=== PATIENT | female | born 1940 | race Caucasian/White ===

== ENCOUNTER 2020-04-14 02:48 | Outpatient (CLI) | payer MEDICARE, SELFPAY ==
[2020-04-14 18:40] LABS: SARS-CoV-2 RNA PCR Negative
== END 2020-04-14 02:49 | disposition home or self-care (01) ==
LOC: ANHCOVIDDT 02:48
PROVIDERS: PCP Internal Medicine; Visit Provider Internal Medicine Gastroenterology
DX: Z01.812 Encounter for preprocedural laboratory examination (principal); Z20.828 Contact with and (suspected) exposure to other viral communicable diseases
CPT/HCPCS: 87635; C9803; U0003

== ENCOUNTER 2020-04-16 00:59 | Day surgery (SDC) | payer MEDICARE, SELFPAY ==
[2020-04-12 08:40] VITALS: BMI 31.0
[2020-04-16 09:05] VITALS: BP 150/71; PULSE 70; RESP 20; TEMP 36.2; O2SAT 98
[2020-04-16] MEDS: LACTATED RINGERS 1,000 ML 150 ML IV CONT (09:21)
[2020-04-16] MEDS: GENTAMICIN 80MG/SOD CHL 50 ML 80 MG/50 ML BAG 100 MG IVPB (09:22)
--- NOTE | 2020-04-16 09:27 | WPDANESEPPF ---
Anes - Initial Pre Proc Eval Procedure: Operation Date: 04/16/20 10:00 Proposed Procedures p Esophagogastroduodenoscopy & Colonoscopy - Erasmo Owens MD Date/Time: 04/16/20 09:27 Surgeon: Erasmo Owens MD Pre Op Diagnosis: Reflux, Change In Bowel Habits Patient Data Age: 79 Gender: F Height: 5 ft 4 in Weight: 82.6 kg Last Vital Signs Temp 97.2 F L 04/16/20 09:05 Pulse 70 04/16/20 09:05 Resp 20 04/16/20 09:05 BP 150/71 H 04/16/20 09:05 Pulse Ox 98 04/16/20 09:05 Allergies Allergy/AdvReac Type Severity Reaction Status Date / Time No Known Allergies Allergy Unverified 04/12/20 08:31 Home Medications Medication Instructions Recorded Confirmed Type albuterol sulfate [ProAir 1 inh INHALATION Q4H PRN 04/12/20 04/12/20 History RespiClick] apixaban [Eliquis] 5 mg PO DAILY 04/12/20 04/12/20 History aspirin [Adult Low Dose Aspirin] 81 mg PO DAILY 04/12/20 04/12/20 History atorvastatin 10 mg PO DAILY 04/12/20 04/12/20 History denosumab [Prolia] 60 mg SUBCUT [id number] 04/12/20 04/12/20 History esomeprazole magnesium 20 mg PO DAILY 04/12/20 04/12/20 History ezetimibe 10 mg PO DAILY 04/12/20 04/12/20 History furosemide 20 mg PO DAILY PRN 04/12/20 04/12/20 History methimazole 5 mg PO EVERY OTHER DAY 04/12/20 04/12/20 History metoprolol tartrate 12.5 mg PO BID 04/12/20 04/12/20 History Patient hx anesthesia problems: none Family hx anesthesia problems: none PMFSH Past Medical History Medical History (Updated 04/16/20 @ 09:27 by Shaan Lu MD) Atrial fibrillation Congestive heart failure (CHF) no echo for review Hyperlipidemia Hypertension BANDAR (obstructive sleep apnea) Pacemaker Family History Family History (Updated 04/08/15 @ 08:34 by DOCTOR UNKNOWN) Other Diabetes mellitus Family history of cardiovascular disease Family history of malignant neoplasm Social History Social History Smoking status: Never smoker Alcohol intake: current Alcohol use details: WINE Substance use: never Substance use type: does not use Living arrangements: alone Spiritual care concerns: No Anes - Eval Final PreProcedure Day of Procedure 04/16/20 09:27 Patient weight: normal Heart: regular rate and rhythm Lungs: clear to auscultation Airway: Mallampati scale class II Neurological: alert and oriented Last oral intake: >/= 8 hours ASA classification: IV Emergent: no Anesthetic plan: proceed Anesthesia type and monitoring: general GIVS and standard monitoring Informed Consent: The patient's anesthetic plan and its attendant risks and benefits were discussed with the patient/family/POA. Questions were solicited and answers provided to the satisfaction of the patient/family/POA.
--- NOTE | 2020-04-16 09:29 | P.HP_ITS ---
History of Present Illness History of Present Illness Consent: Risks, benefits, and alternatives have been discussed and questions answered. Patient agrees to proceed with procedure. Chief complaint: Reflux, Change In Bowel Habits Narrative: Liliya Salinas is a 79 year old female who has had a significant change in bowel habits. She has been very constipated for the past year, this beginning after a couple of rounds of antibiotics. She also has had excessive belching. She has been treated for acid reflux but the belching is new [facility] Past Medical History Medical History (Updated 04/16/20 @ 09:30 by Erasmo Owens MD) Atrial fibrillation Congestive heart failure (CHF) no echo for review Hyperlipidemia Hypertension BANDAR (obstructive sleep apnea) Pacemaker Family History Family History Other Diabetes mellitus Family history of cardiovascular disease Family history of malignant neoplasm Social History Social History Smoking status: Never smoker Alcohol intake: current Alcohol use details: WINE Substance use: never Substance use type: does not use Living arrangements: alone Spiritual care concerns: No Meds Home Medications and Allergies Home Medications Medication Instructions Recorded Confirmed Type albuterol sulfate [ProAir 1 inh INHALATION Q4H PRN 04/12/20 04/12/20 History RespiClick] apixaban [Eliquis] 5 mg PO DAILY 04/12/20 04/12/20 History aspirin [Adult Low Dose Aspirin] 81 mg PO DAILY 04/12/20 04/12/20 History atorvastatin 10 mg PO DAILY 04/12/20 04/12/20 History denosumab [Prolia] 60 mg SUBCUT [id number] 04/12/20 04/12/20 History esomeprazole magnesium 20 mg PO DAILY 04/12/20 04/12/20 History ezetimibe 10 mg PO DAILY 04/12/20 04/12/20 History furosemide 20 mg PO DAILY PRN 04/12/20 04/12/20 History methimazole 5 mg PO EVERY OTHER DAY 04/12/20 04/12/20 History metoprolol tartrate 12.5 mg PO BID 04/12/20 04/12/20 History Allergies Allergy/AdvReac Type Severity Reaction Status Date / Time No Known Allergies Allergy Unverified 04/12/20 08:31 Vital Signs Vital Signs - 24 hr 04/16/20 09:05 Temperature 36.2 C L Pulse Rate 70 Respiratory Rate 20 Blood Pressure 150/71 H Pulse Oximetry 98 Exam Const: General: alert Orientation/consciousness: patient oriented x3 Resp: Auscultation: clear to auscultation bilaterally Cardio: Rhythm: regular rhythm GI: GI Palp: Yes Soft to palpation and No Tenderness to palpation present (GI) Neuro: General: patient oriented x3 Assessment and Plan Assessment and plan (1) GERD (gastroesophageal reflux disease): Code(s): K21.9 - Gastro-esophageal reflux disease without esophagitis Status: Acute Assessment and Plan: EGD with possible biopsy or dilatation or cautery. (2) Change in bowel habits: Code(s): R19.4 - Change in bowel habit Status: Acute Assessment and Plan: Colonoscopy with possible biopsy or polypectomy or cautery or injection of substances.
[2020-04-16] MEDS: BENZOCAINE (*SP) 60 ML SPRAY CAN (HURRICAINE) 1 SPRAY MUCOUS MEM (09:33)
[2020-04-16 10:04] VITALS: BP 89/45; PULSE 69; RESP 18; O2SAT 97
[2020-04-16 10:14] VITALS: BP 90/55; PULSE 69; RESP 15; O2SAT 98
[2020-04-16] MEDS: AMPICILLIN 2 GM/NS 100 ML 2 GM/100 ML BAG IVPB (10:23)
[2020-04-16 10:24] VITALS: BP 108/60; PULSE 69; RESP 17; O2SAT 99
[2020-04-16 10:34] VITALS: BP 111/60; PULSE 70; RESP 15; O2SAT 99
--- NOTE | 2020-04-16 10:39 | SUR.PHASEII ---
patient in Phase II for prolonged time due to antibiotic infusion.
[2020-04-16 10:44] VITALS: BP 129/65; PULSE 70; RESP 12; O2SAT 99
== END 2020-04-16 11:20 | disposition home or self-care (01) ==
PROVIDERS: PCP Internal Medicine; Visit Provider Internal Medicine Gastroenterology
PROC: 0DJ08ZZ Inspection of Upper Intestinal Tract, Via Natural or Artificial Opening Endoscopic (ICD-10-PCS; CPT 43235; principal; 2020-04-16 10:00)
DX: R19.4 Change in bowel habit (principal); D12.4 Benign neoplasm of descending colon; K63.5 Polyp of colon; K57.30 Diverticulosis of large intestine without perforation or abscess without bleeding; K21.9 Gastro-esophageal reflux disease without esophagitis; K44.9 Diaphragmatic hernia without obstruction or gangrene; I48.91 Unspecified atrial fibrillation; E78.5 Hyperlipidemia, unspecified; G47.33 Obstructive sleep apnea (adult) (pediatric); I11.0 Hypertensive heart disease with heart failure; I50.9 Heart failure, unspecified; Z95.0 Presence of cardiac pacemaker; Z79.82 Long term (current) use of aspirin; Z79.01 Long term (current) use of anticoagulants
CPT/HCPCS: 45385; 43235; 88305; J0290; J1580; J2704; J7120

== ENCOUNTER 2021-02-16 01:09 | Day surgery (SDC) | payer MEDICARE, SELFPAY ==
[2021-02-14 14:43] VITALS: BMI 31.0
--- NOTE | 2021-02-16 07:15 | WPDHPUPDATE1 ---
History and Physical Update Update Date/Time: 02/16/21 07:15 History and Physical has been reviewed, including an updated exam of the patient. There are NO changes in the patient's condition. Risks, benefits, and alternatives have been discussed and questions answered. Patient agrees to proceed with procedure.
[2021-02-16 08:19] VITALS: BP 142/48; PULSE 69; RESP 16; TEMP 36.3; O2SAT 98
--- NOTE | 2021-02-16 08:36 | SUR.PREOP ---
pt informed delay in procedure.
[2021-02-16] MEDS: LIDO 1%/EPINEPHRINE 1:100,000 20 ML VIAL 6 ML INFILTRATE (09:56)
[2021-02-16 10:00] VITALS: BP 148/68; PULSE 68; RESP 20; O2SAT 97
[2021-02-16 10:10] VITALS: BP 140/65; PULSE 68; RESP 20; O2SAT 95
[2021-02-16 10:20] VITALS: BP 137/64; PULSE 68; RESP 18; O2SAT 98
[2021-02-16] MEDS: BACITRACIN OINTMENT 15 GM TUBE 1 APPLIC TOPICAL (10:24)
[2021-02-16 10:30] VITALS: BP 154/72; PULSE 68; RESP 18; O2SAT 96
--- NOTE | 2021-02-16 10:46 | PM.OP ---
Procedure Note - Brief Procedure Note - Brief Date of procedure: 02/16/21 Pre-op diagnosis: Rt carpal tunnel syndrome,rt middle trigger finger Post-op diagnosis: same Procedure performed: R OCTR, release R middle trigger finger. Anesthesia: local Surgeon: Reza Alvarez MD Estimated blood loss (mL): 0 Drains: No Packing: No Pathology: none sent Complications: No immediate complications Condition: stable Disposition: same day
[2021-02-16 10:49] VITALS: BP 133/52; PULSE 72; RESP 16; O2SAT 98
--- NOTE | 2021-02-16 11:49 | W.PM.PROC2 ---
Procedure Note - Detailed Date of Procedure 02/16/21 Pre-op Diagnosis Rt carpal tunnel syndrome,rt middle trigger finger Post-op Diagnosis same Procedure Performed right open carpal tunnel release and right middle finger trigger release Surgeon Reza Alvarez MD Anesthesia local Description of Procedure the 2 sites on the patient's right hand were marked and she was taken to the operating room and placed supine on the operating table. Time-out was held and confirmed. The site was marked for the releases. Each site was infiltrated with 1% lidocaine with epinephrine. This extremity had been prepped and draped in usual fashion. The tourniquet was inflated 250 mmHg. The incision was made 1st in the palm. Blunt dissection revealed palmar aponeurosis. This and the transverse carpal ligament were incised with a 15. Blade. Under 3 point retraction the ligament was divided distally and proximally to completely release it. Upon entering that area and large neurovascular bundle was identified lying external to the ligament consistent with a median artery. This was retracted out of the way and preserved. The wound was closed with interrupted 5 0 nylon suture in a small bandage was applied. The tourniquet was released. The patient is discharged from the operating room in stable condition she is discharged home with a prescription for hydrocodone number 8 Estimated Blood Loss 0 Drains No Packing No Pathology none sent Complications No immediate complications Condition stable Disposition same day
== END 2021-02-16 11:08 | disposition home or self-care (01) ==
PROVIDERS: PCP Internal Medicine; Visit Provider Plastic Surgery
PROC: (CPT 64721; principal; 2021-02-16 09:00)
PROC: (CPT 26055; 2021-02-16 09:00)
DX: G56.01 Carpal tunnel syndrome, right upper limb (principal); M65.331 Trigger finger, right middle finger
CPT/HCPCS: 64721; 26055; A9270

== ENCOUNTER 2021-07-06 11:00 | Outpatient (CLI) | payer MEDICARE, SELFPAY | END 2021-07-06 11:01 | disposition home or self-care (01) | LOC: ANHAUDIO 11:02 | PROVIDERS: PCP Internal Medicine; Visit Provider Nurse Practitioner Family | DX: H90.3 Sensorineural hearing loss, bilateral (principal) | CPT/HCPCS: 92557; 92567 ==

== ENCOUNTER 2023-07-04 09:58 | Outpatient (CLI) | payer MEDICARE, SELFPAY ==
--- NOTE | 2023-07-04 11:30 | NEURO_ITS ---
Impression: # Complains of numbness of hands. # Bilateral Carpal Tunnel Syndrome. # Left ulnar neuropathy across the elbow. # Needle/EMG exam not ordered. Nerve Conduction Studies Anti Sensory Summary Table Stim Site NR Peak (ms) P-T Amp (?V) Site1 Site2 Delta-P (ms) Dist (cm) Avinash (m/s) Left Median Anti Sensory (2-3nd Digit) Wrist 4.6 18.9 Wrist 2-3nd Digit 4.6 14.0 30 Wrist 4.3 16.4 Wrist 2-3nd Digit 4.6 14.0 30 Right Median Anti Sensory (2-3nd Digit) Wrist 3.6 22.2 Wrist 2-3nd Digit 3.6 14.0 39 Wrist 3.9 26.9 Wrist 2-3nd Digit 3.6 14.0 39 Left Radial Anti Sensory (Base 1st Digit) Wrist 2.1 20.2 Wrist Base 1st Digit 2.1 0.0 Right Radial Anti Sensory (Base 1st Digit) Wrist 2.5 16.8 Wrist Base 1st Digit 2.5 0.0 Left Ulnar Anti Sensory (5th Digit) Wrist 2.4 18.4 Wrist 5th Digit 2.4 14.0 58 Right Ulnar Anti Sensory (5th Digit) Wrist 2.6 20.9 Wrist 5th Digit 2.6 14.0 54 Motor Summary Table Stim Site NR Onset (ms) O-P Amp (mV) Site1 Site2 Delta-0 (ms) Dist (cm) Avinash (m/s) Left Median Motor (Abd Poll Brev) Wrist 4.0 4.5 Elbow Wrist 5.1 30.0 59 Elbow 9.1 1.5 Right Median Motor (Abd Poll Brev) Wrist 4.5 2.1 Elbow Wrist 4.8 28.0 58 Elbow 9.3 3.7 Left Ulnar Motor (Abd Dig Minimi) Wrist 2.4 5.5 A Elbow Wrist 1.3 0.0 A Elbow 3.7 6.2 Left Ulnar Motor Run #2 (Abd Dig Minimi) Wrist 2.5 6.5 A Elbow Wrist 5.8 29.0 50 A Elbow 8.3 4.4 B Elbow Wrist 3.7 22.0 59 B Elbow 6.2 4.9 Right Ulnar Motor (Abd Dig Minimi) Wrist 2.7 6.2 A Elbow Wrist 4.9 29.0 59 A Elbow 7.6 4.1 F Wave Studies NR F-Lat (ms) L-R F-Lat (ms) Left Median (Mrkrs) (Abd Poll Brev) 29.47 0.06 Right Median (Mrkrs) (Abd Poll Brev) 29.53 0.06 Left Ulnar (Mrkrs) (Abd Dig Min) 29.06 0.00 Right Ulnar (Mrkrs) (Abd Dig Min) 29.06 0.00 MTDD
== END 2023-07-04 09:59 | disposition home or self-care (01) ==
LOC: ANHNEURO 09:59
PROVIDERS: PCP Internal Medicine; Visit Provider Plastic Surgery
DX: G56.03 Carpal tunnel syndrome, bilateral upper limbs (principal); G56.22 Lesion of ulnar nerve, left upper limb; R20.1 Hypoesthesia of skin
CPT/HCPCS: 95911

== ENCOUNTER 2023-08-30 15:07 | Outpatient (CLI) | payer MEDICARE, SELFPAY ==
[2023-08-30 15:28] LABS: Basophils Percent Auto 0.5 % (0.2-1.2); Eosinophils Absolute Auto 0.1 K/mm3 (0-0.3); Eosinophils Percent Auto 1.1 % (0-4.4); Hematocrit 36.9 % (37.0-47.0); Hemoglobin 11.4 g/dL (12.0-15.0); Immature Granulocyte Absolute 0.02 K/mm3 (0.00-0.031); Immature Granulocyte Percent A 0.3 % (0-0.5); Lymphocytes Absolute Auto 1.96 K/mm3 (0.9-3.2); Lymphocytes Percent Auto 29.8 % (18.3-44.2); Mean Corpuscular HGB Conc 30.9 g/dl (32-36); Mean Corpuscular Hemoglobin 28.4 pg (26-34); Mean Corpuscular Volume 91.8 fl (80-100); Mean Platelet Volume 9.1 fl (7.4-10.4); Monocytes Absolute Auto 0.4 K/mm3 (0.1-0.6); Monocytes Percent Auto 6.5 % (2.6-8.5); Neutrophils Absolute Auto 4.1 K/mm3 (1.3-6.7); Neutrophils Percent Auto 61.8 % (45.5-73.1); Platelet Count Result 143 k/mm3 (150-375); Red Blood Count 4.02 M/mm3 (4.2-5.4); Red Cell Distribution Width 14.6 % (11.5-14.5); White Blood Count 6.6 K/mm3 (4.5-10.0)
[2023-08-30 17:24] LABS: Iron 67 ug/dL (37-170)
[2023-08-30 17:31] LABS: Alanine Aminotransferase 11 U/L (6-35); Albumin Level 3.6 g/dL (3.5-5.1); Alkaline Phosphatase 82 U/L (38-126); Anion Gap 4 mmol/L (8-16); Aspartate Amino Transferase 23 U/L (14-36); Bilirubin,Total 0.7 mg/dL (0.2-1.3); Blood Urea Nitrogen 19 mg/dL (7-17); Calcium 9.3 mg/dL (8.4-10.2); Carbon Dioxide 29 mmol/L (22-30); Chloride 105 mmol/L (98-107); Estimated Glomerular Filt Rate > 60; Glucose 96 mg/dL (65-110); Potassium 4.2 mmol/L (3.4-5.0); Sodium 138 mmol/L (137-145)
[2023-08-30 17:40] LABS: Percent Iron Saturation 22 % (20-50)
[2023-08-30 18:32] LABS: Folic Acid 6.1 ng/mL (2.76->20)
[2023-09-03 03:12] LABS: Methylmalonic Acid 339 nmol/L (87-318)
[2023-09-05 15:37] LABS: Soluble Transferrin Receptor 1.54 mg/L (0.76-1.76)
[2023-09-05 19:33] LABS: Platelet Antibody, Direct NEGATIVE (NEGATIVE)
== END 2023-08-30 15:08 | disposition home or self-care (01) ==
LOC: ANHLAB 15:10
PROVIDERS: Nurse Practitioner Family; PCP Internal Medicine; Visit Provider Internal Medicine Hematology & Oncology
DX: D64.9 Anemia, unspecified (principal); D69.6 Thrombocytopenia, unspecified
CPT/HCPCS: 36415; 80053; 82607; 82728; 82746; 83540; 83550; 83921; 84238; 85025; 86023

== ENCOUNTER 2023-09-13 08:34 | Outpatient (CLI) | payer MEDICARE, SELFPAY ==
--- NOTE | ~2023-09-13 | US_ITS ---
Abdominal Sonogram: Real-time sonographic imaging of the abdomen was performed. Clinical History: Chronic anemia Findings: The liver appears normal with no evidence of mass lesion or bile duct dilatation. Main por isrrael vein demonstrates normal direction of flow. The spleen is normal in size without evidence of foca l lesion. The gallbladder is absent, compatible prior cholecystic and. The common bile duct measures 6 mm. The visualized pancreas, aorta, and IVC are unremarkable. The right kidney measures 9.5 cm i n length and the left kidney measures 10.1 cm. There is no hydronephrosis or renal calculus. Impression: Status post cholecystectomy, otherwise unremarkable exam. Reviewed, dictated and finalized at location . [employer] IN[employer] Impression: Status post cholecystectomy, otherwise unremarkable exam.
== END 2023-09-13 08:35 | disposition home or self-care (01) ==
LOC: ANHIMG 08:36
PROVIDERS: PCP Internal Medicine; Visit Provider Internal Medicine Hematology & Oncology
DX: D64.9 Anemia, unspecified (principal); Z90.49 Acquired absence of other specified parts of digestive tract
CPT/HCPCS: 76700

== ENCOUNTER 2023-12-11 08:14 | Outpatient (CLI) | payer MEDICARE, SELFPAY ==
[2023-12-11 08:33] LABS: Basophils Percent Auto 0.6 % (0.2-1.2); Eosinophils Absolute Auto 0.1 K/mm3 (0-0.3); Eosinophils Percent Auto 2.2 % (0-4.4); Hematocrit 36.4 % (37.0-47.0); Hemoglobin 11.5 g/dL (12.0-15.0); Immature Granulocyte Absolute 0.02 K/mm3 (0.00-0.031); Immature Granulocyte Percent A 0.3 % (0-0.5); Lymphocytes Absolute Auto 1.42 K/mm3 (0.9-3.2); Lymphocytes Percent Auto 22.1 % (18.3-44.2); Mean Corpuscular HGB Conc 31.6 g/dl (32-36); Mean Corpuscular Hemoglobin 29.4 pg (26-34); Mean Corpuscular Volume 93.1 fl (80-100); Monocytes Absolute Auto 0.6 K/mm3 (0.1-0.6); Monocytes Percent Auto 8.6 % (2.6-8.5); Neutrophils Absolute Auto 4.3 K/mm3 (1.3-6.7); Neutrophils Percent Auto 66.2 % (45.5-73.1); Platelet Count Result 130 k/mm3 (150-375); Red Blood Count 3.91 M/mm3 (4.2-5.4); Red Cell Distribution Width 13.2 % (11.5-14.5); White Blood Count 6.4 K/mm3 (4.5-10.0)
[2023-12-11 09:51] LABS: Anion Gap 5 mmol/L (4-12); Blood Urea Nitrogen 25 mg/dL (7-17); Calcium 9.3 mg/dL (8.4-10.2); Carbon Dioxide 28 mmol/L (22-30); Chloride 108 mmol/L (98-107); Estimated Glomerular Filt Rate > 60; Glucose 94 mg/dL (65-110); Sodium 141 mmol/L (137-145)
[2023-12-11 10:56] LABS: Folic Acid 6.3 ng/mL (2.76->20)
== END 2023-12-11 08:15 | disposition home or self-care (01) ==
LOC: ANHLAB 08:17
PROVIDERS: Nurse Practitioner Family; PCP Internal Medicine; Visit Provider Internal Medicine Hematology & Oncology
DX: D64.9 Anemia, unspecified (principal)
CPT/HCPCS: 36415; 80048; 82607; 82746; 85025

== ENCOUNTER 2024-04-14 11:32 | Outpatient (CLI) | payer MEDICARE, SELFPAY ==
[2024-04-14 11:50] LABS: Basophils Percent Auto 0.5 % (0.2-1.2); Eosinophils Absolute Auto 0.1 K/mm3 (0-0.3); Eosinophils Percent Auto 0.6 % (0-4.4); Hematocrit 34.4 % (37.0-47.0); Hemoglobin 10.6 g/dL (12.0-15.0); Immature Granulocyte Absolute 0.03 K/mm3 (0.00-0.031); Immature Granulocyte Percent A 0.3 % (0-0.5); Lymphocytes Absolute Auto 1.45 K/mm3 (0.9-3.2); Lymphocytes Percent Auto 16.3 % (18.3-44.2); Mean Corpuscular HGB Conc 30.8 g/dl (32-36); Mean Corpuscular Hemoglobin 29.9 pg (26-34); Mean Corpuscular Volume 96.9 fl (80-100); Mean Platelet Volume 9.2 fl (7.4-10.4); Monocytes Absolute Auto 0.9 K/mm3 (0.1-0.6); Monocytes Percent Auto 9.6 % (2.6-8.5); Neutrophils Absolute Auto 6.5 K/mm3 (1.3-6.7); Neutrophils Percent Auto 72.7 % (45.5-73.1); Platelet Count Result 118 k/mm3 (150-375); Red Blood Count 3.55 M/mm3 (4.2-5.4); Red Cell Distribution Width 12.8 % (11.5-14.5); White Blood Count 8.9 K/mm3 (4.5-10.0)
[2024-04-14 13:35] LABS: Iron 26 ug/dL (37-170)
[2024-04-14 13:40] LABS: Anion Gap 4 mmol/L (4-12); Blood Urea Nitrogen 20 mg/dL (7-17); Calcium 8.7 mg/dL (8.4-10.2); Carbon Dioxide 30 mmol/L (22-30); Chloride 99 mmol/L (98-107); Estimated Glomerular Filt Rate > 60; Glucose 109 mg/dL (65-110); Potassium 3.9 mmol/L (3.4-5.0); Sodium 133 mmol/L (137-145)
[2024-04-14 13:47] LABS: Percent Iron Saturation 9 % (20-50)
[2024-04-14 14:44] LABS: Folic Acid 11.6 ng/mL (2.76->20)
== END 2024-04-14 11:33 | disposition home or self-care (01) ==
LOC: ANHLAB 11:34
PROVIDERS: Nurse Practitioner Family; PCP Internal Medicine; Visit Provider Internal Medicine Hematology & Oncology
DX: D64.9 Anemia, unspecified (principal)
CPT/HCPCS: 36415; 80048; 82607; 82728; 82746; 83540; 83550; 85025

== ENCOUNTER 2024-09-19 19:25 | Inpatient (IN) | payer MEDICARE, SELFPAY ==
--- NOTE | ~2024-09-19 | XR_ITS ---
XR chest 1V Ordering provider: Willard lEena History: 84 years Female with . SOB, cough . Comparison: None. FINDINGS: MEDIASTINUM: The cardiac silhouette is slightly enlarged. Left bipolar pacemaker. Postoperative kilpatrick es seen in the mediastinum. Prominent alfredo. LUNGS: No effusions or pneumothorax. Bilateral interstitial thickening is seen more prominent in the right lower lobe which may indicate pneumonitis. Clinical correlation and follow-up advised. Mild emphysematous and fibrotic changes. OTHER: No free air under the diaphragm. IMPRESSION: Highly suggestive of pneumonitis more prominent in the right lower lobe. Reviewed, dictated and finalized at location A. L OPPORTUNITY COUNSELOR
--- NOTE | ~2024-09-19 | CT_ITS ---
EXAMINATION: CTA chest PE protocol DATE: 09/20/2024 01:21 INDICATION: Shortness of breath. Elevated d-dimer. TECHNIQUE: Computed tomography (CT) pulmonary angiogram of the chest was performed with 100 mL Omnipa que-350 intravenous contrast. Additional 3D reconstructions utilizing coronal maximum intensity proje ction (MIP) were performed. Automated exposure control and iterative reconstruction technique were em ployed. The dose-length product was 346.36 mGy-cm. COMPARISON: None FINDINGS: No pulmonary embolism. Sensitivity decreased in some of the smaller subsegmental pulmonary arteries p rimarily at the upper lung zones due to combination of good but suboptimal contrast opacification, mi ld to moderate respiratory motion artifact and streak artifact. Consolidation in the bilateral lower lobes with smaller patchy regions of consolidation in the right upper lobe and lingula. Extensive jared e-in-bud opacities more diffusely lobes of both lungs consistent with endobronchial spread of disease and pneumonia. Tiny bilateral pleural effusions. Mild cardiomegaly. Atherosclerotic coronary artery calcification. Median sternotomy wires changes of prior coronary artery bypass grafting and aortic, m itral and tricuspid valve repairs. Dual lead pacemaker seen with lead tips at the right atrium and ri ght apex of the ventricle. No pericardial effusion. Thoracic aorta is normal in caliber with no disse ction. There is enlargement of the central pulmonary arteries consistent with pulmonary arterial hype rtension. Multinodular goiter. There is thoracic lymphadenopathy which likely reactive. 3.6 cm macros copic fat containing right adrenal mass consistent with a myelolipoma. Moderate thoracic spondylosis with bridging osteophytes at multiple levels consistent with diffuse idiopathic skeletal hyperostosis (DISH). IMPRESSION: 1. No pulmonary embolism. Sensitivity decreased in the smaller subsegmental pulmonary arteries due to primarily to respiratory motion and streak artifact. 2. Multifocal pneumonia throughout both lungs 3. Cardiomegaly with left atrial enlargement and change of prior coronary artery bypass grafting and aortic, mitral and tricuspid valve repairs. 4. Enlargement of the central pulmonary arteries consistent with pulmonary arterial hypertension. 5. Multinodular goiter. 6. 3.6 cm right adrenal myelolipoma. Reviewed, dictated and finalized at location A. RNET [employer]ER[employer] SPECIALIST IMPRESSION: 1. No pulmonary embolism. Sensitivity decreased in the smaller subsegmental pul monary arteries due to primarily to respiratory motion and streak artifact. 2. Multifocal pneumonia throughout both lungs 3. Cardiomegaly with left atrial enlargement and change of prior coronary arter y bypass grafting and aortic, mitral and tricuspid valve repairs. 4. Enlargement of the central pulmonary arteries consistent with pulmonary travis rial hypertension. 5. Multinodular goiter. 6. 3.6 cm right adrenal myelolipoma.
--- OUTSIDE RECORDS SUMMARY | 2024-09-19 19:28 | XMS_ITS | Continuity of Care Document ---
Author Organization [facility] Address [address] [place] [address] [place] [address] Phone Care Team Providers Care Nutrition Helper Name Role Phone Davis OD, Myke Unavailable Unavailable Procedures Procedure Date Office/outpatient Visit, Est Office/outpatient Visit, Est Office/outpatient Visit, New Advance Directives Directive Yes / No Effective Date File Name No Information Encounters Encounter Description Practice Location Reason(s) For Visit Diagnoses Date Provider Providers Copied on Encounter Office/[place]pat [place], [facility] [address] [place] [address] [address], [place], [place], [id number], tel:[phone] [facility] No Information Feb-1 0-200 7 Davis OD Myke. [address] , [address], [place], [place], [facility], [place]. tel:[phone] Office/outpat [place], [facility] [address] [place] [address] [address], [place], [place], [id number], [place] tel:[phone] [facility] No Information Aug-0 4-200 7 Davis OD Myke. [address] , [address], [place], [place], [facility], [place]. tel:[phone] Referring Provider: Myke Titus, [facility], [place], [place], [facility]. tel:[phone] Office/outpat ient Visit, [facility], [address] [place] [address] [address], [place], [place], [id number], [place] tel:[phone] [facility] No Information 200 7 Lana Pedraza. [address] , [address], [place], [address], [place]. tel:[phone] Family History Family Member Type Diagnosis Age At Onset No Information Payers Payer name Insurance type Covered alliance party ID Authoriza tion(s) Medicare PR CI [id number] BCBS PR Commercial CI [id number] Social History Type Description Quantity Date Captured Comments Sex Female Smoking Status No Information Chief Complaint And Reason For Visit No Information Reason For Referral Reason For Referral No Information History Of Present Illness Encounter Date Complaint History Of Prese nt Illness No Information Functional Status Date Functional Assessmen t No Information Instructions Date Instruction Additional Infor mation No Information Assessments Type Assessment Date No Information Patient Care Teams Name Effective Dates (start - stop) Status Members No Information
--- OUTSIDE RECORDS SUMMARY | 2024-09-19 19:28 | XMS_ITS | Continuity of Care Document ---
Author Organization [facility] Address [address] [place] [address] Phone Care Team Providers Care Production Tech Name Role Phone Robert Rene Unavailable Unavailable Procedures Procedure Date Progress Note Therapeutic Activities Neuromuscular Re-Ed Therapeutic Activities Neuromuscular Re-Ed Therapeutic Activities Neuromuscular Re-Ed Therapeutic Activities Neuromuscular Re-Ed Therapeutic Activities Neuromuscular Re-Ed Therapeutic Activities Neuromuscular Re-Ed Therapeutic Activities Neuromuscular Re-Ed Doc neg elder mal no plan PRES/ABSN URINE INCON ASSESS Identified as not an unhealthy alcohol u ser Not identified as unhealthy alcohol via screening OT Evaluation Low Complexity Therapeutic Activities Neuromuscular Re-Ed Advance Directives Directive Yes / No Effective Date File Name No Information Encounters Encounter Description Practice Location Reason(s) For Visit Diagnoses Date Provider Providers Copied on Encounter [facility], [place], [place], [id number], tel:[phone] [place] No Information Mina Jones. . [facility], [place], [place], [id number], tel:[phone] [place] No Information Scott-1 2-202 4 Enriquez Robert. . Referring Provider: iKrstie Fish, [address] [place] [address] [address], [place], [address]. tel:[phone] [place], [place] [address], [place], [place], [id number], tel:[phone] [place] No Information Scott-1 0-202 4 Enriquez Robert. . Referring Provider: Kirstie Fish, [address] [place] [address] [address], [place], [address]. tel:[phone] [place] [address] [address], [place], [place], [id number], [place] tel:[phone] [place] No Information Scott-0 5-202 4 Enriquez Robert. . Referring Provider: Kirstie Fish, [address] [place] [address] [address], [place], [address]. tel:[phone] [place] [address] [place], [place] [address], [place], [place], [id number], [place] tel:[phone] [place] [address] No Information Scott-0 3-202 4 Enriquez Robert. . Referring Provider: Kirstie Fish, [address] [place] [address] [address], [place], [address]. tel:[phone] [place], [place] [address], [place], [place], [address], [place] tel:[phone] [place] No Information May-3 1-202 4 Enriquez Robert. . Referring Provider: Kirstie Fish, [address] [place] [address] [address], [place], [address]. tel:[phone] [address], [place], [place], [id number], [place] tel:[phone] [place] No Information May-2 9-202 4 Enriquez Robert. . Referring Provider: Kirstie Fish, [address] [place] [address] [address], [place], [address]. tel:[phone] [place] [address] [address], [place], [place], [address], tel:[phone] [place] No Information 4 Mina Jones. . Referring Provider: Kirstie Fish, [address], [place], [address]. tel:[phone] [facility] [address], [place], [place], [address], tel:[phone] [place] No Information 4 Mina Jones. . Referring Provider: Kirstie Fish, [address], [place], [address]. tel:[phone] Family History Family Member Type Diagnosis Age At Onset No Information Payers Payer name Insurance type Covered green party ID Authoriza tion(s) Medicare [place] MB [id number] [facility] [id number] Social History Type Description Quantity Date Captured [...]
--- OUTSIDE RECORDS SUMMARY | 2024-09-19 19:28 | XMS_ITS | Referral Summary ---
Author Organization [facility] Address [address] [place] [address] Care Team Providers Care Marketing Program Coordinator Name Role Phone Lawrence Thomas MD Unavailable [phone] Michael Abrams MD Primary Care Provider [phone] Source Comments [facility],non-owned Affiliates and Associated Physician Practices is amultiple site organization consisting of ambulatory clinics and hospital sitesin [place], [place], [place] and [place]. This disclosure is being madepursuant to the Care Everywhere program and may not contain all information available regarding this patient. Last updated 18.[facility] Allergies No known active allergies Medications * Be aware that medications may not be up to date on this document. Alwaysverify current medications with the patient. Medication Sig Dispensed Refills Start Date End Date Status fluticasone-vilanter ol (Breo Ellipta) 100-25 MCG/ACT inhaler Inhale 1 puff every day by inhalation route for 90 days. Active vitamin D3 (Cholecalciferol) 25 MCG (1000 UNITS) tablet TAKE 1 CAPSULE DAILY IN THE MORNING Active gabapentin (Neurontin) 600 MG tablet Take 1 tablet 3 times a day by oral route for 90 days. Active Ergocalciferol (Vitamin D2) 10 MCG (400 UNIT) Take 1 capsule every week by oral route for 90 days. Active Eliquis 5 MG tablet Take 1 tablet every day by oral route for 90 days. 12/18/2023 Active aspirin EC (Ecotrin) 81 MG tablet Take 1 (one) tablet by mouth once daily Active atorvastatin (Lipitor) 10 MG tablet Take 1 (one) tablet by mouth once daily Active furosemide (Lasix) 20 MG tablet Take 1 (one) tablet by mouth once daily Active lisinopril (Prinivil; Zestril) 10 MG tablet 10/31/2022 Active metoprolol tartrate IR (Lopressor) 25 MG tablet Take 1 tablet twice a day by oral route. Active Active Problems Problem Noted Date Diagnosed Date Abdominal gas pain 04/02/2024 Amnesia 04/02/2024 Hip pain 04/02/2024 Atrial fibrillation 04/02/2024 Blood in urine 04/02/2024 Congestive heart failure 04/02/2024 Biliary dyskinesia 04/02/2024 Gastroesophageal reflux disease 04/02/2024 Hyperlipidemia 04/02/2024 Goiter 04/02/2024 Low back pain 04/02/2024 Neuropathy 04/02/2024 Osteoporosis 04/02/2024 Benign essential hypertension 04/02/2024 Shoulder pain 04/02/2024 Vitamin D deficiency 04/02/2024 Anemia 01/29/2024 Skin lesion 01/29/2024 Polyneuropathy 10/04/2023 Thrombocytopenic disorder 08/22/2023 Pain in joint of left shoulder 03/15/2023 Pain in joint of right shoulder 02/15/2023 Symptoms involving urinary system 09/04/2022 Otalgia of right ear 07/26/2022 Ingrowing toenail 05/30/2022 Contact with and (suspected) exposure to other viral communicable diseases 04/28/2022 Skin eruption 04/11/2022 Dystrophia unguium 02/23/2022 Pain in toe 02/23/2022 COVID-19 01/20/2022 Prediabetes 09/07/2021 Hx of tricuspid valve repair 05/02/2021 Other specified postprocedural states 05/02/2021 Encounter for preprocedural cardiovascular exami nation 11/26/2020 Osteopenia 10/11/2020 Overactive bladder 10/11/2020 Chronic diastolic (congestive) heart failure Chronic obstructive pulmonary disease 03/05/2020 Chronic obstructive pulmonary disease 02/06/2020 Leg numbness 05/05/2019 Peroneal tendinitis 12/17/2018 Ankle pain 12/10/2018 Heart disease 12/10/2018 Heartburn 12/10/2018 Iron deficiency anemia 11/19/2018 Shortness of breath 05/07/2018 Epistaxis 05/03/2018 Hyperglycemia 03/05/2018 Arteriosclerosis of coronary artery 10/17/2017 Overview (04/02/2024): mild caroti plaquer Restrictive lung disease 10/17/2017 Aortic stenosis 06/21/2016 Sleep apnea 11/19/2015 Hyperthyroidism 03/24/2015 Dizziness 01/15/2015 Primary hypertension 01/15/2015 Mitral regurgitation 12/25/2014 Edema 08/18/2013 longterm (current) use of anticoagulants 2013 Dyslipidemia 07/23/1959 Resolved Problems Problem Noted Date Diagnosed Date Resolved Date Pneumonia 04/02/2024 04/30/2024 Acute upper respiratory infection 07/23/2023 04/16/2024 Constipation 09/04/2022 04/30/2024 Acute urinary tract infection 08/01/2022 04/16/2024 Cough 01/19/2022 04/30/2024 Social History Tobacco Use Types Packs/Day Years Used Date Smoking Tobacco: Never Assessed Sex and Gender Information Value Date Recorded Sex Assigned at Not on file Gender Identity Not on file Sexual Orientation Not on file Plan of Treatment Not on file Care Teams Marketing Program Coordinator Relationship Specialty Start Date End Date Michael Abrams MD [address] [facility] [address] [place] [address] PCP - General Internal Medicine 04/02/24 Lawrence Thomas MD [address] [place] [id number] Dermatology 03/10/24
--- OUTSIDE RECORDS SUMMARY | 2024-09-19 19:28 | XMS_ITS | Patient Health Summary ---
Author Organization [facility] Address [address] [place] [address] Care Team Providers Care Electric Spot Welder Name Role Phone Lawrence Thomas MD Unavailable [phone] Michael Abrams MD Primary Care Provider Note from Formerly named [facility],non-owned Affiliates and Associated Physician Practices is amultiple site organization consisting of ambulatory clinics and hospital sitesin [place], [place], [place] and [place]. This disclosure is being madepursuant to the Care Everywhere program and may not contain all information available regarding this patient. Last updated 18.[facility] Allergies No known active allergies Medications * Be aware that medications may not be up to date on this document. Alwaysverify current medications with the patient. * fluticasone-vilanterol (Breo Ellipta) 100-25 MCG/ACT inhaler Inhale 1 puff every day by inhalation route for 90 days. * vitamin D3 (Cholecalciferol) 25 MCG (1000 UNITS) tablet TAKE 1 CAPSULE DAILY IN THE MORNING * gabapentin (Neurontin) 600 MG tablet Take 1 tablet 3 times a day by oral route for 90 days. * Ergocalciferol (Vitamin D2) 10 MCG (400 UNIT) Take 1 capsule every week by oral route for 90 days. * Eliquis 5 MG tablet(Started 12/18/2023) Take 1 tablet every day by oral route for 90 days. * aspirin EC (Ecotrin) 81 MG tablet Take 1 (one) tablet by mouth once daily * atorvastatin (Lipitor) 10 MG tablet Take 1 (one) tablet by mouth once daily * furosemide (Lasix) 20 MG tablet Take 1 (one) tablet by mouth once daily * lisinopril (Prinivil; Zestril) 10 MG tablet(Started 10/31/2022) * metoprolol tartrate IR (Lopressor) 25 MG tablet Take 1 tablet twice a day by oral route. 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 * [facility] CHMSRG MOHS MG TQ H/N/H/F/G 1ST STAG 5 BLOC(Performed 04/02/2024) 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 * NH INTMD WND REPAIR FACE,FACIAL 2.5-5(Performed 04/02/2024) Performed for Squamous cell carcinoma of forehead * NH CHMSRG MOHS MG TQ H/N/H/F/G 1ST STAG 5 BLOC(Performed 04/02/2024) Performed for Squamous cell carcinoma of forehead * DERMATOPATHOLOGY(Performed 03/04/2024) * DERMATOPATHOLOGY(Performed 09/25/2017) Results * NH CHMSRG MOHS MG TQ H/N/H/F/G 1ST STAG 5 BLOC, NH INTMD WND REPAIR FACE,FACIAL 2.5-5 (04/02/2024 1:56 PM CDT) Narrative Josie Mcgregor MD - 04/02/2024 1:56 PM CDT Josie Mcgregor MD 04/02/2024 5:49 PM Mohs Micrographic Surgery Operative Note Procedure: Mohs micrographic surgery Date of service: 04/02/2024 Location: L lateral forehead 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 No other physician was involved in the cancer removal or pathology interpretation. Assistants: Resident Physician Dandre Flores MD Indications for Mohs Surgery Removal of the patient's tumor is complicated by the following clinical features: Clinical area critical for tissue conservation (Area M: cheeks, forehead, scalp, neck, jawline, pretibial surface). Based on my medical judgement, Mohs surgery is the most appropriate treatment for this cancer compared to other treatments. I discussed alternative treatments to Mohs surgery and specifically discussed the risks and benefits of curettage, excision with permanent sections, and foregoing treatment. The rationale for Mohs was explained to the patient and consent was obtained. The risks, benefits and alternatives to therapy were discussed in detail. Specifically, the risks of infection, scarring, bleeding, prolonged wound healing, incomplete removal, allergy to anesthesia, nerve injury and recurrence were addressed. Prior to the procedure, the treatment site was clearly identified and confirmed by the patient. All components of [place] Protocol/PAUSE Rule completed. STAGE I: The patient was placed on the operating table. The cancer was identified and outlined. The entire surgical field was prepped with hibiclens. The surgical site was anesthetized using Lidocaine 1% with epinephrine 1:100,000 buffered with sodium bicarbonate 8.4% in a 1:10 ratio.The area of clinically apparent tumor was debulked with a 4 mm curette. The layer of tissue was then surgically excised using a #15 blade and was then transferred onto a specimen sheet maintaining the orientation of the specimen. Hemostasis was obtained using monopolar electrodesiccation. The wound site was then covered with a dressing while the tissue samples were processed for examination. The specimen was oriented, mapped and divided. Each section was then inked and processed in the Mohs lab using the Mohs protocol and submitted for frozen section. The histopathologic sections were reviewed by the surgeon in conjunction with the reference map. Total blocks: 1 Total slides: 3 Frozen sections were examined by the surgeon. No additional tumor was identified. No additional histologic findings appreciated. Cell morphology: N/A. No tumor seen at the margin. Pathological pattern: N/A. No tumor seen. Depth of invasion: N/A. No tumor seen. Scar tissue: Present Perineural invasion: Present Inflammation obscuring possible tumor presence: Not Present [place] [facility] CLIA # [id number] Mohs confectionery laboratory manager: Josie Mcgregor MD REPAIR: Intermediate Primary Surgeon: Josie Mcgregor MD Transitional Kindergarten Teacher: Resident Physician Dandre Flores MD Repair Size: 4 cm Sutures: 4-0 monocryl, 5-0 fast absorbing gut The defect was identified and a marking pen was used to plan the repair. The area was infiltrated with Lidocaine 1% with epinephrine 1:100,000 buffered with sodium bicarbonate 8.4% in a 1:10 ratio, prepped with hibiclens and draped with sterile towels. The wound was debeveled and undermined widely. Cones were excised within relaxed skin tension lines on both sides of the defect. Hemostasis was obtained using monopolar electrodesiccation. The dermis and subcutaneous tissue were then approximated using buried vertical mattress sutures. Percutaneous simple running sutures were carefully placed for maximum eversion and meticulous wound edge approximation. Careful attention was paid to avoid distorting any nearby free margins. The wound was cleansed with saline and ointment was applied along the wound surface. A sterile pressure dressing was applied. Wound care instructions were given verbally and in writing. The patient left the operating suite in stable condition. Patient was informed that additional refinement of the resulting surgical scar may be used as a second stage of this reconstruction. No postoperative medications were prescribed. The patient will follow up with their primary commissioner of conciliation. Dandre Flores MD Dermatology Resident PGY-3 A procedure was performed. I present for the pritchard portion of the procedure and was always immediately available. Date of Service : 04/02/2024 Josie Mcgregor MD Josie Mcgregor MD PROCEDURE/MINOR SURG ICAL ORDERABLES * [facility] CHMSRG MOHS MG TQ H/N/H/F/G 1ST STAG 5 BLOC, NH INTMD WND REPAIR FACE,FACIAL 2.5-5 (04/02/2024 1:55 PM CDT) Narrative Josie Mcgregor MD - 04/02/2024 1:55 PM CDT Josie Mcgregor MD 04/02/2024 5:50 PM Mohs Micrographic Surgery Operative Note Procedure: Mohs micrographic surgery Date of service: 04/02/2024 Location: R forehead Preop diagnosis: Squamous cell carcinoma Postop diagnosis: Squamous cell carcinoma Mohs AUC score: 8 Number of stages: 2 Preop size: 1.0x1.0 cm Postop size: 1.8x1.8 cm Depth of final defect: adipose Previous dermpath accession #: [id number] Repair type: intermediate Mohs accession #: [id number] Surgeon and Pathologist: Josie Mcgregor MD served as both surgeon and pathologist. No other physician was involved in the cancer removal or pathology interpretation. Assistants: Resident Physician Dandre Flores MD Indications for Mohs Surgery Removal of the patient's tumor is complicated by the following clinical features: Clinical area critical for tissue conservation (Area M: cheeks, forehead, scalp, neck, jawline, pretibial surface). Based on my medical judgement, Mohs surgery is the most appropriate treatment for this cancer compared to other treatments. I discussed alternative treatments to Mohs surgery and specifically discussed the risks and benefits of curettage, excision with permanent sections, and foregoing treatment. The rationale for Mohs was explained to the patient and consent was obtained. The risks, benefits and alternatives to therapy were discussed in detail. Specifically, the risks of infection, scarring, bleeding, prolonged wound healing, incomplete removal, allergy to anesthesia, nerve injury and recurrence were addressed. Prior to the procedure, the treatment site was clearly identified and confirmed by the patient. All components of [place] Protocol/PAUSE Rule completed. STAGE I: The patient was placed on the operating table. The cancer was identified and outlined. The entire surgical field was prepped with hibiclens. The surgical site was anesthetized using Lidocaine 1% with epinephrine 1:100,000 buffered with sodium bicarbonate 8.4% in a 1:10 ratio.The area of clinically apparent tumor was debulked with a 4 mm curette. The layer of tissue was then surgically excised using a #15 blade and was then transferred onto a specimen sheet maintaining the orientation of the specimen. Hemostasis was obtained using monopolar electrodesiccation. The wound site was then covered with a dressing while the tissue samples were processed for examination. The specimen was oriented, mapped and divided. Each section was then inked and processed in the Mohs lab using the Mohs protocol and submitted for frozen section. The histopathologic sections were reviewed by the surgeon in conjunction with the reference map. Total blocks: 1 Total slides: 3 Frozen sections were examined by the surgeon and revealed residual tumor. Tumor was indicated in red on the reference map. Cell morphology: tumor nodules of atypical squamous cells in the epidermis and dermis with abundant keratinization (well differentiated SCC) Pathological pattern: Squamous cell carcinoma, well differentiated Depth of invasion: Dermis Scar tissue: Not Present Perineural invasion: Not Present Inflammation obscuring possible tumor presence: Not Present STAGE II: The patient was prepped in the same fashion as the first stage. Using a similar technique to that described above, a thin layer of tissue was removed from all areas where tumor was visible on the previous stage. The tissue was again oriented, mapped, dyed, and processed as above. Histopathologic sections were reviewed in conjunction with the reference map. Total blocks: 1 Total slides: 2 Frozen sections were examined by the surgeon and revealed: No additional tumor. Histology: No malignant cells seen in the sections examined. No additional histologic findings appreciated. [facility] CLIA # [id number] Mohs Stave Grader: Josie Mcgregor MD REPAIR: Intermediate Primary Surgeon: Josie Mcgregor MD Transitional Kindergarten Teacher: Resident Physician Dandre Flores MD Repair Size: 5 cm Sutures: 4-0 monocryl, 5-0 fast absorbing gut The defect was identified and a marking pen was used to plan the repair. The area was infiltrated with Lidocaine 1% with epinephrine 1:100,000 buffered with sodium bicarbonate 8.4% in a 1:10 ratio, prepped with hibiclens and draped with sterile towels. The wound was debeveled and undermined widely. Cones were excised within relaxed skin tension lines on both sides of the defect. Hemostasis was obtained using monopolar electrodesiccation. The dermis and subcutaneous tissue were then approximated using buried vertical mattress sutures. Percutaneous simple running sutures were carefully placed for maximum eversion and meticulous wound edge approximation. Careful attention was paid to avoid distorting any nearby free margins. The wound was cleansed with saline and ointment was applied along the wound surface. A sterile pressure dressing was applied. Wound care instructions were given verbally and in writing. The patient left the operating suite in stable condition. Patient was informed that additional refinement of the resulting surgical scar may be used as a second stage of this reconstruction. No postoperative medications were prescribed. The patient will follow up with their primary commissioner of conciliation. Dandre Flores MD Dermatology Resident PGY-3 A procedure was performed. I present for the entire portion of the procedure and was always immediately available. Date of Service : 04/02/2024 Josie Mcgregor MD Josie Mcgregor MD PROCEDURE/MINOR SURG ICAL ORDERABLES * DERMATOPATHOLOGY (03/04/2024 12:00 AM CDT) Only the most recent of2 resultswithin the time period is included. Case Report Dermatopathology Report Case: [id number] Authorizing Provider: Lawrence Thomas MD Collected: 03/04/2024 12:00 AM Ordering Location: [facility] - Received: 03/06/2024 09:53 AM DermPath Lab Pathologist: Kamaljit Garber MD Specimens: A) - Skin, right forehead B) - Skin, left lateral forehead 1:26 PM CDT DERMATOPATHOLOGY LABORATORY Final Diagnosis Specimen A. 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 The specimen consists of a shave biopsy measuring 7x7x1 mm. Jar 0. Specimen B: Received is one formalin filled container labeled with the patient's name and designated left lateral forehead. The specimen consists of a shave biopsy measuring 10x7x1 mm. Jar 0. 1:26 PM CDT DERMATOPATHOLOGY LABORATORY Microscopic Description Specimen A. SKIN, right forehead: Sections reveal parakeratosis, acanthosis and keratinocyte dysmaturation which is most prominent in the lower epidermis. Focal nests are present in the dermis. Specimen B. SKIN, left lateral forehead: The epidermis shows parakeratosis, full thickness disorderly maturation of keratinocytes, mitoses at different levels, and dyskeratotic cells. 1:26 PM CDT DERMATOPATHOLOGY LABORATORY Disclaimer An external and internal positive and negative controls are appropriate for the histochemical, immunohistochemical and immunofluorescence stain(s) in this case (if any), except where stated explicitly. The performance characteristics of the stain(s) cited in this report were developed and its performance characteristic determined by the Dermatopathology Laboratory at [facility], directed by Dr. Mayo Garber. These tests need not be, and therefore are not, approved by the [place] Food and Drug Administration. The tests are used for clinical purposes. Billing Codes Specimen Charges Stain Charges 92914 [id number] 1 1 4 1:26 PM CDT DERMATOPATHOLOGY LABORATORY Embedded Images 1:26 PM CDT DERMATOPATHOLOGY LABORATORY Pathology/Cytology TISSUE SPECIMEN FROM SKIN / Unknown 03/04/2024 03/06/2024 9:53 AM CDT Miscellaneous samples (specimen) TISSUE SPECIMEN FROM SKIN / Unknown 03/04/2024 03/06/2024 9:53 AM CDT Lawrence Thomas MD LAB - PATHOLOGY/CYTO LOGY ORDERABLES Performing Organization Address City/State/[facility] Co de Phone Number DERMATOPATHOLOGY LABORATORY [facility] - Department of Dermatology [facility] [address] [place] [address], [address] [phone] Care Teams Electric Spot Welder Relationship Specialty Start Date End Date Michael Abrams MD [address] [facility] [address] [place] [address] PCP - General Internal Medicine 04/02/24 Lawrence Thomas MD [address] [facility] [place] [address] Dermatology 03/10/24
--- OUTSIDE RECORDS SUMMARY | 2024-09-19 19:28 | XMS_ITS | Data Portability ---
Author Organization [place] [facility] [place] [employer], Main Office Address [address] [place] [address] Care Team Providers Care Roller Inspector And Mender Name Role Phone LANA ABRAMS Primary Care Provider [phone] LANA ABRAMS Referring Provider Assessment Encounter Date Assessment Date Assessment LastModified by Organization Details LastModified Time 03/15/2023 03/15/2023 HPI: 82-year-old female who came in today for evaluation of her right shoulder pain. This pain started about a month ago. She was pulling on her washer at home. She was trying to move it because it had gotten off balance. The next day she started noticing quite a bit of soreness in the shoulder and grabs at her deltoid where she feels the pain was. She has not had any prior problems with this shoulder in the past. Patient did have x-rays done from her primary care doctor on 02/15. I did review these. It showed no glenohumeral joint osteoarthritis. No superior migration. There is a large inferior osteophyte off the acromion. Moderate hypertrophic changes of the AC joint. Over the course last month patient states the pain has gotten a lot better and now she only has little bit of soreness if she is reaching high overhead or trying to hold something farther away from the body. This pain is very mild. She will take occasional Tylenol for this. She is on Eliquis chronically and therefore not able take anti-inflammatorie s. Patient was about to cancel this appointment because her shoulder was doing much better however she started having numbness in the 1st 2nd and 3rd finger of the left hand. She was not sure if this was coming from her left shoulder. She does have a history of carpal tunnel release by Dr. Alvarez in the past. This was over 7 or 8 years ago. She states that she had complete resolution of her symptoms following surgery but now they have recurred. She called his office and she was told that this may be coming from her neck rather than recurrence of the carpal tunnel. Physical exam: 82-year-old female very alert pleasant. She has active elevation right shoulder to 145 external rotation 80 internal rotation is to T12 all without discomfort. Her subscap lift-off is intact. Negative abdominal compression test she has good strength with external rotation as well as abduction. There is no pain with strength testing. There is no tenderness about shoulder. Her neck has slightly decreased range of motion but no pain with range of motion. Negative Spurling's maneuver. 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 She complains of numbness to the 1st 2nd and 3rd finger. Tinel's over the carpal tunnel does cause some soreness in this area but no tingling or shock type sensations running into the hand or fingers. There is no numbness or tingling in the 4th and 5th fingers. 2+ radial pulse. Incision over the carpal tunnel is noted and well healed. Impression: 82-year-old female who had most likely a strain of the right rotator cuff tendon 1 month ago. This has resolved very quickly at this point she has minimal to no symptoms. She has good strength and excellent range of motion of the shoulder so that I think that her rotator cuff is relatively healthy and intact. Either shoulder has any arthritic changes noted on the x-rays. I do not think any other treatment options need to be discussed with that and she is comfortable at this point with the right shoulder. Regard to her left hand it is hard to know exactly what is causing the numbness. There is always the possibility of this coming from cervical spine. There is also the possibility of recurrence of her carpal tunnel which is a little less likely but always possible. She does see Dr. Duncan the chiropractor on a regular basis and I recommended that she see him and try some treatments on her neck to see if her some improvement of her symptoms. If she does not feel improvement of her symptoms then I have recommended she does see Dr. Alvarez again for re-evaluation. Given her thenar atrophy it is unclear whether not this was present when he did her surgery or not. He will have the notes and physical exam findings to correlate her symptoms now to where she was perioperatively before the carpal tunnel and after the carpal tunnel and have the best idea of whether not this is recurrence of the carpal tunnel and may need revision or not. She is going to proceed with these measures. We will see her back as needed. 30 minutes was spent in treatment patient more than half of this in eyii-te-dzph conversation carl Not available 03/15/2023 12:03:40 Plan of Treatment Reminders Order Date Submit Date Provider Last Modified By Organization Details Last Modified Time Details Appointments Establish ed Patient 15 2024 01:00P Kamaljit Abrams MD Not available Not available Not available Medicare Wellness 15 2024 09:45A Kamaljit Abrams MD Not available Not available Not available Lab urinalysi s, dipstick 20[address] [facility] [address], [facility] [place], [address], 05/27/2024 15:13:03 T3, free, serum or plasma 2023 [facility] (Lab), [address] [place], [address], 05/28/2024 21:35:10 T4, free, serum 2023 [facility] (Lab), [address] [place], [address], 05/28/2024 21:35:13 TSH, serum or plasma 2023 [facility] (Lab), [address] [place], [address], 05/28/2024 21:48:20 CBC w/ auto diff 2023 [facility] (Lab), [address] [place], [address], 05/28/2024 20:15:41 lipid panel, serum 2023 024 [facility] (Lab), [address] [place], [address], 05/28/2024 21:14:05 glycohemo globin, total, blood 2023 024 [facility] (Lab), [address] [place], [address], 05/28/2024 21:25:13 vitamin D, 25-hydrox y, total, serum 2023 024 [facility] (Lab), [address] [place], [address], 05/29/2024 01:53:54 CMP, serum or plasma 2023 024 [facility] (Lab), [address] [place], [address], 05/28/2024 21:14:00 glycohemo globin, total, blood 2023 024 [facility] (Lab), [address] [place], [address], 08/21/2023 22:07:33 CMP, serum or plasma 2023 024 [facility] (Lab), [address] [place], [address], 08/21/2023 22:04:24 TSH, serum or plasma 2023 024 [facility] (Lab), [address] [place], [address], 08/21/2023 21:53:23 T3, free, serum or plasma 2023 024 [facility] (Lab), [address] [place], [address], 08/21/2023 21:59:59 T4, free, serum 2023 024 [facility] (Lab), [address] [place], [address], 08/21/2023 22:00:04 CBC w/ auto diff 2023 024 [facility] (Lab), [address] [place], [address], 08/21/2023 21:00:19 Referral None recorded. Procedures None recorded. Surgeries None recorded. Imaging XR, shoulder 20[email or web address] [facility], [facility] [place], [address], 03/15/2023 15:40:55 XR, shoulder 2022 023 [facility] ([facility]), [address] [place], [address], 02/15/2023 13:55:35 Medication Orders Macrobid 100 mg capsule 2023 024 [facility] [id number] In [facility], [address] [place] [address], [address], 05/27/2024 12:33:59 clotrimaz ole-betam ethasone 1 %-0.05 % topical cream 2023 024 [facility] [id number] In [facility], [address] [place], [address], 05/27/2024 12:34:39 Patient TargetsNo targets recorded. Patient Instructions Encounter Date Encounter Id Patient Instructions Last Modified By Organization Details Last Modified Time 01/29/2024 [id number] dementia rating scale-2* Not available 01/29/2024 17:30:03 alcohol misuse* Not available 01/29/2024 17:30:04 depression screening* Not available 01/29/2024 17:30:04 Timed Up and Go test (TUG)* Not available 01/29/2024 17:30:03 multi-dimensiona l health assessment questionnaire* [email or web address] Not available 01/30/2024 09:21:09 Personalized Hea lt Plan and Screening Recommendations Advance Directives - Do you have one? Yes You have indicated that you are capable of preparing your advance care directive Advance Directives - Do we have your advance directive on file in your health record? No, please bring in a copy at your earliest convenience Primary Prevention/Interven tion (prevents or decreases the chance of common diseases from occurring) Smoking Risk: Non Smoker Alcohol Misuse Screening: Negative Weight: Appropriate Overwei ght continue your current weight loss efforts try to lose 5% of your body weight try to lose 10% of your body weight Physical activity: Need more exercise/physical activity minimum of 10-20 minutes of activity that causes mild breathlessness/day Nutrition: Good Average Refer to attached handout Heart-Healthy Diet: After Your Visit Refer to attached handout DASH Diet: After Your Visit Fall Risk (screened today): Low Refer to attached handout Preventing Falls: After your Visit Vaccines Pneumococcal: Ordered Recommended today Influenza: Your next one in the fall of this year Chronic Disease Risks Stroke: Low Risk Intermediate Risk I have no recommendations Act judi diagnosis, Continue current treatment plan Heart Attack: Low risk Intermediate Risk I have no recommendations Act judi diagnosis, Continue current treatment plan Clogging of the Arteries: Low risk Intermediate Risk I have no recommendations Act judi diagnosis, Continue current treatment plan Diabetes: Low Risk I have no recommendations Secondary Prevention/Interven tion (detects treatable diseases before they may cause symptoms, disability, or ) Breast Cancer Screening with mammogram: No screening necessary Cervical/Uterine/Ov karissa Cancer Screening: No screening necessary Osteoporosis Screening: No screening necessary Date Screening Last Performed: Colon Cancer Screening: No screening necessary Date Screening Last Performed: Eye Disease Screening: Ordered Recommended today Dementia Risk: Low I have no recommendations Depression Screening: Negative [email or web address] Not available 01/29/2024 15:33:13 Reason for Referral None Reported. Results Created Date Observation Date Name Description Value Unit Range Abnormal Flag Note LastModifiedBy Organization Detail LastModifiedTime 01/31/20 23 01/30/2023 CBC/C OMPLE TE BLD COUNT W/DIF F white blood cells 7.7 x10'3 /uL 4.2-10 .8 Not Available [facility] (Lab) [address] [place], [address], 01/30/2023 20:36:42 01/31/20 23 01/30/2023 CBC/C OMPLE TE BLD COUNT W/DIF F red blood cells 3.89 x10'6 /uL 3.80-5 .20 Not Available [facility] (Lab) [address] [facility] [place], [address], 01/30/2023 20:36:42 01/31/20 23 01/30/2023 CBC/C OMPLE TE BLD COUNT W/DIF F hemoglobin 11.3 g/dL 12.0-1 5.6 low Not Available [facility] (Lab) [address] [place], [address], 01/30/2023 20:36:42 01/31/20 23 01/30/2023 CBC/C OMPLE TE BLD COUNT W/DIF F hematocrit 37.1 % 35.7-4 5.7 Not Available [facility] (Lab) [address] [place], [address], 01/30/2023 20:36:42 01/31/20 23 01/30/2023 CBC/C OMPLE TE BLD COUNT W/DIF F mean red cell volume 95.4 fL 82.0-9 9.0 Not Available [facility] (Lab) [address] [place], [address], 01/30/2023 20:36:42 01/31/20 23 01/30/2023 CBC/C OMPLE TE BLD COUNT W/DIF F mean red cell hemoglobin 29.0 pg 27.0-3 3.0 Not Available [facility] (Lab) [address] [place], [address], 01/30/2023 20:36:42 01/31/20 23 01/30/2023 CBC/C OMPLE TE BLD COUNT W/DIF F mean RBC HGB concentratio n 30.5 g/dL 31.0-3 6.0 low Not Available [facility] (Lab) [address] [place], [address], 01/30/2023 20:36:42 01/31/20 23 01/30/2023 CBC/C OMPLE TE BLD COUNT W/DIF F red cell distribution width 14.2 % 11.8-1 5.5 Not Available [facility] (Lab) [address] [place], [address], 01/30/2023 20:36:42 01/31/20 23 01/30/2023 CBC/C OMPLE TE BLD COUNT W/DIF F platelets 127 x10'3 /uL 150-40 0 low Not Available [facility] (Lab) [address] [place], [address], 01/30/2023 20:36:42 01/31/20 23 01/30/2023 CBC/C OMPLE TE BLD COUNT W/DIF F mean platelet volume 10.4 fL 9.0-12 .4 Not Available [facility] (Lab) [address] [place], [address], 01/30/2023 20:36:42 01/31/20 23 01/30/2023 CBC/C OMPLE TE BLD COUNT W/DIF F neutrophils 67.4 % 39.0-7 2.0 Not Available [facility] (Lab) [address] [place], [address], 01/30/2023 20:36:42 01/31/20 23 01/30/2023 CBC/C OMPLE TE BLD COUNT W/DIF F lymphocytes 22.6 % 16.0-4 7.0 Not Available [facility] (Lab) [address] [place], [address], 01/30/2023 20:36:42 01/31/20 23 01/30/2023 CBC/C OMPLE TE BLD COUNT W/DIF F monocytes 9.0 % 5.0-12 .0 Not Available [facility] (Lab) [address] [place], [address], 01/30/2023 20:36:42 01/31/20 23 01/30/2023 CBC/C OMPLE TE BLD COUNT W/DIF F eosinophils 0.3 % 1.0-7. 0 low Not Available [facility] (Lab) [address] [place], [address], 01/30/2023 20:36:42 01/31/20 23 01/30/2023 CBC/C OMPLE TE BLD COUNT W/DIF F basophils 0.3 % 0.0-2. 0 Not Available [facility] (Lab) [address] [place], [address], 01/30/2023 20:36:42 01/31/20 23 01/30/2023 CBC/C OMPLE TE BLD COUNT W/DIF F immature granulocytes 0.4 % 0.00-0 .50 Not Available [facility] (Lab) [address] [place], [address], 01/30/2023 20:36:42 01/31/20 23 01/30/2023 CBC/C OMPLE TE BLD COUNT W/DIF F neutrophils, absolute count 5.17 x10'3 /uL 1.5-8. 0 Not Available [facility] (Lab) [address] [place], [address], 01/30/2023 20:36:42 01/31/20 23 01/30/2023 CBC/C OMPLE TE BLD COUNT W/DIF F lymphocytes, absolute count 1.73 x10'3 /uL 1.07-3 .43 Not Available [facility] (Lab) [address] [place], [address], 01/30/2023 20:36:42 01/31/20 23 01/30/2023 CBC/C OMPLE TE BLD COUNT W/DIF F monocytes, absolute count 0.69 x10'3 /uL 0.29-0 .99 Not Available [facility] (Lab) [address] [place], [address], 01/30/2023 20:36:42 01/31/20 23 01/30/2023 CBC/C OMPLE TE BLD COUNT W/DIF F eosinophils, absolute count 0.02 x10'3 /uL 0.02-0 .53 Not Available [facility] (Lab) [address] [place], [address], 01/30/2023 20:36:42 01/31/20 23 01/30/2023 CBC/C OMPLE TE BLD COUNT W/DIF F basophils, absolute count 0.02 x10'3 /uL 0.01-0 .08 Not Available [facility] (Lab) [address] [place], [address], 01/30/2023 20:36:42 01/31/20 23 01/30/2023 CBC/C OMPLE TE BLD COUNT W/DIF F immature granulocytes ,absolute 0.03 x10'3 /uL 0.00-0 .05 Not Available [facility] (Lab) [address] [place], [address], 01/30/2023 20:36:42 01/31/20 23 01/30/2023 CBC/C OMPLE TE BLD COUNT W/DIF F nucleated red blood cells 0.0 % -0 Not Available [facility] (Lab) [address] [place], [address], 01/30/2023 20:36:42 01/31/20 23 01/30/2023 CBC/C OMPLE TE BLD COUNT W/DIF F NRBC# 0.00 x10'3 /uL Not Available [facility] (Lab) [address] [place], [address], 01/30/2023 20:36:42 01/31/20 23 01/30/2023 LIPID PANEL cholesterol 142 mg/dL 140-19 9 NIH ALYSA NSUS RECOM MENDA TION FOR TIERA STERO L: ADULT CHILD LOW RISK: <200 <170 BORDE RLINE : <200- 239 ----- HIGH RISK: >240 >200 Not Available [facility] (Lab) [address] [place], [address], 01/30/2023 20:49:11 01/31/20 23 01/30/2023 LIPID PANEL triglyceride s 51 mg/dL 0-150 NIH ALYSA NSUS REPOR T RECOM MENDA TION FOR TRIGL YCERI BRIAN: ADULT CHILD LOW RISK: <150 ----- BODER LINE: 150-1 99 ----- HIGH RISK: >200 ----- Not Available [facility] (Lab) [address] [place], [address], 01/30/2023 20:49:11 01/31/20 23 01/30/2023 LIPID PANEL HDL cholesterol 67 mg/dL 40- Not Available [facility] (Lab) [address] [place], [address], 01/30/2023 20:49:11 01/31/20 23 01/30/2023 LIPID PANEL LDL cholesterol, calculated 65 mg/dL 0-130 NIH ALYSA NSUS REPOR T RECOM MENDA TIONS FOR LDL: ADULT CHILD LOW RISK <130 <110 (OPTI MAL LDL) <100 ----- BORDE RLINE : 130-1 59 ----- HIGH RISK: >160 >130 A TRIGL YCERI DE RESUL T >400 INVAL IDATE S THE CALCU LATIO N FOR LDL FRACT IONAT ION - THE LDL RESUL T WILL NOT BE REPOR HERIBERTO. Not Available [facility] (Lab) [address] [place], [address], 01/30/2023 20:49:11 01/31/20 23 01/30/2023 COMPR EHENS JUDI METAB OLIC PANEL sodium 138 mmol/ L 137-14 5 Not Available [facility] (Lab) [address] [place], [address], 01/30/2023 20:49:18 01/31/20 23 01/30/2023 COMPR EHENS JUDI METAB OLIC PANEL potassium 4.3 mmol/ L 3.5-5. 1 Not Available [facility] (Lab) [address] [place], [address], 01/30/2023 20:49:18 01/31/20 23 01/30/2023 COMPR EHENS JUDI METAB OLIC PANEL chloride 106 mmol/ L 98-107 Not Available [facility] (Lab) [address] [place], [address], 01/30/2023 20:49:18 01/31/20 23 01/30/2023 COMPR EHENS JUDI METAB OLIC PANEL carbon dioxide 25 mmol/ L 22-30 Not Available [facility] (Lab) [address] [place], [address], 01/30/2023 20:49:18 01/31/20 23 01/30/2023 COMPR EHENS JUDI METAB OLIC PANEL anion gap 11.3 mmol/ L 14-22 low Not Available [facility] (Lab) [address] [facility] [place], [address], 01/30/2023 20:49:18 01/31/20 23 01/30/2023 COMPR EHENS JUDI METAB OLIC PANEL glucose 92 mg/dL 70-99 Not Available [facility] (Lab) [address] [facility] [place], [address], 01/30/2023 20:49:18 01/31/20 23 01/30/2023 COMPR EHENS JUDI METAB OLIC PANEL BUN 22 mg/dL 8-19 high Not Available [facility] (Lab) [address] [place], [address], 01/30/2023 20:49:18 01/31/20 23 01/30/2023 COMPR EHENS JUDI METAB OLIC PANEL creatinine 0.71 mg/dL 0.66-1 .25 Not Available [facility] (Lab) [address] [place], [address], 01/30/2023 20:49:18 01/31/20 23 01/30/2023 COMPR EHENS JUDI METAB OLIC PANEL GFR >60 Refer ence Range : Spencer ge GFR Healt hy Adult : >60 mL/mi n/1.7 3 m2 Chron ic Kidne y Disea se: 15-60 mL/mi n/1.7 3 m2 Kidne y Failu re: <15/m L/min /1.73 m2 www.n iddk. nih.g ov The MDRD study equat ion has not been valid ated in child vanna <18 years of age; pregn ant women ; the elder ly >85 years of age; or in some racia l or ethni c subgr oups, such as Melissa nics. Outsi de the valid ated vinnie eters , estim ated GFR is less accur ate, requi ring clini suzanna judgm ent on a case- by-ca se basis . Clini suzanna inter preta tion for other races and ages must be made by the clini cole. The MDRD study equat ion has not been valid ated for the evalu ation of serum creat inine relat ed to nutri monica l statu s or medic ation usage . For perso ns <18 years of age, a pedia tric GFR calcu lator is avail able on the F websi te: https ://rene meneses.o rg/pr ofess ional s/kdo qi/gf r_cal culat or Not Available [facility] (Lab) [address] [place], [address], 01/30/2023 20:49:18 01/31/20 23 01/30/2023 COMPR EHENS JUDI METAB OLIC PANEL alkaline phosphatase 65 U/L 38-126 Not Available [facility] (Lab) [address] [place], [address], 01/30/2023 20:49:18 01/31/20 23 01/30/2023 COMPR EHENS JUDI METAB OLIC PANEL alanine aminotransfe rase 14 U/L 0-35 Not Available [facility] (Lab) [address] [place], [address], 01/30/2023 20:49:18 01/31/20 23 01/30/2023 COMPR EHENS JUDI METAB OLIC PANEL aspartate aminotransfe rase 23 U/L 15-37 Not Available [facility] (Lab) [address] [place], [address], 01/30/2023 20:49:18 01/31/20 23 01/30/2023 COMPR EHENS JUDI METAB OLIC PANEL bilirubin, total 0.60 mg/dL 0.20-1 .30 Not Available [facility] (Lab) [address] [place], [address], 01/30/2023 20:49:18 01/31/20 23 01/30/2023 COMPR EHENS JUDI METAB OLIC PANEL calcium 8.8 mg/dL 8.4-10 .2 Not Available [facility] (Lab) [address] [place], [address], 01/30/2023 20:49:18 01/31/20 23 01/30/2023 COMPR EHENS JUDI METAB OLIC PANEL total protein 6.1 g/dL 6.3-8. 2 low Not Available [facility] (Lab) [address] [place], [address], 01/30/2023 20:49:18 01/31/20 23 01/30/2023 COMPR EHENS JUDI METAB OLIC PANEL albumin 3.5 g/dL 3.0-4. 4 Not Available [facility] (Lab) [address] [place], [address], 01/30/2023 20:49:18 01/31/20 23 01/30/2023 COMPR EHENS JUDI METAB OLIC PANEL globulin 2.6 g/dL 2.6-4. 2 Not Available [facility] (Lab) [address] [place], [address], 01/30/2023 20:49:18 01/31/20 23 01/30/2023 COMPR EHENS JUDI METAB OLIC PANEL A/G ratio 1.3 ratio 1.0-2. 0 Not Available [facility] (Lab) [address] [place], [address], 01/30/2023 20:49:18 01/31/20 23 01/30/2023 T3 FREE free T3 3.7 pg/mL 2.77-5 .27 Not Available [facility] (Lab) [address] [place], [address], 01/30/2023 20:59:10 01/31/20 23 01/30/2023 T4 FREE free T4 1.38 NG/dL 0.78-2 .19 Not Available [facility] (Lab) [address] [place], [address], 01/30/2023 20:59:21 01/31/20 23 01/30/2023 VITAM IN D 25-HY DROXY vd25oh 42.2 NG/mL 30-100 Vitam in D Statu s: Defic ient: <20 ng/mL Insuf ficie nt: 20-29 ng/mL Suffi cient : 30-10 0 ng/mL Not Available [facility] (Lab) [address] [place], [address], 01/30/2023 21:04:36 01/31/20 23 01/30/2023 TSH thyroid-stim ulating hormone 0.193 uIU/m L 0.465- 4.680 low Not Available [facility] (Lab) [address] [place], [address], 01/30/2023 21:16:13 01/31/20 23 01/31/2023 HEMOG LOBIN A1C HA1C 5.9 % 4.0-6. 0 Diabe filemon Scree jayashree Crite phillip: <5.7% Consi stent with absen ce of diabe filemon 5.7-6 .4% Consi stent with incre ased risk for diabe filemon (pred iabet es) >OR=6 .5% Consi stent with diabe filemon REFER ENCE: Diabe filemon Care 2016, 39(Caceres ppl.1 ):s13 -s22 Not Available [facility] (Lab) [address] [place], [address], 01/31/2023 12:50:10 07/20/20 23 07/20/2023 SARS- COV-2 (COVI D-19) ANTIG EN sars-cov-2 (covid-19) antigen NON-RE ACTIVE non-re active This test has been autho rized by the FDA under an Emerg ency Use Autho rizat ion (EUA) for use by autho rized labor atori es. This test is only for the detec tion of SARS- CoV-2 antig en, not for any other virus es or patho gens. Negat judi resul ts from patie nts with sympt om onset outsi de of one to six days shoul d be treat ed as presu mptiv e. Negat judi resul ts do not rule out SARS- CoV-2 infec tion and shoul d not be used as the sole basis of treat ment or patie nt manag ement decis ions, inclu ding infec tion contr ol decis ions. Negat judi resul ts shoul d be consi dered in the layla xt of a patie nt's recen t expos ures, histo ry and the prese nce of clini suzanna signs and sympt oms consi stent with COVID -19. The VITRO S Immun odiag nosti cs Produ cts SARS- CoV-2 Antig en Lette r of Autho rizat ion, along with the autho rized Fact Sheet for Healt hcare Provi ders, the autho rized Fact Sheet for Recip ients , and autho rized label ing are avail able on the FDA Websi te: https ://ww w.fda .gov/ medic al-de vices /braydon navir us-di sease -2019 -covi d-19- emerg ency- use-a uthor izati ons-m edica l-dev ices/ vitro -diag nosti cs-eu as# indiv idual -sero logic al Not Available [facility] (Lab) [address] [place], [address], 07/20/2023 13:50:14 07/20/20 23 07/20/2023 SARS- COV-2 (COVI D-19) ANTIG EN signal to cutoff ratio 0.21 0.00-0 .99 Not Available [facility] (Lab) [address] [place], [address], 07/20/2023 13:50:14 08/21/19 24 08/21/2023 URINA LYSIS COMPL ETE, IRIS color LIGHT- YELLOW Not Available [facility] (Lab) [address] [place], [address], 08/21/2023 20:54:25 08/21/19 24 08/21/2023 URINA LYSIS COMPL ETE, IRIS appear TURBID abnormal Not Available [facility] (Lab) [address] [place], [address], 08/21/2023 20:54:25 08/21/19 24 08/21/2023 URINA LYSIS COMPL ETE, IRIS specific gravity 1.012 1.001- 1.030 Not Available [facility] (Lab) [address] [place], [address], 08/21/2023 20:54:25 08/21/19 24 08/21/2023 URINA LYSIS COMPL ETE, IRIS pH 5.5 pH_un its 5.0-9. 0 Not Available [facility] (Lab) [address] [place], [address], 08/21/2023 20:54:25 08/21/19 24 08/21/2023 URINA LYSIS COMPL ETE, IRIS leukocytes NEGATI VE mei/u L negati ve- Not Available [facility] (Lab) [address] [place], [address], 08/21/2023 20:54:25 08/21/19 24 08/21/2023 URINA LYSIS COMPL ETE, IRIS nitrite NEGATI VE negati ve- Not Available [facility] (Lab) [address] [place], [address], 08/21/2023 20:54:25 08/21/19 24 08/21/2023 URINA LYSIS COMPL ETE, IRIS protein NEGATI VE mg/dL negati ve- Not Available [facility] (Lab) [address] [place], [address], 08/21/2023 20:54:25 08/21/19 24 08/21/2023 URINA LYSIS COMPL ETE, IRIS glucose NORMAL mg/dL normal - Not Available [facility] (Lab) [address] [place], [address], 08/21/2023 20:54:25 08/21/19 24 08/21/2023 URINA LYSIS COMPL ETE, IRIS ketones NEGATI VE mg/dL negati ve- Not Available [facility] (Lab) [address] [place], [address], 08/21/2023 20:54:25 08/21/19 24 08/21/2023 URINA LYSIS COMPL ETE, IRIS urobilinogen NORMAL mg/dL normal - Not Available [facility] (Lab) [address] [place], [address], 08/21/2023 20:54:25 08/21/19 24 08/21/2023 URINA LYSIS COMPL ETE, IRIS bilirubin NEGATI VE mg/dL negati ve- Not Available [facility] (Lab) [address] [place], [address], 08/21/2023 20:54:25 08/21/19 24 08/21/2023 URINA LYSIS COMPL ETE, IRIS blood NEGATI VE mg/dL negati ve- Not Available [facility] (Lab) [address] [place], [address], 08/21/2023 20:54:25 08/21/19 24 08/21/2023 URINA LYSIS COMPL ETE, IRIS white blood cells 0-8 /i??h pfi?? 0-8 Not Available [facility] (Lab) [address] [place], [address], 08/21/2023 20:54:25 08/21/19 24 08/21/2023 URINA LYSIS COMPL ETE, IRIS red blood cells 0-4 /i??h pfi?? 0-4 Not Available [facility] (Lab) [address] [place], [address], 08/21/2023 20:54:25 08/21/19 24 08/21/2023 URINA LYSIS COMPL ETE, IRIS bacteria NONE Not Available [facility] (Lab) [address] [facility] [place], [address], 08/21/2023 20:54:25 08/21/19 24 08/21/2023 URINA LYSIS COMPL ETE, IRIS mucous OCCASI ONAL /i??l pfi?? abnormal Not Available [facility] (Lab) [address] [place], [address], 08/21/2023 20:54:25 08/21/19 24 08/21/2023 URINA LYSIS COMPL ETE, IRIS squamous epithelial FEW /i??l pfi?? abnormal Not Available [facility] (Lab) [address] [place], [address], 08/21/2023 20:54:25 08/21/19 24 08/21/2023 CBC/C OMPLE TE BLD COUNT W/DIF F white blood cells 5.7 x10'3 /uL 4.2-10 .8 Not Available [facility] (Lab) [address] [place], [address], 08/21/2023 21:00:19 08/21/19 24 08/21/2023 CBC/C OMPLE TE BLD COUNT W/DIF F red blood cells 3.95 x10'6 /uL 3.80-5 .20 Not Available [facility] (Lab) [address] [place], [address], 08/21/2023 21:00:19 08/21/19 24 08/21/2023 CBC/C OMPLE TE BLD COUNT W/DIF F hemoglobin 11.4 g/dL 12.0-1 5.6 low Not Available [facility] (Lab) [address] [place], [address], 08/21/2023 21:00:19 08/21/19 24 08/21/2023 CBC/C OMPLE TE BLD COUNT W/DIF F hematocrit 37.3 % 35.7-4 5.7 Not Available [facility] (Lab) [address] [place], [address], 08/21/2023 21:00:19 08/21/19 24 08/21/2023 CBC/C OMPLE TE BLD COUNT W/DIF F mean red cell volume 94.4 fL 82.0-9 9.0 Not Available [facility] (Lab) [address] [place], [address], 08/21/2023 21:00:19 08/21/19 24 08/21/2023 CBC/C OMPLE TE BLD COUNT W/DIF F mean red cell hemoglobin 28.9 pg 27.0-3 3.0 Not Available [facility] (Lab) [address] [place], [address], 08/21/2023 21:00:19 08/21/19 24 08/21/2023 CBC/C OMPLE TE BLD COUNT W/DIF F mean RBC HGB concentratio n 30.6 g/dL 31.0-3 6.0 low Not Available [facility] (Lab) [address] [place], [address], 08/21/2023 21:00:19 08/21/19 24 08/21/2023 CBC/C OMPLE TE BLD COUNT W/DIF F red cell distribution width 14.4 % 11.8-1 5.5 Not Available [facility] (Lab) [address] [place], [address], 08/21/2023 21:00:19 08/21/19 24 08/21/2023 CBC/C OMPLE TE BLD COUNT W/DIF F platelets 126 x10'3 /uL 150-40 0 low Not Available [facility] (Lab) [address] [place], [address], 08/21/2023 21:00:19 08/21/19 24 08/21/2023 CBC/C OMPLE TE BLD COUNT W/DIF F mean platelet volume 11.8 fL 9.0-12 .4 Not Available [facility] (Lab) [address] [place], [address], 08/21/2023 21:00:19 08/21/19 24 08/21/2023 CBC/C OMPLE TE BLD COUNT W/DIF F neutrophils 53.7 % 39.0-7 2.0 Not Available [facility] (Lab) [address] [place], [address], 08/21/2023 21:00:19 08/21/19 24 08/21/2023 CBC/C OMPLE TE BLD COUNT W/DIF F lymphocytes 36.3 % 16.0-4 7.0 Not Available [facility] (Lab) [address] [place], [address], 08/21/2023 21:00:19 08/21/19 24 08/21/2023 CBC/C OMPLE TE BLD COUNT W/DIF F monocytes 7.6 % 5.0-12 .0 Not Available [facility] (Lab) [address] [place], [address], 08/21/2023 21:00:19 08/21/19 24 08/21/2023 CBC/C OMPLE TE BLD COUNT W/DIF F eosinophils 1.6 % 1.0-7. 0 Not Available [facility] (Lab) [address] [place], [address], 08/21/2023 21:00:19 08/21/19 24 08/21/2023 CBC/C OMPLE TE BLD COUNT W/DIF F basophils 0.4 % 0.0-2. 0 Not Available [facility] (Lab) [address] [place], [address], 08/21/2023 21:00:19 08/21/19 24 08/21/2023 CBC/C OMPLE TE BLD COUNT W/DIF F immature granulocytes 0.4 % 0.00-0 .50 Not Available [facility] (Lab) [address] [place], [address], 08/21/2023 21:00:19 08/21/19 24 08/21/2023 CBC/C OMPLE TE BLD COUNT W/DIF F neutrophils, absolute count 3.06 x10'3 /uL 1.5-8. 0 Not Available [facility] (Lab) [address] [place], [address], 08/21/2023 21:00:19 08/21/19 24 08/21/2023 CBC/C OMPLE TE BLD COUNT W/DIF F lymphocytes, absolute count 2.06 x10'3 /uL 1.07-3 .43 Not Available [facility] (Lab) [address] [place], [address], 08/21/2023 21:00:19 08/21/1908/21/2023 CBC/C OMPLE TE BLD COUNT W/DIF F monocytes, absolute count 0.43 x10'3 /uL 0.29-0 .99 Not Available [facility] (Lab) [address] [place], [address], 08/21/2023 21:00:19 08/21/19 24 08/21/2023 CBC/C OMPLE TE BLD COUNT W/DIF F eosinophils, absolute count 0.09 x10'3 /uL 0.02-0 .53 Not Available [facility] (Lab) [address] [place], [address], 08/21/2023 21:00:19 08/21/19 24 08/21/2023 CBC/C OMPLE TE BLD COUNT W/DIF F basophils, absolute count 0.02 x10'3 /uL 0.01-0 .08 Not Available [facility] (Lab) [address] [place], [address], 08/21/2023 21:00:19 08/21/1908/21/2023 CBC/C OMPLE TE BLD COUNT W/DIF F immature granulocytes ,absolute 0.02 x10'3 /uL 0.00-0 .05 Not Available [facility] (Lab) [address] [place], [address], 08/21/2023 21:00:19 08/21/19 24 08/21/2023 CBC/C OMPLE TE BLD COUNT W/DIF F nucleated red blood cells 0.0 % -0 Not Available [facility] (Lab) [address] [place], [address], 08/21/2023 21:00:19 08/21/19 24 08/21/2023 CBC/C OMPLE TE BLD COUNT W/DIF F NRBC# 0.00 x10'3 /uL Not Available [facility] (Lab) [address] [place], [address], 08/21/2023 21:00:19 08/21/19 24 08/21/2023 TSH thyroid-stim ulating hormone 1.030 uIU/m L 0.465- 4.680 Not Available [facility] (Lab) [address] [place], [address], 08/21/2023 21:53:23 08/21/19 24 08/21/2023 T3 FREE free T3 3.7 pg/mL 2.77-5 .27 Not Available [facility] (Lab) [address] [place], [address], 08/21/2023 21:59:59 08/21/19 24 08/21/2023 T4 FREE free T4 1.45 NG/dL 0.78-2 .19 Not Available [facility] (Lab) [address] [place], [address], 08/21/2023 22:00:04 08/21/19 24 08/21/2023 COMPR EHENS JUDI METAB OLIC PANEL sodium 140 mmol/ L 137-14 5 Not Available [facility] (Lab) [address] [place], [address], 08/21/2023 22:04:24 08/21/19 24 08/21/2023 COMPR EHENS JUDI METAB OLIC PANEL potassium 3.9 mmol/ L 3.5-5. 1 Not Available [facility] (Lab) [address] [place], [address], 08/21/2023 22:04:24 08/21/19 24 08/21/2023 COMPR EHENS JUDI METAB OLIC PANEL chloride 105 mmol/ L 98-107 Not Available [facility] (Lab) [address] [place], [address], 08/21/2023 22:04:24 08/21/19 24 08/21/2023 COMPR EHENS JUDI METAB OLIC PANEL carbon dioxide 30 mmol/ L 22-30 Not Available [facility] (Lab) [address] [facility] [place], [address], 08/21/2023 22:04:24 08/21/19 24 08/21/2023 COMPR EHENS JUDI METAB OLIC PANEL anion gap 8.9 mmol/ L 14-22 low Not Available [facility] (Lab) [address] [place], [address], 08/21/2023 22:04:24 08/21/19 24 08/21/2023 COMPR EHENS JUDI METAB OLIC PANEL glucose 84 mg/dL 70-99 Not Available [facility] (Lab) [address] [place], [address], 08/21/2023 22:04:24 08/21/19 24 08/21/2023 COMPR EHENS JUDI METAB OLIC PANEL BUN 14 mg/dL 8-19 Not Available [facility] (Lab) [address] [place], [address], 08/21/2023 22:04:24 08/21/19 24 08/21/2023 COMPR EHENS JUDI METAB OLIC PANEL creatinine 0.69 mg/dL 0.66-1 .25 Not Available [facility] (Lab) [address] [place], [address], 08/21/2023 22:04:24 08/21/19 24 08/21/2023 COMPR EHENS JUDI METAB OLIC PANEL GFR >60 Refer ence Range : Spencer ge GFR Healt hy Adult : >60 mL/mi n/1.7 3 m2 Chron ic Kidne y Disea se: 15-60 mL/mi n/1.7 3 m2 Kidne y Failu re: <15/m L/min /1.73 m2 www.n iddk. [facility].g ov The MDRD study equat ion has not been valid ated in child vanna <18 years of age; pregn ant women ; the elder ly >85 years of age; or in some racia l or ethni c subgr oups, such as Hispa nics. Outsi de the valid ated vinnie eters , estim ated GFR is less accur ate, requi ring clini suzanna judgm ent on a case- by-ca se basis . Clini suzanna inter preta tion for other races and ages must be made by the clini cole. The MDRD study equat ion has not been valid ated for the evalu ation of serum creat inine relat ed to nutri monica l statu s or medic ation usage . For perso ns <18 years of age, a pedia tric GFR calcu lator is avail able on the [facility] websi te: https ://rene mcdaniel.david meneses.o ira/pr ofess ional s/kdo qi/gf r_cal culat or Not Available [facility] (Lab) [address] [place], [address], 08/21/2023 22:04:24 08/21/19 24 08/21/2023 COMPR EHENS JUDI METAB OLIC PANEL alkaline phosphatase 85 U/L 38-126 Not Available [facility] (Lab) [address] [place], [address], 08/21/2023 22:04:24 08/21/19 24 08/21/2023 COMPR EHENS JUDI METAB OLIC PANEL alanine aminotransfe rase 10 U/L 0-35 Not Available [facility] (Lab) [address] [place], [address], 08/21/2023 22:04:24 08/21/19 24 08/21/2023 COMPR EHENS JUDI METAB OLIC PANEL aspartate aminotransfe rase 23 U/L 15-37 Not Available [facility] (Lab) [address] [place], [address], 08/21/2023 22:04:24 08/21/19 24 08/21/2023 COMPR EHENS JUDI METAB OLIC PANEL bilirubin, total 0.50 mg/dL 0.20-1 .30 Not Available [facility] (Lab) [address] [place], [address], 08/21/2023 22:04:24 08/21/19 24 08/21/2023 COMPR EHENS JUDI METAB OLIC PANEL calcium 9.0 mg/dL 8.4-10 .2 Not Available [facility] (Lab) [address] [place], [address], 08/21/2023 22:04:24 08/21/19 24 08/21/2023 COMPR EHENS JUDI METAB OLIC PANEL total protein 6.3 g/dL 6.3-8. 2 Not Available [facility] (Lab) [address] [place], [address], 08/21/2023 22:04:24 08/21/19 24 08/21/2023 COMPR EHENS JUDI METAB OLIC PANEL albumin 3.5 g/dL 3.0-4. 4 Not Available [facility] (Lab) [address] [place], [address], 08/21/2023 22:04:24 08/21/19 24 08/21/2023 COMPR EHENS JUDI METAB OLIC PANEL globulin 2.8 g/dL 2.6-4. 2 Not Available [facility] (Lab) [address] [place], [address], 08/21/2023 22:04:24 08/21/19 24 08/21/2023 COMPR EHENS JUDI METAB OLIC PANEL A/G ratio 1.3 ratio 1.0-2. 0 Not Available [facility] (Lab) [address] [place], [address], 08/21/2023 22:04:24 08/21/19 24 08/21/2023 HEMOG LOBIN A1C HA1C 6.0 % 4.0-6. 0 Diabe filemon Scree jayashree Crite phillip: <5.7% Consi stent with absen ce of diabe filemon 5.7-6 .4% Consi stent with incre ased risk for diabe filemon (pred iabet es) >OR=6 .5% Consi stent with diabe filemon REFER ENCE: Diabe filemon Care 2016, 39(Caceres ppl.1 ):s13 -s22 Not Available [facility] (Lab) [address] [place], [address], 08/21/2023 22:07:33 05/27/20 24 05/27/2024 urina lysis , dipst ick Leukocytes (reference range: negative mei/ l) Large Not Available [facility] [address] [facility] [place], [address], 05/27/2024 12:19:00 05/27/20 24 05/27/2024 urina lysis , dipst ick Nitrite (reference rage: negative mg/dl) positi ve Not Available [facility] [address] [place], [address], 05/27/2024 12:19:00 05/27/20 24 05/27/2024 urina lysis , dipst ick Urobilinogen (reference range: 0.2-1 mg/dl) 2 Not Available [facility] [address] [facility] [place], [address], 05/27/2024 12:19:00 05/27/20 24 05/27/2024 urina lysis , dipst ick Protein (reference range: negative mg/dl) Large Not Available [facility] [address] [place], [address], 05/27/2024 12:19:00 05/27/2005/27/2024 urina lysis , dipst ick pH (reference range: 5-7) 5.0 Not Available [facility] [address] [place], [address], 05/27/2024 12:19:00 05/27/2005/27/2024 urina lysis , dipst ick Blood (reference range: negative [place]/ l) Large Not Available [facility] [address] [place], [address], 05/27/2024 12:19:00 05/27/2005/27/2024 urina lysis , dipst ick Specific [place] (reference range: 1.005-1.030) 1.025 Not Available [place] [address] [place], [address], 05/27/2024 12:19:00 05/27/2005/27/2024 urina lysis , dipst ick Ketone (reference range: negative mg/dl) Modera te Not Available [place] [address] [place], [address], 05/27/2024 12:19:00 05/27/2005/27/2024 urina lysis , dipst ick Bilirubin (reference range: negative mg/dl) Modera te Not Available [place] [address] [place], [address], 05/27/2024 12:19:00 05/27/20 24 05/27/2024 urina lysis , dipst ick Glucose (reference range: negative mg/dl) Negati ve Not Available [facility] Internal [facility] [address] [place], [address], 05/27/2024 12:19:00 05/27/20 24 05/27/2024 urina lysis , dipst ick Appearance Turbid Not Available [facility] Internal [facility] [address] [place], [address], 05/27/2024 12:19:00 05/27/2005/27/2024 urina lysis , dipst ick Color Red Not Available [facility] Internal [facility] [address] [place], [address], 05/27/2024 12:19:00 05/28/20 24 05/28/2024 CBC/C OMPLE TE BLD COUNT W/DIF F white blood cells 7.3 x10'3 /uL 4.2-10 .8 Not Available [facility] (Lab) [address] [place], [address], 05/28/2024 20:56:38 05/28/20 24 05/28/2024 CBC/C OMPLE TE BLD COUNT W/DIF F red blood cells 3.80 x10'6 /uL 3.80-5 .20 Not Available [facility] (Lab) [address] [place], [address], 05/28/2024 20:56:38 05/28/20 24 05/28/2024 CBC/C OMPLE TE BLD COUNT W/DIF F hemoglobin 11.2 g/dL 12.0-1 5.6 low Not Available [facility] (Lab) [address] [place], [address], 05/28/2024 20:56:38 05/28/20 24 05/28/2024 CBC/C OMPLE TE BLD COUNT W/DIF F hematocrit 37.9 % 35.7-4 5.7 Not Available [facility] (Lab) [address] [facility] [place], [address], 05/28/2024 20:56:38 05/28/20 24 05/28/2024 CBC/C OMPLE TE BLD COUNT W/DIF F mean red cell volume 99.7 fL 82.0-9 9.0 high Not Available [facility] (Lab) [address] [place], [address], 05/28/2024 20:56:38 05/28/20 24 05/28/2024 CBC/C OMPLE TE BLD COUNT W/DIF F mean red cell hemoglobin 29.5 pg 27.0-3 3.0 Not Available [facility] (Lab) [address] [place], [address], 05/28/2024 20:56:38 05/28/20 24 05/28/2024 CBC/C OMPLE TE BLD COUNT W/DIF F mean RBC HGB concentratio n 29.6 g/dL 31.0-3 6.0 low Not Available [facility] (Lab) [address] [place], [address], 05/28/2024 20:56:38 05/28/20 24 05/28/2024 CBC/C OMPLE TE BLD COUNT W/DIF F red cell distribution width 13.5 % 11.8-1 5.5 Not Available [facility] (Lab) [address] [place], [address], 05/28/2024 20:56:38 05/28/20 24 05/28/2024 CBC/C OMPLE TE BLD COUNT W/DIF F platelets 153 x10'3 /uL 150-40 0 Not Available [facility] (Lab) [address] [place], [address], 05/28/2024 20:56:38 05/28/20 24 05/28/2024 CBC/C OMPLE TE BLD COUNT W/DIF F mean platelet volume 10.7 fL 9.0-12 .4 Not Available [facility] (Lab) [address] [place], [address], 05/28/2024 20:56:38 05/28/20 24 05/28/2024 CBC/C OMPLE TE BLD COUNT W/DIF F neutrophils 60.9 % 39.0-7 2.0 Not Available [facility] (Lab) [address] [place], [address], 05/28/2024 20:56:38 05/28/20 24 05/28/2024 CBC/C OMPLE TE BLD COUNT W/DIF F lymphocytes 28.9 % 16.0-4 7.0 Not Available [facility] (Lab) [address] [place], [address], 05/28/2024 20:56:38 05/28/20 24 05/28/2024 CBC/C OMPLE TE BLD COUNT W/DIF F monocytes 7.6 % 5.0-12 .0 Not Available [facility] (Lab) [address] [place], [address], 05/28/2024 20:56:38 05/28/20 24 05/28/2024 CBC/C OMPLE TE BLD COUNT W/DIF F eosinophils 1.9 % 1.0-7. 0 Not Available [facility] (Lab) [address] [place], [address], 05/28/2024 20:56:38 05/28/20 24 05/28/2024 CBC/C OMPLE TE BLD COUNT W/DIF F basophils 0.3 % 0.0-2. 0 Not Available [facility] (Lab) [address] [place], [address], 05/28/2024 20:56:38 05/28/20 24 05/28/2024 CBC/C OMPLE TE BLD COUNT W/DIF F immature granulocytes 0.4 % 0.00-0 .50 Not Available [facility] (Lab) [address] [place], [address], 05/28/2024 20:56:38 05/28/20 24 05/28/2024 CBC/C OMPLE TE BLD COUNT W/DIF F neutrophils, absolute count 4.42 x10'3 /uL 1.5-8. 0 Not Available [facility] (Lab) [address] [place], [address], 05/28/2024 20:56:38 05/28/20 24 05/28/2024 CBC/C OMPLE TE BLD COUNT W/DIF F lymphocytes, absolute count 2.10 x10'3 /uL 1.07-3 .43 Not Available [facility] (Lab) [address] [place], [address], 05/28/2024 20:56:38 05/28/20 24 05/28/2024 CBC/C OMPLE TE BLD COUNT W/DIF F monocytes, absolute count 0.55 x10'3 /uL 0.29-0 .99 Not Available [facility] (Lab) [address] [place], [address], 05/28/2024 20:56:38 05/28/20 24 05/28/2024 CBC/C OMPLE TE BLD COUNT W/DIF F eosinophils, absolute count 0.14 x10'3 /uL 0.02-0 .53 Not Available [facility] (Lab) [address] [place], [address], 05/28/2024 20:56:38 05/28/20 24 05/28/2024 CBC/C OMPLE TE BLD COUNT W/DIF F basophils, absolute count 0.02 x10'3 /uL 0.01-0 .08 Not Available [facility] (Lab) [address] [place], [address], 05/28/2024 20:56:38 05/28/20 24 05/28/2024 CBC/C OMPLE TE BLD COUNT W/DIF F immature granulocytes ,absolute 0.03 x10'3 /uL 0.00-0 .05 Not Available [facility] (Lab) [address] [place], [address], 05/28/2024 20:56:38 05/28/20 24 05/28/2024 CBC/C OMPLE TE BLD COUNT W/DIF F nucleated red blood cells 0.0 % -0 Not Available [facility] (Lab) [address] [place], [address], 05/28/2024 20:56:38 05/28/20 24 05/28/2024 CBC/C OMPLE TE BLD COUNT W/DIF F NRBC# 0.00 x10'3 /uL Not Available [facility] (Lab) [address] [place], [address], 05/28/2024 20:56:38 05/28/20 24 05/28/2024 CBC/C OMPLE TE BLD COUNT W/DIF F hypochromia OCCASI ONAL Not Available [facility] (Lab) [address] [place], [address], 05/28/2024 20:56:38 05/28/20 24 05/28/2024 CBC/C OMPLE TE BLD COUNT W/DIF F ovalocytes OCCASI ONAL Not Available [facility] (Lab) [address] [place], [address], 05/28/2024 20:56:38 05/28/20 24 05/28/2024 COMPR EHENS JUDI METAB OLIC PANEL sodium 140 mmol/ L 137-14 5 Not Available [facility] (Lab) [address] [place], [address], 05/28/2024 21:14:00 05/28/20 24 05/28/2024 COMPR EHENS JUDI METAB OLIC PANEL potassium 4.5 mmol/ L 3.5-5. 1 Not Available [facility] (Lab) [address] [place], [address], 05/28/2024 21:14:00 05/28/20 24 05/28/2024 COMPR EHENS JUDI METAB OLIC PANEL chloride 105 mmol/ L 98-107 Not Available [facility] (Lab) [address] [place], [address], 05/28/2024 21:14:00 05/28/20 24 05/28/2024 COMPR EHENS JUDI METAB OLIC PANEL carbon dioxide 29 mmol/ L 22-30 Not Available [facility] (Lab) [address] [place], [address], 05/28/2024 21:14:00 05/28/20 24 05/28/2024 COMPR EHENS JUDI METAB OLIC PANEL anion gap 10.5 mmol/ L 14-22 low Not Available [facility] (Lab) [address] [place], [address], 05/28/2024 21:14:00 05/28/20 24 05/28/2024 COMPR EHENS JUDI METAB OLIC PANEL glucose 76 mg/dL 70-99 Not Available [facility] (Lab) [address] [place], [address], 05/28/2024 21:14:00 05/28/20 24 05/28/2024 COMPR EHENS JUDI METAB OLIC PANEL BUN 19 mg/dL 8-19 Not Available [facility] (Lab) [address] [place], [address], 05/28/2024 21:14:00 05/28/20 24 05/28/2024 COMPR EHENS JUDI METAB OLIC PANEL creatinine 0.89 mg/dL 0.66-1 .25 Not Available [facility] (Lab) [address] [place], [address], 05/28/2024 21:14:00 05/28/20 24 05/28/2024 COMPR EHENS JUDI METAB OLIC PANEL GFR 60 Refer ence Range : Spencer ge GFR Healt hy Adult : >60 mL/mi n/1.7 3 m2 Chron ic Kidne y Disea se: 15-60 mL/mi n/1.7 3 m2 Kidne y Failu re: <15/m L/min /1.73 m2 www.n iddk. nih.g ov The MDRD study equat ion has not been valid ated in child vanna <18 years of age; pregn ant women ; the elder ly >85 years of age; or in some racia l or ethni c subgr oups, such as Hispa nics. Outsi de the valid ated vinnie eters , estim ated GFR is less accur ate, requi ring clini suzanna judgm ent on a case- by-ca se basis . Clini suzanna inter preta tion for other races and ages must be made by the clini cole. The MDRD study equat ion has not been valid ated for the evalu ation of serum creat inine relat ed to nutri [place] l statu s or medic ation usage . For perso ns <18 years of age, a pedia tric GFR calcu lator is avail able on the [facility] websi te: https ://rene w.kid zaira.o rg/pr ofess ional s/kdo qi/gf r_cal culat or Not Available [facility] (Lab) [address] [place], [address], 05/28/2024 21:14:00 05/28/20 24 05/28/2024 COMPR EHENS JUDI METAB OLIC PANEL alkaline phosphatase 80 U/L 38-126 Not Available [facility] (Lab) [address] [facility] [place] [place], [address], 05/28/2024 21:14:00 05/28/20 24 05/28/2024 COMPR EHENS JUDI METAB OLIC PANEL alanine aminotransfe rase 15 U/L 0-35 Not Available [facility] (Lab) [address] [place], [address], 05/28/2024 21:14:00 05/28/20 24 05/28/2024 COMPR EHENS JUDI METAB OLIC PANEL aspartate aminotransfe rase 25 U/L 15-37 Not Available [facility] (Lab) [address] [facility] [place], [address], 05/28/2024 21:14:00 05/28/20 24 05/28/2024 COMPR EHENS JUDI METAB OLIC PANEL bilirubin, total 0.60 mg/dL 0.20-1 .30 Not Available [facility] (Lab) [address] [place], [address], 05/28/2024 21:14:00 05/28/20 24 05/28/2024 COMPR EHENS JUDI METAB OLIC PANEL calcium 9.1 mg/dL 8.4-10 .2 Not Available [facility] (Lab) [address] [place], [address], 05/28/2024 21:14:00 05/28/20 24 05/28/2024 COMPR EHENS JUDI METAB OLIC PANEL total protein 6.0 g/dL 6.3-8. 2 low Not Available [facility] (Lab) [address] [place], [address], 05/28/2024 21:14:00 05/28/20 24 05/28/2024 COMPR EHENS JUDI METAB OLIC PANEL albumin 3.8 g/dL 3.0-4. 4 Not Available [facility] (Lab) [address] [place], [address], 05/28/2024 21:14:00 05/28/20 24 05/28/2024 COMPR EHENS JUDI METAB OLIC PANEL globulin 2.2 g/dL 2.6-4. 2 low Not Available [facility] (Lab) [address] [place], [address], 05/28/2024 21:14:00 05/28/20 24 05/28/2024 COMPR EHENS JUDI METAB OLIC PANEL A/G ratio 1.7 ratio 1.0-2. 0 Not Available [facility] (Lab) [address] [place], [address], 05/28/2024 21:14:00 05/28/2005/28/2024 LIPID PANEL cholesterol 151 mg/dL 140-19 9 NIH ALYSA NSUS RECOM MENDA TION FOR TIERA STERO L: ADULT CHILD LOW RISK: <200 <170 BORDE RLINE : <200- 239 ----- HIGH RISK: >240 >200 Not Available [facility] (Lab) [address] [place], [address], 05/28/2024 21:14:05 05/28/20 24 05/28/2024 LIPID PANEL triglyceride s 60 mg/dL 0-150 NIH ALYSA NSUS REPOR T RECOM MENDA TION FOR TRIGL YCERI BRIAN: ADULT CHILD LOW RISK: <150 ----- BODER LINE: 150-1 99 ----- HIGH RISK: >200 ----- Not Available [facility] (Lab) [address] [place], [address], 05/28/2024 21:14:05 05/28/2005/28/2024 LIPID PANEL HDL cholesterol 67 mg/dL 40- Not Available [facility] (Lab) [address] [place], [address], 05/28/2024 21:14:05 05/28/20 24 05/28/2024 LIPID PANEL LDL cholesterol, calculated 72 mg/dL 0-130 NIH ALYSA NSUS REPOR T RECOM MENDA TIONS FOR LDL: ADULT CHILD LOW RISK <130 <110 (OPTI MAL LDL) <100 ----- BORDE RLINE : 130-1 59 ----- HIGH RISK: >160 >130 A TRIGL YCERI DE RESUL T >400 INVAL IDATE S THE CALCU LATIO N FOR LDL FRACT IONAT ION - THE LDL RESUL T WILL NOT BE REPOR HERIBERTO. Not Available [facility] (Lab) [address] [place], [address], 05/28/2024 21:14:05 05/28/20 24 05/28/2024 HEMOG LOBIN A1C HA1C 5.9 % 4.0-6. 0 Diabe filemon Scree jayashree Crite phillip: <5.7% Consi stent with absen ce of diabe filemon 5.7-6 .4% Consi stent with incre ased risk for diabe filemon (pred iabet es) >OR=6 .5% Consi stent with diabe filemon REFER ENCE: Diabe filemon Care 2016, 39(Caceres ppl.1 ):s13 -s22 Not Available [facility] (Lab) [address] [place], [address], 05/28/2024 21:25:13 05/28/20 24 05/28/2024 VITAM IN D 25-HY DROXY vd25oh 42.7 NG/mL 30-100 Vitam in D Statu s: Defic ient: <20 ng/mL Insuf ficie nt: 20-29 ng/mL Suffi cient : 30-10 0 ng/mL Not Available [facility] (Lab) [address] [place], [address], 05/28/2024 21:34:45 05/28/20 24 05/28/2024 T3 FREE free T3 3.5 pg/mL 2.77-5 .27 Not Available [facility] (Lab) [address] [place], [address], 05/28/2024 21:35:10 05/28/20 24 05/28/2024 T4 FREE free T4 1.44 NG/dL 0.78-2 .19 Not Available [facility] (Lab) [address] [place], [address], 05/28/2024 21:35:13 05/28/20 24 05/28/2024 TSH thyroid-stim ulating hormone 0.839 uIU/m L 0.465- 4.680 Not Available [facility] (Lab) [address] [place], [address], 05/28/2024 21:48:20 02/16/20 23 02/15/2023 XR, shoul jess [facility] [address] [place] [address] Patien t Name: LILIYA MCKAY ion #: [id number] Sex: F : 1940 1 Dictat ed By: Prasanth Butt Attend ing Physic josue: WEI ABRAMS ER Orderi ng Physic josue: WEI ABRAMS ER Exam Date: 2022 10:37 AM Exam Name: XR SHOULD ER RT Admitt ing Diagno sis(es ): Exam: XR SHOULD ER RT Clinic al Indica tion: PAIN RT SHOULD ER. Compar mark: None. FINDIN GS: The 3 views of the should er show normal alignm ent at the glenoh umeral joint. There are no fractu res or disloc ations . The acromi oclavi cular joint and coraco clavic ular spaces are narrow ed with osteop hyte format ion the acromi on and coraco id proces ses appear unrema rkable The visual ized scapul a and clavic le are unrema rkable . There are no radiop aque foreig n bodies or soft tissue swelli ng. If there is furthe r concer n, follow up radiog raphs or MRI of the should er may be perfor med for comple te assess ment. IMPRES CASE: 1. No fractu res or disloc ations of the right should er. Modera te arthri tic change s are noted. Electr onical ly Signed by: Prasanth Butt at 2022 12:53: 20 PM Page 1 [email or web address] [facility] ([facility]) [address], [place], [address], 02/16/2023 16:10:19 03/15/20 23 XR, shoul jess No observ ation record ed. [email or web address] [facility] [address] [facility], [place], [address], 03/15/2023 11:56:28 Result Notes None recorded. Problems Name Problem SNOMED Code Status Onset Date Resolution Date Notes Provider Name and Address Organization Details Recorded Time Pain of right shoulder joint 69316275173 556232 Active 2022 Lana Abrams MD [address] [facility], [facility] [address], [place], [address] , [facility] 3 10:36:36 Pain of left shoulder joint 62698803424 910754 Active 2022 COLLEEN Roy null, [place] - [facility] 3 11:02:27 Cough 11583138 Active 2022 Phuong Calvo LPN null, [place] [facility] 3 11:16:17 Acute upper respirato ry infection 92194093 Active 2023 Phuong Calvo LPN null, [place] [facility] 4 11:18:52 Thrombocy topenic disorder 485579501 Active 2023 Lana Abrams MD [address] [facility], [facility] [address], [place], [address] , [facility] 4 07:02:14 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 Tiff Garcia MA null, [place] [facility] 4 12:57:09 Anemia 913783164 Active 2023 Lana Abrams MD [address] [facility] [address], [place], [address] , [place] [facility] 4 12:24:40 Skin lesion 49724629 Active 2023 Lnaa Abrams MD [address], [address], [place], [address] , [place] - [place] [facility] 4 12:25:27 Sinusitis 78806392 Active 2023 AVERY Pink, [place] [employer] [facility] 4 11:22:27 Otalgia of right ear 8269335592 Completed 202207/27/2022 Not Available [facility] 3 03:25:41 Benign essential hypertens ion 1316277 Active Not Available [facility] 3 03:25:41 Chronic obstructi ve pulmonary disease 07006999 Active 2019 Not Available [facility] 3 03:25:41 Constipat ion 71401565 Active 2022 Not Available [facility] 3 03:25:41 Heartburn 49981756 Completed 201803/22/2022 Not Available [facility] 3 03:25:41 Biliary dyskinesi a 771134986 Active Not Available [facility] 3 03:25:41 Abdominal pain 95981097 Completed Not Available [facility] 3 03:25:41 Pneumonia 034169289 Completed Not Available [facility] 3 03:25:41 Gastroeso phageal reflux disease 225694520 Active Not Available [facility] 3 03:25:41 Ankle pain 084693753 Completed 201803/22/2022 Not Available [facility] 3 03:25:41 Urinary symptoms 837008603 Completed 202201/29/2023 COLLEEN Eduardo, [facility] 4 12:18:53 Edema 450146628 Active 2020 Not Available [facility] 3 03:25:41 Eruption 795546048 Completed 202107/27/2022 Not Available [facility] 3 03:25:42 Low back pain 539455077 Completed Not Available [facility] 3 03:25:42 Pain in toe 063349395 Completed 202103/22/2022 Not Available [facility] 3 03:25:42 Osteopeni a 269975436 Active 2020 Not Available [facility] 3 03:25:42 Blood in urine 57009607 Completed Not Available [facility] 3 03:25:42 Hyperthyr oidism 30191953 Active Not Available [facility] 3 03:25:42 Vitamin D deficienc y 86283266 Active Not Available [facility] 3 03:25:42 Dyslipide raheem 901016839 Active 2021 Not Available [facility] 3 03:25:42 Goiter 8562837 Active Not Available [facility] 3 03:25:42 Neuropath y 266434061 Active Not Available [facility] 3 03:25:43 Disorder of gallbladd er 98164023 Active Not Available [facility] 3 03:25:43 Ingrowing toenail 856871936 Completed 202107/27/2022 Not Available [facility] 3 03:25:43 Dizziness 673381283 Active 2018 Not Available [facility] 3 03:25:43 Hypothyro idism 27877498 Completed Not Available [facility] 3 03:25:43 Congestiv e heart failure 03673731 Active Not Available [facility] 3 03:25:43 Acute urinary tract infection 639822034 Completed 202201/29/2023 COLLEEN Eduardo, [place] [facility] 3 14:32:57 Numbness 85415799 Completed Not Available [facility] 3 03:25:43 Shoulder pain 81163736 Completed Not Available [facility] 3 03:25:43 Abdominal wind pain 52319054 Completed Not Available [facility] 3 03:25:44 Amnesia 76950739 Completed Not Available [facility] 3 03:25:44 Hip pain 36769268 Completed Not Available [facility] 3 03:25:44 Atrial fibrillat ion 71101491 Active Not Available [facility] 3 03:25:44 Cough 09170940 Completed 202103/22/2022 LOIS Siddiqi, [place] [facility] 3 11:16:17 Peroneal tendiniti s 50208041 Active 2018 Not Available [facility] 3 03:25:44 Hyperlipi demia 17412969 Active Not Available [facility] 3 03:25:44 Heart disease 06873435 Active 2018 Not Available [facility] 3 03:25:44 Aortic valve stenosis 79166736 Active 2016 Not Available [facility] 3 03:25:44 Osteoporo sis 48499888 Active Not Available [facility] 3 03:25:45 Prediabet es 392367628 Active 2021 Not Available [facility] 3 03:25:45 Paronychi a 67707447 Completed 202103/22/2022 Not Available [facility] 3 03:25:45 Overactiv e urinary bladder 084219499 Active 2020 Not Available [facility] 3 03:25:45 Hyperglyc emia 92877897 Active 2020 Not Available [facility] 3 03:25:45 Hyperglyc emia 93669381 Completed 201707/17/2019 Not Available [facility] 3 03:25:45 COVID-19 646361218 Completed 202103/22/2022 Not Available [facility] 3 03:25:46 Dystrophi a unguium 42069025 Completed 202107/27/2022 Not Available [facility] 3 03:25:46 Dystrophi a sanjeevuium 54437819 Completed 202103/22/2022 Not Available [facility] 3 03:25:46 Thyrotoxi cosis 14186317 Active Not Available [facility] 3 03:25:46 Urinary symptoms 047832186 Active 2023 COLLEEN Eduardo null, [employer] 4 12:18:53 Candidias is of skin 34672889 Active 2023 Lana Abrams MD [address] [place] [address], [address] , [employer] 4 12:34:06 Nausea 263329118 Active 2024 Tiff Garcia MA null, [employer] 5 15:43:09 Notes:Medical History: Memor y loss Eustachian tube dysfunction Bilateral hearing loss Toxic multinodular goiter Early REM onset Obesity with mild OSAHS, AHI = 10, 05/06/20, on CPAP Hypertension EF 55% Hyperlipidemia 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 Procedures Surgical History Date Name Laterality Status Provider Name and Address Organization Details Recorded Time 05/27/20 Medicare Wellness CPT Code, subsequent completed COLLEEN Keen [employer] 05/27/2024 12:15:53 01/29/20 Medicare Wellness CPT Code, subsequent completed Deborah Lam RN [employer] 01/29/2024 14:54:39 04/02/20 19 Most Recent Bone Density completed Not Available [facility] 09/20/2022 03:17:43 03/14/20 16 Date of Last Colonoscopy completed Not Available [facility] 09/20/2022 03:17:43 Cholecystectomy completed Not Available [facility] 09/20/2022 03:17:45 Hysterectomy completed Not Available [facility] 09/20/2022 03:17:45 Cardiovascular Surgery completed Not Available [facility] 09/20/2022 03:17:45 Imaging Results Imaging Date Name Status LastModified by Organiz ation Details LastModified Time 02/15/2023 XR, shoulder completed [email or web address] [place] [facility] (Imaging) [address] [facility], [place], [address], 02/16/2023 16:10:19 03/15/2023 XR, shoulder completed [email or web address] [facility] [place] [address] [facility], [place], [address], 03/15/2023 11:56:28 Procedure Notes None recorded. Medical Equipment None Reported. Allergies Allergen ID Allergen Name Allergen Category Reaction Reaction Severity Criticality Documentation Date Start Date Code Code System Note Provider Name and Address Organization Details Recorded Time 6398 dextromet horphan / guaifenes in medicatio n nausea Not available Not available 09/20/2022 20448 8 RxNorm Not Available [facility] 3 03:36:21 6399 ibandrona te sodium medicatio n Not available Not available Not available 09/20/2022 13731 6 RxNorm bone pain, GI Issue s Not Available [facility] 3 03:36:21 6400 alendrona te sodium medicatio n Not available Not available Not available 09/20/2022 86621 2 RxNorm bone pain, GI Issue s Not Available [facility] 3 03:36:21 Medications Name Sig Start Date Stop Date Status Note LastModified by Organization Details LastModified Time amoxicill in 500 mg capsule TAKE 1 CAPSULE BY MOUTH THREE TIMES A DAY FOR 7 DAYS 05/27 completed Not Available Not Available Not Available furosemid e 40 mg tablet active Not Available Not Available Not Available gabapenti n 600 mg tablet Take 1 tablet 3 times a day by oral route for 90 days. active Not Available Not Available No t Available doxycycli ne hyclate 100 mg capsule Take 1 capsule twice a day by oral route for 7 days. active Not Available Not Available No t Available enalapril maleate 5 mg tablet active Not Available Not Available No t Available atorvasta tin 10 mg tablet TAKE 1 TABLET DAILY active Not Available Not Available No t Available ofloxacin 0.3 % eye drops PLEASE SEE ATTACHED FOR DETAILED DIRECTIO NS 07/21 completed Not Available Not Available Not Available amiodaron e 200 mg tablet 12/03 completed Not Available Not Available Not Available benzonata te 200 mg capsule TAKE 1 CAPSULE 3 TIMES A DAY BY MOUTH NEEDED 08/20 completed Not Available Not Available Not Available cephalexi n 250 mg capsule 07/05 completed Not Available Not Available Not Available hydrocodo ne 5 mg-acetam inophen 325 mg tablet TAKE 1 TABLET BY MOUTH EVERY 6 HOURS NEEDED FOR PAIN. MAX DAILY DOSE OF 6 TABS/DAY . 07/19 completed Not Available Not Available Not Available ondansetr on HCl 4 mg tablet active Not Available Not Available No t Available Medrol (Christofer) 4 mg tablets in a dose pack Take by oral route as directed 08/03 completed Not Available Not Available Not Available alendrona te 70 mg tablet active Not Available Not Available Not Available Zithromax Z-Christofer 250 mg tablet Take 2 TABLET EVERY DAY by oral route for 1 day. Than 1 tablet for 4 days 08/03 completed Not Available Not Available Not Available Klor-Con 20 mEq oral packet 07/27 completed Not Available Not Available Not Available ciproflox acin 250 mg tablet Take 1 tablet every 12 hours by oral route for 5 days. 04/28 completed Not Available Not Available Not Available aspirin 81 mg tablet,de layed release Take 1 tablet every day by oral route. 2015 active Not Available Not Available Not Avai lable tramadol 50 mg tablet Take 1 tablet 3 times a day by oral route as needed. 02/21 completed munfukh Not Available Not Available Not Available spironola ctone 25 mg tablet 10/29 completed Not Available Not Available Not Available amoxicill in 500 mg tablet TAKE 4 TABLETS BY MOUTH (ONE DOSE) 30-60 MINS BEFORE DENTAL PROCEDUR E 07/27 completed Not Available Not Available Not Available ketorolac 0.5 % eye drops PLEASE SEE ATTACHED FOR DETAILED DIRECTIO NS 07/21 completed Not Available Not Available Not Available oxycodone -acetamin ophen 5 mg-325 mg tablet active Not Available Not Available Not Available citalopra m 20 mg tablet Take 1 tablet every day by oral route at bedtime. active has not taken it in a while Not Available Not Available Not Available prednisol one acetate 1 % eye drops,maximino pension INSTILL 1 DROP INTO AFFECTED EYE(S) 3 TIMES A DAY STARTING AFTER SURGERY, CONTINUE FOR 3 WEEKS 07/21 completed Not Available Not Available Not Available lorazepam 0.5 mg tablet Take 1 tablet twice a day by oral route as needed. active Called on refill line Not Available Not Available Not Available metoclopr amide 5 mg tablet Take 1 tablet twice a day by oral route as needed. 11/11 completed wood Not Available Not Available Not Available MoneylibTouch Ultra Test strips USE TO CHECK BLOOD SUGAR ONCE DAILY 03/15 completed Not Available Not Available Not Available meclizine 25 mg tablet active Not Available Not Available Not Available cephalexi n 500 mg capsule 01/06 completed Not Available Not Available Not Available esomepraz ole magnesium 40 mg capsule,d elayed release TAKE 1 CAPSULE DAILY 10/29 completed Not Available Not Available Not Available clotrimaz ole-betam ethasone 1 %-0.05 % topical cream APPLY TO THE AFFECTED AND SURROUND ING AREA OF SKIN TWICE DAILY IN MORNING AND EVENING FOR 2 WEEKS active Not Available Not Available No t Available lisinopri l 10 mg tablet active Not Available Not Available Not Available metoprolo l tartrate 50 mg tablet Take 1 tablet every day by oral route for 90 days. 10/29 completed Not Available Not Available Not Available methimazo le 5 mg tablet Take 1 tablet every other day by oral route in the morning for 90 days. 12/08 completed Not Available Not Available Not Available gabapenti n 300 mg capsule TAKE 1 CAPSULE BY MOUTH in am and 2 caps at nighttim e active Not Available Not Available No t Available diclofena c sodium 75 mg tablet,de layed release Take 1 tablet twice a day by oral route. active Not Available Not Available No t Available bumetanid e 1 mg tablet 10/29 completed Not Available Not Available Not Available lisinopri l 5 mg tablet active Not Available Not Available Not Available mupirocin 2 % topical ointment APPLY TWICE DAILY TO WOUNDS AFTER CLEANING AND DRYING AREA 05/27 completed Not Available Not Available Not Available furosemid e 20 mg tablet Take one tablet daily active Not Available Not Available No t Available Levaquin 500 mg tablet Take 1 tablet every 24 hours by oral route for 7 days. active Not Available Not Available No t Available levofloxa prince 750 mg tablet active Not Available Not Available No t Available methimazo le 10 mg tablet active Not Available Not Available Not Available Vitamin D2 1,250 mcg (50,000 unit) capsule Take 1 capsule every week by oral route for 90 days. active Not Available Not Available No t Available ondansetr on 4 mg disintegr ating tablet DISSOLVE 1 TABLET ON TONGUE 3 TIMES A DAY NEEDED FOR NAUSEA active Not Available Not Available No t Available cefdinir 300 mg capsule 12/02 completed Not Available Not Available Not Available diltiazem 60 mg tablet 12/03 completed Not Available Not Available Not Available metformin ER 500 mg tablet,ex tended release 24 hr Take 1 tablet every day by oral route for 90 days. 12/08 completed Not Available Not Available Not Available esomepraz ole magnesium 20 mg capsule,d elayed release Take 1 capsule every day by oral route for 90 days. 07/21 completed Not Available Not Available Not Available neomycin 3.5 mg/g-poly myxin B 10,000 unit/g-de xameth 0.1 % eye oint APPLY OINTMENT TO THE AFFECTED AREA ON BOTH EYES 2 TIMES A DAY 05/27 completed Not Available Not Available Not Available ezetimibe 10 mg tablet Take 1 tablet every day by oral route for 90 days. active Not Available Not Available No t Available Klor-Con M20 mEq tablet,ex tended release 02/21 completed Not Available Not Available Not Available Klor-Con M10 mEq tablet,ex tended release TAKE ONE TABLET BY MOUTH ONCE DAILY active does not take unless she gets muscle cramps Not Available Not Available Not Available metoprolo l tartrate 25 mg tablet Take 1 tablet twice a day by oral route. active Not Available Not Available No t Available nitrofura ntoin monohydra te/macroc rystals 100 mg capsule Take 1 capsule every 12 hours by oral route for 5 days. active Not Available Not Available No t Available ibandrona te 150 mg tablet Take 1 tablet every month by oral route. 09/18 completed Not Available Not Available Not Available Lyrica 50 mg capsule active Not Available Not Available Not Available Calcium 600 with Vitamin D3 QD 10/29 completed Not Available Not Available Not Available ProAir HFA 90 mcg/actua tion aerosol inhaler Inhale 2 puffs every 4-6 hours by inhalati on route. 10/07 completed Not Available Not Available Not Available cholecalc iferol (vitamin D3) 50 mcg (2,000 unit) capsule TAKE 1 CAPSULE DAILY IN THE MORNING active Not Available Not Available No t Available GaviLyte- G 236 gram-22.7 4 gram-6.74 gram-5.86 gram oral solution 09/05 completed Not Available Not Available Not Available Prolia 60 mg/mL subcutane ous syringe 1 ml subcutan eously once every 6 months 11/11 completed wood Not Available Not Available Not Available Suprep Bowel Prep Kit 17.5 gram-3.13 gram-1.6 gram oral solution USE DIRECTED ON PACKAGE OR PER PHYSICIA NS INSTRUCT IONS active Not Available Not Available No t Available Xarelto 20 mg tablet active Not Available Not Available Not Available Eliquis 5 mg tablet Take 1 tablet every day by oral route for 90 days. active Not Available Not Available No t Available Breo Ellipta 100 mcg-25 mcg/dose powder for inhalatio n Inhale 1 puff every day by inhalati on route for 90 days. active Not Available Not Available No t Available ProAir RespiClic k 90 mcg/actua tion breath activated INHALE 2 PUFFS INTO THE LUNGS EVERY 4 TO 6 HOURS 2024 active Not Available Not Available Not Avai lable Fluzone High-Dose (PF) 180 mcg/0.5 mL intramusc ular syringe active Not Available Not Available Not Available Yosprala 81 mg-40 mg tablet,im mediate and delay release Take 1 tablet every day by oral route. 03/06 completed Not Available Not Available Not Available OneTouch Ultra2 Meter use to check glucose once daily 03/15 completed Not Available Not Available Not Available Fluzone High-Dose (PF) 240 mcg/0.7 mL IM syringe PHARMACY ADMINIST ERED 10/11 completed Not Available Not Available Not Available Paxlovid 300 mg (150 mg x 2)-100 mg tablets in a dose pack Take 1 dose pk by oral route. active Not Available Not Available No t Available Vitals Date Recorded Body weight Body mass index (BMI) Body height Body temperature Heart rate Oxygen saturation Oxygen saturation in Arterial blood by Pulse oximetry Systolic blood pressure Diastolic blood pressure Provider Name and Address Organization Details Last Updated DateTime 3 71860.4 4 g 33.6 kg/m2 154.94 cm 97 [degF] 96 /min 97 % 97 % 136 mm[Hg] 70 mm[Hg] Isatu smith Tacho [facility] [employer] [facility] 3 10:18:17 Date Recorded Body height Body mass index (BMI) Body weight Provider Name and Address Organization Details Last Updated DateTime 03/15/2023 154.94 cm 32.1 kg/m2 95579.7 g Milagros Pichardo [facility] [employer] [facility] 03/15/2023 11:00:09 Date Recorded Body height Body mass index (BMI) Body weight Systolic blood pressure Diastolic blood pressure Provider Name and Address Organization Details Last Updated DateTime 08/20/2023 154.94 cm 33.3 kg/m2 68859.26 g 122 mm[Hg] 70 mm[Hg] Pio Cobb CMA [facility] [employer] [facility] 4 11:19:46 Date Recorded Body height Body mass index (BMI) Body weight Body temperature Heart rate Oxygen saturation Oxygen saturation in Arterial blood by Pulse oximetry Systolic blood pressure Diastolic blood pressure Provider Name and Address Organization Details Last Updated DateTime 4 154.94 cm 33.6 kg/m2 69179.4 4 g 96.9 [degF] 85 /min 94 % 94 % 128 mm[Hg] 68 mm[Hg] Isatu smith [facility] 4 11:42:48 Date Recorded Pain severity - 0-10 verbal numeric rating [Score] - Reported Provider Name and Address Organization Details Last Updated DateTime 01/29/2024 0 Deborah Lam RN [facility] 01/29/2024 14:55:02 Date Recorded Body weight Body mass index (BMI) Body height Body temperature Heart rate Oxygen saturation Oxygen saturation in Arterial blood by Pulse oximetry Systolic blood pressure Diastolic blood pressure Provider Name and Address Organization Details Last Updated DateTime 4 51510.8 5 g 33.4 kg/m2 154.94 cm 97.4 [degF] 80 /min 97 % 97 % 138 mm[Hg] 76 mm[Hg] COLLEEN Padilla [place] [facility] [place] [facility] [employer] 4 12:14:27 Social History Question Answer Notes LastModified by Organization Details LastModified Time Tobacco Smoking Status Never Smoker Not Available [employer] 09/20/2022 03:16:13 Do You Have An Advance Directive? Yes MIGRATION.267 [id number] Information not available 09/20/2022 What Is Your Level Of Alcohol Consumption? None MIGRATION.340 [id number] Information not available 09/20/2022 Are You Blind Or Do You Have Difficulty Seeing? Yes States Difficulty With Vision, States Sees Opthomologist Every 3-6 Months [email or web address] Information not available 01/29/2024 Is Blood Transfusion Acceptable In An Emergency? Yes [email or web address] Information not available 01/29/2024 What Is Your Level Of Caffeine Consumption? Moderate MIGRATION.314 1553960 Information not available 09/20/2022 In The 14 Days Before Symptom Onset, Have You Had Close Contact With A Laboratory-conf irmed COVID-19 While That Case Was Ill? No Not Applicable [email or web address] Information not available 01/29/2024 In The 14 Days Before Symptom Onset, Have You Had Close Contact With A Person Who Is Under Investigation For COVID-19 While That Person Was Ill? No Not Applicable [email or web address] Information not available 01/29/2024 Are You Currently Employed? No [email or web address] Information not available 01/29/2024 Are You Deaf Or Do You Have Serious Difficulty Hearing? No MIGRATION.333 2008952 Information not available 09/20/2022 What Type Of Diet Are You Following? REGULAR MIGRATION.141 [id number] Information not available 09/20/2022 Do You Or Have You Ever Used E-cigarettes Or Vape? Never Used Electronic Cigarettes MIGRATION.318 6858137 Information not available 09/20/2022 What Is The Highest Grade Or Level Of School You Have Completed Or The Highest Degree You Have Received? UC84525-4 MIGRATION.388 5977098 Information not available 09/20/2022 What Is Your Occupation? Retired MIGRATION.307 9758975 Information not available 09/20/2022 How Many Days Of Moderate To Strenuous Exercise, Like A Brisk Walk, Did You Do In The Last 7 Days? 0 [email or web address] Information not available 01/29/2024 Have There Been Any Changes To Your Family Or Social Situation? No MIGRATION.528 1535406 Information not available 09/20/2022 What Is The Fluoride Status Of Your Home? Fluoridated [email or web address] Information not available 01/29/2024 Are There Any Guns Present In Your Home? No MIGRATION.501 0711166 Information not available 09/20/2022 Do You Use Insect Repellent Routinely? No MIGRATION.304 4945821 Information not available 09/20/2022 Where Do You Live? [place]House MIGRATION.965 9273049 Information not available 09/20/2022 Advance Directive- Providers Has Reviewed Directive And Consents To Follow Them (insert Provider Name With Any Objectives In Notes Field) Yes MIGRATION.590 [id number] Information not available 09/20/2022 Presence Of Domestic Violence No [email or web address] Information not available 01/29/2024 Guns Present In The Home? No [email or web address] Information not available 01/29/2024 Are You Able To Care For Yourself? Yes [email or web address] Information not available 01/29/2024 Are You Blind Or Do Yo Have Difficulty Seeing? Yes [email or web address] Information not available 01/29/2024 Are You Deaf Or Do You Have Serious Difficulty Hearing? No [email or web address] Information not available 01/29/2024 General Stress Level? Low [email or web address] Information not available 01/29/2024 Live Alone Of With Others? Alone [email or web address] Information not available 01/29/2024 Do You Have A Medical Power Of Tanner Rotary Drum Continuous Process? Yes MIGRATION.645 [id number] Information not available 09/20/2022 What Was The Date Of Your Most Recent Tobacco Screening? 01/29/2024 [email or web address] Information not available 01/29/2024 How Many Children Do You Have? 4 [email or web address] Information not available 01/29/2024 Do You Have Any Pets? No MIGRATION.145 7244015 Information not available 09/20/2022 What Is Your Relationship Status? MIGRATION.363 7968667 Information not available 09/20/2022 Do You Use Your Seat Belt Or Car Seat Routinely? Yes MIGRATION.293 6088285 Information not available 09/20/2022 Are You Sexually Active? No [email or web address] Information not available 01/29/2024 Do You Have Smoke And Carbon Monoxide Detectors In Your Home? Yes MIGRATION.179 2005853 Information not available 09/20/2022 Are You Passively Exposed To Smoke? No MIGRATION.548 9528268 Information not available 09/20/2022 Are There Any Smokers In Your House? No MIGRATION.599 2734190 Information not available 09/20/2022 What Types Of Sporting Activities Do You Participate In? None [email or web address] Information not available 01/29/2024 Do You Feel Stressed (tense, Restless, Nervous, Or Anxious, Or Unable To Sleep At Night)? [id number] MIGRATION.574 7586281 Information not available 09/20/2022 Do You Use Any Illicit Or Recreational Drugs? No MIGRATION.442 2909162 Information not available 09/20/2022 Do You Use Sunscreen Routinely? No [email or web address] Information not available 01/29/2024 Has Tobacco Cessation Counseling Been Provided? No [email or web address] Information not available 01/29/2024 Have You Recently Traveled Abroad? No MIGRATION.870 0847642 Information not available 09/20/2022 Do You Have Any Dietary Restrictions? No MIGRATION.559 3233441 Information not available 09/20/2022 Do You Or Have You Ever Used Any Other Forms Of Tobacco Or Nicotine? No MIGRATION.958 6790553 Information not available 09/20/2022 Sex: Female Functional Status Question Answer Note LastModified by Organizat ion Details LastModified Time Do you have difficulty walking or climbing stairs? No MIGRATION.[id number] 026 Information not available 09/20/2022 Do you have transportation difficulties? No MIGRATION.9700079 026 Information not available 09/20/2022 Are you able to walk? YESWOREST MIGRATION.5581712 026 Information not available 09/20/2022 Do you have difficulty doing errands alone? No MIGRATION.7985577 026 Information not available 09/20/2022 Are you able to care for yourself? Yes MIGRATION.8546977 026 Information not available 09/20/2022 Do you have difficulty dressing or bathing? No MIGRATION.5020618 026 Information not available 09/20/2022 What is your exercise level? Moderate MIGRATION.4864511 026 Information not available 09/20/2022 Mental Status Question Answer Note LastModified by Organizat ion Details LastModified Time Do you have difficulty concentrating, remembering or making decisions? No MIGRATION.[id number] 6 Information not available 09/20/2022 Family History Relationship Description Onset Age of this Age Resolved Age Notes LastModified by Organization Details LastModified Time Mother Heart disease [email or web address] Not available 2022 11:01:09 Father Family history of malignant neoplasm [email or web address] Not available 2022 11:01:20 Medical History Condition Response HEART ARRHYTHMIA Y HIGH CHOLESTEROL / HYPERLIPIDEMIA Y EAR OR HEARING PROBLEMS Y GERD/NAUSEA Y OSTEOPOROSIS Y DIABETES, TYPE N BLOOD CLOTS Y HEART DISEASE/HEART PROBLEMS Y HYPERTENSION Y Gynecological History Statement/Question Response Date of Last Mammogram 04/01/2020 Date of Last Colonoscopy 03/14/2016 Most Recent Bone Density 04/02/2019 Obstetrics History GPAL:G 0 P 0 0 0 0 Immunizations Vaccine Type Date Status Note Provider Nam e and Address Organization Details Recorded Time COVID-19, mRNA, LNP-S, PF, 30 mcg/0.3 mL dose 2 completed Not Available [facility] 09/20/2022 03:36:13 COVID-19, mRNA, LNP-S, PF, 30 mcg/0.3 mL dose 1 completed Not Available [facility] 09/20/2022 03:36:13 Influenza, high-dose, quadrivalent, PF 0 completed Not Available [facility] 09/20/2022 03:36:13 Influenza, split virus, trivalent, PF 5 completed Not Available [facility] 09/20/2022 03:36:13 Influenza, high-dose, quadrivalent, PF 3 completed Not Available [facility] 09/20/2022 03:36:13 Influenza, high-dose, quadrivalent, PF 1 completed Not Available [facility] 09/20/2022 03:36:13 Influenza, high-dose, trivalent, PF 7 completed Not Available [facility] 09/20/2022 03:36:14 Pneumococcal conjugate PCV 13 6 completed Not Available [facility] 09/20/2022 03:36:14 Influenza, split virus, trivalent, PF 4 completed Not Available [facility] 09/20/2022 03:36:14 Past Encounters Encounter ID Performer Location Encounter Start Date Encounter Closed Date Diagnosis/Indication Diagnosis SNOMED-CT Code Diagnosis ICD10 Code Diagnosis Note [id number] [facility] [address] [place] [address] 10/11/2020 00:00:00 10/11/2020 17:11:56 [id number] _ATHENA_M IGRATION_ DEFAULT_1 _1 , 11/11/2020 00:00:00 11/11/2020 14:24:02 [id number] [facility] [address] [address] 02/21/2021 00:00:00 02/21/2021 10:15:38 [id number] [facility] [place] [address] [place] [address] 06/02/2021 00:00:00 06/02/2021 15:05:09 [id number] [facility] [address] [address] 06/21/2021 00:00:00 06/21/2021 15:59:05 [id number] [facility] [address] [address] 07/19/2021 00:00:00 07/19/2021 13:23:07 [id number] _ATHENA_M IGRATION_ DEFAULT_1 _1 , 07/20/2021 00:00:00 07/20/2021 11:23:59 [id number] _ATHENA_M IGRATION_ DEFAULT_1 _1 , 09/08/2021 00:00:00 09/08/2021 10:01:35 [id number] _ATHENA_M IGRATION_ DEFAULT_1 _1 , 12/08/2021 00:00:00 12/08/2021 10:26:20 [id number] [facility] [place] [address] [facility] [place] [address] 02/23/2022 00:00:00 02/23/2022 12:11:11 [id number] [facility] [address] [place] [address] 03/28/2022 00:00:00 03/28/2022 12:30:28 [id number] [facility] [place] [address] [facility] [place] [address] 05/31/2022 00:00:00 06/05/2022 13:59:51 [id number] [facility] [place] [address] [place] [address] 07/27/2022 00:00:00 07/27/2022 15:28:54 [id number] [facility] [address] [facility] [place] [place] [address] 08/01/2022 00:00:00 08/01/2022 13:30:43 [id number] [facility] [address] [facility] [place] [place] [address] 09/05/2022 00:00:00 09/05/2022 13:07:05 [id number] Lana Abrams MD [facility] [address] [facility] [place] [place] [address] 01/29/2023 14:08:14 01/29/2023 15:00:00 Benign essential hypertension 3618276 I10 under control Gastroesop hageal reflux disease 147265374 K21.9 meds help Chronic ob structive pulmonary disease 79060949 J44.[address] Congestive heart failure 61204291 I50.9 under control Heart disease 14789745 I 51.9 stable Hyperlipidemia 70111836 E78.5 stable Hyperthyroidism 67316673 E05.90 stable with meds Neuropathy 269301439 G62 .9 on gabapentin at night Vitamin D deficiency 347 04672 E55.9 OTC Overactive urinary bladder 716778124 N32.81 has tried meds Osteopenia 329394609 M85 .80 on ca/vit d Hyperglycemia 00177313 R 73.9 watching diet, discussed Adult heal th examination 457953034 Z00.00 Colonoscop y 04/16/2020M ammogram 03/2021, no more neededDexa - 04/02/2019 Prevnar- 11/04/15Pn eumovax 23-Influen za-07/2022 Covid Vacc- 09/30/20 Gurinder and Gurinder Prediabetes 334453928 R7 3.03 [id number] Lana Abrams MD [facility] [address] [facility] [place] [place] [address] 02/15/2023 10:11:17 02/15/2023 10:40:42 Pain of right shoulder joint 2160717472 4977733 M25.511 tylenol, avoid NSAIDS [id number] FLORI Jerome [facility] [address] [address] 03/15/2023 10:34:35 03/15/2023 12:44:14 Pain of left shoulder joint 2120545152 1264430 M25.307 [id number] Lana Abrams MD [facility] [address] [place] [address] 08/20/2023 11:04:40 08/20/2023 12:17:49 Benign essential hypertension 6242136 I10 under control Gastroesop hageal reflux disease 623315065 K21.9 meds help Chronic ob structive pulmonary disease 20832195 J44.[address] due to sob Congestive heart failure 44470493 I50.9 under control Heart disease 34439967 I 51.9 stable Hyperlipidemia 62608574 E78.5 stable Hyperthyroidism 67230154 E05.90 off meds Neuropathy 711202941 G62 .9 on gabapentin at night Vitamin D deficiency 347 68237 E55.9 OTC Overactive urinary bladder 196358188 N32.81 has tried meds, using pads Osteopenia 985242890 M85 .80 on ca/vit d Hyperglycemia 65067132 R 73.9 watching diet, discussed Adult heal th examination 438124917 Z00.00 Colonoscop y 04/16/2020M ammogram 03/2021, no more needed- Pt would likeDexa- 04/02/2019 Prevnar- 11/04/15Pn eumovax 23-Influen -07/2022 - Does not want today/SICK Covid Vacc- 09/30/20 Pramod [id number] Lana Abrams MD [facility] [address] [place] [address] 01/29/2024 11:03:22 01/29/2024 12:34:08 Benign essential hypertension 4149426 I10 under control Gastroesop hageal reflux disease 529864739 K21.9 meds help Chronic ob structive pulmonary disease 73770631 J44.[address] due to sob Congestive heart failure 73210845 I50.9 under control Heart disease 08486919 I 51.9 stable Hyperlipidemia 70516200 E78.5 stable Hyperthyroidism 84670005 E05.90 off meds and labs are stable Neuropathy 292724120 G62 .9 on gabapentin at night Vitamin D deficiency 347 49898 E55.9 OTC Overactive urinary bladder 746238464 N32.81 has tried meds, using pads Osteopenia 635762607 M85 .80 on ca/vit d Hyperglycemia 17837547 R 73.9 watching diet, discussed Adult heal th examination 962668300 Z00.00 Colonoscop y- 04/16/2020M ammogram- 08/15/2022 Dexa- 10/11/2022 Prevnar 1311/04/15Pn eumovax 23-Influen -07/2022 - Does not want today/SICK Covid Vacc- 09/30/20 Pramod Osteoporosis 11586852 M8 1.0 on otc Anemia 428177297 D64.9 mild Thrombocyt openic disorder 037296143 D69.6 seen hematology Skin lesion 39770928 L98 .[address] betts Screening for disorder 162025573 Z13.9 [id number] Lana Abrams MD [facility] Internal Med [address] [place] [address] 05/27/2024 11:58:22 05/27/2024 12:39:49 Benign essential hypertension 2743091 I10 under control Gastroesop hageal reflux disease 034497088 K21.9 prn mrds Chronic ob structive pulmonary disease 81763304 J44.[address] due to sob Congestive heart failure 54274735 I50.9 under control Heart disease 83048362 I 51.9 stable Hyperlipidemia 72617706 E78.5 stable Hyperthyroidism 12861467 E05.90 off meds and labs are stable Neuropathy 282943559 G62 .9 on gabapentin at night Vitamin D deficiency 347 23978 E55.9 OTC Overactive urinary bladder 617827188 N32.81 has tried meds, using pads Osteopenia 740598048 M85 .80 on ca/vit d Hyperglycemia 17496656 R 73.9 watching diet, discussed Adult heal th examination 868837487 Z00.00 Colonoscop y- 04/16/2020M ammogram- 08/15/2022 Dexa- 10/11/2022 Prevnar 13- 11/04/15Pn eumovax 23-Influen za-07/2022 - Does not want today/SICK Covid Vacc- 09/30/20 Gurinder and Gurinder Osteoporosis 73047261 M8 1.0 on otc Anemia 346030880 D64.9 mild Thrombocyt openic disorder 761793356 D69.6 seen hematology Urinary symptoms 7166959 08 R39.9 dip stick noted Candidiasis of skin 4988 3006 B37.2 Health Concerns Section Related Observation LastModified by Organization Detai ls LastModified Time None Recorded Concern Status LastModified by Organization Details LastModified Time None Recorded Advance Directives Directive Y: Payers Encounter Date Sequence Insurance Name Policy Number Policy Baldwin Covered Member ID Baldwin Member ID Guarantor Name 02/15/2023 1 [place] Liliya Devi Brad [id number] Liliya Devi Brad 02/15/2023 2 [facility] [id number] Liliya Devi Brad [id number] Liliya Devi Brad 03/15/2023 1 [place] Liliya Devi Brad [id number] 4 Liliya Devi Brad 03/15/2023 2 [place] [id number] Liliya Devi Brad [id number] Liliya Salinas 08/20/2023 1 [place] Liliya Salinas [id number] 4 Liliya Salinas 08/20/2023 2 [place] [id number] Liliya Salinas [id number] Liliya Salinas 01/29/2024 1 [place] Liliya Salinas [id number] 4 Liliya Salinas 01/29/2024 2 [place] [id number] Liliya Salinas [id number] Liliya Salinas 05/27/2024 1 [place] Liliya Salinas [id number] 4 Liliya Salinas 05/27/2024 2 [place] [id number] Liliya Salinas [id number] Liliya Salinas Notes Date Note Type Note Provider Name and Address Organization Details Recorded Time 02/15/2023 text/html She is here toda y for right shoulder pain, She had recently been hedge trimming in her yard and thinks she just over worked it but nurse wanted to make sure it was not her heart.Has been using OTC creamsshe has the pain off and on Lana Abrams MD [address] [place] [address], [place] [address], [place], [address], [facility] 02/15/2023 10:39:05 08/20/2023 text/html Here today for routine f/u, compliant to meds URI X 1 month, Has been cough up a lot of mucus, Was RX benzonatate and a Zpak but states that she did not take the Zpak because she thought it was a Steroid. (No longer has it, gave it to her son)No fever, Gets sob when she up and active*Pt is not fasting Eyes have been bothering her, has been dizzy a lot and would like some labs. Has not had any falls yet. 07/01/18- Aortic valve replacement due to worsening CHF, also had Mitral valve and Tricuspid valve repair HTN- on meds and not under control , her meds were changed by her cardiologistMeds- lisinopril 10 mg qd metoprolol tart 25 mg bid Hyperlipidemia- on meds, diet,Meds- atorvastatin 10 mg qd, ezetimibe 10 mg qd ([facility]) GERD- better with medsMeds- esomeprazole 20 mg qd Atrial fibrillation- s/p cardioversion s/p pace maker, on Eliquis , no symptomsMeds- eliquis 5 mg qd Neuropathy- mild symptoms, gabapentin helps Overactive bladder- has tried meds in the past without help Hyperthyroidism- was on meds, seen Dr. Argueta- methimazole 5 mg qd WAS STOPPED Edema- unchangedMeds - furosemide 20 mg qd Osteopenia- on ca and vit d Dr. Argueta- had prolia injection monthly but stopped due to side effects Vit d def-Meds- on meds from dr foote Prediabetes- watching diet, Thyroid nodule- s/p biopsy Lana Abrams MD [address] [facility], [place], [address], [place] [facility] [employer] 08/20/2023 12:17:22 01/29/2024 text/html Here today for routine f/u, compliant to meds Has been having hand tingling, seeing Dr in [place] and doing therapy and they told her the only options left are shots or surgery 07/01/18- Aortic valve replacement due to worsening CHF, also had Mitral valve and Tricuspid valve repair, no symptoms HTN- on meds and not under control , her meds were changed by her cardiologistMeds- Lisinopril 10 mg qd Metoprolol tart 25 mg bid Hyperlipidemia- on meds, diet,Meds- Atorvastatin 10 mg qd, Ezetimibe 10 mg qd ([facility]) GERD- better with medsMeds- Esomeprazole 20 mg qd Atrial fibrillation- s/p cardioversion s/p pace maker, on Eliquis , no symptomsMeds- Eliquis 5 mg qd Neuropathy- mild symptoms, gabapentin helpsMeds- Gabapentin 300mg 2 caps HS Overactive bladder- has tried meds in the past without help Hyperthyroidism- was on meds, seen Dr. Argueta- was on Methimazole 5 mg qd WAS STOPPED Edema- unchangedMeds - Furosemide 20 mg qd Osteopenia- on ca and vit dMeds- had Prolia injection monthly but stopped due to side effects Vit d def- Prediabetes- watching diet, A1c 6.1 Thyroid nodule- s/p biopsy skin lesions, was seeing Dr Betts, has some new lesion s on the neck, needs derm f/u, she will make appt Lana Abrams MD [address] [facility], [place], [address], [facility] [employer] 01/29/2024 17:30:09 05/27/2024 text/html Here today for routine f/u, compliant to meds C/o urinary Sx, burning, freq urination w/ pressure. Started 4 days ago. Urine is dark dark erinn. dipstick results in chart PT IS NOT FASTING ( Medicare / [employer] ) 07/01/18- Aortic valve replacement due to worsening CHF, also had Mitral valve and Tricuspid valve repair, no symptoms HTN- on meds and under control ,Meds- Lisinopril 10 mg qd Metoprolol tart 25 mg bid Hyperlipidemia- on meds, diet, labsMeds- Atorvastatin 10 mg qd, Ezetimibe 10 mg qd ([facility]) GERD- better with medsMeds- Esomeprazole 20 mg qd Atrial fibrillation- s/p cardioversion s/p pace maker, on Eliquis , no symptomsMeds- Eliquis 5 mg qd Neuropathy- mild symptoms, gabapentin helpsMeds- Gabapentin 300mg 2 caps HS Overactive bladder- has tried meds in the past without help Hyperthyroidism- was on meds, seen Dr. Alegre in the pastMeds- was on Methimazole 5 mg qd WAS STOPPED, labs good without meds Edema- unchangedMeds - Furosemide 20 mg qd Osteopenia- on ca and vit d , dexa 10/12Meds- had Prolia injection monthly but stopped due to side effects Vit d def- on otc Prediabetes- watching diet, A1c 6.0 ( 08/21/2023) Thyroid nodule- s/p biopsy skin cancer-skin lesions, seen Dr Betts, Lana Abrams MD [address] [facility], [place], [address], [place] [employer] 05/27/2024 12:39:19 OBGyn Episode No OBEpisode recorded.
--- OUTSIDE RECORDS SUMMARY | 2024-09-19 19:28 | XMS_ITS | Clinical Summary ---
Author Organization [facility] Address [address] [place] [address] Care Team Providers Care Emergency Management System Director Name Role Phone Lawrence Thomas MD Unavailable [phone] Michael Abrams MD Primary Care Provider [phone] Source Comments [facility],non-owned Affiliates and Associated Physician Practices is amultiple site organization consisting of ambulatory clinics and hospital sitesin [place], [place], [place] and [place]. This disclosure is being madepursuant to the Care Everywhere program and may not contain all information available regarding this patient. Last updated 18.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 2013 Dyslipidemia 07/23/1959 [...] Orientation Not on file Plan of Treatment Health Maintenance Due Date Last Done Comments BONE DENSITY TESTING 1940 MEDICARE AWV 12 MONTHS 1940 DTAP/TDAP/TD VACCINES (1 - Tdap) 1958 PNEUMOCOCCAL VACCINE 50+ (1 of 2 - PCV) 1958 ZOSTER VACCINE (1 of 2) 1989 Respiratory Syncytial Virus (RSV) Vaccine Pt: or over 60 yrs (1 - 1-dose 75+ series) 2014 COVID-19 VACCINE (3 - 2023-2 5 season) 2024 09/02/2021, 09/30/2020 INFLUENZA VACCINE (#1) 2024 7, 06/19/2015, 05/14/2014 DEPRESSION SCREENING 07/23/2024 HEPATITIS B VACCINE Aged Out No longe r eligible based on patient's age to complete this topic HIB VACCINE Aged Out No longer eligi ble based on patient's age to complete this topic HPV VACCINE Aged Out No longer eligi ble based on patient's age to complete this topic MENINGOCOCCAL (Group B) VACCINE Aged Out No longer eligible b ased on patient's age to complete this topic MENINGOCOCCAL VACCINE Aged Out No lenin jackson eligible based on patient's age to complete this topic Care Teams Emergency Management System Director Relationship Specialty Start Date End Date Michael Abrams MD [address] [place] [address] PCP - General Internal Medicine 04/02/24 Lawrence Thomas MD [address] [place] [address] Dermatology 03/10/24
--- OUTSIDE RECORDS SUMMARY | 2024-09-19 19:28 | XMS_ITS | Clinical Summary ---
Author Organization [facility] Address [address] [place] [address] Care Team Providers Care Chemical Librarian Name Role Phone Michael Abrams MD Primary Care Provider [phone] Allergies No known active allergies Medications metoprolol tartrate (LOPRESSOR) 25 mg tablet Take 25 mg by mouth 2 times daily. Active lisinopriL (PRINIVIL) 10 mg tablet Take 10 mg by mouth daily. Active ezetimibe (ZETIA) 10 mg tablet Take 10 mg by mouth daily. Active furosemide (LASIX) 20 mg tablet Take 20 mg by mouth 2 times daily. Active apixaban (Eliquis) 5 mg tablet Take 5 mg by mouth 2 times daily. Active atorvastatin (LIPITOR) 10 mg tablet Take 10 mg by mouth daily. Active CALCIUM CARBONATE-VITAMI N D3 ORAL Take 50 mg by mouth daily. Active aspirin (ECOTRIN EC) 81 mg Tablet, Delayed Release (E.C.) Take 81 mg by mouth daily. Active gabapentin (NEURONTIN) 300 mg capsule Take 300 mg by mouth 2 times daily. 300 mg in the morning, 600 mg at night Active cyanocobalamin 1,000 mcg Tablet Take 1,000 mcg by mouth daily. Active Active Problems No known active problems Encounters Date Type Department Care Team Description 09/10/2024 External Device Data [facility] ABSTRACTION Provider, Abstract 08/20/2024 External Device Data [facility] ABSTRACTION Provider, Abstract 08/14/2024 External Device Data [facility] ABSTRACTION Provider, Abstract from Last 3 Months Family History Medical History Relation Name Comments Cancer Brother Kidney Cancer Father Prostate Cancer Father Arthritis Mother Colon Cancer Mother Diabetes Mother Heart Disease Mother Alzheimer's Disease Sister No Known Problems Son 1 No Known Problems Son 2 No Known Problems Son 3 No Known Problems Son 4 Relation Name Status Comments Brother Father Mother Sister Alive Son 1 Alive Son 2 Alive Son 3 Alive Son 4 Social History Tobacco Use Types Packs/Day Years Used Date Smoking Tobacco: Never Smokeless Tobacco: Never Tobacco Cessation:Counseling Given: Not Answered Alcohol Use Standard Drinks/Week Comments Never 0 (1 standard drink = 0.6 oz pur e alcohol) Comments Unknown Sex and Gender Information Value Date Recorded Sex Assigned at Not on file Legal Sex Female 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 Gender Identity Not on file Sexual Orientation Not on file Last Filed Vital Signs Vital Sign Reading Time Taken Comments Blood Pressure 115/64 12/20/2023 11:16 AM CDT Pulse 76 12/20/2023 11:16 AM CDT Temperature 36.7 C (98 F) 12/20/2023 11:16 AM CDT Respiratory Rate 15 12/20/2023 11:1 6 AM CDT Oxygen Saturation 95% 12/20/2023 11: 16 AM CDT Inhaled Oxygen Concentration - - Weight 76.6 kg (168 lb 12.8 oz) 024 11:16 AM CDT Height 160 cm (5' 3 ) 08/30/2023 2:11 PM VETERINARY SURGERY TECHNICIAN Body Mass Index 29.9 08/30/2023 2:11 PM VETERINARY SURGERY TECHNICIAN Plan of Treatment Health Maintenance Due Date Last Done Comments DTAP/TDAP/TD VACCINES (1 - Tdap) 1958 ZOSTER VACCINE (1 of 2) 1989 RSV VACCINE (60+ or ) (1 - 1-dose 75+ series) 2014 PNEUMOCOCCAL VACCINE 50+ YEA RS (2 of 2 - PPSV23) 12/30/2015 11/04/2015 INFLUENZA VACCINE (#1) 2024 3, 07/19/2021, 05/18/2020, Additional history exists OSTEOPOROSIS SCREENING Completed 10/11/2022, 2021 [place] [address] MEDICARE PART A AND B [facility] BLUE ACCESS/TRUE EntraTympanic PPO Care Teams Chemical Librarian Relationship Specialty Start Date End Date Michael Abrams MD [address] [place] [phone] PCP - General Internal Medicine 08/30/23
--- OUTSIDE RECORDS SUMMARY | 2024-09-19 19:28 | XMS_ITS | Encounter Summary ---
Author Organization [facility] Address [address] [place] [address] Care Team Providers Care Wood Furniture Assembler Name Role Phone Lawrence Thomas MD Unavailable Michael Abrams MD Primary Care Provider Encounter Details Date Type Department Care Team (Late st Contact Info) Description 03/06/2024 Lab Requisition [facility] - DermPath Lab [address] [place] [id number] Lawrence Thomas MD [address] [place] [address] Social History Tobacco Use Types Packs/Day Years Used Date Smoking Tobacco: Never Assessed Sex and Gender Information Value Date Recorded Sex Assigned at Not on file Gender Identity Not on file Sexual Orientation Not on file documented as of this encounter Plan of Treatment Not on file documented as of this encounter Procedures Procedure Name Priority Date/Time Associated Diagnosis Comments DERMATOPATHOLOGY Routine 03/04/2024 12:0 0 AM CDT documented in this encounter Results * DERMATOPATHOLOGY (03/04/2024 12:00 AM CDT) Case Report Dermatopathology Report Case: [id number] Authorizing Provider: Lawrence Thomas MD Collected: 03/04/2024 12:00 AM Ordering Location: [facility] Physician [facility] - Received: 03/06/2024 09:53 AM DermPath Lab Pathologist: Kamaljit Garber MD Specimens: A) - Skin, right forehead B) - Skin, left lateral forehead 1:26 PM CDT DERMATOPATHOLOGY LABORATORY Final Diagnosis Specimen A. 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 Jar 0. 1:26 PM [facility] DERMATOPATHOLOGY LABORATORY Microscopic Description Specimen A. SKIN, right forehead: Sections reveal parakeratosis, acanthosis and keratinocyte dysmaturation which is most prominent in the lower epidermis. Focal nests are present in the dermis. Specimen B. SKIN, left lateral forehead: The epidermis shows parakeratosis, full thickness disorderly maturation of keratinocytes, mitoses at different levels, and dyskeratotic cells. 1:26 PM [facility] DERMATOPATHOLOGY LABORATORY Disclaimer An external and internal positive and negative controls are appropriate for the histochemical, immunohistochemical and immunofluorescence stain(s) in this case (if any), except where stated explicitly. The performance characteristics of the stain(s) cited in this report were developed and its performance characteristic determined by the Dermatopathology Laboratory at [facility], directed by Dr. Mayo Garber. These tests need not be, and therefore are not, approved by the [place] Food and Drug Administration. The tests are used for clinical purposes. Billing Codes Specimen Charges Stain Charges 37442 14047 1 1 1:26 PM CDT DERMATOPATHOLOGY LABORATORY Embedded Images 1:26 PM T DERMATOPATHOLOGY LABORATORY Pathology/Cytology TISSUE SPECIMEN FROM SKIN / Unknown 03/04/2024 03/06/2024 9:53 AM CDT Miscellaneous samples (specimen) TISSUE SPECIMEN FROM SKIN / Unknown 03/04/2024 03/06/2024 9:53 AM CDT Lawrence Thomas MD LAB - PATHOLOGY/CYTO LOGY ORDERABLES DERMATOPATHOLOGY LABORATORY [facility] - Department of Dermatology [facility] [address] [place] [address], [address] [phone] documented in this encounter Visit Diagnoses Not on filedocumented in this encounter Care Teams Wood Furniture Assembler Relationship Specialty [place] [address] [place] [id number] PCP - General Internal Medicine 04/02/24 Lawrence Thomas MD [address] [place] [address] Dermatology 03/10/24 documented as of this encounter
--- OUTSIDE RECORDS SUMMARY | 2024-09-19 19:29 | XMS_ITS | CONTINUITY OF CARE DOCUMENT ---
Author Name arlen mckinley Address Unknown Organization [facility] Address [address] [place] [address] Phone [phone] Care Team Providers Care Siding Applicator Name Role Phone Mariam MATHEW, Naif Garnett Unavailable Michael Abrams MD Unavailable Michael Abrams MD Unavailable [phone] PROBLEMS Condition Status Date Provider Notes Hx of tricuspid valve repair active Ana Rosa Kaleb Mitral valve repair active Ana Rosa Kaleb Bioprosthetic aortic valve replacement active Ana Rosaphilip Manuel Iron deficiency anemia active Erin Wynn son Shortness of breath active Jia Mcdonald RN S/P Biotronik dc (MRI Safe) pm active Liliya Serrano DIZZINESS completed - Naif major MD CHEST PAIN-09/05 CATH MILD CAD EF 55 completed - Eduardo Barillas MD Dyslipidemia active Bartolo Hall is OBESITY active ? Yasmany Chen MD ATRIAL FIB-3/14 TELE [id number] HR 63-132 active ? Nixon Serrano RN EDEMA active Yasmany Chen MD PULMONARY EMBOLISM active ? Yasmany Chen MD Blood in stool completed - Eduardo Barillas MD Mitral regurgitation active Bartolo Hagan MD Tricuspid regurgitation completed - Eduardo Barillas MD Valvular Heart Disease completed - Marino Hagan MD Dizziness active Naif major MD HTN essential active Naif johnson MD Hyperthyroidism active Bartolo gonzales MD S/P Medtronic REVEAL/LinQ completed 04/09 - Bartolo Hagan MD REVEAL completed - Bartolo Hagan MD S/P Medtronic REVEAL/LinQ nightsweats completed - Eduardo Barillas MD Sleep apnea active Bartolo gray MD Aortic stenosis active Naif adkins MD Current long-term use of amiodarone completed - Eduardo Barillas MD Current use of anticoagulants active Bartolo Hagan MD Carotid artery stenosis - right completed - Eduardo Barillas MD CAD active Eduardo Barillas MD mild car aminah plaquer Restrictive lung disease active Eduardo johnson MD Preop cardiovasc. examination completed - Naif Becerra MD Epistaxis active Simeon Plurad Leg numbness active Karsten Alejandro MD COPD active Naif major MD Exposure to SARS-associated coronavirus completed - Naif Becerra MD CHF - diastolic active Naif adkins MD Preop cardiovasc. examination active Naif Becerra MD Exposure to COVID-19 coronavirus active Naif Becerra MD ENCOUNTERS Date Type Provider Location Encounter Diag nosis 2 - 2 In-person encounter Office Visit Naif Becerra MD [facility] 2 - 6 In-person encounter Office Visit Naif Becerra MD [facility] 4 - 8 In-person encounter Office Visit Naif Becerra MD [facility] 3 - 6 In-person encounter Office Visit Naif Becerra MD [facility] 7 - 7 In-person encounter Office Visit Naif Becerra MD [facility] Exposure to COVID-19 coronavirus 3 - 7 In-person encounter Office Visit Naif Becerra MD [facility] 1 - 5 In-person encounter Office Visit Naif Becerra MD [facility] 2 - 2 In-person encounter Office Visit Naif Becerra MD [facility] 3 - 6 In-person encounter Office Visit Naif Becerra MD [facility] 7 - 7 In-person encounter Office Visit Naif Becerra MD [facility] Preop cardiovasc. examination 7 - 1 In-person encounter Office Visit Naif Becerra MD [facility] DIZZINESSPreop cardiovasc. examinationExposure to SARS-associated coronavirusCHF - diastolic 6 - 3 In-person encounter Office Visit Naif Becerra MD [facility] 3 - 0 In-person encounter Office Visit Naif Becerra MD [facility] 7 - 1 In-person encounter Office Visit Naif Becerra MD [facility] COPD 5 - 9 In-person encounter Office Visit Naif Becerra MD [facility] 4 - 4 In-person encounter Office Visit Karsten Alejandro MD [facility] Leg numbness 3 - 2019/04/0 3 In-person encounter Office Visit Naif Becerra MD [facility] 1 - 1 In-person encounter Office Visit Naif Becerra MD [facility] 2 - 2 In-person encounter Office Visit Naif Becerra MD [facility] Epistaxis 9 - 9 In-person encounter Office Visit Naif Becerra MD [facility] 6 - 6 In-person encounter Office Visit Naif Becerra MD [facility] 0 - 4 In-person encounter Office Visit Naif Becerra MD [facility] 8 - 8 In-person encounter Office Visit Eduardo Barillas MD [facility] CHEST PAIN-09/05 CATH MILD CAD EF 55Blood in stoolTricuspid regurgitationnightsweatsCurrent long-term use of amiodaroneCarotid artery stenosis - rightCADRestrictive lung disease 2 - 2 In-person encounter Office Visit Naif Becerra MD [facility] 0 - 4 In-person encounter Office Visit Bartolo Hagan MD [facility] Current use of anticoagulants 7 - 7 In-person encounter Office Visit Bartolo Hagan MD [facility] 3 - 3 In-person encounter Office Visit Naif Becerra MD [facility] 5 - 0 In-person encounter Office Visit Naif Becerra MD [facility] 0 - 3 In-person encounter Office Visit Naif Becerra MD [facility] Aortic stenosis 8 - 1 In-person encounter Office Visit Bartolo Hagan MD [facility] DyslipidemiaMitral regurgitationValvular Heart DiseaseREVEALSleep apnea 5 - 9 In-person encounter Office Visit Naif Becerra MD [facility] 0 - 3 In-person encounter Office Visit Naif Becerra MD [facility] 9 - 1 In-person encounter Office Visit Naif Becerra MD [facility] HTN essentialSleep apnea 9 - 6 In-person encounter Office Visit Naif Becerra MD [facility] 2 - 6 In-person encounter Office Visit Naif Becerra MD [facility] Mitral regurgitationTricuspid regurgitationS/P Medtronic REVEAL/LinQ 2 - 9 In-person encounter Office Visit Batrolo Hagan MD [facility] Hyperthyroidism 4 - 4 In-person encounter Office Visit Naif Becerra MD [facility] 6 - 6 In-person encounter Office Visit Naif Becerra MD [facility] DizzinessHTN essential 5 - 5 In-person encounter Office Visit Naif Becerra MD [facility] Mitral regurgitationTricuspid regurgitation 2 - 5 In-person encounter Office Visit Naif Becerra MD [facility] 7 - 9 In-person encounter Office Visit Yasmany Chen MD [facility] 2 - 3 In-person encounter Office Visit Yasmany Chen MD [facility] PULMONARY EMBOLISM 0 - 1 In-person encounter Office Visit Yasmany Chen MD [facility] 7 - 7 In-person encounter Office Visit Bartolo Hagan MD [facility] 7 - 8 In-person encounter Office Visit Yasmany Chen MD [facility] CHEST PAIN-09/05 CATH MILD CAD EF 55DyslipidemiaOBESITYATRIAL FIB-3 TELE [id number] HR 63-132EDEMA VITAL SIGNS Date Observation Value Provider Body Mass Index (Ratio) 29.35 kg/m2 [facility] blood pressure, diastolic 66 mm[Hg] Li nkLogic blood pressure, systolic 117 mm[Hg] Winsome kLog blood pressure, diastolic 66 mm[Hg] Ja rret blood pressure, systolic 117 mm[Hg] Andre [facility] pulse rate 74 /min Marcel oxygen saturation, oximetry 95 % Marcel respiratory rate E&M 16 /min Marcel blood pressure, cuff size regular Ja et weight E&M 171 [lb_av] Marcel y height E&M 64 [in_i] [facility] Body Mass Index (Ratio) 30.72 kg/m2 Manuel Becerra MD blood pressure, cuff size regular [facility] blood pressure, diastolic 71 mm[Hg] [facility] blood pressure, systolic 139 mm[Hg] [facility] oxygen saturation, oximetry 96 % [facility] pulse rate 41 /min [facility] respiratory rate E&M 16 /min Rosa M Kamaljit [facility] weight E&M 179 [lb_av] [facility] height E&M 64 [in_i] [facility] Body Mass Index (Ratio) 30.17 kg/m2 Manuel Becerra MD blood pressure, diastolic 64 mm[Hg] Abby nkLogic blood pressure, systolic 109 mm[Hg] Winsome kLog pulse rate 83 /min Iqra Julio respiratory rate E&M 20 /min Iqra Julio weight E&M 175.8 [lb_av] Iqra Julio blood pressure, cuff size regular tania Julio blood pressure, diastolic 64 mm[Hg] Alida Julio blood pressure, systolic 109 mm[Hg] She jayson Julio oxygen saturation, oximetry 97 % Iqra Julio height E&M 64 [in_i] Iqra Julio Body Mass Index (Ratio) 30.21 kg/m2 Manuel Becerra MD blood pressure, cuff size large Ke rri Gruenenfeldhernando blood pressure, diastolic 72 mm[Hg] Ke rri Gruenenfeldhernando blood pressure, systolic 144 mm[Hg] Ker ri Simon oxygen saturation, oximetry 95 % Yolanda Simon respiratory rate E&M 16 /min Yolanda Yuli mcdermotteldhernando pulse rate 73 /min Yolanda Mike lder weight E&M 176 [lb_av] Yolanda Jakenfe lder height E&M 64 [in_i] Yolanda Jakenfe lder Body Mass Index (Ratio) 30.21 kg/m2 Manuel Becerra MD blood pressure, diastolic 67 mm[Hg] Li nkLogic blood pressure, systolic 127 mm[Hg] Winsome kLogic blood pressure, diastolic 67 mm[Hg] Ri gilma Ferguson blood pressure, systolic 127 mm[Hg] Bryan helswetha Ferguson blood pressure, cuff size regular Ri gilma Ferguson respiratory rate E&M 16 /min Jaden Ferguson oxygen saturation, oximetry 97 % Gay Ferguson pulse rate 69 /min Gay Lyles son weight E&M 176 [lb_av] Gay Lyles son height E&M 64 [in_i] Gay Lyles son Body Mass Index (Ratio) 30.21 kg/m2 Manuel Becerra MD blood pressure, diastolic 72 mm[Hg] Abby nkLognayeli blood pressure, systolic 140 mm[Hg] Winsome kLognayeli blood pressure, diastolic 72 mm[Hg] Teresa Fairchild blood pressure, systolic 140 mm[Hg] Dre Fairchild oxygen saturation, oximetry 99 % Coty Fairchild respiratory rate E&M 18 /min Marek Fairchild pulse rate 82 /min Coty ng weight E&M 176 [lb_av] Coty ng blood pressure, cuff size regular Teresa Fairchild height E&M 64 [in_i] Coty ng Body Mass Index (Ratio) 31.41 kg/m2 Manuel Becerra MD blood pressure, cuff size large Ke rri Simon blood pressure, diastolic 70 mm[Hg] Ke rri Simon blood pressure, systolic 120 mm[Hg] Bob ri Simon oxygen saturation, oximetry 98 % Yolanda Montes respiratory rate E&M 16 /min Yolanda dominique pulse rate 57 /min Yolanda Mike er weight E&M 183 [lb_av] Yolanda Mike lder height E&M 64 [in_i] Yolanda Casanegi er Body Mass Index (Ratio) 31.24 kg/m2 Manuel Becerra MD blood pressure, cuff size large Mi gilma Sears blood pressure, diastolic 90 mm[Hg] Mi gilma [place] blood pressure, systolic 150 mm[Hg] Thanh helle [place] oxygen saturation, oximetry 98 % Tori Sears respiratory rate E&M 16 /min Pinky solo Sears pulse rate 87 /min Tori Adkins rodney weight E&M 182 [lb_av] Tori Adkins rodney height E&M 64 [in_i] Tori Adkins rodney Body Mass Index (Ratio) 31.07 kg/m2 Manuel Becerra MD oxygen saturation, oximetry 97 % Chastity Edward blood pressure, diastolic 61 mm[Hg] Ch astity Edward blood pressure, systolic 134 mm[Hg] Ivania stity Edward pulse rate 76 /min Chastity Edward respiratory rate E&M 16 /min Chastit y Edward weight E&M 181 [lb_av] Chastity Edward height E&M 64 [in_i] Chastity Edward Body Mass Index (Ratio) 31.41 kg/m2 Manuel Becerra MD blood pressure, diastolic 68 mm[Hg] Fe alexys Coyne blood pressure, systolic 132 mm[Hg] Fel icia Coyne oxygen saturation, oximetry 95 % Luz Marina Coyne pulse rate 94 /min Luz Marina Coyne respiratory rate E&M 16 /min Luz Marina Coyne weight E&M 183 [lb_av] Luz Marian Coyne temperature E&M 97.5 [degF] Luz Marina Coyne height E&M 64 [in_i] Luz Marina Coyne Body Mass Index (Ratio) 31.92 kg/m2 Manuel Becerra MD blood pressure, cuff size large Ke rri Simon blood pressure, diastolic 70 mm[Hg] Ke rri Simon blood pressure, systolic 164 mm[Hg] Bob ri Casanenfelder oxygen saturation, oximetry 94 % Yolanda Grrufinanenfelder respiratory rate E&M 16 /min Yolanda mcdermottelder pulse rate 70 /min Yolanda Gruenenfe lder weight E&M 186 [lb_av] Yolanda Gruenenfe lder height E&M 64 [in_i] Yolanda Gruenenfe lder Body Mass Index (Ratio) 31.41 kg/m2 Manuel Becerra MD blood pressure, diastolic 78 mm[Hg] Cy ling Umana blood pressure, systolic 151 mm[Hg] Elvie sedraspedrito Umana blood pressure, cuff size regular Cy marlapedrito Umana pulse rate 93 /min Haydee Erickbel l respiratory rate E&M 16 /min Haydee Umana oxygen saturation, oximetry 96 % Haydee Umana weight E&M 183 [lb_av] Haydee Campbel l height E&M 64 [in_i] Haydee Campbel l pulse rate, sitting, left 71 /min Ke rri Gruenenfelder orthostatic blood pr essure, sitting, left arm, diastolic 100 Yolanda Grrufinanenfelder orthostatic blood pr essure, sitting, left arm, systolic 180 Yolanda Casanenfelder height E&M 64 [in_i] Yolanda Grrufinanenfe lder height in centimeters E&M 162.56 cm Ke rri Gruenenfelder Body Mass Index (Ratio) 31.75 kg/m2 Manuel Becerra MD blood pressure, diastolic 69 mm[Hg] Wil Hernandez blood pressure, systolic 152 mm[Hg] Madeleine Hernandez oxygen saturation, oximetry 97 % David Hernandez respiratory rate E&M 20 /min Janny Hernandez pulse rate 74 /min David tate weight E&M 185 [lb_av] David tate height E&M 64 [in_i] David tate Body Mass Index (Ratio) 31.24 kg/m2 Gunnar Monteiro blood pressure, cuff size regular Wil berrios Javon blood pressure, diastolic 70 mm[Hg] Wil berrios Javon blood pressure, systolic 138 mm[Hg] Ai woodward Javon oxygen saturation, oximetry 97 % Cristóbal Javon respiratory rate E&M 18 /min Cristóbal Javon pulse rate 70 /min Cristóbal Javon weight E&M 182 [lb_av] Cristóbal Javon height E&M 64 [in_i] Cristóbal Javon Body Mass Index (Ratio) 31.24 kg/m2 Manuel Becerra MD blood pressure, systolic 156 mm[Hg] Ton sha Mclaughlin oxygen saturation, oximetry 97 % Tonsha Mclaughlin respiratory rate E&M 16 /min Tonsha Mclaughlin pulse rate 67 /min Tonsha Mclaughlin weight E&M 182 [lb_av] Tonsha Mclaughlin height E&M 64 [in_i] Tonsha Mclaughlin temperature site temporal [employer] [place] sley temperature E&M 96.2 [degF] [employer] whit Body Mass Index (Ratio) 30.21 kg/m2 Edilia Alejandro MD blood pressure, cuff size regular Cy ling Umana blood pressure, diastolic 70 mm[Hg] Cy ling [place] blood pressure, systolic 130 mm[Hg] Elvie thia Umana pulse rate 69 /min Haydee villarreal respiratory rate E&M 16 /min Haydee Umana oxygen saturation, oximetry 95 % Haydee Umana weight E&M 176 [lb_av] Haydee villarreal height E&M 64 [in_i] Haydee villarreal blood pressure, diastolic 84 mm[Hg] Wil Hernandez blood pressure, systolic 158 mm[Hg] Madeleine Hernandez height E&M 64 [in_i] David Palm bebeto height in centimeters E&M 162.56 cm Wil Harding Hernandez Body Mass Index (Ratio) 30.14 kg/m2 Courtney Mcdonald RN blood pressure, cuff size regular Je ssica N Wang blood pressure, diastolic 60 mm[Hg] Je ssica N Wang blood pressure, systolic 120 mm[Hg] Rachel albert N Wang oxygen saturation, oximetry 95 % Erin N Wang respiratory rate E&M 18 /min Erin N Wang pulse rate 81 /min Erin N Wilso n weight E&M 175.6 [lb_av] Erin N Oneal on Body Mass Index (Ratio) 30.58 kg/m2 Leigh ica N Wang blood pressure, cuff size regular Je ssica N Wang blood pressure, diastolic 80 mm[Hg] Je ssica N Wang blood pressure, systolic 120 mm[Hg] Rachel albert N Wang oxygen saturation, oximetry 97 % Erin N Wang respiratory rate E&M 18 /min Erin N Wang pulse rate 69 /min Erin N Wilso n weight E&M 178.2 [lb_av] Erin N Wils on Body Mass Index (Ratio) 30.55 kg/m2 Manuel Becerra MD oxygen saturation, oximetry 97 % Chastity Edward blood pressure, diastolic 60 mm[Hg] Ch astity Edward blood pressure, systolic 122 mm[Hg] Ivania stity Edward pulse rate 72 /min Chastity Edward weight E&M 178 [lb_av] Chastity Edward respiratory rate E&M 16 /min Chastit y Edward height E&M 64 [in_i] Chastity Edward Body Mass Index (Ratio) 31.58 kg/m2 Manuel Becerra MD blood pressure, diastolic 80 mm[Hg] Da justina Adam blood pressure, systolic 136 mm[Hg] Dac ia Adam oxygen saturation, oximetry 93 % Magaly Adam respiratory rate E&M 16 /min Magaly V oss pulse rate 70 /min Magaly Adam weight E&M 184 [lb_av] Magaly Adam height E&M 64 [in_i] Magaly Adam Body Mass Index (Ratio) 34.84 kg/m2 Simeon Plurad blood pressure, diastolic 70 mm[Hg] Ki lleen Mann blood pressure, systolic 122 mm[Hg] Maricruz fern Mann oxygen saturation, oximetry 96 % [place] Mann respiratory rate E&M 18 /min [place] Mann pulse rate 80 /min [place] Mann weight E&M 203 [lb_av] [place] Mann height E&M 64 [in_i] Dmitry Mann Body Mass Index (Ratio) 33.78 kg/m2 Simeon Plurad blood pressure, diastolic 79 mm[Hg] Wil Hernandez blood pressure, systolic 113 mm[Hg] Madeleine Hernandez oxygen saturation, oximetry 97 % David Hernandez respiratory rate E&M 18 /min Janny Hernandez pulse rate 62 /min David tate weight E&M 196.8 [lb_av] David perez height E&M 64 [in_i] David tate Body Mass Index (Ratio) 32.99 kg/m2 Manuel Becerra MD blood pressure, diastolic 87 mm[Hg] Wil ingridLisa David blood pressure, systolic 154 mm[Hg] Madeleine Franks Hernandez oxygen saturation, oximetry 97 % David Hernandez respiratory rate E&M 18 /min aJnny Hernandez pulse rate 79 /min David tate weight E&M 192.2 [lb_av] David perez height E&M 64 [in_i] David tate Body Mass Index (Ratio) 34.67 kg/m2 Fer Ferguson blood pressure, diastolic 71 mm[Hg] Wil Meaghan Hernandez blood pressure, systolic 157 mm[Hg] Madeleine Tiny Hernandez oxygen saturation, oximetry 97 % David Hernandez respiratory rate E&M 18 /min Janny Hernandez pulse rate 82 /min David tate weight E&M 202 [lb_av] David tate height E&M 64 [in_i] David gillilandon blood pressure, diastolic 93 mm[Hg] Wil Hernandez blood pressure, systolic 158 mm[Hg] Madeleine Hernandez height E&M 64 [in_i] David tate height in centimeters E&M 162.56 cm Wil Hernandez Body Mass Index (Ratio) 25.63 kg/m2 Manav Barillas MD blood pressure, diastolic 85 mm[Hg] Wil Hernandez blood pressure, systolic 144 mm[Hg] Madeleine Hernandez oxygen saturation, oximetry 95 % David Hernandez respiratory rate E&M 18 /min Janny Hernandez pulse rate 82 /min David tate weight E&M 149.31 [lb_av] David Nieto height E&M 64 [in_i] David tate Body Mass Index (Ratio) 34.91 kg/m2 Manuel Becerra MD blood pressure, diastolic 94 mm[Hg] Wil Hernandez blood pressure, systolic 157 mm[Hg] Madeleine Hernandez oxygen saturation, oximetry 94 % David Hernandez respiratory rate E&M 18 /min Janny Hernandez pulse rate 86 /min David tate weight E&M 203.4 [lb_av] David perez height E&M 64 [in_i] David tate Body Mass Index (Ratio) 35.87 kg/m2 Simeon Moreno blood pressure, cuff size regular Ke ya Montes blood pressure, diastolic, standing 80 mm [Hg] Yolanda Montes blood pressure, systolic, standing 112 mm [Hg] Yolanda Montes oxygen saturation, oximetry 96 % Yolanda Montes respiratory rate E&M 18 /min Yolanda dominique pulse rate 81 /min Yolanda Mckeon er weight E&M 209 [lb_av] Yolanda Mckeon lder height E&M 64 [in_i] Yolanda Mckeon bettie Body Mass Index (Ratio) 34.46 kg/m2 Eric Hagan MD blood pressure, diastolic 90 mm[Hg] Wil Hernandez blood pressure, systolic 154 mm[Hg] Madeleine Hernandez oxygen saturation, oximetry 97 % David Hernandez respiratory rate E&M 18 /min Janny Hernandez pulse rate 82 /min David tate weight E&M 200.8 [lb_av] David perez height E&M 64 [in_i] David tate Body Mass Index (Ratio) 35.01 kg/m2 Manuel Becerra MD blood pressure, diastolic 85 mm[Hg] Wil Hernandez blood pressure, systolic 178 mm[Hg] Madeleine Hernandez oxygen saturation, oximetry 98 % David Hernandez respiratory rate E&M 20 /min Janny Hernandez pulse rate 62 /min David tate weight E&M 204.0 [lb_av] David perez height E&M 64 [in_i] David tate Body Mass Index (Ratio) 34.84 kg/m2 Manuel Becerra MD pulse rate 95 /min Rachel Worthington respiratory rate E&M 20 /min Rachel Worthington oxygen saturation, oximetry 97 % Rachel Worthington blood pressure, diastolic 90 mm[Hg] Shalom Worthington blood pressure, systolic 150 mm[Hg] Logan Worthington blood pressure, cuff size regular Shalom Worthington weight E&M 203 [lb_av] Rachel Worthington height E&M 64 [in_i] Rachel Worthington blood pressure, resting Yes Juliana Worthington Body Mass Index (Ratio) 32.78 kg/m2 Manuel Becerra MD blood pressure, diastolic 86 mm[Hg] Da justina Adam blood pressure, systolic 138 mm[Hg] Dac ia Adam oxygen saturation, oximetry 97 % Magaly Adam respiratory rate E&M 16 /min Magaly V oss pulse rate 72 /min Magaly Adam weight E&M 191 [lb_av] Magaly Adam blood pressure, diastolic 77 mm[Hg] Me sabrina Morris blood pressure, systolic 150 mm[Hg] Tiarra william Morris pulse rate 98 /min Barbie Morris oxygen saturation, oximetry 96 % Barbie Morris respiratory rate E&M 16 /min Barbie Morris Body Mass Index (Ratio) 33.81 kg/m2 [facility] weight E&M 197 [lb_av] Barbie Morris blood pressure, diastolic 80 mm[Hg] Wil Hernandez blood pressure, systolic 154 mm[Hg] Madeleine Hernandez pulse rate 71 /min David tate oxygen saturation, oximetry 95 % David Hernandez respiratory rate E&M 16 /min Janny Hernandez Body Mass Index (Ratio) 33.67 kg/m2 Liliya Hernandez weight E&M 196.2 [lb_av] David perez blood pressure, diastolic 80 mm[Hg] Me sabrina Morris blood pressure, systolic 140 mm[Hg] Tiarra william Morris pulse rate 76 /min Barbie Morris oxygen saturation, oximetry 97 % Barbie Morris respiratory rate E&M 15 /min Barbie Morris Body Mass Index (Ratio) 33.30 kg/m2 [facility] weight E&M 194 [lb_av] Barbie Morris blood pressure, diastolic 71 mm[Hg] Me sabrina Yemi blood pressure, systolic 155 mm[Hg] Tiarra thomas Yemi respiratory rate E&M 16 /min Barbie Yemi pulse rate 78 /min Barbie Yemi oxygen saturation, oximetry 97 % Barbie Bragg Body Mass Index (Ratio) 32.75 kg/m2 [facility] shagufta Bragg weight E&M 190.8 [lb_av] Barbie Bragg blood pressure, diastolic 76 mm[Hg] Javan pandya Simon blood pressure, systolic 144 mm[Hg] Bob ramírez Simon pulse rate 80 /min Yolanda Mike er oxygen saturation, oximetry 98 % Yolanda Simon respiratory rate E&M 16 /min Yolanda Roldan trip Body Mass Index (Ratio) 31.41 kg/m2 Christa landis Simon weight E&M 183 [lb_av] Yolanda Mike er blood pressure, diastolic 82 mm[Hg] Me sabrina Morris blood pressure, systolic 167 mm[Hg] Tiarra salazara Morris pulse rate 74 /min Barbie Morris oxygen saturation, oximetry 96 % Barbie Morris respiratory rate E&M 15 /min Barbie Morris Body Mass Index (Ratio) 30.89 kg/m2 [facility] weight E&M 180 [lb_av] Barbie Morris blood pressure, diastolic 75 mm[Hg] Wil Hernandez blood pressure, systolic 159 mm[Hg] Madeleine Hernandez Body Mass Index (Ratio) 31.65 kg/m2 Liliya Hernandez pulse rate 68 /min David tate oxygen saturation, oximetry 95 % David Hernandez respiratory rate E&M 16 /min Janny Hernandez weight E&M 184.4 [lb_av] David howellon blood pressure, diastolic 76 mm[Hg] Wil Hernandez blood pressure, systolic 152 mm[Hg] Madeleine Hernandez Body Mass Index (Ratio) 33.40 kg/m2 Liliya Hernandez pulse rate 72 /min David gillilandon oxygen saturation, oximetry 96 % David Hernandez respiratory rate E&M 16 /min Janny Hernandez weight E&M 194.6 [lb_av] David perez blood pressure, diastolic 57 mm[Hg] Wil Hernandez blood pressure, systolic 88 mm[Hg] Madeleine Hernandez Body Mass Index (Ratio) 33.78 kg/m2 Liliya Hernandez pulse rate 101 /min David tate oxygen saturation, oximetry 94 % David Hernandez respiratory rate E&M 16 /min Janny Hernandez weight E&M 196.8 [lb_av] David howellon blood pressure, diastolic 80 mm[Hg] Wil Hernandez blood pressure, systolic 145 mm[Hg] Madeleine Hernandez Body Mass Index (Ratio) 35.70 kg/m2 Liliya Hernandez pulse rate 65 /min David gillilandon oxygen saturation, oximetry 98 % David Hernandez respiratory rate E&M 18 /min Janny Hernandez weight E&M 208 [lb_av] David Palm nson blood pressure, diastolic 79 mm[Hg] Wil Hernandez blood pressure, systolic 150 mm[Hg] Madeleine Hernandez Body Mass Index (Ratio) 35.87 kg/m2 Liliya Hernandez pulse rate 93 /min David tate oxygen saturation, oximetry 98 % David Hernandez respiratory rate E&M 18 /min Janny Hernandez weight E&M 209 [lb_av] David tate Body Mass Index (Ratio) 35.87 kg/m2 Anea asad [facility] blood pressure, diastolic 89 mm[Hg] An eatris [facility] blood pressure, systolic 165 mm[Hg] Ane atris [facility] pulse rate 97 /min Aneatris [facility] oxygen saturation, oximetry 96 % Aneatris [facility] respiratory rate E&M 18 /min Aneatri s [facility] weight E&M 209 [lb_av] Shwetaatrisaac Owusu blood pressure, diastolic, left arm 91 mm [Hg] Nixon Serrano RN blood pressure, systolic, left arm 168 mm [Hg] Nixon Serrano RN blood pressure, diastolic, right arm 91 m m[Hg] Nixon Serrano RN blood pressure, systolic, right arm 173 m m[Hg] Nixon Serrano RN blood pressure, diastolic 91 mm[Hg] Giancarlo Serrano RN blood pressure, systolic 173 mm[Hg] Nixon Serrano RN pulse rate 82 /min Nixon Serrano RN oxygen saturation, oximetry 98 % Nixon Serrano RN respiratory rate E&M 16 /min Nixon cantu RN Body Mass Index (Ratio) 34.45 kg/m2 Nixon Serrano RN weight E&M 200 [lb_av] Nixon Serrano RN Body Mass Index (Ratio) 33.83 kg/m2 Ralph Ledbetter blood pressure, diastolic, left arm 82 mm [Hg] Gena Ledbetter blood pressure, systolic, left arm 160 mm [Hg] Gena Andrewsran blood pressure, diastolic, right arm 80 m m[Hg] Gena Andrewsran blood pressure, systolic, right arm 150 m m[Hg] Gena Andrewsran blood pressure, diastolic 82 mm[Hg] Muroran blood pressure, systolic 160 mm[Hg] Daniel Andrewsran pulse rate 86 /min Gnea Andrewsran oxygen saturation, oximetry 98 % Gena Andrewsran respiratory rate E&M 16 /min Gena Andrewsran weight E&M 196.38 [lb_av] Danielglenn Darrylr an blood pressure, diastolic 94 mm[Hg] Giancarlo Serrano RN blood pressure, systolic 177 mm[Hg] Nixon Serrano RN pulse rate 92 /min Nixon Serrano RN oxygen saturation, oximetry 98 % Nixon Serrano RN respiratory rate E&M 16 /min Nixon cantu RN weight E&M 205.6 [lb_av] Nixon Serrano RN blood pressure, diastolic, left arm 82 mm [Hg] Nixon Serrano RN blood pressure, systolic, left arm 172 mm [Hg] Nixon Serrano RN blood pressure, diastolic, right arm 90 m m[Hg] Nixon Serrano RN blood pressure, systolic, right arm 176 m m[Hg] Nixon Serrano RN blood pressure, diastolic 82 mm[Hg] Giancarlo Serrano RN blood pressure, systolic 172 mm[Hg] Nixon Serrano RN pulse rate 85 /min Nixon Serrano RN oxygen saturation, oximetry 98 % Nixon Serrano RN respiratory rate E&M 20 /min Nixon cantu RN weight E&M 205.6 [lb_av] Nixon Serrano RN height E&M 64 [in_i] Nixon Serrano RN ALLERGIES Allergy Name Onset Date Reaction Criticality Status XARELTO Low Criticality active RESULTS Date Observation Value Provider Reference Range Interpretation Location ferritin, serum 308 ng/mL [facility] 15-150 High iron saturation percent, serum 21 % [facility] 15-55 iron, serum 66 ug/dL [facility] 27-139 iron binding capacity, unsaturated 243 ug/dL [facility] 722-800 0695/05 /15 iron binding capacity, total 309 ug/dL [facility] 613-593 6095/05 /15 alanine aminotransferase (SGPT), serum 12 1/L [facility] 0-32 aspartate aminotransferase (SGOT), serum 17 1/L [facility] 0-40 alkaline phosphatase, serum 95 1/L [facility] 39-117 bilirubin, serum, direct 0.17 mg/dL [facility] 0.00-0.40 bilirubin, serum, total 0.6 mg/dL [facility] 0.0-1.2 albumin, serum 4.1 g/dL [facility] 3.7-4.7 protein, total, serum 6.4 g/dL [facility] 6.0-8.5 lipoprotein, beta, serum, point, quantitative, calculated 72 mg/dL [facility] 0-99 very low density lipoproteins 16 mg/dL [facility] 5-40 HDL cholesterol, serum 72 mg/dL [facility] >39 triglyceride, serum, random 81 mg/dL [facility] 0-149 cholesterol, serum 160 mg/dL [facility] [phone]/08 /31 alanine aminotransferase (SGPT), serum 12 1/L [facility] 0-32 aspartate aminotransferase (SGOT), serum 17 1/L [facility] 0-40 alkaline phosphatase, serum 124 1/L [facility] 39-117 High bilirubin, serum, total 0.6 mg/dL [facility] 0.0-1.2 albumin/globulin ratio, serum 2.0 [facility] 1.2-2.2 globulin, serum 2.2 [facility] 1.5-4.5 albumin, serum 4.3 g/dL [facility] 3.5-4.8 protein, total, serum 6.5 g/dL [facility] 6.0-8.5 calcium, serum 9.1 mg/dL [facility] 8.7-10.3 carbon dioxide, venous blood 26 mmol/L [facility] 20-29 chloride, serum 99 mmol/L [facility] 96-106 potassium, serum 4.5 mmol/L [facility] 3.5-5.2 sodium, serum 141 mmol/L [facility] 396-642 3650/08 /31 urea nitrogen/creatinine ratio, serum 22 [facility] 12-28 eGFR if 79 mL/min/{ 1.73_m2} [facility] >59 eGFR if not 68 mL/min/{ 1.73_m2} [facility] >59 creatinine, serum 0.82 mg/dL [facility] 0.57-1.00 urea nitrogen, blood 18 mg/dL [facility] 8-27 blood glucose, random 101 mg/dL [facility] 65-99 High ferritin, serum 500 ng/mL [facility] 15-150 High magnesium, serum 1.9 mg/dL [facility] 1.6-2.3 B-type natriuretic peptide 158.2 pg/mL [facility] 0.0-100.0 High iron saturation percent, serum 28 % [facility] 15-55 iron, serum 75 ug/dL [facility] 27-139 iron binding capacity, unsaturated 196 ug/dL [facility] 707-361 9256/06 /06 iron binding capacity, total 271 ug/dL [facility] 178-681 7162/06 /06 basophil count, absolute 0.0 x10E3/uL [facility] 0.0-0.2 Eosinophil Absolute Count 0.1 X10E3/UL [facility] 0.0-0.4 monocyte count, blood, automated 0.4 X10E3/UL [facility] 0.1-0.9 lymphocyte count, blood, automated 1.8 X10E3/UL [facility] 0.7-3.1 Absolute Neutrophils 4.0 X10E3/UL [facility] 1.4-7.0 basophils as percent of blood leukocytes 0 % [facility] Not Estab. eosinophils as percent of blood leukocytes 1 % [facility] Not Estab. monocytes as percent of blood leukocytes 7 % [facility] Not Estab. lymphocytes as percent of blood leukocytes 28 % [facility] Not Estab. neutrophils as percent of blood leukocytes 64 % [facility] Not Estab. platelet count 144 X10E3/UL [facility] 150-450 Low red blood cell distribution width 18.7 % [facility] 12.3-15.4 High mean corpuscular hemoglobin concentration, RBC 31.4 G/DL [facility] 31.5-35.7 Low mean corpuscular hemoglobin, RBC 27.8 pg [facility] 26.6-33.0 mean corpuscular volume, RBC 89 fL [facility] 79-97 hematocrit, blood 38.9 % [facility] 34.0-46.6 hemoglobin, blood 12.2 g/dL [facility] 11.1-15.9 erythrocyte (RBC) count 4.39 X10E6/UL [facility] 3.77-5.28 leukocyte count, blood 6.3 X10E3/UL [facility] 3.4-10.8 alanine aminotransferase (SGPT), serum 13 1/L [facility] 0-32 aspartate aminotransferase (SGOT), serum 16 1/L [facility] 0-40 alkaline phosphatase, serum 128 1/L [facility] 39-117 High bilirubin, serum, total 0.5 mg/dL [facility] 0.0-1.2 albumin/globulin ratio, serum 1.6 [facility] 1.2-2.2 globulin, serum 2.5 [facility] 1.5-4.5 albumin, serum 4.0 g/dL [facility] 3.5-4.8 protein, total, serum 6.5 g/dL [facility] 6.0-8.5 calcium, serum 9.0 mg/dL [facility] 8.7-10.3 carbon dioxide, venous blood 25 mmol/L [facility] 20-29 chloride, serum 103 mmol/L [facility] 96-106 potassium, serum 4.8 mmol/L [facility] 3.5-5.2 sodium, serum 142 mmol/L [facility] 156-531 9231/06 /06 urea nitrogen/creatinine ratio, serum 19 [facility] - eGFR if 89 mL/min/{ 1.73_m2} [facility] >59 eGFR if not 77 mL/min/{ 1.73_m2} [facility] >59 creatinine, serum 0.74 mg/dL [facility] 0.57-1.00 urea nitrogen, blood 14 mg/dL [facility] 8-27 blood glucose, random 92 mg/dL [facility] 65-99 calcium, serum 9.0 mg/dL [facility] 8.7-10.3 carbon dioxide, venous blood 28 mmol/L [facility] - chloride, serum 94 mmol/L [facility] 96-106 Low potassium, serum 3.4 mmol/L [facility] 3.5-5.2 Low sodium, serum 140 mmol/L [facility] 288-618 5873/11 /13 urea nitrogen/creatinine ratio, serum 21 [facility] - eGFR if 71 mL/min/{ 1.73_m2} [facility] >59 eGFR if not 61 mL/min/{ 1.73_m2} [facility] >59 creatinine, serum 0.90 mg/dL [facility] 0.57-1.00 urea nitrogen, blood 19 mg/dL [facility] 8-27 blood glucose, random 183 mg/dL [facility] 65-99 High pro brain natriuretic peptide 791 pg/mL [facility] 0-738 High free thyroxine index 2.2 [facility] 1.2-4.9 triiodothyronine resin uptake 29 % [facility] 24-39 thyroxine, serum, total 7.6 ug/dL [facility] 4.5-12.0 thyroid stimulating hormone, serum 1.480 u[IU]/mL [facility] 0.450-4.500 lipoprotein, beta, serum, point, quantitative, calculated 104 mg/dL [facility] 0-99 High very low density lipoproteins 16 mg/dL [facility] 5-40 HDL cholesterol, serum 68 mg/dL [facility] >39 triglyceride, serum, random 82 mg/dL [facility] 0-149 cholesterol, serum 188 mg/dL [facility] 192-663 4229/01 /30 free thyroxine index 6.3 ??g/dL [facility] 4.4 - 11.4 triiodothyronine uptake 1.1 TBI [facility] 0.8 - 1.3 thyroxine, serum, total 6.9 ??G/DL [facility] 4.5 - 11.7 thyroid stimulating hormone, serum 2.110 ?IU/M L [facility] 0.270 - 4.200 creatinine, serum 0.64 mg/dL Janie Brown potassium, serum 4.1 mmol/L Janie Brown sodium, serum 146 mmol/L Janie Brown platelet count 182 10*3/mm3 Janie Brown hematocrit, blood 40.6 % Janie Brown prothrombin time (patient) 11.0 s Yolanda Simon international normalized ratio (INR) 1.1 Yolanda Balderassurjit Normal thyroid stimulating hormone, serum 1.41 u[IU]/mL Janie Brown creatinine, serum 0.60 mg/dL Janie Brown potassium, serum 4.7 mmol/L Janie Brown sodium, serum 141 mmol/L Janie Brown HISTORY OF MEDICATION USE Medication Status Instructions Dates Provider Indications Com ments ezetimibe 10 mg tablet active TAKE 1 TABLET DAILY Yolanda Montes furosemide 20 mg tablet active Take 1 tablet by mouth twice a day Yolanda Montes Eliquis 5 mg tablet active TAKE 1 TABLET TWICE A DAY Lola Rushing furosemide 20 mg tablet completed TAKE 1 TABLET TWICE A DAY - Yolanda Montes lisinopril 10 mg tablet active TAKE 1 TABLET TWICE A DAY (DOSE INCREASE) Marcel Courtney Eliquis 5 mg tablet completed Take 1 tablet by mouth twice a day - Lola Rushing amoxicillin 500 mg tablet active 4 tablet by mouth single dose take 2 gm amoxicillin 30-60 minutes before dental procedure Naif Becerra MD atorvastatin 10 mg tablet active TAKE 1 TABLET DAILY Naif Becerra MD esomeprazole magnesium 20 mg capsule,delayed release(DR/EC) active TAKE 1 CAPSULE DAILY Zeyad Fontana-Con 20 mEq packet active 1 packet by mouth once a day Naif Becerra MD POTASSIUM CHLORIDE EDUARDO ER 20 MEQ ORAL TABLET EXTENDED RELEASE completed ONE TAB. DAILY - Naif Becerra MD lisinopril 10 mg tablet completed Take 1 tablet by mouth once a day - Naif Becerra MD CALCIUM 600 + D TABLET completed one tab daily - Yolanda Montes POTASSIUM CHLORIDE EDUARDO ER 10 MEQ ORAL TABLET EXTENDED RELEASE completed ONE TAB. DAILY - Cristóbal Alejandro furosemide 20 mg tablet completed Take 1 tablet by mouth twice a day - Naif Becerra MD AMOXICILLIN 500 MG ORAL TABLET completed 4 tabs one hour prior to any dental procedure - Haydee Umana prior to dental treatments SPIRONOLACTONE 25 MG ORAL TABLET completed ONE TAB. DAILY - Nixon Serrano RN per hosp D/C med list from 05/27 BUMETANIDE 2 MG ORAL TABLET completed one tab daily - Nixon Serrano RN per hosp D/C med list from 05/27 metoprolol tartrate 25 mg tablet active Take 1 tablet by mouth twice a day Naif Becerra MD aspirin 81 mg tablet,delayed release (/EC) active 1 tablet by mouth once a day Nixon Serrano RN KLOR-CON M10 10 MEQ ORAL TABLET EXTENDED RELEASE completed one TAB. DAILY - David Hernandez ordered by Dr. Abrams Zetia 10 mg tablet completed Take 1 tablet by mouth once a day - Yolanda Montes methimazole 5 mg tablet active tablet by mouth Eduardo Barillas MD esomeprazole magnesium 20 mg capsule,delayed release(/EC) completed Take 1 capsule by mouth once a day - Zeyad Gilmore DILTIAZEM HCL 60 MG ORAL TABLET completed one tab three times daily - Eduadro Barillas MD AMIODARONE HCL 200 MG ORAL TABLET completed Continue [id number] mg bid instead of tid if she can tolerate it. Plan to do CACHORRO/cardiovers ion next week on 07/03/17 at [facility]. - David Hernandez METOPROLOL DECREASED TO 25MG BID VITAMIN D TABLET completed take 2 pills a day - Cristóbal Javon Eliquis 5 mg tablet completed Take 1 tablet by mouth twice a day - Bria Redd RN ELIQUIS 5 MG ORAL TABLET completed one tablet twice daily - Yolanda Montes LISINOPRIL 5 MG ORAL TABLET completed ONE TAB. DAILY - David Hernandez OCEAN NASAL SPRAY 0.65 % NASAL SOLUTION completed use 1 puff each nostril qhs - Yolanda Montes YOSPRALA 81-40 MG ORAL TABLET DELAYED RELEASE completed one daily - David Hernandez replaces aspirin and nexium POTASSIUM CHLORIDE EDUARDO ER 10 MEQ ORAL TABLET EXTENDED RELEASE completed ONE TAB. every other day - David Hernandez Take w lasix/furos emide FUROSEMIDE 20 MG ORAL TABLET completed 1 tab every twice a day - Nixon Serrano RN METHIMAZOLE 5 MG ORAL TABLET completed skip on Sunday & Sunday - Yolanda Montes LISINOPRIL 5 MG ORAL TABLET completed ONE TAB. DAILY - Naif Becerra MD METOPROLOL TARTRATE 50 MG ORAL TABLET completed 1.5 tabs twice per day (75 mg twice per day) - Nixon Serrano RN TRAMADOL HCL 50 MG ORAL TABLET completed three times daily as needed - Barbie Bragg MAGNESIUM OXIDE 400 MG ORAL TABLET completed ONE TAB TWICE A DAY - Barbie Bragg LISINOPRIL 5 MG ORAL TABLET completed ONE TAB. DAILY at night - Yolanda Montes ASPIRIN 81 MG ORAL TABLET completed ONE TAB. DAILY - Yolanda Montes LYRICA 50 MG ORAL CAPSULE completed 3 times daily - David Hernandez ENALAPRIL MALEATE 5 MG ORAL TABLET completed BID - David Girardenson METOPROLOL TARTRATE 25 MG ORAL TABLET completed one tab. twice daily - David David NEXIUM 40 MG ORAL CAPSULE DELAYED RELEASE completed ONE TAB. DAILY - David Hernandez GABAPENTIN 300 MG ORAL CAPSULE completed ONE TAB. 3 times DAILY - David Girardenson TRAMADOL HCL TABLET completed 3 times daily - David David ELIQUIS 5 MG ORAL TABLET completed one tablet twice daily - David Hernandez XARELTO 20 MG ORAL TABLET completed One tab. daily with evening meal - Gena Ledbetter VITAMIN D (ERGOCALCIFEROL) 07085 UNIT ORAL CAPSULE completed once a week - David Hernandez atorvastatin 10 mg tablet completed 1 tablet by mouth once a day - Nixon Serrano RN SOCIAL HISTORY Date Observation Value Provider drug use no Rosa M Ingram alcohol use no Rosa M Ingram passive cigarette sm josué exposure no Rosa M Ingram smoking status Never smoker Rosa M Ingram social history E&M Marital Statu s: Smoking History: Chuck lawrence has never smoked. Naif Becerra MD social history revie wed E&M reviewed - no changes required Naif Becerra MD smoking status Never smoker Iqra Nori social history E&M Marital Statu s: Smoking History: Chuck lawrence has never smoked. Naif Becerra MD social history revie wed E&M reviewed - no changes required Naif Becerra MD caffeine use, averag e drinks per day 1+ Yolanda Montes passive cigarette sm josué exposure no Yolanda Montes smoking status Never smoker Yolanda brandon drug use no Dorothea Rouse smoking status Never smoker Dorothea Rouse social history E&M Marital Statu s: Smoking History: P atapple has never smoked. Naif Becerra MD social history revie wed E&M reviewed - no changes required Naif Becerra MD caffeine use, averag e drinks per day 1+ Gay Ferguson passive cigarette sm josué exposure no Gay Ferguson quit smoking, stage precontemplative Manuel Becerra MD social history E&M Marital Statu s: Smoking History: P atapple has never smoked. Naif Becerra MD social history revie wed E&M reviewed - no changes required Naif Becerra MD caffeine use, averag e drinks per day 1+ Yolanda Montes passive cigarette sm josué exposure no Yolanda Simon smoking status Never smoker Yolanda Cormieralishamariola coxer social history E&M Marital Statu s: Smoking History: P atapple has never smoked. Naif Becerra MD social history revie wed E&M reviewed - no changes required Naif Becerra MD caffeine use, averag e drinks per day 1+ Tori Sears passive cigarette sm josué exposure no Tori Sears smoking status Never smoker Tori Tello social history revie wed E&M reviewed - no changes required Naif Becerra MD social history E&M Marital Statu s: Smoking History: P atapple has never smoked. Naif Becerra MD caffeine use, averag e drinks per day 1+ Chastity Edward passive cigarette sm josué exposure no Chastity Edward smoking status Never smoker Chastity Hogu e social history E&M Marital Statu s: Smoking History: P melinda has never smoked. Naif Becerra MD social history revie wed E&M reviewed - no changes required Naif Becerra MD caffeine use, averag e drinks per day 1+ Luz Marina Coyne passive cigarette sm josué exposure no Luz Marina Cyone smoking status Never smoker Luz Marina Coyne social history E&M Marital Statu s: Smoking History: P atapple has never smoked. Naif Becerra MD social history revie wed E&M reviewed - no changes required Naif Becerra MD caffeine use, averag e drinks per day 1+ Yolanda Simon passive cigarette sm josué exposure no Yolanda Simon smoking status Never smoker Yolanda José Luis brandon social history E&M Marital Statu s: Smoking History: P atapple has never smoked. Naif Becerra MD social history revie wed E&M reviewed - no changes required Naif Becerra MD caffeine use, averag e drinks per day 1+ Haydee Umana passive cigarette sm josué exposure no Hayede Umana smoking status Never smoker Haydee berger drug use no Naif major MD alcohol use no Naif major MD social history E&M Marital Statu s: Smoking History: P melinda has never smoked. Naif Becerra MD social history revie wed E&M reviewed - no changes required Naif Becerra MD caffeine use, averag e drinks per day 1+ David Hernandez passive cigarette sm josué exposure no David Hernandez smoking status Never smoker David Nieto drug use no Naif major MD alcohol use no Naif major MD smoking status Never smoker Naif sanchez MD social history E&M Marital Statu s: Smoking History: P melinda has never smoked. Naif Becerra MD social history revie wed E&M reviewed - no changes required Naif Becerra MD caffeine use, averag e drinks per day 1+ Cristóbal Javon passive cigarette sm josué exposure no Cristóbal Javon number of grandchildren Naif Becerra MD caffeine use, averag e drinks per day 1+ Tonsha Mclaughlin passive cigarette sm josué exposure no Tonsha Mclaughlin smoking status Never smoker Tonsha Mclaughlin number of grandchildren Karsten Alejandro MD U tina Alejandro MD social history E&M Marital Statu s: Smoking History: P melinda has never smoked. Karsten Alejandro MD social history revie wed E&M reviewed - no changes required Karsten Alejandro MD caffeine use, averag e drinks per day 1+ Haydee Umana passive cigarette sm josué exposure no Haydee Umana smoking status Never smoker Haydee berger social history E&M Marital Statu s: Smoking History: Chuck lawrence has never smoked. Naif Becerra MD social history revie wed E&M reviewed - no changes required Naif Becerra MD alcohol use no Chastity Edward caffeine use, averag e drinks per day 1+ Chastity Edward drug use no Chastity Edward passive cigarette sm josué exposure no Chastity Deward smoking status Never smoker Chastity Hogu e social history revie wed E&M reviewed - no changes required Naif Becerra MD social history E&M Marital Statu s: Smoking History: P melinda has never smoked. Naif Becerra MD alcohol use no Magaly Adam caffeine use, averag e drinks per day 1+ Magaly Adam drug use no Magaly Adam passive cigarette sm josué exposure no Magaly Adam smoking status Never smoker Magaly Adam social history revie wed E&M reviewed - no changes required Simeon Plur social history E&M Marital Statu s: Smoking History: P melinda has never smoked. Simeon Plur alcohol use no [facility] use, averag e drinks per day 1+ [facility] use [facility] passive cigarette sm josué exposure no [facility] smoking status Never smoker [facility] social history revie wed E&M reviewed - no changes required Naif Becerra MD social history E&M Marital Statu s: Smoking History: Chuck lawrence has never smoked. Naif Becerra MD alcohol use no David Palm on caffeine use, averag e drinks per day 1+ DavidLisa Hernandez drug use no David Palm bebeto passive cigarette sm josué exposure no DavidLisa Hernandez smoking status Never smoker David Gallo sanket social history revie wed E&M reviewed - no changes required Naif Becerra MD social history E&M Marital Statu s: Smoking History: Chuck lawrence has never smoked. Naif Becerra MD alcohol use no David Palm nson caffeine use, averag e drinks per day 1+ DavidLisa Hernandez drug use no David Palm nson passive cigarette sm josué exposure no David Hernandez smoking status Never smoker David Nieto social history revie wed E&M reviewed - no changes required Naif Becerra MD social history E&M Marital Statu s: Smoking History: Chuck larwence has never smoked. Naif Becerra MD alcohol use no David Palm nson caffeine use, averag e drinks per day 1+ David Hernandez drug use no David Palm nson passive cigarette sm josué exposure no David Hernandez smoking status Never smoker David Nieto social history E&M Marital Statu s: Smoking History: Chuck lawrence has never smoked. Eduardo Barillas MD social history revie wed E&M reviewed - no changes required Eduardo Barillas MD alcohol use no David Palm nson caffeine use, averag e drinks per day 1+ David Hernandez drug use no David Girarde nson passive cigarette sm josué exposure no David Hernandez smoking status Never smoker David Nieto number of grandchildren Naif Becerra MD social history revie wed E&M reviewed - no changes required Naif Becerra MD social history E&M Marital Statu s: Smoking History: Chuck lawrence has never smoked. Naif Becerra MD alcohol use no David Palm nson caffeine use, averag e drinks per day 1+ David Hernandez drug use no David Girarde darshanaon passive cigarette sm josué exposure no David Hernandez smoking status Never smoker David Gallo sanket number of grandchildren Bartolo Mullinsberg social history revie wed E&M reviewed - no changes required Bartolo Hagan MD social history E&M Marital Statu s: Smoking History: Chuck lawrence has never smoked. Bartolo Hagan MD alcohol use no Yolanda Mckeon lder caffeine use, averag e drinks per day 1+ Germain Tiffanie drug use no Yolanda Mckeon lder passive cigarette sm josué exposure no Yolanda Salcedojeanettehernando smoking status Never smoker Yolanda Ordonez roma social history E&M Marital Statu s: Smoking History: Chuck lawrence has never smoked. Bartolo Hagan MD social history revie wed E&M reviewed - no changes required Bartolo Hagan MD alcohol use no David Palm nson caffeine use, averag e drinks per day yes David Hernandez drug use no David Palm nssilverio passive cigarette sm josué exposure no David Hernandez smoking status Never smoker David Nieto number of grandchildren Naif Becerra MD social history E&M Marital Statu s: Smoking History: Chuck lawrence has never smoked. Naif Becerra MD social history revie wed E&M reviewed - no changes required Naif Becerra MD alcohol use no David Palm nson caffeine use, averag e drinks per day yes David Hernandez drug use no David Girarde bebeto passive cigarette sm josué exposure no David Hernandez smoking status Never smoker David Nieto social history revie wed E&M reviewed - no changes required Naif Becerra MD social history revie wed E&M reviewed - no changes required Naif Becerra MD alcohol use no Magaly Adam caffeine use, averag e drinks per day yes Magaly Adam drug use no Magaly Adam passive cigarette sm josué exposure no Magaly Adam smoking status Never smoker Magaly Garciass social history revie wed E&M reviewed - no changes required Bartolo Hagan MD social history E&M Marital Statu s: Smoking History: P melinda has never smoked. Bartolo Hagan MD alcohol use no Barbie Uribeann caffeine use, averag e drinks per day yes Barbie Uribeann drug use no Barbie Morris passive cigarette sm josué exposure no Barbie Morris smoking status Never smoker Barbie Hameed mariola social history revie wed E&M reviewed - no changes required Naif Becerra MD alcohol use no David Palm bebeto caffeine use, averag e drinks per day yes David David drug use no David Palm bebeto passive cigarette sm josué exposure no David Hernandez smoking status Never smoker David Alvarezhernandez social history revie wed E&M reviewed - no changes required Naif Becerra MD alcohol use no Barbie Arturo caffeine use, averag e drinks per day yes Barbie Uribeann drug use no Barbie Uribeann passive cigarette sm josué exposure no Barbie Uribeann smoking status Never smoker Barbie Uribeluis garnett alcohol use no Barbie Yemi caffeine use, averag e drinks per day yes Barbie Bragg drug use no Barbie Bragg passive cigarette sm josué exposure no Barbie Bragg smoking status Never smoker Barbie Bragg social history E&M Marital Statu s: Chuck lawrence has never smoked. Smoking History: P melinda has never smoked. Naif Becerra MD social history revie wed E&M reviewed - no changes required Naif Becerra MD alcohol use no Yolanda Cormiernelsheree bettie smoking status Never smoker Naif sanchez MD social history E&M Marital Statu s: Chuck lawrence has never smoked. Bartolo Hagan MD social history revie wed E&M reviewed - no changes required Bartolo Hagan MD alcohol use no Barbie Arturo caffeine use, averag e drinks per day yes Barbie Arturo drug use no Barbie oMrris passive cigarette sm josué exposure no Barbie Morris smoking status Never smoker Barbie Uribeluis garnett social history revie wed E&M reviewed - no changes required Bartolo Hagan MD caffeine use, averag e drinks per day yes David Hernandez drug use no David tate passive cigarette sm josué exposure no David Hernandez smoking status Never smoker Davidmariola Nieto social history E&M Marital Statu s: Chuck lawrence has never smoked. Smoking History: Chuck lawrence has never smoked. Naif Becerra MD social history revie wed E&M reviewed - no changes required Naif Becerra MD caffeine use, averag e drinks per day yes Naif Becerra MD drug use no Naif major MD passive cigarette sm josué exposure no Naif Becerra MD smoking status Never smoker Naif sanchez MD social history revie wed E&M reviewed - no changes required Naif Becerra MD caffeine use, averag e drinks per day yes David Hernandez drug use no David tate passive cigarette sm josué exposure no David Hernandez smoking status Never smoker David Nieto social history revie wed E&M reviewed - no changes required Naif Becerra MD caffeine use, averag e drinks per day yes David Hernandez drug use no David Palm nson passive cigarette sm josué exposure no David Hernandez smoking status Never smoker David Nieto caffeine use, averag e drinks per day yes David Hernandez drug use no David Palm nson passive cigarette sm josué exposure no David Hernandez smoking status Never smoker David Nieto caffeine use, averag e drinks per day yes Sowmya Blunt drug use no Sowmya Blunt passive cigarette sm josué exposure no Sowmya Blunt smoking status Never smoker Sowmya Blunt social history revie wed E&M reviewed - no changes required Sowmya Blunt social history revie wed E&M reviewed Nixon Serrano RN social history revie wed E&M reviewed Yasmany Chen MD social history revie wed E&M reviewed Nixon Serrano RN drug use no Nixon Serrano RN passive cigarette sm josué exposure no Nixon Serrano RN social history E&M Marital Status: [place] d Nixon Serrano RN caffeine use, averag e drinks per day yes Nixon Serrano RN smoking status never smoker Nixon Serrano RN social history revie wed E&M reviewed Nixon Serrano RN FUNCTIONAL STATUS Date Observation Value Provider HRA, CV Assess/Plan, Angina (inactive) Management Plan continue current therapy Naif Becerra MD HRA, CV Assess/Plan, Angina (inactive) Management Plan continue current therapy Naif Becerra MD HRA, CV Assess/Plan, Angina (inactive) Management Plan continue current therapy Naif Becerra MD HRA, CV Assess/Plan, Angina (inactive) Management Plan continue current therapy Naif Becerra MD HRA, CV Assess/Plan, Angina (inactive) Management Plan continue current therapy Naif Becerra MD HRA, CV Assess/Plan, Angina (inactive) Management Plan continue current therapy, antianginal therapy Naif Becerra MD HRA, CV Assess/Plan, Angina (inactive) Management Plan continue current therapy Naif Becerra MD HRA, CV Assess/Plan, Angina (inactive) Management Plan continue current therapy Naif Becerra MD HRA, CV Assess/Plan, Angina (inactive) Management Plan continue current therapy Naif Becerra MD HRA, CV Assess/Plan, Angina (inactive) Management Plan continue current therapy Naif Becerra MD HRA, CV Assess/Plan, Angina (inactive) Management Plan continue current therapy Naif Becerra MD HRA, CV Assess/Plan, Angina (inactive) Management Plan continue current therapy Naif Becerra MD HRA, CV Assess/Plan, Angina (inactive) Management Plan continue current therapy Naif Becerra MD HRA, CV Assess/Plan, Angina (inactive) Management Plan continue current therapy Naif Becerra MD HRA, CV Assess/Plan, Angina (inactive) Management Plan continue current therapy Simeon Plurad HRA, CV Assess/Plan, Angina (inactive) Management Plan continue current therapy Naif Becerra MD HRA, CV Assess/Plan, Angina (inactive) Management Plan continue current therapy, antianginal therapy Naif Becerra MD HRA, CV Assess/Plan, Angina (inactive) Management Plan continue current therapy Naif Becerra MD HRA, CV Assess/Plan, Angina (inactive) Management Plan continue current therapy Eduardo Barillas MD MENTAL STATUS Date Observation Value Provider assessment of judgme nt and insight E&M Alert and oriented to time, place and person. Mood and affect are normal. Nixon Serrano RN assessment of judgme nt and insight E&M Alert and oriented to time, place and person. Mood and affect are normal. Yasmany Chen MD assessment of judgme nt and insight E&M Alert and oriented to time, place and person. Mood and affect are normal. Nixon Serrano RN assessment of judgme nt and insight E&M Alert and oriented to time, place and person. Mood and affect are normal. Nixon Serrano RN FAMILY HISTORY Family Member Condition Mother Family History of Co ronary Artery Disease: Mother Family History of Di abetes: INSURANCE PROVIDERS Payer name Policy type / Coverage type [place] [employer] party ID [place] [employer] Medicare [id number] [facility] [id number] ADVANCE DIRECTIVES Name Date DISCUSSED - NO DECISION MADE TREATMENT PLAN Date Name Performer [id number],C, C ONCLUSIONS: 1 . Normal left ventricular systolic function. Normal left ventricular size. Normal left ventricular wall thickness. Normal left v entricular diastolic function. Left ventricular ejection fraction is measured at 55 %. 2 . Normal right ventricular size. Normal right ventricular systolic function. Linear artifact seen in the right ventricle is s uggestive of a catheter, pacer lead, or ICD lead. 3 . There is severe enlargement of the left atrium. Left atrial volume index is 51.0. LA volume is 95 mL. 4 . Moderate mitral annular calcification. There is non-specific thickening of the mitral valve leaflets. The mitral valve is S/P R ing Repair. Mild to moderate mitral valve regurgitation. The mitral valve Mean Gradient is 6.1 mmHg. 5 . Normal appearing bioprosthetic aortic valve. There is trace physiologic aortic valve regurgitation. Peak AV velocity: 2.40 m /s. The Aortic Valve Peak Gradient is 23.09 mmHg. The Aortic Valve Mean Gradient is 14.76 mmHg. 6 . There is non-specific thickening of the tricuspid valve. There is mild tricuspid regurgitation. Right ventricular systolic p ressure is consistent with mild pulmonary hypertension. IVC is normal in size with normal respiratory response. Estimated p eak pulmonary artery systolic pressure is 39.0 mmHg. The tricuspid valve is S/P ring repair. 7 . There is moderate pulmonic regurgitation. E lectronically signed by Naif Becerra MD on 07/29/2020 at 2:14 PM Naif Becerra MD [id number],S, I mproved after valve surgery. December 02, 2021 U ses CPAP routinely and is dependent Naif Becerra MD [id number],C, W as on Eliquis. DId not have nose bleed on Eliquis until just recently. Saw Nicolasamarcos for ENT and can be seen by him. December 26, 2019 N o new nose bleeds. August 04, 2022 N o new nose bleeds February 02, 2023 s table on eliquis Naif Becerra MD [id number],C, E LIQUIS . no bleeding issues Naif Becerra MD [id number],C, C ONCLUSIONS: 1 . Mild global left ventricular systolic hypokinesis. Normal left ventricular size. Normal left ventricular wall thickness. Unable t o determine diastolic function due to cardiac arrhythmia. E/E': 23.1 Left ventricular ejection fraction is measured at 45 %. 2 . Normal right ventricular size. Normal right ventricular systolic function. Linear artifact seen in the right ventricle is s uggestive of a catheter, pacer lead, or ICD lead. 3 . The mitral valve is S/P Ring Repair. There is trace physiologic mitral valve regurgitation. The mitral valve Mean Gradient is 4 .5 mmHg. 4 . Normal appearing bioprosthetic aortic valve. No evidence of aortic insufficiency. Peak AV velocity: 2.19 m/s The Aortic V alve Peak Gradient is 19.15 mmHg The Aortic Valve Mean Gradient is 10.85 mmHg. 5 . There is trace physiologic tricuspid valve regurgitation. Right ventricular systolic pressure is consistent with mild pulmonary h ypertension. IVC is dilated with partial respiratory response, consistent with moderately elevated right atrial pressures. E stimated peak pulmonary artery systolic pressure is 46.0 mmHg The tricuspid valve is S/P ring repair. 6 . There is mild pulmonic regurgitation. 7 . There is mild to moderate enlargement of the left atrium. Left atrial volume index is 62.0 Naif Becerra MD [id number],C, C ONCLUSIONS: 1 . Mild global left ventricular systolic hypokinesis. Normal left ventricular size. Normal left ventricular wall thickness. Unable t o determine diastolic function due to cardiac arrhythmia. E/E': 23.1 Left ventricular ejection fraction is measured at 45 %. 2 . Normal right ventricular size. Normal right ventricular systolic function. Linear artifact seen in the right ventricle is s uggestive of a catheter, pacer lead, or ICD lead. 3 . The mitral valve is S/P Ring Repair. There is trace physiologic mitral valve regurgitation. The mitral valve Mean Gradient is 4 .5 mmHg. 4 . Normal appearing bioprosthetic aortic valve. No evidence of aortic insufficiency. Peak AV velocity: 2.19 m/s The Aortic V alve Peak Gradient is 19.15 mmHg The Aortic Valve Mean Gradient is 10.85 mmHg. 5 . There is trace physiologic tricuspid valve regurgitation. Right ventricular systolic pressure is consistent with mild pulmonary h ypertension. IVC is dilated with partial respiratory response, consistent with moderately elevated right atrial pressures. E stimated peak pulmonary artery systolic pressure is 46.0 mmHg The tricuspid valve is S/P ring repair. 6 . There is mild pulmonic regurgitation. 7 . There is mild to moderate enlargement of the left atrium. Left atrial volume index is 62.0 Naif Becerra MD [id number],C, N eeds to remain on Eliquis. No bleeding issues H aving intermittent palpitations. Remains stable. Naif Becerra MD [id number],C, E LIQUIS . no bleeding issues H er updated medication list for this problem includes: Aspirin 81 Mg Tabs (Aspirin) ..... One tab. daily Naif Becerra MD [id number],C, C ONCLUSIONS: 1 . Mild global left ventricular systolic hypokinesis. Normal left ventricular size. Normal left ventricular wall thickness. Unable t o determine diastolic function due to cardiac arrhythmia. E/E': 23.1 Left ventricular ejection fraction is measured at 45 %. 2 . Normal right ventricular size. Normal right ventricular systolic function. Linear artifact seen in the right ventricle is s uggestive of a catheter, pacer lead, or ICD lead. 3 . The mitral valve is S/P Ring Repair. There is trace physiologic mitral valve regurgitation. The mitral valve Mean Gradient is 4 .5 mmHg. 4 . Normal appearing bioprosthetic aortic valve. No evidence of aortic insufficiency. Peak AV velocity: 2.19 m/s The Aortic V alve Peak Gradient is 19.15 mmHg The Aortic Valve Mean Gradient is 10.85 mmHg. 5 . There is trace physiologic tricuspid valve regurgitation. Right ventricular systolic pressure is consistent with mild pulmonary h ypertension. IVC is dilated with partial respiratory response, consistent with moderately elevated right atrial pressures. E stimated peak pulmonary artery systolic pressure is 46.0 mmHg The tricuspid valve is S/P ring repair. 6 . There is mild pulmonic regurgitation. 7 . There is mild to moderate enlargement of the left atrium. Left atrial volume index is 62.0 Naif Becerra MD [id number],C, W as on Eliquis. DId not have nose bleed on Eliquis until just recently. Saw Bora for ENT and can be seen by him. December 26, 2019 N o new nose bleeds. August 04, 2022 N o new nose bleeds Naif Becerra MD [id number],S, C ONCLUSIONS: 1 . Mild global left ventricular systolic hypokinesis. Normal left ventricular size. Normal left ventricular wall thickness. Unable t o determine diastolic function due to cardiac arrhythmia. E/E': 23.1 Left ventricular ejection fraction is measured at 45 %. 2 . Normal right ventricular size. Normal right ventricular systolic function. Linear artifact seen in the right ventricle is s uggestive of a catheter, pacer lead, or ICD lead. 3 . The mitral valve is S/P Ring Repair. There is trace physiologic mitral valve regurgitation. The mitral valve Mean Gradient is 4 .5 mmHg. 4 . Normal appearing bioprosthetic aortic valve. No evidence of aortic insufficiency. Peak AV velocity: 2.19 m/s The Aortic V alve Peak Gradient is 19.15 mmHg The Aortic Valve Mean Gradient is 10.85 mmHg. 5 . There is trace physiologic tricuspid valve regurgitation. Right ventricular systolic pressure is consistent with mild pulmonary h ypertension. IVC is dilated with partial respiratory response, consistent with moderately elevated right atrial pressures. E stimated peak pulmonary artery systolic pressure is 46.0 mmHg The tricuspid valve is S/P ring repair. 6 . There is mild pulmonic regurgitation. 7 . There is mild to moderate enlargement of the left atrium. Left atrial volume index is 62.0 Naif Becerra MD [id number],S,S top RPM monitor, BP at home are more accurate than the one she has with the RPM H er updated medication list for this problem includes: Metoprolol Tartrate 25 Mg Tablet (Metoprolol tartrate) ..... Take 1 tablet by mouth twice a day Furosemide 20 Mg Tablet (Furosemide) ..... Take 1 tablet by mouth twice a day Aspirin 81 Mg Tablet,delayed Release (dr/ec) (Aspirin) ..... 1 tablet by mouth once a day BP today: 144/72 P rior BP: 127/67 (04/28/2022) Labs Reviewed: C reat: 0.82 (03/22/2019) C hol: 160 (12/05/2019) HDL: 72 (12/05/2019) Naif Becerra MD [id number],C, Moderate mitral annular calcification. The mitral valve is S/P Ring Repair. There is non-specific thickening of the mitral v alve leaflets. Mild mitral valve regurgitation. The mitral valve Mean Gradient is 5.2 mmHg. Naif Becerra MD [id number],C, E LIQUIS . no bleeding issues H er updated medication list for this problem includes: Aspirin 81 Mg Tabs (Aspirin) ..... One tab. daily Naif Becerra MD [id number],C, N eeds to remain on Eliquis. No bleeding issues H aving intermittent palpitations. Remains stable. Naif Becerra MD [id number],C, C ONCLUSIONS: 1 . Mild global left ventricular systolic hypokinesis. Normal left ventricular size. Normal left ventricular wall thickness. Unable t o determine diastolic function due to cardiac arrhythmia. E/E': 23.1 Left ventricular ejection fraction is measured at 45 %. 2 . Normal right ventricular size. Normal right ventricular systolic function. Linear artifact seen in the right ventricle is s uggestive of a catheter, pacer lead, or ICD lead. 3 . The mitral valve is S/P Ring Repair. There is trace physiologic mitral valve regurgitation. The mitral valve Mean Gradient is 4 .5 mmHg. 4 . Normal appearing bioprosthetic aortic valve. No evidence of aortic insufficiency. Peak AV velocity: 2.19 m/s The Aortic V alve Peak Gradient is 19.15 mmHg The Aortic Valve Mean Gradient is 10.85 mmHg. 5 . There is trace physiologic tricuspid valve regurgitation. Right ventricular systolic pressure is consistent with mild pulmonary h ypertension. IVC is dilated with partial respiratory response, consistent with moderately elevated right atrial pressures. E stimated peak pulmonary artery systolic pressure is 46.0 mmHg The tricuspid valve is S/P ring repair. 6 . There is mild pulmonic regurgitation. 7 . There is mild to moderate enlargement of the left atrium. Left atrial volume index is 62.0 Naif Becerra MD [id number],Chuck Vargas had covid last year, she s vaccinated pending booster. Naif Becerra MD [id number],Chuck Maurer on having Cataracts done on the . Naif Becerra MD [id number],Erasto Maurer ONCLUSIONS: 1 . Mild global left ventricular systolic hypokinesis. Normal left ventricular size. Normal left ventricular wall thickness. Unable t o determine diastolic function due to cardiac arrhythmia. E/E': 23.1 Left ventricular ejection fraction is measured at 45 %. 2 . Normal right ventricular size. Normal right ventricular systolic function. Linear artifact seen in the right ventricle is s uggestive of a catheter, pacer lead, or ICD lead. 3 . The mitral valve is S/P Ring Repair. There is trace physiologic mitral valve regurgitation. The mitral valve Mean Gradient is 4 .5 mmHg. 4 . Normal appearing bioprosthetic aortic valve. No evidence of aortic insufficiency. Peak AV velocity: 2.19 m/s The Aortic V alve Peak Gradient is 19.15 mmHg The Aortic Valve Mean Gradient is 10.85 mmHg. 5 . There is trace physiologic tricuspid valve regurgitation. Right ventricular systolic pressure is consistent with mild pulmonary h ypertension. IVC is dilated with partial respiratory response, consistent with moderately elevated right atrial pressures. E stimated peak pulmonary artery systolic pressure is 46.0 mmHg The tricuspid valve is S/P ring repair. 6 . There is mild pulmonic regurgitation. 7 . There is mild to moderate enlargement of the left atrium. Left atrial volume index is 62.0 Naif Becerra MD [id number],C, N eeds to remain on Eliquis. No bleeding issues H aving intermittent palpitations. Remains stable. Naif Becerra MD [id number],S, Lower extremity edema wants to get US done to make sure there's no clot. On eliquis. Naif Becerra MD [id number],C, E LIQUIS . no bleeding issues H er updated medication list for this problem includes: Aspirin 81 Mg Tabs (Aspirin) ..... One tab. daily Naif Becerra MD [id number],S, I mproved after valve surgery. December 02, 2021 U ses CPAP routinely and is dependent Naif Becerra MD [id number],S, Naif adkins MD [id number],C, U nable to take steroids. Has severe COPD. Her SOB may be related to COPD. Doubt that MR is an issue since her echo shows that it is mild and she has normal LV funciton Naif Becerra MD [id number],C,C ONCLUSIONS: 1 . Mild global left ventricular systolic hypokinesis. Normal left ventricular size. Normal left ventricular wall thickness. Unable t o determine diastolic function due to cardiac arrhythmia. E/E': 23.1 Left ventricular ejection fraction is measured at 45 %. 2 . Normal right ventricular size. Normal right ventricular systolic function. Linear artifact seen in the right ventricle is s uggestive of a catheter, pacer lead, or ICD lead. 3 . The mitral valve is S/P Ring Repair. There is trace physiologic mitral valve regurgitation. The mitral valve Mean Gradient is 4 .5 mmHg. 4 . Normal appearing bioprosthetic aortic valve. No evidence of aortic insufficiency. Peak AV velocity: 2.19 m/s The Aortic V alve Peak Gradient is 19.15 mmHg The Aortic Valve Mean Gradient is 10.85 mmHg. 5 . There is trace physiologic tricuspid valve regurgitation. Right ventricular systolic pressure is consistent with mild pulmonary h ypertension. IVC is dilated with partial respiratory response, consistent with moderately elevated right atrial pressures. E stimated peak pulmonary artery systolic pressure is 46.0 mmHg The tricuspid valve is S/P ring repair. 6 . There is mild pulmonic regurgitation. 7 . There is mild to moderate enlargement of the left atrium. Left atrial volume index is 62.0 Naif Becerra MD [id number],S,C ONCLUSIONS: 1 . Mild global left ventricular systolic hypokinesis. Normal left ventricular size. Normal left ventricular wall thickness. Unable t o determine diastolic function due to cardiac arrhythmia. E/E': 23.1 Left ventricular ejection fraction is measured at 45 %. 2 . Normal right ventricular size. Normal right ventricular systolic function. Linear artifact seen in the right ventricle is s uggestive of a catheter, pacer lead, or ICD lead. 3 . The mitral valve is S/P Ring Repair. There is trace physiologic mitral valve regurgitation. The mitral valve Mean Gradient is 4 .5 mmHg. 4 . Normal appearing bioprosthetic aortic valve. No evidence of aortic insufficiency. Peak AV velocity: 2.19 m/s The Aortic V alve Peak Gradient is 19.15 mmHg The Aortic Valve Mean Gradient is 10.85 mmHg. 5 . There is trace physiologic tricuspid valve regurgitation. Right ventricular systolic pressure is consistent with mild pulmonary h ypertension. IVC is dilated with partial respiratory response, consistent with moderately elevated right atrial pressures. E stimated peak pulmonary artery systolic pressure is 46.0 mmHg The tricuspid valve is S/P ring repair. 6 . There is mild pulmonic regurgitation. 7 . There is mild to moderate enlargement of the left atrium. Left atrial volume index is 62.0 Naif Becerra MD [id number],C, E LIQUIS H er updated medication list for this problem includes: Aspirin 81 Mg Tabs (Aspirin) ..... One tab. daily Naif Becerra MD [id number],C, C ONCLUSIONS: 1 . Normal left ventricular systolic function. Normal left ventricular size. Normal left ventricular wall thickness. Normal left v entricular diastolic function. Left ventricular ejection fraction is measured at 55 %. 2 . Normal right ventricular size. Normal right ventricular systolic function. Linear artifact seen in the right ventricle is s uggestive of a catheter, pacer lead, or ICD lead. 3 . There is severe enlargement of the left atrium. Left atrial volume index is 51.0. LA volume is 95 mL. 4 . Moderate mitral annular calcification. There is non-specific thickening of the mitral valve leaflets. The mitral valve is S/P R ing Repair. Mild to moderate mitral valve regurgitation. The mitral valve Mean Gradient is 6.1 mmHg. 5 . Normal appearing bioprosthetic aortic valve. There is trace physiologic aortic valve regurgitation. Peak AV velocity: 2.40 m /s. The Aortic Valve Peak Gradient is 23.09 mmHg. The Aortic Valve Mean Gradient is 14.76 mmHg. 6 . There is non-specific thickening of the tricuspid valve. There is mild tricuspid regurgitation. Right ventricular systolic p ressure is consistent with mild pulmonary hypertension. IVC is normal in size with normal respiratory response. Estimated p eak pulmonary artery systolic pressure is 39.0 mmHg. The tricuspid valve is S/P ring repair. 7 . There is moderate pulmonic regurgitation. E lectronically signed by Naif Becerra MD on 07/29/2020 at 2:14 PM Naif Becerra MD [id number],C, H ad cath done 05/24/18. Mild plaquing in RCA. LVEF 55%. A left ventriculogram was performed. Ejection fraction was estimated at 55%. There is 1+ mitral r egurgitation noted. The ventricular cycles are noted to be irregular due to atrial fibrillation. Aortic p ressure was noted to be 142/78 with a mean arterial pressure of 104. Left ventricular pressure 162/21 with an EDP of 25. 5-[place] balloon-tipped [place] catheter and a V-18 wire, I was able to advance this into the p ulmonary arterial location with only the balloon tip of the catheter and without any wire support or the w kishore within the catheter. The pressures for the right-sided heart cath demonstrated the following findings: 1 . Right atrial pressure of 18/29 with a mean of 19. 2 . RV pressure 36/8 with an EDP of 17. 3 . PA pressure 35/18 with a mean of 26. 4 . Wedge is 18/28 with a mean of 20. Prominent ventricular wave was noted for the right atrial pressure. June 03, 2021 R emains on low dose of aspirin in conjunction with eliquis. No bleeding issues. I f bleeding occurs we will stop aspirin. Naif Becerra MD [id number],C, C ONCLUSIONS: 1 . Normal left ventricular systolic function. Normal left ventricular size. Normal left ventricular wall thickness. Normal left v entricular diastolic function. Left ventricular ejection fraction is measured at 55 %. 2 . Normal right ventricular size. Normal right ventricular systolic function. Linear artifact seen in the right ventricle is s uggestive of a catheter, pacer lead, or ICD lead. 3 . There is severe enlargement of the left atrium. Left atrial volume index is 51.0. LA volume is 95 mL. 4 . Moderate mitral annular calcification. There is non-specific thickening of the mitral valve leaflets. The mitral valve is S/P R ing Repair. Mild to moderate mitral valve regurgitation. The mitral valve Mean Gradient is 6.1 mmHg. 5 . Normal appearing bioprosthetic aortic valve. There is trace physiologic aortic valve regurgitation. Peak AV velocity: 2.40 m /s. The Aortic Valve Peak Gradient is 23.09 mmHg. The Aortic Valve Mean Gradient is 14.76 mmHg. 6 . There is non-specific thickening of the tricuspid valve. There is mild tricuspid regurgitation. Right ventricular systolic p ressure is consistent with mild pulmonary hypertension. IVC is normal in size with normal respiratory response. Estimated p eak pulmonary artery systolic pressure is 39.0 mmHg. The tricuspid valve is S/P ring repair. 7 . There is moderate pulmonic regurgitation. E lectronically signed by Naif Becerra MD on 07/29/2020 at 2:14 PM Naif Becerar MD [id number],C, N eeds to remain on Eliquis. No bleeding issues Naif Becerra MD [id number],C, N ormal appearing bioprosthetic aortic valve. The pressure gradients across the aortic valve prosthesis are normal for this t ype and size of prosthesis. No evidence of aortic insufficiency. Peak AV velocity: 2.49 m/s. The Aortic Valve Peak Gradient is 2 4.77 mmHg. The Aortic Valve Mean Gradient is 15.50 mmHg. CONCLUSIONS: 1 . Normal left ventricular systolic function. Normal left ventricular size. Normal left ventricular wall thickness. Normal left v entricular diastolic function. Left ventricular ejection fraction is measured at 55 %. 2 . Normal right ventricular size. Normal right ventricular systolic function. Linear artifact seen in the right ventricle is s uggestive of a catheter, pacer lead, or ICD lead. 3 . There is severe enlargement of the left atrium. Left atrial volume index is 51.0. LA volume is 95 mL. 4 . Moderate mitral annular calcification. There is non-specific thickening of the mitral valve leaflets. The mitral valve is S/P R ing Repair. Mild to moderate mitral valve regurgitation. The mitral valve Mean Gradient is 6.1 mmHg. 5 . Normal appearing bioprosthetic aortic valve. There is trace physiologic aortic valve regurgitation. Peak AV velocity: 2.40 m /s. The Aortic Valve Peak Gradient is 23.09 mmHg. The Aortic Valve Mean Gradient is 14.76 mmHg. 6 . There is non-specific thickening of the tricuspid valve. There is mild tricuspid regurgitation. Right ventricular systolic p ressure is consistent with mild pulmonary hypertension. IVC is normal in size with normal respiratory response. Estimated p eak pulmonary artery systolic pressure is 39.0 mmHg. The tricuspid valve is S/P ring repair. 7 . There is moderate pulmonic regurgitation. E lectronically Signed By: Alfie Becerra MD, [facility] 2 021 14:07:55 THERMAL INTELLIGENCE ANALYST Naif Becerra MD [id number],C, H ad cath done 05/24/18. Mild plaquing in RCA. LVEF 55%. A left ventriculogram was performed. Ejection fraction was estimated at 55%. There is 1+ mitral r egurgitation noted. The ventricular cycles are noted to be irregular due to atrial fibrillation. Aortic p ressure was noted to be 142/78 with a mean arterial pressure of 104. Left ventricular pressure 162/21 with an EDP of 25. 5-[place] balloon-tipped [place] catheter and a V-18 wire, I was able to advance this into the p ulmonary arterial location with only the balloon tip of the catheter and without any wire support or the w kishore within the catheter. The pressures for the right-sided heart cath demonstrated the following findings: 1 . Right atrial pressure of 18/29 with a mean of 19. 2 . RV pressure 36/8 with an EDP of 17. 3 . PA pressure 35/18 with a mean of 26. 4 . Wedge is 18/28 with a mean of 20. Prominent ventricular wave was noted for the right atrial pressure. June 03, 2021 R emains on low dose of aspirin in conjunction with eliquis. No bleeding issues. I f bleeding occurs we will stop aspirin. Naif Becerra MD [id number],C, N eeds to remain on Eliquis. No bleeding issues Naif Becerra MD [id number],C, E LIQUIS H er updated medication list for this problem includes: Aspirin 81 Mg Tabs (Aspirin) ..... One tab. daily Naif Becerra MD [id number],C,C ONCLUSIONS: 1 . Normal left ventricular systolic function. Normal left ventricular size. Normal left ventricular wall thickness. Normal left v entricular diastolic function. Left ventricular ejection fraction is measured at 55 %. 2 . Normal right ventricular size. Normal right ventricular systolic function. Linear artifact seen in the right ventricle is s uggestive of a catheter, pacer lead, or ICD lead. 3 . There is severe enlargement of the left atrium. Left atrial volume index is 51.0. LA volume is 95 mL. 4 . Moderate mitral annular calcification. There is non-specific thickening of the mitral valve leaflets. The mitral valve is S/P R ing Repair. Mild to moderate mitral valve regurgitation. The mitral valve Mean Gradient is 6.1 mmHg. 5 . Normal appearing bioprosthetic aortic valve. There is trace physiologic aortic valve regurgitation. Peak AV velocity: 2.40 m /s. The Aortic Valve Peak Gradient is 23.09 mmHg. The Aortic Valve Mean Gradient is 14.76 mmHg. 6 . There is non-specific thickening of the tricuspid valve. There is mild tricuspid regurgitation. Right ventricular systolic p ressure is consistent with mild pulmonary hypertension. IVC is normal in size with normal respiratory response. Estimated p eak pulmonary artery systolic pressure is 39.0 mmHg. The tricuspid valve is S/P ring repair. 7 . There is moderate pulmonic regurgitation. E lectronically signed by Naif Becerra MD on 07/29/2020 at 2:14 PM Naif Becerra MD [id number],C,C ONCLUSIONS: 1 . Normal left ventricular systolic function. Normal left ventricular size. Normal left ventricular wall thickness. Normal left v entricular diastolic function. Left ventricular ejection fraction is measured at 55 %. 2 . Normal right ventricular size. Normal right ventricular systolic function. Linear artifact seen in the right ventricle is s uggestive of a catheter, pacer lead, or ICD lead. 3 . There is severe enlargement of the left atrium. Left atrial volume index is 51.0. LA volume is 95 mL. 4 . Moderate mitral annular calcification. There is non-specific thickening of the mitral valve leaflets. The mitral valve is S/P R ing Repair. Mild to moderate mitral valve regurgitation. The mitral valve Mean Gradient is 6.1 mmHg. 5 . Normal appearing bioprosthetic aortic valve. There is trace physiologic aortic valve regurgitation. Peak AV velocity: 2.40 m /s. The Aortic Valve Peak Gradient is 23.09 mmHg. The Aortic Valve Mean Gradient is 14.76 mmHg. 6 . There is non-specific thickening of the tricuspid valve. There is mild tricuspid regurgitation. Right ventricular systolic p ressure is consistent with mild pulmonary hypertension. IVC is normal in size with normal respiratory response. Estimated p eak pulmonary artery systolic pressure is 39.0 mmHg. The tricuspid valve is S/P ring repair. 7 . There is moderate pulmonic regurgitation. E lectronically signed by Naif Becerra MD on 07/29/2020 at 2:14 PM Naif Becerra MD [id number],C,C ONCLUSIONS: 1 . Normal left ventricular systolic function. Normal left ventricular size. Normal left ventricular wall thickness. Normal left v entricular diastolic function. Left ventricular ejection fraction is measured at 55 %. 2 . Normal right ventricular size. Normal right ventricular systolic function. Linear artifact seen in the right ventricle is s uggestive of a catheter, pacer lead, or ICD lead. 3 . There is severe enlargement of the left atrium. Left atrial volume index is 51.0. LA volume is 95 mL. 4 . Moderate mitral annular calcification. There is non-specific thickening of the mitral valve leaflets. The mitral valve is S/P R ing Repair. Mild to moderate mitral valve regurgitation. The mitral valve Mean Gradient is 6.1 mmHg. 5 . Normal appearing bioprosthetic aortic valve. There is trace physiologic aortic valve regurgitation. Peak AV velocity: 2.40 m /s. The Aortic Valve Peak Gradient is 23.09 mmHg. The Aortic Valve Mean Gradient is 14.76 mmHg. 6 . There is non-specific thickening of the tricuspid valve. There is mild tricuspid regurgitation. Right ventricular systolic p ressure is consistent with mild pulmonary hypertension. IVC is normal in size with normal respiratory response. Estimated p eak pulmonary artery systolic pressure is 39.0 mmHg. The tricuspid valve is S/P ring repair. 7 . There is moderate pulmonic regurgitation. E lectronically signed by Naif Becerra MD on 07/29/2020 at 2:14 PM Naif Becerra MD [id number],S,u H as chronic leg edema. Wears support stockings, doesn't take Lasix. Has it at home. Needs to take it every other day since she is having mild SOB. Will need to have bloodwork done since she is on potassium and starting LITTLE. Naif Becerra MD [id number],C, U nable to take steroids. Has severe COPD. Her SOB may be related to COPD. Doubt that MR is an issue since her echo shows that it is mild and she has normal LV funciton Naif Becerra MD [id number],C, E LIQUIS H er updated medication list for this problem includes: Aspirin 81 Mg Tabs (Aspirin) ..... One tab. daily Naif Becerra MD [id number],C, h as not gotten new machine yet Naif Becerra MD [id number],C, N ormal appearing bioprosthetic aortic valve. The pressure gradients across the aortic valve prosthesis are normal for this t ype and size of prosthesis. No evidence of aortic insufficiency. Peak AV velocity: 2.49 m/s. The Aortic Valve Peak Gradient is 2 4.77 mmHg. The Aortic Valve Mean Gradient is 15.50 mmHg. CONCLUSIONS: 1 . Normal left ventricular systolic function. Normal left ventricular size. Normal left ventricular wall thickness. Normal left v entricular diastolic function. Left ventricular ejection fraction is measured at 55 %. 2 . Normal right ventricular size. Normal right ventricular systolic function. Linear artifact seen in the right ventricle is s uggestive of a catheter, pacer lead, or ICD lead. 3 . There is severe enlargement of the left atrium. Left atrial volume index is 51.0. LA volume is 95 mL. 4 . Moderate mitral annular calcification. There is non-specific thickening of the mitral valve leaflets. The mitral valve is S/P R ing Repair. Mild to moderate mitral valve regurgitation. The mitral valve Mean Gradient is 6.1 mmHg. 5 . Normal appearing bioprosthetic aortic valve. There is trace physiologic aortic valve regurgitation. Peak AV velocity: 2.40 m /s. The Aortic Valve Peak Gradient is 23.09 mmHg. The Aortic Valve Mean Gradient is 14.76 mmHg. 6 . There is non-specific thickening of the tricuspid valve. There is mild tricuspid regurgitation. Right ventricular systolic p ressure is consistent with mild pulmonary hypertension. IVC is normal in size with normal respiratory response. Estimated p eak pulmonary artery systolic pressure is 39.0 mmHg. The tricuspid valve is S/P ring repair. 7 . There is moderate pulmonic regurgitation. E lectronically Signed By: Alfie Becerra MD, [facility] 2 021--06 14:07:55 THERMAL INTELLIGENCE ANALYST Naif Becerra MD Cardiology: Sheree BREWSTER . no bleeding issues Naif Becerra MD Cardiology:This visi t has been a part of the consistent, comprehensive, and ongoing management of the chronic medical condition(s) listed above for the patient. Well compensated at present H er updated medication list for this problem includes: Lisinopril 10 Mg Tablet (Lisinopril) ..... Take 1 tablet twice a day (dose increase) Metoprolol Tartrate 25 Mg Tablet (Metoprolol tartrate) ..... Take 1 tablet by mouth twice a day Furosemide 20 Mg Tablet (Furosemide) ..... Take 1 tablet twice a day Aspirin 81 Mg Tablet,delayed Release (dr/ec) (Aspirin) ..... 1 tablet by mouth once a day Naif Becerra MD Cardiology:The patie nt is using CPAP on a regular basis. The patient has been benefiting from therapy and should continue use. T his visit has been a part of the consistent, comprehensive, and ongoing management of the chronic medical condition(s) listed above for the patient. Naif Becerra MD Cardiology:This visi t has been a part of the consistent, comprehensive, and ongoing management of the chronic medical condition(s) listed above for the patient. N eeds to remain on Eliquis. No bleeding issues H aving intermittent palpitations. Remains stable. Naif Becerra MD Cardiology:Normal ap pearing bioprosthetic aortic valve. Velocities, as well as gradients across the aortic valve are normal. No e vidence of aortic insufficiency. Naif Becerra MD Cardiology: 3 . The mitral valve is S/P Ring Repair. Moderate mitral valve regurgitation. 4 . Normal appearing bioprosthetic aortic valve. Velocities, as well as gradients across the aortic valve are normal. No e vidence of aortic insufficiency. 5 . There is severe tricuspid regurgitation. Right ventricular systolic pressure is consistent with mild pulmonary hypertension. I VC is normal in size with normal respiratory response. Estimated peak pulmonary artery systolic pressure is 43.0 mmHg The t ricuspid valve is S/P ring repair. 6 . Pulmonic valve leaflets appear structurally normal. Normal pulmonic valve velocities by Doppler. There is severe pulmonic r egurgitation. Naif Becerra MD Cardiology:CONCLUSIO NS: 1 . Normal left ventricular systolic function. Normal left ventricular size. Normal left ventricular wall thickness. E to A ratio is c onsistent with restrictive physiology. E/E': 33.8 Left ventricular ejection fraction is measured at 55 %. 2 . Normal right ventricular size. Linear artifact seen in the right ventricle is suggestive of a catheter, pacer lead, or ICD lead. 3 . The mitral valve is S/P Ring Repair. Moderate mitral valve regurgitation. 4 . Normal appearing bioprosthetic aortic valve. Velocities, as well as gradients across the aortic valve are normal. No e vidence of aortic insufficiency. 5 . There is severe tricuspid regurgitation. Right ventricular systolic pressure is consistent with mild pulmonary hypertension. I VC is normal in size with normal respiratory response. Estimated peak pulmonary artery systolic pressure is 43.0 mmHg The t ricuspid valve is S/P ring repair. 6 . Pulmonic valve leaflets appear structurally normal. Normal pulmonic valve velocities by Doppler. There is severe pulmonic r egurgitation. Naif Becerra MD Cardiology: N ormal appearing bioprosthetic aortic valve. The pressure gradients across the aortic valve prosthesis are normal for this t ype and size of prosthesis. No evidence of aortic insufficiency. Peak AV velocity: 2.49 m/s. The Aortic Valve Peak Gradient is 2 4.77 mmHg. The Aortic Valve Mean Gradient is 15.50 mmHg. CONCLUSIONS: 1 . Normal left ventricular systolic function. Normal left ventricular size. Normal left ventricular wall thickness. Normal left v entricular diastolic function. Left ventricular ejection fraction is measured at 55 %. 2 . Normal right ventricular size. Normal right ventricular systolic function. Linear artifact seen in the right ventricle is s uggestive of a catheter, pacer lead, or ICD lead. 3 . There is severe enlargement of the left atrium. Left atrial volume index is 51.0. LA volume is 95 mL. 4 . Moderate mitral annular calcification. There is non-specific thickening of the mitral valve leaflets. The mitral valve is S/P R ing Repair. Mild to moderate mitral valve regurgitation. The mitral valve Mean Gradient is 6.1 mmHg. 5 . Normal appearing bioprosthetic aortic valve. There is trace physiologic aortic valve regurgitation. Peak AV velocity: 2.40 m /s. The Aortic Valve Peak Gradient is 23.09 mmHg. The Aortic Valve Mean Gradient is 14.76 mmHg. 6 . There is non-specific thickening of the tricuspid valve. There is mild tricuspid regurgitation. Right ventricular systolic p ressure is consistent with mild pulmonary hypertension. IVC is normal in size with normal respiratory response. Estimated peak pulmonary artery systolic pressure is 39.0 mmHg. The tricuspid valve is S/P ring repair. 7 . There is moderate pulmonic regurgitation. E lectronically Signed By: Alfie Becerra MD, [facility] 2 021-01-06 14:07:55 THERMAL INTELLIGENCE ANALYST Naif Becerra MD Cardiology: N eeds to remain on Eliquis. No bleeding issues H aving intermittent palpitations. Remains stable. Naif Becerra MD Cardiology: E LIQUIS . no bleeding issues Naif Becerra MD Cardiology: Normal left ventricular systolic function. Normal left ventricular size. Normal left ventricular wall thickness. Normal left v entricular diastolic function. Left ventricular ejection fraction is measured at 55 %. Naif Becerra MD Cardiology: C ONCLUSIONS: 1 . Mild global left ventricular systolic hypokinesis. Normal left ventricular size. Normal left ventricular wall thickness. Unable t o determine diastolic function due to cardiac arrhythmia. E/E': 23.1 Left ventricular ejection fraction is measured at 45 %. 2 . Normal right ventricular size. Normal right ventricular systolic function. Linear artifact seen in the right ventricle is s uggestive of a catheter, pacer lead, or ICD lead. 3 . The mitral valve is S/P Ring Repair. There is trace physiologic mitral valve regurgitation. The mitral valve Mean Gradient is 4 .5 mmHg. 4 . Normal appearing bioprosthetic aortic valve. No evidence of aortic insufficiency. Peak AV velocity: 2.19 m/s The Aortic V alve Peak Gradient is 19.15 mmHg The Aortic Valve Mean Gradient is 10.85 mmHg. 5 . There is trace physiologic tricuspid valve regurgitation. Right ventricular systolic pressure is consistent with mild pulmonary h ypertension. IVC is dilated with partial respiratory response, consistent with moderately elevated right atrial pressures. E stimated peak pulmonary artery systolic pressure is 46.0 mmHg The tricuspid valve is S/P ring repair. 6 . There is mild pulmonic regurgitation. 7 . There is mild to moderate enlargement of the left atrium. Left atrial volume index is 62.0 Naif Becerra MD Cardiology: C ONCLUSIONS: 1 . Mild global left ventricular systolic hypokinesis. Normal left ventricular size. Normal left ventricular wall thickness. Unable t o determine diastolic function due to cardiac arrhythmia. E/E': 23.1 Left ventricular ejection fraction is measured at 45 %. 2 . Normal right ventricular size. Normal right ventricular systolic function. Linear artifact seen in the right ventricle is s uggestive of a catheter, pacer lead, or ICD lead. 3 . The mitral valve is S/P Ring Repair. There is trace physiologic mitral valve regurgitation. The mitral valve Mean Gradient is 4 .5 mmHg. 4 . Normal appearing bioprosthetic aortic valve. No evidence of aortic insufficiency. Peak AV velocity: 2.19 m/s The Aortic V alve Peak Gradient is 19.15 mmHg The Aortic Valve Mean Gradient is 10.85 mmHg. 5 . There is trace physiologic tricuspid valve regurgitation. Right ventricular systolic pressure is consistent with mild pulmonary h ypertension. IVC is dilated with partial respiratory response, consistent with moderately elevated right atrial pressures. E stimated peak pulmonary artery systolic pressure is 46.0 mmHg The tricuspid valve is S/P ring repair. 6 . There is mild pulmonic regurgitation. 7 . There is mild to moderate enlargement of the left atrium. Left atrial volume index is 62.0 Naif Becerra MD Cardiology: C ONCLUSIONS: 1 . Normal left ventricular systolic function. Normal left ventricular size. Normal left ventricular wall thickness. Normal left v entricular diastolic function. Left ventricular ejection fraction is measured at 55 %. 2 . Normal right ventricular size. Normal right ventricular systolic function. Linear artifact seen in the right ventricle is s uggestive of a catheter, pacer lead, or ICD lead. 3 . There is severe enlargement of the left atrium. Left atrial volume index is 51.0. LA volume is 95 mL. 4 . Moderate mitral annular calcification. There is non-specific thickening of the mitral valve leaflets. The mitral valve is S/P R ing Repair. Mild to moderate mitral valve regurgitation. The mitral valve Mean Gradient is 6.1 mmHg. 5 . Normal appearing bioprosthetic aortic valve. There is trace physiologic aortic valve regurgitation. Peak AV velocity: 2.40 m /s. The Aortic Valve Peak Gradient is 23.09 mmHg. The Aortic Valve Mean Gradient is 14.76 mmHg. 6 . There is non-specific thickening of the tricuspid valve. There is mild tricuspid regurgitation. Right ventricular systolic p ressure is consistent with mild pulmonary hypertension. IVC is normal in size with normal respiratory response. Estimated p eak pulmonary artery systolic pressure is 39.0 mmHg. The tricuspid valve is S/P ring repair. 7 . There is moderate pulmonic regurgitation. E lectronically signed by Naif Becerra MD on 07/29/2020 at 2:14 PM Naif Becerra MD Cardiology: I mproved after valve surgery. December 02, 2021 U ses CPAP routinely and is dependent Naif Becerra MD Cardiology: W as on Eliquis. DId not have nose bleed on Eliquis until just recently. Saw Nicolasamarcos for ENT and can be seen by him. December 26, 2019 N o new nose bleeds. August 04, 2022 N o new nose bleeds February 02, 2023 s table on eliquis Naif Becerra MD Cardiology: E LIQUIS . no bleeding issues Naif Becerra MD Cardiology: C ONCLUSIONS: 1 . Mild global left ventricular systolic hypokinesis. Normal left ventricular size. Normal left ventricular wall thickness. Unable t o determine diastolic function due to cardiac arrhythmia. E/E': 23.1 Left ventricular ejection fraction is measured at 45 %. 2 . Normal right ventricular size. Normal right ventricular systolic function. Linear artifact seen in the right ventricle is s uggestive of a catheter, pacer lead, or ICD lead. 3 . The mitral valve is S/P Ring Repair. There is trace physiologic mitral valve regurgitation. The mitral valve Mean Gradient is 4 .5 mmHg. 4 . Normal appearing bioprosthetic aortic valve. No evidence of aortic insufficiency. Peak AV velocity: 2.19 m/s The Aortic V alve Peak Gradient is 19.15 mmHg The Aortic Valve Mean Gradient is 10.85 mmHg. 5 . There is trace physiologic tricuspid valve regurgitation. Right ventricular systolic pressure is consistent with mild pulmonary h ypertension. IVC is dilated with partial respiratory response, consistent with moderately elevated right atrial pressures. E stimated peak pulmonary artery systolic pressure is 46.0 mmHg The tricuspid valve is S/P ring repair. 6 . There is mild pulmonic regurgitation. 7 . There is mild to moderate enlargement of the left atrium. Left atrial volume index is 62.0 Naif Becerra MD Cardiology: C ONCLUSIONS: 1 . Mild global left ventricular systolic hypokinesis. Normal left ventricular size. Normal left ventricular wall thickness. Unable t o determine diastolic function due to cardiac arrhythmia. E/E': 23.1 Left ventricular ejection fraction is measured at 45 %. 2 . Normal right ventricular size. Normal right ventricular systolic function. Linear artifact seen in the right ventricle is s uggestive of a catheter, pacer lead, or ICD lead. 3 . The mitral valve is S/P Ring Repair. There is trace physiologic mitral valve regurgitation. The mitral valve Mean Gradient is 4 .5 mmHg. 4 . Normal appearing bioprosthetic aortic valve. No evidence of aortic insufficiency. Peak AV velocity: 2.19 m/s The Aortic V alve Peak Gradient is 19.15 mmHg The Aortic Valve Mean Gradient is 10.85 mmHg. 5 . There is trace physiologic tricuspid valve regurgitation. Right ventricular systolic pressure is consistent with mild pulmonary h ypertension. IVC is dilated with partial respiratory response, consistent with moderately elevated right atrial pressures. E stimated peak pulmonary artery systolic pressure is 46.0 mmHg The tricuspid valve is S/P ring repair. 6 . There is mild pulmonic regurgitation. 7 . There is mild to moderate enlargement of the left atrium. Left atrial volume index is 62.0 Naif Becerra MD Cardiology: N eeds to remain on Eliquis. No bleeding issues H aving intermittent palpitations. Remains stable. Naif Becerra MD Cardiology: E LIQUIS . no bleeding issues H er updated medication list for this problem includes: Aspirin 81 Mg Tabs (Aspirin) ..... One tab. daily Naif Becerra MD Cardiology: C ONCLUSIONS: 1 . Mild global left ventricular systolic hypokinesis. Normal left ventricular size. Normal left ventricular wall thickness. Unable t o determine diastolic function due to cardiac arrhythmia. E/E': 23.1 Left ventricular ejection fraction is measured at 45 %. 2 . Normal right ventricular size. Normal right ventricular systolic function. Linear artifact seen in the right ventricle is s uggestive of a catheter, pacer lead, or ICD lead. 3 . The mitral valve is S/P Ring Repair. There is trace physiologic mitral valve regurgitation. The mitral valve Mean Gradient is 4 .5 mmHg. 4 . Normal appearing bioprosthetic aortic valve. No evidence of aortic insufficiency. Peak AV velocity: 2.19 m/s The Aortic V alve Peak Gradient is 19.15 mmHg The Aortic Valve Mean Gradient is 10.85 mmHg. 5 . There is trace physiologic tricuspid valve regurgitation. Right ventricular systolic pressure is consistent with mild pulmonary h ypertension. IVC is dilated with partial respiratory response, consistent with moderately elevated right atrial pressures. E stimated peak pulmonary artery systolic pressure is 46.0 mmHg The tricuspid valve is S/P ring repair. 6 . There is mild pulmonic regurgitation. 7 . There is mild to moderate enlargement of the left atrium. Left atrial volume index is 62.0 Naif Becerra MD Cardiology: W as on Eliquis. DId not have nose bleed on Eliquis until just recently. Saw [facility] for ENT and can be seen by him. December 26, 2019 N o new nose bleeds. August 04, 2022 N o new nose bleeds Naif Becerra MD Cardiology: C ONCLUSIONS: 1 . Mild global left ventricular systolic hypokinesis. Normal left ventricular size. Normal left ventricular wall thickness. Unable t o determine diastolic function due to cardiac arrhythmia. E/E': 23.1 Left ventricular ejection fraction is measured at 45 %. 2 . Normal right ventricular size. Normal right ventricular systolic function. Linear artifact seen in the right ventricle is s uggestive of a catheter, pacer lead, or ICD lead. 3 . The mitral valve is S/P Ring Repair. There is trace physiologic mitral valve regurgitation. The mitral valve Mean Gradient is 4 .5 mmHg. 4 . Normal appearing bioprosthetic aortic valve. No evidence of aortic insufficiency. Peak AV velocity: 2.19 m/s The Aortic V alve Peak Gradient is 19.15 mmHg The Aortic Valve Mean Gradient is 10.85 mmHg. 5 . There is trace physiologic tricuspid valve regurgitation. Right ventricular systolic pressure is consistent with mild pulmonary h ypertension. IVC is dilated with partial respiratory response, consistent with moderately elevated right atrial pressures. E stimated peak pulmonary artery systolic pressure is 46.0 mmHg The tricuspid valve is S/P ring repair. 6 . There is mild pulmonic regurgitation. 7 . There is mild to moderate enlargement of the left atrium. Left atrial volume index is 62.0 Naif Becerra MD Cardiology:Stop RPM monitor, BP at home are more accurate than the one she has with the RPM H er updated medication list for this problem includes: Metoprolol Tartrate 25 Mg Tablet (Metoprolol tartrate) ..... Take 1 tablet by mouth twice a day Furosemide 20 Mg Tablet (Furosemide) ..... Take 1 tablet by mouth twice a day Aspirin 81 Mg Tablet,delayed Release (dr/ec) (Aspirin) ..... 1 tablet by mouth once a day BP today: 144/72 P rior BP: 127/67 (04/28/2022) Labs Reviewed: C reat: 0.82 (03/22/2019) C hol: 160 (12/05/2019) HDL: 72 (12/05/2019) Naif Becerra MD Cardiology: Moderate mitral annular calcification. The mitral valve is S/P Ring Repair. There is non-specific thickening of the mitral v alve leaflets. Mild mitral valve regurgitation. The mitral valve Mean Gradient is 5.2 mmHg. Naif Becerra MD Cardiology: E LIQUIS . no bleeding issues H er updated medication list for this problem includes: Aspirin 81 Mg Tabs (Aspirin) ..... One tab. daily Naif Becerra MD Cardiology: N eeds to remain on Eliquis. No bleeding issues H aving intermittent palpitations. Remains stable. Naif Becerra MD Cardiology: C ONCLUSIONS: 1 . Mild global left ventricular systolic hypokinesis. Normal left ventricular size. Normal left ventricular wall thickness. Unable t o determine diastolic function due to cardiac arrhythmia. E/E': 23.1 Left ventricular ejection fraction is measured at 45 %. 2 . Normal right ventricular size. Normal right ventricular systolic function. Linear artifact seen in the right ventricle is s uggestive of a catheter, pacer lead, or ICD lead. 3 . The mitral valve is S/P Ring Repair. There is trace physiologic mitral valve regurgitation. The mitral valve Mean Gradient is 4 .5 mmHg. 4 . Normal appearing bioprosthetic aortic valve. No evidence of aortic insufficiency. Peak AV velocity: 2.19 m/s The Aortic V alve Peak Gradient is 19.15 mmHg The Aortic Valve Mean Gradient is 10.85 mmHg. 5 . There is trace physiologic tricuspid valve regurgitation. Right ventricular systolic pressure is consistent with mild pulmonary h ypertension. IVC is dilated with partial respiratory response, consistent with moderately elevated right atrial pressures. E stimated peak pulmonary artery systolic pressure is 46.0 mmHg The tricuspid valve is S/P ring repair. 6 . There is mild pulmonic regurgitation. 7 . There is mild to moderate enlargement of the left atrium. Left atrial volume index is 62.0 Naif Becerra MD Cardiology:Probably had covid last year, she s vaccinated pending booster. Naif Becerra MD Cardiology:Planning on having Cataracts done on the . Naif Becerra MD Cardiology: C ONCLUSIONS: 1 . Mild global left ventricular systolic hypokinesis. Normal left ventricular size. Normal left ventricular wall thickness. Unable t o determine diastolic function due to cardiac arrhythmia. E/E': 23.1 Left ventricular ejection fraction is measured at 45 %. 2 . Normal right ventricular size. Normal right ventricular systolic function. Linear artifact seen in the right ventricle is s uggestive of a catheter, pacer lead, or ICD lead. 3 . The mitral valve is S/P Ring Repair. There is trace physiologic mitral valve regurgitation. The mitral valve Mean Gradient is 4 .5 mmHg. 4 . Normal appearing bioprosthetic aortic valve. No evidence of aortic insufficiency. Peak AV velocity: 2.19 m/s The Aortic V alve Peak Gradient is 19.15 mmHg The Aortic Valve Mean Gradient is 10.85 mmHg. 5 . There is trace physiologic tricuspid valve regurgitation. Right ventricular systolic pressure is consistent with mild pulmonary h ypertension. IVC is dilated with partial respiratory response, consistent with moderately elevated right atrial pressures. E stimated peak pulmonary artery systolic pressure is 46.0 mmHg The tricuspid valve is S/P ring repair. 6 . There is mild pulmonic regurgitation. 7 . There is mild to moderate enlargement of the left atrium. Left atrial volume index is 62.0 Naif Becerra MD Cardiology: N eeds to remain on Eliquis. No bleeding issues H aving intermittent palpitations. Remains stable. Naif Becerra MD Cardiology: Lower extremity edema wants to get US done to make sure there's no clot. On eliquis. Naif Becerra MD Cardiology: E LIQUIS . no bleeding issues H er updated medication list for this problem includes: Aspirin 81 Mg Tabs (Aspirin) ..... One tab. daily Naif Becerra MD Cardiology: I mproved after valve surgery. December 02, 2021 U ses CPAP routinely and is dependent Naif Becerra MD Cardiology Naif Becerra MD Cardiology: U nable to take steroids. Has severe COPD. Her SOB may be related to COPD. Doubt that MR is an issue since her echo shows that it is mild and she has normal LV funciton Naif Becerra MD Cardiology:CONCLUSIO NS: 1 . Mild global left ventricular systolic hypokinesis. Normal left ventricular size. Normal left ventricular wall thickness. Unable t o determine diastolic function due to cardiac arrhythmia. E/E': 23.1 Left ventricular ejection fraction is measured at 45 %. 2 . Normal right ventricular size. Normal right ventricular systolic function. Linear artifact seen in the right ventricle is s uggestive of a catheter, pacer lead, or ICD lead. 3 . The mitral valve is S/P Ring Repair. There is trace physiologic mitral valve regurgitation. The mitral valve Mean Gradient is 4 .5 mmHg. 4 . Normal appearing bioprosthetic aortic valve. No evidence of aortic insufficiency. Peak AV velocity: 2.19 m/s The Aortic V alve Peak Gradient is 19.15 mmHg The Aortic Valve Mean Gradient is 10.85 mmHg. 5 . There is trace physiologic tricuspid valve regurgitation. Right ventricular systolic pressure is consistent with mild pulmonary h ypertension. IVC is dilated with partial respiratory response, consistent with moderately elevated right atrial pressures. E stimated peak pulmonary artery systolic pressure is 46.0 mmHg The tricuspid valve is S/P ring repair. 6 . There is mild pulmonic regurgitation. 7 . There is mild to moderate enlargement of the left atrium. Left atrial volume index is 62.0 Naif Becerra MD Cardiology:CONCLUSIO NS: 1 . Mild global left ventricular systolic hypokinesis. Normal left ventricular size. Normal left ventricular wall thickness. Unable t o determine diastolic function due to cardiac arrhythmia. E/E': 23.1 Left ventricular ejection fraction is measured at 45 %. 2 . Normal right ventricular size. Normal right ventricular systolic function. Linear artifact seen in the right ventricle is s uggestive of a catheter, pacer lead, or ICD lead. 3 . The mitral valve is S/P Ring Repair. There is trace physiologic mitral valve regurgitation. The mitral valve Mean Gradient is 4 .5 mmHg. 4 . Normal appearing bioprosthetic aortic valve. No evidence of aortic insufficiency. Peak AV velocity: 2.19 m/s The Aortic V alve Peak Gradient is 19.15 mmHg The Aortic Valve Mean Gradient is 10.85 mmHg. 5 . There is trace physiologic tricuspid valve regurgitation. Right ventricular systolic pressure is consistent with mild pulmonary h ypertension. IVC is dilated with partial respiratory response, consistent with moderately elevated right atrial pressures. E stimated peak pulmonary artery systolic pressure is 46.0 mmHg The tricuspid valve is S/P ring repair. 6 . There is mild pulmonic regurgitation. 7 . There is mild to moderate enlargement of the left atrium. Left atrial volume index is 62.0 Naif Becerra MD Cardiology: E NARCISA Fish updated medication list for this problem includes: Aspirin 81 Mg Tabs (Aspirin) ..... One tab. daily Naif Becerra MD Cardiology: C ONCLUSIONS: 1 . Normal left ventricular systolic function. Normal left ventricular size. Normal left ventricular wall thickness. Normal left v entricular diastolic function. Left ventricular ejection fraction is measured at 55 %. 2 . Normal right ventricular size. Normal right ventricular systolic function. Linear artifact seen in the right ventricle is s uggestive of a catheter, pacer lead, or ICD lead. 3 . There is severe enlargement of the left atrium. Left atrial volume index is 51.0. LA volume is 95 mL. 4 . Moderate mitral annular calcification. There is non-specific thickening of the mitral valve leaflets. The mitral valve is S/P R ing Repair. Mild to moderate mitral valve regurgitation. The mitral valve Mean Gradient is 6.1 mmHg. 5 . Normal appearing bioprosthetic aortic valve. There is trace physiologic aortic valve regurgitation. Peak AV velocity: 2.40 m /s. The Aortic Valve Peak Gradient is 23.09 mmHg. The Aortic Valve Mean Gradient is 14.76 mmHg. 6 . There is non-specific thickening of the tricuspid valve. There is mild tricuspid regurgitation. Right ventricular systolic p ressure is consistent with mild pulmonary hypertension. IVC is normal in size with normal respiratory response. Estimated p eak pulmonary artery systolic pressure is 39.0 mmHg. The tricuspid valve is S/P ring repair. 7 . There is moderate pulmonic regurgitation. E lectronically signed by Naif Becerra MD on 07/29/2020 at 2:14 PM Naif Becerra MD Cardiology: H ad cath done 05/24/18. Mild plaquing in RCA. LVEF 55%. A left ventriculogram was performed. Ejection fraction was estimated at 55%. There is 1+ mitral r egurgitation noted. The ventricular cycles are noted to be irregular due to atrial fibrillation. Aortic p ressure was noted to be 142/78 with a mean arterial pressure of 104. Left ventricular pressure 162/21 w ith an EDP of 25. 5-[place] balloon-tipped [place] catheter and a V-18 wire, I was able to advance this into the p ulmonary arterial location with only the balloon tip of the catheter and without any wire support or the w kishore within the catheter. The pressures for the right-sided heart cath demonstrated the following findings: 1 . Right atrial pressure of 18/29 with a mean of 19. 2. RV pressure 36/8 with an EDP of 17. 3 . PA pressure 35/18 with a mean of 26. 4 . Wedge is 18/28 with a mean of 20. Prominent ventricular wave was noted for the right atrial pressure. & #13;June 03, 2021 R emains on low dose of aspirin in conjunction with eliquis. No bleeding issues. I f bleeding occurs we will stop aspirin. Naif Becerra MD Cardiology: C ONCLUSIONS: 1 . Normal left ventricular systolic function. Normal left ventricular size. Normal left ventricular wall thickness. Normal left v entricular diastolic function. Left ventricular ejection fraction is measured at 55 %. 2 . Normal right ventricular size. Normal right ventricular systolic function. Linear artifact seen in the right ventricle is s uggestive of a catheter, pacer lead, or ICD lead. 3 . There is severe enlargement of the left atrium. Left atrial volume index is 51.0. LA volume is 95 mL. 4 . Moderate mitral annular calcification. There is non-specific thickening of the mitral valve leaflets. The mitral valve is S/P R ing Repair. Mild to moderate mitral valve regurgitation. The mitral valve Mean Gradient is 6.1 mmHg. 5 . Normal appearing bioprosthetic aortic valve. There is trace physiologic aortic valve regurgitation. Peak AV velocity: 2.40 m /s. The Aortic Valve Peak Gradient is 23.09 mmHg. The Aortic Valve Mean Gradient is 14.76 mmHg. 6 . There is non-specific thickening of the tricuspid valve. There is mild tricuspid regurgitation. Right ventricular systolic p ressure is consistent with mild pulmonary hypertension. IVC is normal in size with normal respiratory response. Estimated p eak pulmonary artery systolic pressure is 39.0 mmHg. The tricuspid valve is S/P ring repair. 7 . There is moderate pulmonic regurgitation. E lectronically signed by Naif Becerra MD on 07/29/2020 at 2:14 PM Naif Becerra MD Cardiology: N eeds to remain on Eliquis. No bleeding issues Naif Becerra MD Cardiology: N ormal appearing bioprosthetic aortic valve. The pressure gradients across the aortic valve prosthesis are normal for this t ype and size of prosthesis. No evidence of aortic insufficiency. Peak AV velocity: 2.49 m/s. The Aortic Valve Peak Gradient is 2 4.77 mmHg. The Aortic Valve Mean Gradient is 15.50 mmHg. CONCLUSIONS: 1 . Normal left ventricular systolic function. Normal left ventricular size. Normal left ventricular wall thickness. Normal left v entricular diastolic function. Left ventricular ejection fraction is measured at 55 %. 2 . Normal right ventricular size. Normal right ventricular systolic function. Linear artifact seen in the right ventricle is s uggestive of a catheter, pacer lead, or ICD lead. 3 . There is severe enlargement of the left atrium. Left atrial volume index is 51.0. LA volume is 95 mL. 4 . Moderate mitral annular calcification. There is non-specific thickening of the mitral valve leaflets. The mitral valve is S/P R ing Repair. Mild to moderate mitral valve regurgitation. The mitral valve Mean Gradient is 6.1 mmHg. 5 . Normal appearing bioprosthetic aortic valve. There is trace physiologic aortic valve regurgitation. Peak AV velocity: 2.40 m /s. The Aortic Valve Peak Gradient is 23.09 mmHg. The Aortic Valve Mean Gradient is 14.76 mmHg. 6 . There is non-specific thickening of the tricuspid valve. There is mild tricuspid regurgitation. Right ventricular systolic p ressure is consistent with mild pulmonary hypertension. IVC is normal in size with normal respiratory response. Estimated peak pulmonary artery systolic pressure is 39.0 mmHg. The tricuspid valve is S/P ring repair. 7 . There is moderate pulmonic regurgitation. E lectronically Signed By: Alfie Becerra MD, [facility] 2 021-01-06 14:07:55 [employer]ERM[employer]TELLIGENCE ANALYST Naif Becerra MD Cardiology: H ad cath done 05/24/18. Mild plaquing in RCA. LVEF 55%. A left ventriculogram was performed. Ejection fraction was estimated at 55%. There is 1+ mitral r egurgitation noted. The ventricular cycles are noted to be irregular due to atrial fibrillation. Aortic p ressure was noted to be 142/78 with a mean arterial pressure of 104. Left ventricular pressure 162/21 w ith an EDP of 25. 5-[place] balloon-tipped [place] catheter and a V-18 wire, I was able to advance this into the p ulmonary arterial location with only the balloon tip of the catheter and without any wire support or the w kishore within the catheter. The pressures for the right-sided heart cath demonstrated the following findings: 1 . Right atrial pressure of 18/29 with a mean of 19. 2. RV pressure 36/8 with an EDP of 17. 3 . PA pressure 35/18 with a mean of 26. 4 . Wedge is 18/28 with a mean of 20. Prominent ventricular wave was noted for the right atrial pressure. & #13;June 03, 2021 R emains on low dose of aspirin in conjunction with eliquis. No bleeding issues. I f bleeding occurs we will stop aspirin. Naif Becerra MD Cardiology: N eeds to remain on Eliquis. No bleeding issues Naif Becerra MD Cardiology: E LIQUIS H er updated medication list for this problem includes: Aspirin 81 Mg Tabs (Aspirin) ..... One tab. daily Naif Becerra MD Cardiology:CONCLUSIO NS: 1 . Normal left ventricular systolic function. Normal left ventricular size. Normal left ventricular wall thickness. Normal left v entricular diastolic function. Left ventricular ejection fraction is measured at 55 %. 2 . Normal right ventricular size. Normal right ventricular systolic function. Linear artifact seen in the right ventricle is s uggestive of a catheter, pacer lead, or ICD lead. 3 . There is severe enlargement of the left atrium. Left atrial volume index is 51.0. LA volume is 95 mL. 4 . Moderate mitral annular calcification. There is non-specific thickening of the mitral valve leaflets. The mitral valve is S/P R ing Repair. Mild to moderate mitral valve regurgitation. The mitral valve Mean Gradient is 6.1 mmHg. 5 . Normal appearing bioprosthetic aortic valve. There is trace physiologic aortic valve regurgitation. Peak AV velocity: 2.40 m /s. The Aortic Valve Peak Gradient is 23.09 mmHg. The Aortic Valve Mean Gradient is 14.76 mmHg. 6 . There is non-specific thickening of the tricuspid valve. There is mild tricuspid regurgitation. Right ventricular systolic p ressure is consistent with mild pulmonary hypertension. IVC is normal in size with normal respiratory response. Estimated p eak pulmonary artery systolic pressure is 39.0 mmHg. The tricuspid valve is S/P ring repair. 7 . There is moderate pulmonic regurgitation. E lectronically signed by Naif Becerra MD on 07/29/2020 at 2:14 PM Naif Becerra MD Cardiology:CONCLUSIO NS: 1 . Normal left ventricular systolic function. Normal left ventricular size. Normal left ventricular wall thickness. Normal left v entricular diastolic function. Left ventricular ejection fraction is measured at 55 %. 2 . Normal right ventricular size. Normal right ventricular systolic function. Linear artifact seen in the right ventricle is s uggestive of a catheter, pacer lead, or ICD lead. 3 . There is severe enlargement of the left atrium. Left atrial volume index is 51.0. LA volume is 95 mL. 4 . Moderate mitral annular calcification. There is non-specific thickening of the mitral valve leaflets. The mitral valve is S/P R ing Repair. Mild to moderate mitral valve regurgitation. The mitral valve Mean Gradient is 6.1 mmHg. 5 . Normal appearing bioprosthetic aortic valve. There is trace physiologic aortic valve regurgitation. Peak AV velocity: 2.40 m /s. The Aortic Valve Peak Gradient is 23.09 mmHg. The Aortic Valve Mean Gradient is 14.76 mmHg. 6 . There is non-specific thickening of the tricuspid valve. There is mild tricuspid regurgitation. Right ventricular systolic p ressure is consistent with mild pulmonary hypertension. IVC is normal in size with normal respiratory response. Estimated p eak pulmonary artery systolic pressure is 39.0 mmHg. The tricuspid valve is S/P ring repair. 7 . There is moderate pulmonic regurgitation. E lectronically signed by Naif Becerra MD on 07/29/2020 at 2:14 PM Naif Becerra MD Cardiology:CONCLUSIO NS: 1 . Normal left ventricular systolic function. Normal left ventricular size. Normal left ventricular wall thickness. Normal left v entricular diastolic function. Left ventricular ejection fraction is measured at 55 %. 2 . Normal right ventricular size. Normal right ventricular systolic function. Linear artifact seen in the right ventricle is s uggestive of a catheter, pacer lead, or ICD lead. 3 . There is severe enlargement of the left atrium. Left atrial volume index is 51.0. LA volume is 95 mL. 4 . Moderate mitral annular calcification. There is non-specific thickening of the mitral valve leaflets. The mitral valve is S/P R ing Repair. Mild to moderate mitral valve regurgitation. The mitral valve Mean Gradient is 6.1 mmHg. 5 . Normal appearing bioprosthetic aortic valve. There is trace physiologic aortic valve regurgitation. Peak AV velocity: 2.40 m /s. The Aortic Valve Peak Gradient is 23.09 mmHg. The Aortic Valve Mean Gradient is 14.76 mmHg. 6 . There is non-specific thickening of the tricuspid valve. There is mild tricuspid regurgitation. Right ventricular systolic p ressure is consistent with mild pulmonary hypertension. IVC is normal in size with normal respiratory response. Estimated p eak pulmonary artery systolic pressure is 39.0 mmHg. The tricuspid valve is S/P ring repair. 7 . There is moderate pulmonic regurgitation. E lectronically signed by Naif Becerra MD on 07/29/2020 at 2:14 PM Naif Becerra MD Cardiology:u H as chronic leg edema. Wears support stockings, doesn't take Lasix. Has it at home. Needs to take it every other day since she is having mild SOB. Will need to have bloodwork done since she is on potassium and starting LITTLE. Naif Becerra MD Cardiology: U nable to take steroids. Has severe COPD. Her SOB may be related to COPD. Doubt that MR is an issue since her echo shows that it is mild and she has normal LV funciton Naif Becerra MD Cardiology: E NARCISA Fish er updated medication list for this problem includes: Aspirin 81 Mg Tabs (Aspirin) ..... One tab. daily Naif Becerra MD Cardiology: h as not gotten new machine yet Naif Becerra MD Cardiology: N ormal appearing bioprosthetic aortic valve. The pressure gradients across the aortic valve prosthesis are normal for this t ype and size of prosthesis. No evidence of aortic insufficiency. Peak AV velocity: 2.49 m/s. The Aortic Valve Peak Gradient is 2 4.77 mmHg. The Aortic Valve Mean Gradient is 15.50 mmHg. CONCLUSIONS: 1 . Normal left ventricular systolic function. Normal left ventricular size. Normal left ventricular wall thickness. Normal left v entricular diastolic function. Left ventricular ejection fraction is measured at 55 %. 2 . Normal right ventricular size. Normal right ventricular systolic function. Linear artifact seen in the right ventricle is s uggestive of a catheter, pacer lead, or ICD lead. 3 . There is severe enlargement of the left atrium. Left atrial volume index is 51.0. LA volume is 95 mL. 4 . Moderate mitral annular calcification. There is non-specific thickening of the mitral valve leaflets. The mitral valve is S/P R ing Repair. Mild to moderate mitral valve regurgitation. The mitral valve Mean Gradient is 6.1 mmHg. 5 . Normal appearing bioprosthetic aortic valve. There is trace physiologic aortic valve regurgitation. Peak AV velocity: 2.40 m /s. The Aortic Valve Peak Gradient is 23.09 mmHg. The Aortic Valve Mean Gradient is 14.76 mmHg. 6 . There is non-specific thickening of the tricuspid valve. There is mild tricuspid regurgitation. Right ventricular systolic p ressure is consistent with mild pulmonary hypertension. IVC is normal in size with normal respiratory response. Estimated peak pulmonary artery systolic pressure is 39.0 mmHg. The tricuspid valve is S/P ring repair. 7 . There is moderate pulmonic regurgitation. E lectronically Signed By: Alfie Becerra MD, [facility] 2 021-01-06 14:07:55 THERMAL INTELLIGENCE ANALYST Naif Becerra MD Cardiology:CONCLUSIO NS: 1 . Normal left ventricular systolic function. Normal left ventricular size. Normal left ventricular wall thickness. Normal left v entricular diastolic function. Left ventricular ejection fraction is measured at 55 %. 2 . Normal right ventricular size. Normal right ventricular systolic function. Linear artifact seen in the right ventricle is s uggestive of a catheter, pacer lead, or ICD lead. 3 . There is severe enlargement of the left atrium. Left atrial volume index is 51.0. LA volume is 95 mL. 4 . Moderate mitral annular calcification. There is non-specific thickening of the mitral valve leaflets. The mitral valve is S/P R ing Repair. Mild to moderate mitral valve regurgitation. The mitral valve Mean Gradient is 6.1 mmHg. 5 . Normal appearing bioprosthetic aortic valve. There is trace physiologic aortic valve regurgitation. Peak AV velocity: 2.40 m /s. The Aortic Valve Peak Gradient is 23.09 mmHg. The Aortic Valve Mean Gradient is 14.76 mmHg. 6 . There is non-specific thickening of the tricuspid valve. There is mild tricuspid regurgitation. Right ventricular systolic p ressure is consistent with mild pulmonary hypertension. IVC is normal in size with normal respiratory response. Estimated p eak pulmonary artery systolic pressure is 39.0 mmHg. The tricuspid valve is S/P ring repair. 7 . There is moderate pulmonic regurgitation. U shital review of invasive and noninvasive testing and recent exam the patient is an acceptable candidate for the planned surgical procedure FOR CARPAL TUNNEL recommend to maintain his blood pressure range of 110 to 140 mmHg and a heart rate of 60-80 B p.m.. It is okay to use IV beta blockers calcium channel blockers nitrates and afterload reducing agents to maintain the aforementioned hemodynamics parameters. Tele monitoring and EKG should be done if the patient has arrhythmia during procedure. Has afib. P atient will be okay to come off of eliquis 3 days pre-op and can resume hopefully within 1-2 days after surgery. Naif Becerra MD Cardiology: I mproved after valve surgery. Naif Becerra MD Cardiology: Moderate mitral annular calcification. The mitral valve is S/P Ring Repair. There is non-specific thickening of the mitral v alve leaflets. Mild mitral valve regurgitation. The mitral valve Mean Gradient is 5.2 mmHg. Naif Becerra MD Cardiology: E PRABHAKARIS H er updated medication list for this problem includes: Aspirin 81 Mg Tabs (Aspirin) ..... One tab. daily Naif Becerra MD Cardiology: H ad cath done 05/24/18. Mild plaquing in RCA. LVEF 55%. A left ventriculogram was performed. Ejection fraction was estimated at 55%. There is 1+ mitral r egurgitation noted. The ventricular cycles are noted to be irregular due to atrial fibrillation. Aortic p ressure was noted to be 142/78 with a mean arterial pressure of 104. Left ventricular pressure 162/21 w ith an EDP of 25. 5-Bhutanese balloon-tipped [place]-Toshia catheter and a V-18 wire, I was able to advance this into the p ulmonary arterial location with only the balloon tip of the catheter and without any wire support or the w kishore within the catheter. The pressures for the right-sided heart cath demonstrated the following findings: 1 . Right atrial pressure of 18/29 with a mean of 19. 2. RV pressure 36/8 with an EDP of 17. 3 . PA pressure 35/18 with a mean of 26. 4 . Wedge is 18/28 with a mean of 20. Prominent ventricular wave was noted for the right atrial pressure. Naif Becerra MD Cardiology: N eeds to remain on Eliquis Naif Becerra MD Cardiology: H er updated medication list for this problem includes: Lisinopril 10 Mg Oral Tablet (Lisinopril) ..... One tab. daily Furosemide Tabs 20mg (Furosemide) ..... Take 1 tablet twice a day Metoprolol Tartrate Tabs 25mg (Metoprolol tartrate) ..... Take 1 tablet twice a day Aspirin Ec 81 Mg Oral Tablet Delayed Release (Aspirin) ..... One tab daily Naif Becerra MD Cardiology Follow up : B P today: 164/70 P rior BP: 151/78 (07/07/2020) Her updated medication list for this problem includes: Lisinopril 10 Mg Oral Tablet (Lisinopril) ..... One tab. daily Furosemide Tabs 20mg (Furosemide) ..... Take 1 tablet twice a day Metoprolol Tartrate Tabs 25mg (Metoprolol tartrate) ..... Take 1 tablet twice a day Aspirin Ec 81 Mg Oral Tablet Delayed Release (Aspirin) ..... One tab daily Naif Becerra MD Cardiology Follow up :Back on zetia and lipitor. Her updated medication list for this problem includes: Zetia 10 Mg Oral Tablet (Ezetimibe) ..... One tab. daily with atorvastatin Atorvastatin Calcium 10 Mg Oral Tablet (Atorvastatin calcium) ..... 1 tab daily Naif Becerra MD Cardiology Follow up : N eeds to remain on Eliquis Naif Becerra MD Cardiology Follow up : S topping zetia dn lipitor did not help. Sxs improved once she started doing new stretches/exercises recommended by orthopedist. Naif Becerra MD Cardiology Follow up : N ormal appearing bioprosthetic aortic valve. The pressure gradients across the aortic valve prosthesis are normal for this t ype and size of prosthesis. No evidence of aortic insufficiency. Peak AV velocity: 2.49 m/s. The Aortic Valve Peak Gradient is 2 4.77 mmHg. The Aortic Valve Mean Gradient is 15.50 mmHg. Naif Becerra MD Cardiology Follow up : H ad cath done 05/24/18. Mild plaquing in RCA. LVEF 55%. A left ventriculogram was performed. Ejection fraction was estimated at 55%. There is 1+ mitral r egurgitation noted. The ventricular cycles are noted to be irregular due to atrial fibrillation. Aortic p ressure was noted to be 142/78 with a mean arterial pressure of 104. Left ventricular pressure 162/21 w ith an EDP of 25. 5-Bhutanese balloon-tipped [place]-Toshia catheter and a V-18 wire, I was able to advance this into the p ulmonary arterial location with only the balloon tip of the catheter and without any wire support or the w kishore within the catheter. The pressures for the right-sided heart cath demonstrated the following findings: 1 . Right atrial pressure of 18/29 with a mean of 19. 2 . RV pressure 36/8 with an EDP of 17. 3 . PA pressure 35/18 with a mean of 26. 4 . Wedge is 18/28 with a mean of 20. Prominent ventricular wave was noted for the right atrial pressure. Naif Becerra MD Cardiology follow up :on lisinopril 10mg and bp is better suspect high sodium diet Naif Becerra MD Cardiology follow up : I mproved after valve surgery. Naif Becerra MD Cardiology follow up : H ad cath done 05/24/18. LVEF 55%. 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 Currently back on the Eliquis 5mg BID. Will schedule CACHORRO with cardioversion. Naif Becerra MD Cardiology follow up : N eeds to remain on Eliquis Naif Becerra MD Cardiology follow up : W as on Eliquis. DId not have nose bleed on Eliquis until just recently. Saw Bora for ENT and can be seen by him. December 26, 2019 N o new nose bleeds. Naif Becerra MD Cardiology follow up : Moderate mitral annular calcification. The mitral valve is S/P Ring Repair. There is non-specific thickening of the mitral v alve leaflets. Mild mitral valve regurgitation. The mitral valve Mean Gradient is 5.2 mmHg. Naif Becerra MD Cardiology: H er updated medication list for this problem includes: Zetia 10 Mg Oral Tablet (Ezetimibe) ..... One tab. daily with atovarstatin Atorvastatin Calcium 10 Mg Oral Tablet (Atorvastatin calcium) ..... 1 tab daily Naif Becerra MD Cardiology:Advised t o take Vitamin B supplement, likely has neuropathy Naif Becerra MD Cardiology:Will incr ease Lisinopril to 5mg BID, continues on Toprol 25mg BID B P today: 152/69 P rior BP: 138/70 (02/06/2020) Labs Reviewed: C reat: 0.82 (03/22/2019) C hol: 160 (12/05/2019) HDL: 72 (12/05/2019) Naif Becerra MD Cardiology: T olerates CPAP has a full face mask. Needs titration study Naif Becerra MD Cardiology:Could be underlying c ause of SOB Víctor Thania Cardiology:Tolerates CPAP has a full face mask. No need to reattempt sleep study Naif Becerra MD Cardiology:Needs to remain on El iquis Naif Becerra MD Cardiology:Unable to take steroids. Has severe COPD. Her SOB may be related to COPD. Doubt that MR is an issue since her echo shows that it is mild and she has normal LV funciton Naif Becerra MD Cardiology:Venous US : C ONCLUSIONS: 1 . No evidence of a deep vein thrombosis of the lower extremities bilaterally. 2 . Significant venous insufficiency of the greater saphenous vein bilaterally. 3 . Pulsitile venous flow seen bilaterally consistent with elevated right heart pressures. February 06, 2020 I have advised that she wears compression stockings. She does not want to proceed with EVLT. Leg swelling could also be related to increase R heart pressures. Has hx of PE Naif Becerra MD Cardiology: Moderate mitral annular calcification. The mitral valve is S/P Ring Repair. There is non-specific thickening of the mitral v alve leaflets. Mild mitral valve regurgitation. The mitral valve Mean Gradient is 5.2 mmHg. Naif Becerra MD Cardiology:Normal ap pearing bioprosthetic aortic valve. The pressure gradients across the aortic valve prosthesis are normal for this t ype and size of prosthesis. No evidence of aortic insufficiency. Peak AV velocity: 2.49 m/s. The Aortic Valve Peak Gradient is 2 4.77 mmHg. The Aortic Valve Mean Gradient is 15.50 mmHg. Naif Becerra MD Cardiology:EKG paced rhythm at 70 BPM. AT/AF Reynolds: 100% noted on pacer check. On Eliquis. Naif Becerra MD Cardiology: E LIQUIS H er updated medication list for this problem includes: Aspirin 81 Mg Tabs (Aspirin) ..... One tab. daily Naif Becerra MD Cardiology: Erasto khank home sleep study. See if she can come off of CPAP since she had valve surgery done. December 26, 2019 W ill need titration study done. Still has fatigue. May need settings adjusted. Naif Becerra MD Cardiology: H ad cath done 05/24/18. LVEF 55%. Naif Becerra MD Cardiology: S/P AVR #21 Magna, pericardial valve. She had mitral valve repair with a #28 ring, tricuspid valve repair with #28 ring. Naif Becerra MD Cardiology: I mproved after valve surgery. Naif Becerra MD Cardiology: W as on Eliquis. DId not have nose bleed on Eliquis until just recently. Saw Bora for ENT and can be seen by him. December 26, 2019 N o new nose bleeds. Naif Becerra MD Cardiology: A BI and sensilase showed no evidence of significant arterial disease. With her symptoms being a little improved, no further testing is needed at this time. Naif Becerra MD Cardiology:Iron was high at 300 Naif Becerra MD Cardiology follow up : B P today: 130/70 P rior BP: 158/84 (04/29/2019) Labs Reviewed: C reat: 0.82 (03/22/2019) C hol: 188 (10/18/2017) HDL: 68 (10/18/2017) Karsten Alejandro MD Cardiology follow up :MARC and sensilase showed no evidence of significant arterial disease. With her symptoms being a little improved, no further testing is needed at this time. Karsten Alejandro MD Cardiology:Check tesha e sleep study. See if she can come off of CPAP since she had valve surgery done. aNif Becerra MD Cardiology:Had cath done 05/24/18 . LVEF 55%. Naif Becerra MD Cardiology Naif Becerra MD Cardiology: B P today: 113/79 P rior BP: 154/87 (12/26/2017) Labs Reviewed: C reat: 0.64 (08/29/2013) C hol: 188 (10/18/2017) HDL: 68 (10/18/2017) Her updated medication list for this problem includes: Furosemide 20 Mg Oral Tablet (Furosemide) ..... 1 tab every day may repeat as needed for increase swelling to legs Metoprolol Tartrate 50 Mg Oral Tablet (Metoprolol tartrate) ..... 1.5 tabs twice per day (75 mg twice per day) Naif Becerra MD Cardiology: S/P AVR #21 Magna, pericardial valve. She had mitral valve repair with a #28 ring, tricuspid valve repair with #28 ring. Naif Becerra MD Cardiology:Improved after valve surgery. Naif Becerra MD Cardiology hospital follow up: Sheree villagomez updated medication list for this problem includes: Aspirin 81 Mg Tabs (Aspirin) ..... One tab. daily Naif Becerra MD Cardiology hospital follow up: B lood work was performed on 10/17/17, where TSH and proBNP were ordered in the setting of her atrial fibrillation. TSH was 1.48 and has been on methomazole in the setting of hyperthyroidism. BNP was checked due to her shortness of breath with aortic stenosis and mitral regurgitation. Naif Becerra MD Cardiology hospital follow up: S/P AVR #21 Magna, pericardial valve. She had mitral valve repair with a #28 ring, tricuspid valve repair with #28 ring. Naif Becerra MD Cardiology hospital follow up Sa jere Becerra MD Cardiology hospital follow up: W as on Eliquis. DId not have nose bleed on Eliquis until just recently. Saw Bora for ENT and can be seen by him. Naif Becerra MD Cardiology Simeon Gan Cardiology:Blood wor k was performed on 10/17/17, where TSH and proBNP were ordered in the setting of her atrial fibrillation. TSH was 1.48 and has been on methomazole in the setting of hyperthyroidism. BNP was checked due to her shortness of breath with aortic stenosis and mitral regurgitation. Naif Becerra MD Cardiology:Was on El iquis. DId not have nose bleed on Eliquis until just recently. Not enthusiastic about restarting Xarelto or coumadin. Did not tolerate Xarelto due to dizziness and lightheadedness that developed. She is interested in continuing with Eliquis. Will start on Sunday during a weekday. If there are any issues, she can be seen by ER or ENT during the week. Naif Becerra MD Cardiology Naif Becerra MD Cardiology:Has been Eliquis. Has sustained a significant nose bleed requiring cauterization. Seen by ENT after that. Currently off of Eliquis. Blood work was performed on 10/17/17, where TSH and proBNP were ordered in the setting of her atrial fibrillation. TSH was 1.48 and has been on methomazole in the setting of hyperthyroidism. BNP was checked due to her shortness of breath with aortic stenosis and mitral regurgitation. Naif Becerra MD Cardiology:Progressi ve SOB. Mod A.S. Plan for CACHORRO and RNL cath. Femoral approach. Naif Becerra MD Cardiology: 5 . Aortic cusps appear moderately calcified. Moderate aortic valve stenosis. Peak Transaortic Gradient - 44 mmHg. Mean Transaortic Gradient - 25 mmHg. Peak AV velocity - 3 m/sec. DREW (Aortic valve a chalo) - 1 cm2. The aortic valve area by planimetry is 1.0 cm2. 3. There is aortic valve sclerosis with moderate stenosis. There is trace physiologic aortic valve r egurgitation. The peak gradient was now at 40, which has increased, and the peak velocity is still about 3 m/s. B ack in 2013, her echo showed There is mild aortic valve calcification with mild aortic valve stenosis. Mild aortic v alve regurgitation. Peak AV velocity: 2.39 m/s. The Aortic Valve Peak Gradient is 23.00 m mHg. The Aortic Valve Mean Gradient is 13.00 mmHg. The DREW is 1.5 cm2. SHE HAS PROGRESSIVE A.S. Naif Becerra MD Cardiology: B P today: 113/79 P rior BP: 154/87 (12/26/2017) Labs Reviewed: C reat: 0.64 (08/29/2013) C hol: 188 (10/18/2017) HDL: 68 (10/18/2017) Her updated medication list for this problem includes: Furosemide 20 Mg Oral Tablet (Furosemide) ..... 1 tab every day may repeat as needed for increase swelling to legs Metoprolol Tartrate 50 Mg Oral Tablet (Metoprolol tartrate) ..... 1.5 tabs twice per day (75 mg twice per day) Naif Becerra MD Cardiology: T he patient is using CPAP on a regular basis. The patient has been benefiting from therapy and should continue use. Needs ocean nasal drops. Also uses mouth piece per Dr. Talbot. Will need to have sleep study done to eval adequate titration. Naif Becerra MD Cardiology:Conclusio ns: 1 . Normal left ventricular size and systolic function. Normal left ventricular systolic function. LV E jection Fraction is 55 %. 2 . Normal right ventricular size. Normal right ventricular systolic function. Linear artifact in right v entricle suggestive of catheter, pacer lead, or ICD lead. 3 . The interatrial septum is normal in appearance. There is no evidence of color flow across the i nteratrial septum. No intracardiac shunt was detected by contrast study with agitated saline. No s sorensen by color Doppler. 4 . Mitral valve leaflets appear mildly thickened. Moderate mitral annular calcification. The mitral a nnulus was measured at 2.7cm X 3.2cm. The posterior mitral leaflet appears to be calcified more than a nterior. There is moderate to severe mitral valve regurgitation. The mitral regurgitation jet was c entral. 5 . Aortic cusps appear moderately calcified. Moderate aortic valve stenosis. Peak Transaortic Gradient - 44 mmHg. Mean Transaortic Gradient - 25 mmHg. Peak AV velocity - 3 m/sec. DREW (Aortic valve a chalo) - 1 cm2. The aortic valve area by planimetry is 1.0 cm2. 6 . Moderately dilated left atrium. No left atrial thrombus. The left atrial appendage: is normal in a ppearance with no evidence of thrombus and emptying velocities are reduced. 7 . 200J CARDIOVERSION WAS PERFOMRED. PATIENT WAS CONVERTED FROM AFIB TO AV PACED. P ACEMAKER CHECK WAS THEN PERFROMED WITH BIOTRONIK DEMONSTRATING NORMAL FUNCTION O F THE DEVICE. PATIENT WILL REMAIN ON ANTICOAGULATION WITH ELIQUIS S/P CARDIOVERSION. 8 . CONSCIOUS SEDATION WAS PROVIDED BY ANESTHESIA. TOPICAL LIDOCAINE SPRAY WAS A DMINISTERED BY NE. Naif Becerra MD Cardiology: H er updated medication list for this problem includes: Methimazole Tablet (Methimazole tabs) Metoprolol Tartrate 50 Mg Oral Tablet (Metoprolol tartrate) ..... One tab. twice daily Naif Becerra MD Cardiology:4. Mitral valve leaflets appear mildly thickened. Moderate mitral annular calcification. The mitral a nnulus was measured at 2.7cm X 3.2cm. The posterior mitral leaflet appears to be calcified more than a nterior. There is moderate to severe mitral valve regurgitation. The mitral regurgitation jet was c entral. Naif Becerra MD Cardiology: H er updated medication list for this problem includes: Zetia 10 Mg Oral Tablet (Ezetimibe) ..... One tab. daily with atovarstatin Atorvastatin Calcium 10 Mg Oral Tablet (Atorvastatin calcium) ..... 1 tab daily Her updated medication list for this problem includes: Atorvastatin Calcium 10 Mg Tabs (Atorvastatin calcium) ..... 1 tab daily Naif Becerra MD Cardiology: 5 . Aortic cusps appear moderately calcified. Moderate aortic valve stenosis. Peak Transaortic Gradient - 44 mmHg. Mean Transaortic Gradient - 25 mmHg. Peak AV velocity - 3 m/sec. DREW (Aortic valve a chalo) - 1 cm2. The aortic valve area by planimetry is 1.0 cm2. Naif Becerra MD Cardiology: T he patient is using CPAP on a regular basis. The patient has been benefiting from therapy and should continue use. Needs ocean nasal drops. Naif Becerra MD Cardiology:SPOKE WIT H PT AND NEEDS CRACKED TOOTH PULLED A BORJAS OF RISKS IN COMMING OFF ELIQUIS O K TO COME OFF FOR 3 D PRIOR AND START 1DAY POST EXTRACTION Naif Becerra MD Cardiology:SPOKE WIT H PT AND NEEDS CRACKED TOOTH PULLED A BORJAS OF RISKS IN COMMING OFF ELIQUIS O K TO COME OFF FOR 3 D PRIOR AND START 1DAY POST EXTRACTION Will also need to have SBE prophylaxis. Naif Becerra MD Cardiology: 2 5% rca 14 Naif Becerra MD Cardiology: H er updated medication list for this problem includes: Methimazole Tablet (Methimazole tabs) Metoprolol Tartrate 50 Mg Oral Tablet (Metoprolol tartrate) ..... One tab. twice daily Naif Becerra MD Cardiology: E LIQUIS H er updated medication list for this problem includes: Aspirin 81 Mg Tabs (Aspirin) ..... One tab. daily Naif Becerra MD Cardiology:4. Mitral valve leaflets appear mildly thickened. Moderate mitral annular calcification. The mitral a nnulus was measured at 2.7cm X 3.2cm. The posterior mitral leaflet appears to be calcified more than a nterior. There is moderate to severe mitral valve regurgitation. The mitral regurgitation jet was c entral. 5 . Aortic cusps appear moderately calcified. Moderate aortic valve stenosis. Peak Transaortic Gradient - 44 mmHg. Mean Transaortic Gradient - 25 mmHg. Peak AV velocity - 3 m/sec. DREW (Aortic valve a chalo) - 1 cm2. The aortic valve area by planimetry is 1.0 cm2. 6 . Moderately dilated left atrium. No left atrial thrombus. The left atrial appendage: is normal in a ppearance with no evidence of thrombus and emptying velocities are reduced. Naif Becerra MD Cardiology:And on El iquis H er updated medication list for this problem includes: Metoprolol Tartrate 50 Mg Oral Tablet (Metoprolol tartrate) ..... One tab. twice daily Naif Becerra MD Cardiology: T he patient is using CPAP on a regular basis. The patient has been benefiting from therapy and should continue use. Needs ocean nasal drops. Naif Becerra MD Cardiology Eduardo Barillas MD Cardiology:mild to mod Eduardo hardy MD Cardiology:mod Eduardo Barillas MD Cardiology:25% rca 14 Eduardo carrington MD Cardiology: B P today: 157/94 P rior BP: 112/80 (06/21/2017) Labs Reviewed: C reat: 0.64 (08/29/2013) Her updated medication list for this problem includes: Diltiazem Hcl 60 Mg Oral Tablet (Diltiazem hcl) ..... One tab three times daily Furosemide 20 Mg Oral Tablet (Furosemide) ..... 1 tab every other day Metoprolol Tartrate 50 Mg Oral Tablet (Metoprolol tartrate) ..... One tab. twice daily Naif Becerra MD Cardiology:The patie nt is using CPAP on a regular basis. The patient has been benefiting from therapy and should continue use. Needs ocean nasal drops. Naif Becerra MD Cardiology:1. Normal left ventricular size and systolic function. Normal left ventricular systolic function. LV E jection Fraction is 55 %. 2 . Normal right ventricular size. Normal right ventricular systolic function. Linear artifact in right v entricle suggestive of catheter, pacer lead, or ICD lead. 3 . The interatrial septum is normal in appearance. There is no evidence of color flow across the i nteratrial septum. No intracardiac shunt was detected by contrast study with agitated saline. No s sorensen by color Doppler. 4 . Mitral valve leaflets appear mildly thickened. Moderate mitral annular calcification. The mitral a nnulus was measured at 2.7cm X 3.2cm. The posterior mitral leaflet appears to be calcified more than a nterior. There is moderate to severe mitral valve regurgitation. The mitral regurgitation jet was c entral. 5 . Aortic cusps appear moderately calcified. Moderate aortic valve stenosis. Peak Transaortic Gradient - 44 mmHg. Mean Transaortic Gradient - 25 mmHg. Peak AV velocity - 3 m/sec. DREW (Aortic valve a chalo) - 1 cm2. The aortic valve area by planimetry is 1.0 cm2. 6 . Moderately dilated left atrium. No left atrial thrombus. The left atrial appendage: is normal in a ppearance with no evidence of thrombus and emptying velocities are reduced. 7 . 200J CARDIOVERSION WAS PERFOMRED. PATIENT WAS CONVERTED FROM AFIB TO AV PACED. P ACEMAKER CHECK WAS THEN PERFROMED WITH BIOTRONIK DEMONSTRATING NORMAL FUNCTION O F THE DEVICE. PATIENT WILL REMAIN ON ANTICOAGULATION WITH ELIQUIS S/P CARDIOVERSION. 8 . CONSCIOUS SEDATION WAS PROVIDED BY ANESTHESIA. TOPICAL LIDOCAINE SPRAY WAS A DMINISTERED BY NE. Naif Becerra MD Cardiology:Neck pain . Will get repeat ultrasound. Conclusions: 1 . Mild plaque with less than 50% stenosis of the internal carotid arteries bilaterally. 2 . Vertebral flow is antegrade bilaterally. 3 . Possible thyroid adenoma detected, suggest clinical correlation if indicated. Naif Becerra MD Cardiology:S/p cardioversion. In crease lopressor. Naif Becerra MD Electrophysiology Fo llow up:Pt was off her anticoagulation for the pacemaker implantation. Currently back on the Eliquis 5mg BID. Will schedule CACHORRO with cardioversion. Bartolo Hagan MD Electrophysiology Fo llow up:BP today: 112/80 P rior BP: 154/90 (06/08/2017) Her updated medication list for this problem includes: Furosemide 20 Mg Oral Tablet (Furosemide) ..... 1 tab every other day Metoprolol Tartrate 25 Mg Oral Tablet (Metoprolol tartrate) ..... One tablet twice daily Bartolo Hagan MD Electrophysiology Fo llow up:Starting Amiodarone 200mg TID. Will obtain PFT's. Bartolo Hagan MD Electrophysiology Fo llow up:S/P pacemaker implantation 06/01/17. Bartolo Hagan MD Electrophysiology Fo llow up:S/P pacemaker implantation 06/01/17. Pt is back in Afib. Will start Amiodarone 200mg TID and decrease Metoprolol to 25mg BID. Will schedule CACHORRO/cardioversion next week. Bartolo Hagan MD Cardiology:Has chron ic leg edema. Wears support stockings, doesn't take Lasix. Has it at home. Needs to take it every other day since she is having mild SOB. Will need to have bloodwork done since she is on potassium and starting LITTLE. Naif Becerra MD Cardiology: H er updated medication list for this problem includes: Yosprala 81-40 Mg Oral Tbec (Aspirin-omeprazole) ..... One daily Metoprolol Tartrate 25 Mg Tabs (Metoprolol tartrate) ..... Tab 1 tab in the am and 2 tabs =50mg in the evening Aspirin 81 Mg Tabs (Aspirin) ..... One tab. daily Naif Becerra MD Cardiology:Needs to be started on an LITTLE or ARB. Was on lisinopril and enalapril before. Was discontinued due to low BP. Will need to restart lisinopril 5mg daily due to her MR and . Naif Becerra MD Cardiology:Aortic valve sclerosi s. Naif Becerra MD Cardiology Naif Becerra MD Cardiology:Has been increased on her metoprolol by her PCP. Naif Becerra MD Cardiology:The patie nt is/was actively using CPAP on a regular basis. He/she has been benefiting from therapy and should continue use. Needs ocean nasal drops. Naif Becerra MD Cardiology:1. Normal left ventricular systolic function. Normal left ventricular wall thickness. Mild enlargement of l eft ventricular chamber. There is E to A wave reversal consistent with impaired LV relaxation. Normal E /E` 9.5. Left ventricular ejection fraction is estimated at 55 %. 2 . Normal right ventricular size. Normal right ventricular systolic function. 3 . There is severe enlargement of the left atrium. Abnormal left atrial volume index, suggests elevated f illing pressures 74.0. 4 . There is mild enlargement of right atrium. 5 . There is non-specific thickening of the mitral valve leaflets. Moderate to severe mitral valve r egurgitation. 6 . There is aortic valve sclerosis with mild to moderate aortic stenosis. Mild aortic valve regurgitation. P eak AV velocity: 2.89 m/s. The Aortic Valve Peak Gradient is 33.40 mmHg. The Aortic Valve Mean G radient is 22.30 mmHg. The DREW is 1.0 cm2. 7 . Normal appearing tricuspid valve leaflets. There is mild tricuspid regurgitation. Right ventricular s ystolic pressure is within normal limits. IVC is normal in size with normal respiratory response. E stimated peak pulmonary artery systolic pressure is 28. Naif Becerra MD Cardiology: H er updated medication list for this problem includes: Metoprolol Tartrate 25 Mg Tabs (Metoprolol tartrate) ..... One half tab. twice daily Aspirin 81 Mg Tabs (Aspirin) ..... One tab. daily Orders: E KG (CPT-27611) Naif Becerra MD Cardiology Naif Becerra MD Cardiology Naif Becerra MD Cardiology:On lasix. Was in the hospital recently for edema. Naif Becerra MD Cardiology: H er updated medication list for this problem includes: Methimazole 5 Mg Oral Tabs (Methimazole) ..... Once daily Metoprolol Tartrate 25 Mg Tabs (Metoprolol tartrate) ..... One half tab. twice daily Naif Becerra MD Cardiology Naif Becerra MD Cardiology: H er updated medication list for this problem includes: Metoprolol Tartrate 25 Mg Tabs (Metoprolol tartrate) ..... One half tab. twice daily Aspirin 81 Mg Tabs (Aspirin) ..... One tab. daily Naif Becerra MD Cardiology:ELIQUIS H er updated medication list for this problem includes: Metoprolol Tartrate 25 Mg Tabs (Metoprolol tartrate) ..... One half tab. twice daily Aspirin 81 Mg Tabs (Aspirin) ..... One tab. daily Naif Becerra MD Cardiology Naif Becerra MD Cardiology Naif Becerra MD Cardiology:REMOVAL P LANNED WILL NEED TO BE OFF EILIQUIS FOR REMOVAL Naif Becerra MD Cardiology:ON CPAP Naif sanchez MD Cardiology:ELIQUIS H er updated medication list for this problem includes: Aspirin 81 Mg Tabs (Aspirin) ..... One tab. daily Naif Becerra MD Cardiology:ON ELIQUI S NO BLESHIRA MUNOZ REVEAL WITH NSR EKG WITH NSR H er updated medication list for this problem includes: Metoprolol Tartrate 25 Mg Tabs (Metoprolol tartrate) ..... One half tab. twice daily Aspirin 81 Mg Tabs (Aspirin) ..... One tab. daily E PRABHAKARISAAC Naif Becerra MD Cardiology:IMPROVED BP AND CAN REDUCE MEDRX TO 12.5MG BID LOPRESSOR AND D/C LISINOPRIL T he following medications were removed from the medication list: Lisinopril 5 Mg Tabs (Lisinopril) ..... One tab. daily Her updated medication list for this problem includes: Metoprolol Tartrate 25 Mg Tabs (Metoprolol tartrate) ..... One half tab. twice daily Aspirin 81 Mg Tabs (Aspirin) ..... One tab. daily Naif Becerra MD Cardiology:BP IS LOW WILL REDUCE MEDS AND STOP LISINOPRIL Naif Becerra MD Cardiology: H er updated medication list for this problem includes: Atorvastatin Calcium 10 Mg Tabs (Atorvastatin calcium) ..... 1 tab daily Naif Becerra MD Cardiology:WILL HAVE PT UNDERGO HOME SLEEP STUDY Naif Becerra MD Cardiology: B P today: 155/71 P rior BP: 144/76 (08/20/2015) STARTED ON LISINOPRIL 5MG Q.D. ADVISED PT TO MEASURE HER BLOOD PRESSURE IN THE MORNINGS Naif Becerra MD EP-Faxed 04/28/15 11: 17am: H er updated medication list for this problem includes: Metoprolol Tartrate 25 Mg Tabs (Metoprolol tartrate) ..... One tab. twice daily Aspirin 81 Mg Tabs (Aspirin) ..... One tab. daily Orders: Sheree KG (CPT-68391) Bartolo Hagan MD EP-Faxed 04/28/15 11:17am Bartolo Hagan MD EP-Faxed 04/28/15 11:17am Bartolo Hagan MD EP-Faxed 04/28/15 11: 17am: H er updated medication list for this problem includes: Metoprolol Tartrate 25 Mg Tabs (Metoprolol tartrate) ..... One tab. twice daily Bartolo Hagan MD EP initial consult Bartolo rendon MD EP initial consult: T he following medications were removed from the medication list: Metoprolol Tartrate 25 Mg Tabs (Metoprolol tartrate) ..... One tab. twice daily Bartolo Hagan MD EP initial consult Bartolo rendon MD EP initial consult Bartolo rendon MD hfu:BP 152/76 TODAY Naif adkins MD hfu:S/P CARDIOVERSIO N ON 01/06/2016 I N SINUS RHYTHM TODAY W ILL CONTINUE ON ELIQUIS GIVEN MULTIPLE RISK FACTORS. D ISCUSSED RISKS/BENEFITS OF IMPLANTABLE LOOP RECORDER VS TELESENTRY MONITOR. SHE WISHES TO KNOW WHETHER SHE GOES INTO AFIB AND WE WILL PROCEED TO SCHEDULE HER FOR REVEAL IMPLANT IN 03/2015. Naif Becerra MD echo & FU:CHRONIC IT EM LIKELY RELATED TO INNER EAR ISSUE NEEDS TO BE EVAL BY ENT FOR VERTIGO H er updated medication list for this problem includes: Enalapril Maleate 5 Mg Oral Tabs (Enalapril maleate) ..... Bid Metoprolol Tartrate 25 Mg Tabs (Metoprolol tartrate) ..... One tab. twice daily Orders: C arotid Duplex Bilateral (CPT-27552) Naif Becerra MD echo & FU: O rders: C arotid Duplex Bilateral (CPT-71665) C BC (H/H, RBC, INDICES, WBC, PLT) (1759) Naif Becerra MD echo & FU: H er updated medication list for this problem includes: Enalapril Maleate 5 Mg Oral Tabs (Enalapril maleate) ..... Bid Metoprolol Tartrate 25 Mg Tabs (Metoprolol tartrate) ..... One tab. twice daily Orders: C arotid Duplex Bilateral (CPT-83555) C BC (H/H, RBC, INDICES, WBC, PLT) (1759) Naif Becerra MD echo & FU: H er updated medication list for this problem includes: Enalapril Maleate 5 Mg Oral Tabs (Enalapril maleate) ..... Bid Metoprolol Tartrate 25 Mg Tabs (Metoprolol tartrate) ..... One tab. twice daily Orders: C arotid Duplex Bilateral (CPT-06720) C BC (H/H, RBC, INDICES, WBC, PLT) (1759) Naif Becerra MD echo & FU: O rders: C arotid Duplex Bilateral (CPT-87418) C BC (H/H, RBC, INDICES, WBC, PLT) (1759) Naif Becerra MD echo & FU:HOLDING EL IQUIS WITH DARK STOOLS H/H STABLE AWAIT STOOL TEST RESULT C URRENTLY IN NSR H er updated medication list for this problem includes: Metoprolol Tartrate 25 Mg Tabs (Metoprolol tartrate) ..... One tab. twice daily Orders: C arotid Duplex Bilateral (CPT-22541) C BC (H/H, RBC, INDICES, WBC, PLT) (1759) Naif Becerra MD Date Name Complete Echo RPM (remote patient monitoring) Arterial Duplex Bi-L ower EX Venous Doppler Bilat eral LE Complete Echo CT Chest without con trast Complete Echo Covid Antibody IgM ( LC) Covid Antibody IgA ( LC) COVID19 nasal swab ( LC) COVID19 High Affinit y Antibodies (LC) COVID19 Rapid POC Influenza A/B POC COVID19 Rapid POC Venous Doppler Bilat eral LE - Reflux Sleep Study Titratio n IRON AND TOTAL IRON BINDING CAPACITY FERRITIN HEPATIC FUNCTION REED EL LIPID PANEL Arterial Duplex Bi-L ower EX COMPREHENSIVE METABO LIC PANEL, W/EGFR IRON AND TOTAL IRON BINDING CAPACITY FERRITIN CBC (INCLUDES DIFF/P LT) Complete Echo Sleep Study Home IRON AND TOTAL IRON BINDING CAPACITY FERRITIN CBC (INCLUDES DIFF/P LT) MAGNESIUM CBC (INCLUDES DIFF/P LT) B TYPE NATRIURETIC P EPTIDE (BNP) COMPREHENSIVE METABO LIC PANEL, W/EGFR BASIC METABOLIC PANE L W/EGFR PROTHROMBIN TIME WIT H INR LIPID PANEL CBC (INCLUDES DIFF/P LT) BASIC METABOLIC PANE L W/EGFR Cardiac Cath - L/R- [facility] CACHORRO - [facility] Complete Echo Sleep Study DLCO - 54219 FRC - 06394 FVC - 39082 THYROID PANEL WITH T SH, 3RD GENERATION PROBNP, N TERMINAL Complete Echo LIPID PANEL X-Ray, Chest - Routi ne Holter Monitor 24 Hr Carotid Duplex Bilat eral DLCO - 60630 FRC - 43451 FVC - 47720 CACHORRO/CV - GC THYROID PANEL WITH T SH, 3RD GENERATION LIPID PANEL B TYPE NATRIURETIC P EPTIDE (BNP) COMPREHENSIVE METABO LIC PANEL, W/EGFR Complete Echo Device Removal - GC Complete Echo Sleep Study Home Other Other T3, TOTAL T-3 UPTAKE T-4 (THYROXINE), TOT AL T-4, FREE THYROID PANEL WITH T SH, 3RD GENERATION Holter Monitor 24 Hr Loop Rec Implant - G C CBC (H/H, RBC, INDIC ES, WBC, PLT) Carotid Duplex Bilat eral Cardiac Cath - Left - GC STR - Adenosine Venous Doppler Bilat eral LE - Standing Complete Echo Mobile Cardiac Tele 58769 HIGH Complex HISTORY OF PROCEDURES Procedure Date Procedure Name Provider Procedure Notes S tatus Complex e/m visit ad d on Naif Becerra MD completed EKG Naif Becerra MD completed EKG Naif Becerra MD completed EKG Naif Becerra MD completed EKG Naif Becerra MD completed EKG Naif Becerra MD completed EKG Naif Becerra MD completed EKG Naif Becerra MD completed EKG Naif Becerra MD completed EKG Naif Becerra MD completed EKG Naif Becerra MD completed EKG Naif Becerra MD completed EKG Naif Becerra MD completed EKG Naif Becerra MD completed ICM Interrogation, Remote (Prof) Naif Becerra MD INTERROGATION EVAL REMOTE </30 D CV MNTR SYS completed Pacemaker Interrogation, Remote (Tech) Naif Becerra MD INTERROGATION REMOTE </90 D B2B MANAGED SERVICE SALES EXEC REVIEW completed Pacemaker Interrogation, Remote (Prof) Naif Becerra MD INTERROGATION EVAL REMOTE </90 D 1/2/ARTIST BLACKSMITH LEAD P completed ICM Interrogation, Remote (Prof) Naif Becerra MD INTERROGATION EVAL REMOTE </30 D CV MNTR SYS completed ICM Interrogation, Remote (Tech) Naif Becerra MD INTERROGATION EVAL REMOTE </30 D TECH REVIEW completed ICM Interrogation, Remote (Prof) Naif Becerra MD INTERROGATION EVAL REMOTE </30 D CV MNTR SYS completed ICM Interrogation, Remote (Tech) Naif Becerra MD INTERROGATION EVAL REMOTE </30 D TECH REVIEW completed ICM Interrogation, Remote (Prof) Naif Becerra MD INTERROGATION EVAL REMOTE </30 D CV MNTR SYS completed Pacemaker Interrogation, Remote (Tech) Naif Becerra MD INTERROGATION REMOTE </90 D B2B MANAGED SERVICE SALES EXEC REVIEW completed Pacemaker Interrogation, Remote (Prof) Naif Becerra MD INTERROGATION EVAL REMOTE </90 D 1/2/ARTIST BLACKSMITH LEAD P completed ICM Interrogation, Remote (Prof) Naif Becerra MD INTERROGATION EVAL REMOTE </30 D CV MNTR SYS completed ICM Interrogation, Remote (Tech) Naif Becerra MD INTERROGATION EVAL REMOTE </30 D TECH REVIEW completed Injectafer 750mg Naif major MD completed Therapeutic IV Infus ion up to 1 hour Naif Becerra MD completed Injectafer 750mg Naif major MD completed Therapeutic IV Infus ion up to 1 hour Naif Becerra MD completed ICM Interrogation, Remote (Prof) Naif Becerra MD INTERROGATION EVAL REMOTE </30 D CV MNTR SYS completed ICM Interrogation, Remote (Tech) Naif Becerra MD INTERROGATION EVAL REMOTE </30 D TECH REVIEW completed EKG Naif Becerra MD completed ICM Interrogation, Remote (Prof) Naif Becerra MD INTERROGATION EVAL REMOTE </30 D CV MNTR SYS completed Pacemaker Interrogation, Remote (Tech) Naif Becerra MD INTERROGATION REMOTE </90 D B2B MANAGED SERVICE SALES EXEC REVIEW completed Pacemaker Interrogation, Remote (Prof) Naif Becerra MD INTERROGATION EVAL REMOTE </90 D 1/2/ARTIST BLACKSMITH LEAD P completed EKG Naif Becerra MD completed FVC / MVV with bronchodilator - 17712 Naif Becerra MD completed BLOOD COUNT HEMOGLOBIN Naif Becerra MD completed FRC - 51665 Naif Becerra MD completed SpO2 w/o 6min walk/titration Naif Becerra MD completed DLCO - 31629 Naif Becerra MD completed ICM Interrogation, Remote (Prof) Naif Becerra MD INTERROGATION EVAL REMOTE </30 D CV MNTR SYS completed ICM Interrogation, Remote (Tech) Naif Becerra MD INTERROGATION EVAL REMOTE </30 D TECH REVIEW completed ICM Interrogation, Remote (Prof) Naif Becerra MD INTERROGATION EVAL REMOTE </30 D CV MNTR SYS completed ICM Interrogation, Remote (Tech) Naif Becerra MD INTERROGATION EVAL REMOTE </30 D TECH REVIEW completed ICM Interrogation, Remote (Prof) Naif Becerra MD INTERROGATION EVAL REMOTE </30 D CV MNTR SYS completed Pacemaker Interrogation, Remote (Tech) Naif Becerra MD INTERROGATION REMOTE </90 D B2B MANAGED SERVICE SALES EXEC REVIEW completed Pacemaker Interrogation, Remote (Prof) Naif Becerra MD INTERROGATION EVAL REMOTE </90 D 1/2/ARTIST BLACKSMITH LEAD P completed EKG Naif Becerra MD completed ICM Interrogation, Remote (Prof) Naif Becerra MD INTERROGATION EVAL REMOTE </30 D CV MNTR SYS completed ICM Interrogation, Remote (Tech) Naif Becerra MD INTERROGATION EVAL REMOTE </30 D TECH REVIEW completed EKG Naif Becerra MD completed ICM Interrogation, Remote (Prof) Naif Becerra MD INTERROGATION EVAL REMOTE </30 D CV MNTR SYS completed ICM Interrogation, Remote (Tech) Naif Becerra MD INTERROGATION EVAL REMOTE </30 D TECH REVIEW completed ICM Interrogation, Remote (Prof) Naif Becerra MD INTERROGATION EVAL REMOTE </30 D CV MNTR SYS completed Pacemaker Interrogation, Remote (Tech) Naif Becerra MD INTERROGATION REMOTE </90 D B2B MANAGED SERVICE SALES EXEC REVIEW completed Pacemaker Interrogation, Remote (Prof) Naif Becerra MD INTERROGATION EVAL REMOTE </90 D 1/2/ARTIST BLACKSMITH LEAD P completed ICM Interrogation, Remote (Prof) Naif Becerra MD INTERROGATION EVAL REMOTE </30 D CV MNTR SYS completed ICM Interrogation, Remote (Tech) Naif Becerra MD INTERROGATION EVAL REMOTE </30 D TECH REVIEW completed EKG Naif Becerra MD completed ICM Interrogation, Remote (Prof) Naif Becerra MD INTERROGATION EVAL REMOTE </30 D CV MNTR SYS completed ICM Interrogation, Remote (Tech) Naif Becerra MD INTERROGATION EVAL REMOTE </30 D TECH REVIEW completed EKG Naif Becerra MD completed Holter, 24 or 48 Eduardo Barillas MD co mpleted ICM Interrogation, Remote (Prof) Eduardo Barillas MD INTERROGATION EVAL REMOTE </30 D CV MNTR SYS completed ICM Interrogation, Remote (Tech) Eduardo Barillas MD INTERROGATION EVAL REMOTE </30 D TECH REVIEW completed ICM Interrogation, Remote (Prof) Naif Becerra MD INTERROGATION EVAL REMOTE </30 D CV MNTR SYS completed ICM Interrogation, Remote (Tech) Naif Becerra MD INTERROGATION EVAL REMOTE </30 D TECH REVIEW completed EKG Naif Becerra MD completed SNOMED-CT: 330158671410829 Current Medications Documented Naif Becerra MD completed FVC / MVV with bronchodilator - 27713 Bartolo Hagan MD completed BLOOD COUNT HEMOGLOBIN Bartolo bahena MD completed FRC - 17195 Bartolo vargas MD completed SpO2 - 75321 Bartolo vargas MD completed DLCO - 95536 Bartolo vargas MD completed EKG Bartolo vargas MD completed SNOMED-CT: 015151365266993 Current Medications Documented Bartolo Hagan MD completed EKG Bartolo vargas MD completed SNOMED-CT: 457002605660903 Current Medications Documented Bartolo Hagan MD completed EKG Naif Becerra MD completed SNOMED-CT: 258851785656529 Current Medications Documented Naif Becerra MD completed EKG Naif Becerra MD completed SNOMED-CT: 268527502650030 Current Medications Documented Naif Becerra MD completed EKG Naif Becerra MD completed SNOMED-CT: 878557409759126 Current Medications Documented Naif Becerra MD completed EKG Bartolo vargas MD completed SNOMED-CT: 422659816937452 Current Medications Documented Bartolo Hagan MD completed EKG Naif Becerar MD completed SNOMED-CT: 331603088130700 Current Medications Documented Naif Becerra MD completed Loop Recorder Interrogation, Remote Naif Becerra MD INTERROGATION EVALUATION REMOTE </30 D ILR SYS completed ICM Interrogation, Remote (Tech) Naif Becerra MD INTERROGATION EVAL REMOTE </30 D TECH REVIEW completed Loop Recorder Interrogation, Remote Naif Becerra MD INTERROGATION EVALUATION REMOTE </30 D ILR SYS completed ICM Interrogation, Remote (Tech) Naif Becerar MD INTERROGATION EVAL REMOTE </30 D TECH REVIEW completed EKG Naif Becerra MD completed SNOMED-CT: 171680914946502 Current Medications Documented Naif Becerra MD completed Loop Recorder Interrogation, Remote Naif Becerra MD INTERROGATION EVALUATION REMOTE </30 D ILR SYS completed ICM Interrogation, Remote (Tech) Naif Becerra MD INTERROGATION EVAL REMOTE </30 D TECH REVIEW completed Loop Recorder Interrogation, Remote Naif Becerra MD INTERROGATION EVALUATION REMOTE </30 D ILR SYS completed ICM Interrogation, Remote (Tech) Naif Becerra MD INTERROGATION EVAL REMOTE </30 D TECH REVIEW completed SNOMED-CT: 07679429 Physical Exam, Performed: Pulse Exam of Foot Naif Becerra MD completed EKG Naif Becerra MD completed SNOMED-CT: 063894500274702 Current Medications Documented Naif Becerra MD completed Loop Recorder Interrogation, Remote Naif Becerra MD INTERROGATION EVALUATION REMOTE </30 D ILR SYS completed ICM Interrogation, Remote (Tech) Naif Becerra MD INTERROGATION EVAL REMOTE </30 D TECH REVIEW completed Loop Recorder Interrogation, Remote Naif Becerra MD INTERROGATION EVALUATION REMOTE </30 D ILR SYS completed ICM Interrogation, Remote (Tech) Naif Becerra MD INTERROGATION EVAL REMOTE </30 D TECH REVIEW completed Loop Recorder Interrogation, Remote Naif Becerra MD INTERROGATION EVALUATION REMOTE </30 D ILR SYS completed ICM Interrogation, Remote (Tech) aNif Becerra MD INTERROGATION EVAL REMOTE </30 D TECH REVIEW completed SNOMED-CT: 55101277 Physical Exam, Performed: Pulse Exam of Foot Naif Becerra MD completed EKG Naif Becerra MD completed SNOMED-CT: 476371081383318 Current Medications Documented Naif Becerra MD completed Loop Recorder Interrogation, Remote Naif Becerra MD INTERROGATION EVALUATION REMOTE </30 D ILR SYS completed ICM Interrogation, Remote (Tech) Naif Becerra MD INTERROGATION EVAL REMOTE </30 D TECH REVIEW completed Loop Recorder Interrogation, Remote Naif Becerra MD INTERROGATION EVALUATION REMOTE </30 D ILR SYS completed ICM Interrogation, Remote (Tech) Naif Becerra MD INTERROGATION EVAL REMOTE </30 D TECH REVIEW completed Loop Recorder Interrogation, Remote Naif Becerra MD INTERROGATION EVALUATION REMOTE </30 D ILR SYS completed ICM Interrogation, Remote (Tech) Naif Becerra MD INTERROGATION EVAL REMOTE </30 D TECH REVIEW completed Loop Recorder Interrogation, Remote Naif Becerra MD INTERROGATION EVALUATION REMOTE </30 D ILR SYS completed ICM Interrogation, Remote (Tech) Naif Becerra MD INTERROGATION EVAL REMOTE </30 D TECH REVIEW completed Loop Recorder Interrogation, Remote Naif Becerra MD INTERROGATION EVALUATION REMOTE </30 D ILR SYS completed ICM Interrogation, Remote (Tech) Naif Becerra MD INTERROGATION EVAL REMOTE </30 D TECH REVIEW completed SNOMED-CT: 965163538 Smoking Cessation Counseling Bartolo Hagan MD completed SNOMED-CT: 75747436 Physical Exam, Performed: Pulse Exam of Foot Bartolo Hagan MD completed EKG Bartolo vargas MD completed SNOMED-CT: 992593011023552 Current Medications Documented Naif Becerra MD completed EKG Bartolo vargas MD completed EKG Naif Becerra MD completed EKG Naif Becerra MD completed EKG Naif Becerra MD completed EKG Yasmany Chen MD completed EKG Yasmany Chen MD completed EKG Yasmany Chen MD completed
[2024-09-19 19:32] VITALS: BP 153/110; PULSE 87; RESP 20; TEMP 36.5; O2SAT 84
--- NOTE | 2024-09-19 19:36 | ECG_ITS ---
Test Date: 2024-09-19 19:55:57 Measurements Intervals [place] Rate: 76 P: 0 IA: 0 QRS: 15 QRSD: 108 T: 205 QT: 407 QTc: 458 Interpretive Statements ATRIAL FIBRILLATION VENTRICULAR PACEMAKER COMPLEX ST-T WAVE ABNORMALITY IN ANTEROLATERAL LEADS- CONSIDER ISCHEMIA BASELINE ARTIFACT- I, II, III, AVR, AVL, AVF, V1-V6 ABNORMAL ECG No previous ECG available for comparison Electronically Signed On 09-20-2024 06:48:40 AGRICULTURAL EQUIPMENT TEST ENGINEER by Napoleon Coyne D.O.
[2024-09-19 20:07] LABS: Basophils Absolute Auto 0.1 K/mm3 (0.0-0.1); Basophils Percent Auto 0.4 % (0.2-1.2); Hematocrit 37.9 % (37.0-47.0); Hemoglobin 11.7 g/dL (12.0-15.0); Immature Granulocyte Absolute 0.16 K/mm3 (0.00-0.031); Immature Granulocyte Percent A 1.2 % (0-0.5); Lymphocytes Absolute Auto 0.73 K/mm3 (0.9-3.2); Lymphocytes Percent Auto 5.4 % (18.3-44.2); Mean Corpuscular HGB Conc 30.9 g/dl (32-36); Mean Corpuscular Hemoglobin 27.7 pg (26-34); Mean Corpuscular Volume 89.8 fl (80-100); Mean Platelet Volume 9.8 fl (7.4-10.4); Monocytes Absolute Auto 0.9 K/mm3 (0.1-0.6); Monocytes Percent Auto 6.2 % (2.6-8.5); Neutrophils Absolute Auto 11.8 K/mm3 (1.3-6.7); Neutrophils Percent Auto 86.8 % (45.5-73.1); Platelet Count Result 227 k/mm3 (150-375); Red Blood Count 4.22 M/mm3 (4.2-5.4); Red Cell Distribution Width 13.6 % (11.5-14.5); White Blood Count 13.6 K/mm3 (4.5-10.0)
[2024-09-19 20:21] LABS: Alanine Aminotransferase 20 U/L (6-35); Albumin Level 3.5 g/dL (3.5-5.1); Alkaline Phosphatase 89 U/L (38-126); Anion Gap 11 mmol/L (4-12); Aspartate Amino Transferase 30 U/L (14-36); Bilirubin,Total 1.6 mg/dL (0.2-1.3); Blood Urea Nitrogen 23 mg/dL (7-17); Calcium 9.3 mg/dL (8.4-10.2); Carbon Dioxide 32 mmol/L (22-30); Chloride 96 mmol/L (98-107); Estimated CRCL calculation 51 ml/min; Estimated Glomerular Filt Rate > 60; Glucose 201 mg/dL (65-110); Potassium 3.4 mmol/L (3.4-5.0); Sodium 139 mmol/L (137-145)
[2024-09-19 21:45] VITALS: BP 161/69; PULSE 71; RESP 19; O2SAT 92
--- OUTSIDE RECORDS SUMMARY | 2024-09-19 21:54 | XMS_ITS | Continuity of Care Document ---
Author Organization [facility] Address [address] [place] [address] [place] [address] Phone Care Team Providers Care Conductor Pullman Name Role Phone Davis OD, Myke Unavailable Unavailable Procedures Procedure Date Office/outpatient Visit, Est Office/outpatient Visit, Est Office/outpatient Visit, New Advance Directives Directive Yes / No Effective Date File Name No Information Encounters Encounter Description Practice Location Reason(s) For Visit Diagnoses Date Provider Providers Copied on Encounter Office/outpat ient Visit, [facility], [address] [place] [address] [address], [place], [place], [id number], tel:[phone] [facility] No Information Feb-1 0-200 7 Davis OD Myke. [address] [facility] [address] [facility] [place] , [address], [place], [place], [facility], [place]. tel:[phone] Office/outpat ient Visit, [facility], [address] [place] [address] [address], [place], [place], [id number], [place] tel:[phone] [facility] No Information Aug-0 4-200 7 Davis OD Myke. [address] [facility] [place] , [address], [place], [place], [facility], [place]. tel:[phone] Referring Provider: Myke Titus, [facility], [place], [place], [facility]. tel:[phone] Office/outpat ient Visit, [facility], [address] [place] [address] [address], [place], [place], [id number], [place] tel:[phone] SEC [facility] No Information 200 7 Lana Pedraza. [address] [facility] [address] [facility] [address] [facility] , [address], [place], [address], [place]. tel:[phone] Family History Family Member Type Diagnosis Age At Onset No Information Payers Payer name Insurance type Covered green party ID Authoriza tion(s) [place] [id number] [place] [id number] Social History Type Description Quantity Date Captured [...]
--- OUTSIDE RECORDS SUMMARY | 2024-09-19 21:54 | XMS_ITS | Clinical Summary ---
Author Organization [facility] Address [address] [place] [address] Care Team Providers Care Machinist Automotive Name Role Phone Michael Abrams MD Primary Care Provider [phone] Allergies No known active allergies Medications metoprolol [...] on file Legal Sex Female 3:16 PM KENO DEALER Gender Identity Not on file Sexual Orientation [...] cm (5' 3 ) 08/30/2023 2:11 PM KENO DEALER Body Mass Index 29.9 08/30/2023 2:11 PM KENO DEALER Plan of Treatment Health Maintenance Due Date Last Done Comments DTAP/TDAP/TD VACCINES (1 - Tdap) 1958 ZOSTER VACCINE (1 of 2) 1989 RSV VACCINE (60+ or ) (1 - 1-dose 75+ series) 2014 PNEUMOCOCCAL VACCINE 50+ YEA RS (2 of 2 - PPSV23) 12/30/2015 11/04/2015 INFLUENZA VACCINE (#1) 2024 3, 07/19/2021, 05/18/2020, Additional history exists OSTEOPOROSIS SCREENING Completed 10/11/2022, 2021 [place] [address] MEDICARE PART A AND B [facility] BLUE ACCESS/TRUE [employer] PPO Care Teams Machinist Automotive Relationship Specialty Start Date End Date Michael Abrams MD [address] [place] [id number] PCP - General Internal Medicine 08/30/23
--- OUTSIDE RECORDS SUMMARY | 2024-09-19 21:54 | XMS_ITS | Referral Summary ---
Author Organization [facility] Address [address] [place] [address] Care Team Providers Care Strategic Sourcing Consultant Name Role Phone Lawrence Thomas MD Unavailable [phone] Michael Abrams MD Primary Care Provider [phone] Source Comments [facility],non-owned Affiliates and Associated Physician Practices is amultiple site organization consisting of ambulatory clinics and hospital sitesin [place], [place], [place] and [place]. This disclosure is being madepursuant to the Care Everywhere program and may not contain all information available regarding this patient. Last updated 18.[facility] Allergies No known active allergies Medications * [...] hypertension 01/15/2015 Mitral regurgitation 12/25/2014 Edema 08/18/2013 assisted (current) use of anticoagulants 2013 Dyslipidemia 07/23/1959 [...] of Treatment Not on file Care Teams Strategic Sourcing Consultant Relationship Specialty Start Date End Date Michael Abrams MD [address] [facility] [address] [place] [address] PCP - General Internal Medicine 04/02/24 Lawrence Thomas MD [address] [place] [address] Dermatology 03/10/24
--- OUTSIDE RECORDS SUMMARY | 2024-09-19 21:54 | XMS_ITS | Encounter Summary ---
Author Organization [facility] Address [address] [place] [address] Care Team Providers Care New Car Driver Name Role Phone Lawrence Thomas MD Unavailable [phone] Michael Abrams MD Primary Care Provider [phone] Encounter Details Date Type Department Care Team (Late st Contact Info) Description 03/06/2024 Lab Requisition [facility] - DermPath Lab [address] [place] [id number] Lawrence Thomas MD [address] [place] [address] Social History Tobacco Use Types Packs/Day Years [...] AM CDT) Case Report Dermatopathology Report Case: [id number] Authorizing Provider: Lawrence Thomas MD Collected: 03/04/2024 12:00 AM Ordering Location: 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 Jar 0. 1:26 PM [facility] DERMATOPATHOLOGY LABORATORY Microscopic Description Specimen A. SKIN, right forehead: Sections reveal parakeratosis, acanthosis and keratinocyte dysmaturation which is most prominent in the lower epidermis. Focal nests are present in the dermis. Specimen B. SKIN, left lateral forehead: The epidermis shows parakeratosis, full thickness disorderly maturation of keratinocytes, mitoses at different levels, and dyskeratotic cells. 1:26 PM [facility] DERMATOPATHOLOGY LABORATORY Disclaimer An external and internal [...] purposes. Billing Codes Specimen Charges Stain Charges 96496 71598 1 1 1:26 PM CDT DERMATOPATHOLOGY LABORATORY Embedded Images 1:26 PM T DERMATOPATHOLOGY LABORATORY Pathology/Cytology TISSUE SPECIMEN FROM SKIN / Unknown 03/04/2024 03/06/2024 9:53 AM CDT Miscellaneous samples (specimen) TISSUE SPECIMEN FROM SKIN / Unknown 03/04/2024 03/06/2024 9:53 AM CDT Lawrence Thomas MD LAB - PATHOLOGY/CYTO LOGY ORDERABLES DERMATOPATHOLOGY LABORATORY [facility] - Department of Dermatology [facility] Specialized Medicine [address] [place] [address], [address] [phone] documented in this encounter Visit Diagnoses Not on filedocumented in this encounter Care Teams New Car Driver Relationship Specialty [place] [address] [place] [id number] PCP - General Internal Medicine 04/02/24 Lawrence Thomas MD [address] [place] [address] Dermatology 03/10/24 documented as of this encounter
--- OUTSIDE RECORDS SUMMARY | 2024-09-19 21:55 | XMS_ITS | Patient Health Summary ---
Author Organization [facility] Address [address] [place] [place] [address] Care Team Providers Care Superintendent Institution Name Role Phone Lawrence Thomas MD Unavailable [phone] Michael Abrams MD Primary Care Provider Note from [facility],non-owned Affiliates and Associated Physician Practices is amultiple site organization consisting of ambulatory clinics and hospital sitesin [place], [place], [place] and [place]. This disclosure is being madepursuant to the Care Everywhere program and may not contain all information available regarding this patient. 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 All components of [place] Protocol/PAUSE Rule completed. STAGE I: The patient [...] Inflammation obscuring possible tumor presence: Not Present [place] [facility] CLIA # [id number] [facility] dental laboratory supervisor: Josie Mcgregor MD REPAIR: Intermediate Primary Surgeon: Josie Mcgregor MD Plasma Cutting Machine Operator: Resident Physician Dandre Flores MD Repair Size: [...] patient will follow up with their primary wire strander. Dandre Flores MD Dermatology Resident PGY-3 A procedure was performed. I present for the pritchard portion of the procedure and was always immediately available. Date of Service : 04/02/2024 Josie Mcgregor MD Josie Mcgregor MD PROCEDURE/MINOR SURG ICAL ORDERABLES * MA CHMSRG MOHS MG TQ H/N/H/F/G 1ST STAG 5 BLOC, MA INTMD WND REPAIR FACE,FACIAL 2.5-5 (04/02/2024 1:55 [...] final defect: adipose Previous dermpath accession #: [id number] Repair type: intermediate Mohs accession #: [id number] [...] confirmed by the patient. All components of [place] Protocol/PAUSE Rule completed. STAGE I: The patient [...] sections examined. No additional histologic findings appreciated. [facility] CLIA # [id number] [facility] Guest Services Ambassador: Josie Mcgregor MD REPAIR: Intermediate Primary Surgeon: Josie Mcgregor MD Plasma Cutting Machine Operator: Resident Physician Dandre Flores MD Repair Size: [...] patient will follow up with their primary wire strander. Dandre Flores MD Dermatology Resident PGY-3 A procedure was performed. I present for the entire portion of the procedure and was always immediately available. Date of Service : 04/02/2024 Josie Mcgregor MD Josie Mcgregor MD PROCEDURE/MINOR SURG ICAL ORDERABLES * DERMATOPATHOLOGY (03/04/2024 12:00 AM CDT) Only the most recent of2 resultswithin the time period is included. Case Report Dermatopathology Report Case: [id number] Authorizing Provider: Lawrence Thomas MD Collected: 03/04/2024 12:00 AM Ordering Location: [facility] - Received: 03/06/2024 09:53 AM [...] characteristic determined by the Dermatopathology Laboratory at [facility], directed by Dr. Mayo Garber. These tests need not be, and therefore are not, approved by the [place] Food and Drug Administration. The tests are used for clinical purposes. Billing Codes Specimen Charges Stain Charges [id number] 1 1 4 1:26 PM CDT DERMATOPATHOLOGY LABORATORY Embedded Images 1:26 PM CDT DERMATOPATHOLOGY LABORATORY Pathology/Cytology TISSUE SPECIMEN FROM SKIN / Unknown 03/04/2024 03/06/2024 9:53 AM CDT Miscellaneous samples (specimen) TISSUE SPECIMEN FROM SKIN / Unknown 03/04/2024 03/06/2024 9:53 AM CDT Lawrence Thomas MD LAB - PATHOLOGY/CYTO LOGY ORDERABLES Performing Organization Address City/State/[facility] Co de Phone Number DERMATOPATHOLOGY LABORATORY [facility] - Department of Dermatology [facility] Specialized Medicine [address] [place] [address], [address] [phone] Care Teams Superintendent Institution Relationship Specialty Start Date End Date Michael Abrams MD [address] [facility] [address] [place] [address] PCP - General Internal Medicine 04/02/24 Lawrence Thomas MD [address] [facility] [place] [address] Dermatology 03/10/24
--- OUTSIDE RECORDS SUMMARY | 2024-09-19 21:55 | XMS_ITS | Continuity of Care Document ---
Author Organization [facility] Address [address] [place] [address] Phone Care Team Providers Care Sprinkler Repair Technician Name Role Phone Robert Rene Unavailable Unavailable [...] Diagnoses Date Provider Providers Copied on Encounter [facility], [place], [place], [id number], tel:[phone] [place] No Information Mina Jones. . [facility], [place], [place], [id number], tel:[phone] [place] No Information Scott-1 2-202 4 Enriquez Robert. . Referring Provider: Kirstie Fish, [address] [place] [address] [address], [place], [address]. tel:[phone] [place], [place] [address], [place], [place], [id number], tel:[phone] [place] No Information Scott-1 0-202 4 Enriquez Robert. . Referring Provider: Kirstie Fish, [address] [place] [address] [address], [place], [address]. tel:[phone] [place] [address] [address], [place], [place], [id number], [place] tel:[phone] [place] No Information Scott-0 5-202 4 Enriquez Robert. . Referring Provider: Kirstie Fish, [address] [place] [address] [address], [place], [address]. tel:[phone] [place] [address] [place], [place] [address], [place], [place], [id number], [place] tel:[phone] [place] [address] No Information Scott-0 3-202 4 Enriquez Robert. . Referring Provider: Kirstie Fish, [address] [place] [address] [address], [place], [address]. tel:[phone] [place], [place] [address], [place], [place], [id number], [place] tel:[phone] [place] No Information May-3 1-202 4 Enriquez Robert. . Referring Provider: Kirstie Fish, [address] [place] [address] [address], [place], [address]. tel:[phone] [address], [place], [place], [id number], [place] tel:[phone] [place] No Information May-2 9-202 4 Enriquez Robert. . Referring Provider: Kirstie Fish, [address] [place] [address] [address], [place], [address]. tel:[phone] [place] [address] [address], [place], [place], [id number], tel:[phone] [place] No Information 4 Mina Jones. . Referring Provider: Kirstie Fish, [address], [place], [address]. tel:[phone] [facility] [address] [facility] [address], [place], [place], [address], tel:[phone] [place] No Information 4 Mina Jones. . Referring Provider: Kirstie Fish, [address], [place], [address]. tel:[phone] Family History Family Member Type Diagnosis Age At Onset No Information Payers Payer name Insurance type Covered republican ID Authoriza tion(s) Medicare [place] [id number] [facility] [id number] Social History Type Description Quantity Date Captured [...]
--- OUTSIDE RECORDS SUMMARY | 2024-09-19 21:55 | XMS_ITS | Clinical Summary ---
Author Organization [facility] Address [address] [place] [address] Care Team Providers Care Charge Account Clerk Name Role Phone Lawrence Thomas MD Unavailable [phone] Michael Abrams MD Primary Care Provider [phone] Source Comments [facility],non-owned Affiliates and Associated Physician Practices is amultiple site organization consisting of ambulatory clinics and hospital sitesin [place], [place], [place] and [place]. This disclosure is being madepursuant to the Care Everywhere program and may not contain all information available regarding this patient. Last updated 18.[facility] Allergies No known active allergies Medications * [...] hypertension 01/15/2015 Mitral regurgitation 12/25/2014 Edema 08/18/2013 long term care pharmacist (current) use of anticoagulants 2013 Dyslipidemia 07/23/1959 [...] age to complete this topic Care Teams Charge Account Clerk Relationship Specialty Start Date End Date Michael Abrams MD [address] [facility] [address] [place] [address] PCP - General Internal Medicine 04/02/24 Lawrence Thomas MD [address] [place] [address] Dermatology 03/10/24
--- OUTSIDE RECORDS SUMMARY | 2024-09-19 21:55 | XMS_ITS | CONTINUITY OF CARE DOCUMENT ---
Author Name arlen mckinley Address Unknown Organization [facility] Address [address] [place] [address] Phone [phone] Care Team Providers Care Power System Dispatcher Name Role Phone Mariam MATHEW, Naif Garnett Unavailable [phone] Michael Abrams MD Unavailable Michael Abrams MD Unavailable [phone] PROBLEMS Condition Status Date Provider Notes Hx [...] ? Yasmany Chen MD ATRIAL FIB-3/14 TELE [id number] HR 63-132 active ? Nixon Serrano RN [...] In-person encounter Office Visit Naif Becerra MD [facility] 2 - 6 In-person encounter Office Visit Naif Becerra MD [facility] 4 - 8 In-person encounter Office Visit Naif Becerra MD [facility] 3 - 6 In-person encounter Office Visit Naif Becerra MD [facility] 7 - 7 In-person encounter Office Visit Naif Becerra MD [facility] Exposure to COVID-19 coronavirus 3 - 7 In-person encounter Office Visit Naif Becerra MD [facility] 1 - 5 In-person encounter Office Visit Naif Becerra MD [facility] 2 - 2 In-person encounter Office Visit Naif Becerra MD [facility] 3 - 6 In-person encounter Office Visit Naif Becerra MD [facility] 7 - 7 In-person encounter Office Visit Naif Becerra MD [facility] Preop cardiovasc. examination 7 - 1 In-person encounter Office Visit Naif Becerra MD [facility] DIZZINESSPreop cardiovasc. examinationExposure to SARS-associated coronavirusCHF - diastolic 6 - 3 In-person encounter Office Visit Naif Becerra MD [facility] 3 - 0 In-person encounter Office Visit Naif Becerra MD [facility] 7 - 1 In-person encounter Office Visit Naif Becerra MD [facility] COPD 5 - 9 In-person encounter Office Visit Naif Becerra MD [facility] 4 - 4 In-person encounter Office Visit Karsten Alejandro MD [facility] Leg numbness 3 - 2019/04/0 3 In-person encounter Office Visit Naif Becerra MD [facility] 1 - 1 In-person encounter Office Visit Naif Becerra MD [facility] 2 - 2 In-person encounter Office Visit Naif Becerra MD [facility] Epistaxis 9 - 9 In-person encounter Office Visit Naif Becerra MD [facility] 6 - 6 In-person encounter Office Visit Naif Becerra MD [facility] 0 - 4 In-person encounter Office Visit Naif Becerra MD [facility] 8 - 8 In-person encounter Office Visit Eduardo Barillas MD [facility] CHEST PAIN-09/05 CATH MILD CAD EF 55Blood in stoolTricuspid regurgitationnightsweatsCurrent long-term use of amiodaroneCarotid artery stenosis - rightCADRestrictive lung disease 2 - 2 In-person encounter Office Visit Naif Becerra MD [facility] 0 - 4 In-person encounter Office Visit Bartolo Hagan MD [facility] Current use of anticoagulants 7 - 7 In-person encounter Office Visit Bartolo Hagan MD [facility] 3 - 3 In-person encounter Office Visit Naif Becerra MD [facility] 5 - 0 In-person encounter Office Visit Naif Becerra MD [facility] 0 - 3 In-person encounter Office Visit Naif Becerra MD [facility] Aortic stenosis 8 - 1 In-person encounter Office Visit Bartolo Hagan MD [facility] DyslipidemiaMitral regurgitationValvular Heart DiseaseREVEALSleep apnea 5 - 9 In-person encounter Office Visit Naif Becerra MD [facility] 0 - 3 In-person encounter Office Visit Naif Becerra MD [facility] 9 - 1 In-person encounter Office Visit Naif Becerra MD [facility] HTN essentialSleep apnea 9 - 6 In-person encounter Office Visit Naif Becerra MD [facility] 2 - 6 In-person encounter Office Visit Naif Becerra MD [facility] Mitral regurgitationTricuspid regurgitationS/P Medtronic REVEAL/LinQ 2 - 9 In-person encounter Office Visit Bartolo Hagan MD [facility] Hyperthyroidism 4 - 4 In-person encounter Office Visit Naif Becerra MD [facility] 6 - 6 In-person encounter Office Visit Naif Becerra MD [facility] DizzinessHTN essential 5 - 5 In-person encounter Office Visit Naif Becerra MD [facility] Mitral regurgitationTricuspid regurgitation 2 - 5 In-person encounter Office Visit Naif Becerra MD [facility] 7 - 9 In-person encounter Office Visit Yasmany Chen MD [facility] 2 - 3 In-person encounter Office Visit Yasmany Chen MD [facility] PULMONARY EMBOLISM 0 - 1 In-person encounter Office Visit Yasmany Chen MD [facility] 7 - 7 In-person encounter Office Visit Bartolo Hagan MD [facility] 7 - 8 In-person encounter Office Visit Yasmany Chen MD [facility] CHEST PAIN-09/05 CATH MILD CAD EF 55DyslipidemiaOBESITYATRIAL FIB-3 TELE [id number] HR 63-132EDEMA VITAL SIGNS Date Observation Value Provider Body Mass Index (Ratio) 29.35 kg/m2 [facility] blood pressure, diastolic 66 mm[Hg] Li nkLogic blood pressure, systolic 117 mm[Hg] Winsome kLog blood pressure, diastolic 66 mm[Hg] Ja rret blood pressure, systolic 117 mm[Hg] [facility] pulse rate 74 /min Marcel oxygen saturation, oximetry 95 % Marcel respiratory rate E&M 16 /min Marcel blood pressure, cuff size regular Ja et weight E&M 171 [lb_av] Marcel y height E&M 64 [in_i] [facility] y Body Mass Index (Ratio) 30.72 kg/m2 Manuel Becerra MD blood pressure, cuff size regular [facility] blood pressure, diastolic 71 mm[Hg] [facility] blood pressure, systolic 139 mm[Hg] [facility] oxygen saturation, oximetry 96 % [facility] pulse rate 41 /min [facility] respiratory rate E&M 16 /min Rosa M Kam[facility]jit [facility] kay weight E&M 179 [lb_av] [facility] height E&M 64 [in_i] [facility] Body Mass Index (Ratio) 30.17 kg/m2 Manuel [...] Fairchild oxygen saturation, oximetry 99 % Coty Fairchidl respiratory rate E&M 18 /min Marek Fairchild [...] blood pressure, diastolic 90 mm[Hg] Mi gilma [place] blood pressure, systolic 150 mm[Hg] Thanh helle [place] oxygen saturation, oximetry 98 % Tori Sears [...] Marina Coyne weight E&M 183 [lb_av] Luz Marina Coyne temperature E&M 97.5 [degF] Luz Marina [...] [place] blood pressure, systolic 151 mm[Hg] Elvie esdraspedrito [place] blood pressure, cuff size regular Cy [...] fern Mann oxygen saturation, oximetry 96 % [place] Mann respiratory rate E&M 18 /min [place] Mann pulse rate 80 /min [place] Mann weight E&M 203 [lb_av] [place] Mann height E&M 64 [in_i] Dmitry Mann [...] E&M 18 /min Janny Hernandez pulse rate 79 /min David tate [...] [place] oxygen saturation, oximetry 97 % Rachel Worthintgon blood pressure, diastolic 90 mm[Hg] Shalom [place] blood pressure, systolic 150 mm[Hg] Logan [place] blood pressure, cuff size regular Shalom [place] weight E&M 203 [lb_av] Rachel Wortihngton height E&M 64 [in_i] Rachel Worthington blood [...] Morris Body Mass Index (Ratio) 33.81 kg/m2 [facility] weight E&M 197 [lb_av] Barbie Morirs blood pressure, diastolic 80 mm[Hg] Wil Hernandez [...] Morris Body Mass Index (Ratio) 33.30 kg/m2 [facility] weight E&M 194 [lb_av] Barbie Morris blood pressure, diastolic 71 mm[Hg] Me sabrina Yemi blood pressure, systolic 155 mm[Hg] Tiarra thomas Yemi respiratory rate E&M 16 /min Barbie Yemi pulse rate 78 /min Barbie Yemi oxygen saturation, oximetry 97 % Barbie Bragg Body Mass Index (Ratio) 32.75 kg/m2 [facility] shagufta Bragg weight E&M 190.8 [lb_av] Barbie [...] Morris Body Mass Index (Ratio) 30.89 kg/m2 [facility] weight E&M 180 [lb_av] Barbie Morris blood [...] Mass Index (Ratio) 35.87 kg/m2 [facility] blood pressure, diastolic 89 mm[Hg] [facility], systolic 165 mm[Hg] [facility]ne [facility] pulse rate 97 /min [facility] oxygen saturation, oximetry 96 % [facility] respiratory rate E&M 18 /min [facility] weight E&M 209 [lb_av] Shwetaatrisaac Owusu blood [...] Body Mass Index (Ratio) 34.45 kg/m2 Nixon Serrnao RN weight E&M 200 [lb_av] Nixon Serrano [...] mm[Hg] Daniel Andrewsran pulse rate 86 /min Gena Andrewsran oxygen saturation, oximetry 98 % Gena [...] iron binding capacity, unsaturated 243 ug/dL LinkLogic 791-293 9787/05 /15 iron binding capacity, total 309 ug/dL [facility] 305-077 8413/05 /15 alanine aminotransferase (SGPT), serum 12 1/L [...] LinkLogic 0-149 cholesterol, serum 160 mg/dL [facility] 790-404 1394/08 /31 alanine aminotransferase (SGPT), serum 12 1/L [...] LinkLogic 3.5-5.2 sodium, serum 141 mmol/L [employer] 138-274 8512/08 /31 urea nitrogen/creatinine ratio, serum 22 LinkLogic [...] iron binding capacity, unsaturated 196 ug/dL [employer] 901-546 2251/06 /06 iron binding capacity, total 271 ug/dL [facility] 615-483 3085/06 /06 basophil count, absolute 0.0 x10E3/uL LinkLogic [...] LinkLogic 3.5-5.2 sodium, serum 142 mmol/L Link[facility] 443-984 0053/06 /06 urea nitrogen/creatinine ratio, serum 19 LinkLogic [...] 3.5-5.2 Low sodium, serum 140 mmol/L LinkLogic 443-355 9696/11 /13 urea nitrogen/creatinine ratio, serum 21 LinkLogic [...] LinkLogic 0-149 cholesterol, serum 188 mg/dL Link[facility] 324-400 8834/01 /30 free thyroxine index 6.3 ??g/dL LinkLogic [...] completed one tab three times daily - Eduardo Barillas MD AMIODARONE HCL 200 MG ORAL TABLET completed Continue [id number] mg bid instead of tid if she can tolerate it. [place] [facility] [place] David Hernandez METOPROLOL DECREASED TO 25MG [...] meal - Gena Ledbetter VITAMIN D (ERGOCALCIFEROL) 51650 UNIT ORAL CAPSULE completed once a week [...] cigarette sm josué exposure no Luz Marina Coyne smoking status Never smoker Luz Marina Coyne social history E&M Marital Statu s: Smoking History: P atapple has never smoked. Niaf Becerra MD social history revie wed E&M [...] never smoked. Simeon Plur alcohol use no [facility] caffeine use, averag e drinks per day 1+ [facility] drug [facility] passive cigarette sm josué exposure no [facility] smoking status Never smoker [facility] social history revie wed E&M reviewed [...] passive cigarette sm josué exposure no David Hrenandez smoking status Never smoker David Nieto number [...] history E&M Marital Statu s: Smoking History: Cuhck lawrence has never smoked. Naif Becerra MD [...] yes Barbie Arturo drug use no Barbie Morris passive cigarette [...] Payer name Policy type / Coverage type [place] red democrat ID [place] [employer] Medicare [id number] [facility] [id number] ADVANCE DIRECTIVES Name Date DISCUSSED - NO DECISION MADE TREATMENT PLAN Date Name Performer [id number],C, C ONCLUSIONS: 1 . Normal left ventricular [...] 07/29/2020 at 2:14 PM Naif Becerra MD [id number],S, I mproved after valve surgery. December 02, 2021 U ses CPAP routinely and is dependent Naif Becerra MD [id number],C, W as on Eliquis. DId not have nose bleed on Eliquis until just recently. Saw Nicolasamarcos for ENT and can be seen by him. December 26, 2019 N o new nose bleeds. August 04, 2022 N o new nose bleeds February 02, 2023 s table on eliquis Naif Becerra MD [id number],C, E LIQUIS . no bleeding issues Naif Becerra MD [id number],C, C ONCLUSIONS: 1 . Mild global left [...] volume index is 62.0 Naif Becerra MD [id number],C, C ONCLUSIONS: 1 . Mild global left [...] volume index is 62.0 Naif Becerra MD [id number],C, N eeds to remain on Eliquis. No bleeding issues H aving intermittent palpitations. Remains stable. Naif Becerra MD [id number],C, E LIQUIS . no bleeding issues H er updated medication list for this problem includes: Aspirin 81 Mg Tabs (Aspirin) ..... One tab. daily Naif Becerra MD [id number],C, C ONCLUSIONS: 1 . Mild global left [...] volume index is 62.0 Naif Becerra MD [id number],C, W as on Eliquis. DId not have nose bleed on Eliquis until just recently. Saw Bora for ENT and can be seen by him. December 26, 2019 N o new nose bleeds. August 04, 2022 N o new nose bleeds Naif Becerra MD [id number],S, C ONCLUSIONS: 1 . Mild global left [...] volume index is 62.0 Naif Becerra MD [id number],S,S top RPM monitor, BP at home are [...] (12/05/2019) HDL: 72 (12/05/2019) Naif Becerra MD [id number],C, Moderate mitral annular calcification. The mitral valve is S/P Ring Repair. There is non-specific thickening of the mitral v alve leaflets. Mild mitral valve regurgitation. The mitral valve Mean Gradient is 5.2 mmHg. Naif Becerra MD [id number],C, E LIQUIS . no bleeding issues H er updated medication list for this problem includes: Aspirin 81 Mg Tabs (Aspirin) ..... One tab. daily Naif Becerra MD [id number],C, N eeds to remain on Eliquis. No bleeding issues H aving intermittent palpitations. Remains stable. Naif Becerra MD [id number],C, C ONCLUSIONS: 1 . Mild global left [...] volume index is 62.0 Naif Becerra MD [id number],Chuck Vargas had covid last year, she s vaccinated pending booster. Naif Becerra MD [id number],Chuck Maurer on having Cataracts done on the . Naif Becerra MD [id number],Erasto Maurer ONCLUSIONS: 1 . Mild global left [...] volume index is 62.0 Naif Becerra MD [id number],C, N eeds to remain on Eliquis. No bleeding issues H aving intermittent palpitations. Remains stable. Naif Becerra MD [id number],S, Lower extremity edema wants to get US done to make sure there's no clot. On eliquis. Niaf Becerra MD [id number],C, E LIQUIS . no bleeding issues H er updated medication list for this problem includes: Aspirin 81 Mg Tabs (Aspirin) ..... One tab. daily Naif Becerra MD [id number],S, I mproved after valve surgery. December 02, 2021 U ses CPAP routinely and is dependent Naif Becerra MD [id number],S, Naif adkins MD [id number],C, U nable to take steroids. Has severe COPD. Her SOB may be related to COPD. Doubt that MR is an issue since her echo shows that it is mild and she has normal LV funciton Naif Becerra MD [id number],C,C ONCLUSIONS: 1 . Mild global left ventricular [...] volume index is 62.0 Naif Becerra MD [id number],S,C ONCLUSIONS: 1 . Mild global left ventricular [...] volume index is 62.0 Naif Becerra MD [id number],C, E LIQUIS H er updated medication list for this problem includes: Aspirin 81 Mg Tabs (Aspirin) ..... One tab. daily Naif Becerra MD [id number],C, C ONCLUSIONS: 1 . Normal left ventricular [...] 07/29/2020 at 2:14 PM Naif Becerra MD [id number],C, H ad cath done 05/24/18. Mild plaquing [...] pressure 162/21 with an EDP of 25. 5-Emirati balloon-tipped Causey-Toshia catheter and a V-18 wire, I was [...] we will stop aspirin. Naif Becerra MD [id number],C, C ONCLUSIONS: 1 . Normal left ventricular [...] 07/29/2020 at 2:14 PM Naif Becerra MD [id number],C, N eeds to remain on Eliquis. No bleeding issues Naif Becerra MD [id number],C, N ormal appearing bioprosthetic aortic valve. The [...] E lectronically Signed By: Alfie Becerra MD, [facility] 2 021 14:07:55 STRIP CATCHER Naif Becerra MD [id number],C, H ad cath done 05/24/18. Mild plaquing [...] pressure 162/21 with an EDP of 25. 5-Emirati balloon-tipped Causey-Toshia catheter and a V-18 wire, I was [...] we will stop aspirin. Naif Becerra MD [id number],C, N eeds to remain on Eliquis. No bleeding issues Naif Becerra MD [id number],C, E LIQUIS H er updated medication list for this problem includes: Aspirin 81 Mg Tabs (Aspirin) ..... One tab. daily Naif Becerra MD [id number],C,C ONCLUSIONS: 1 . Normal left ventricular systolic [...] 07/29/2020 at 2:14 PM Naif Becerra MD [id number],C,C ONCLUSIONS: 1 . Normal left ventricular systolic [...] 07/29/2020 at 2:14 PM Naif Becerra MD [id number],C,C ONCLUSIONS: 1 . Normal left ventricular systolic [...] 07/29/2020 at 2:14 PM Naif Becerra MD [id number],S,u H as chronic leg edema. Wears support stockings, doesn't take Lasix. Has it at home. Needs to take it every other day since she is having mild SOB. Will need to have bloodwork done since she is on potassium and starting LITTLE. Naif Becerra MD [id number],C, U nable to take steroids. Has severe COPD. Her SOB may be related to COPD. Doubt that MR is an issue since her echo shows that it is mild and she has normal LV funciton Naif Becerra MD [id number],C, E LIQUIS H er updated medication list for this problem includes: Aspirin 81 Mg Tabs (Aspirin) ..... One tab. daily Naif Becerra MD [id number],C, h as not gotten new machine yet Naif Becerra MD [id number],C, N ormal appearing bioprosthetic aortic valve. The [...] E lectronically Signed By: Alfie Becerra MD, [facility] 2 021--06 14:07:55 STRIP CATCHER Naif Becerra MD Cardiology: Sheree BREWSTER . [...] Alfie Becerra MD, [facility] 2 021-01-06 14:07:55 STRIP CATCHER Naif Becerra MD Cardiology: N eeds to [...] 162/21 w ith an EDP of 25. 5-Emirati balloon-tipped Causey-Toshia catheter and a V-18 wire, I was [...] E lectronically Signed By: Alfie Becerra MD, [facility] 2 021-01-06 14:07:55 STRIP CATCHER Naif Becerra MD Cardiology: H ad cath [...] 162/21 w ith an EDP of 25. 5-Emirati balloon-tipped Causey-Toshia catheter and a V-18 wire, I was [...] E lectronically Signed By: Alfie Becerra MD, [facility] 2 021-01-06 14:07:55 STRIP CATCHER Naif Becerra MD Cardiology:CONCLUSIO NS: 1 . [...] 162/21 w ith an EDP of 25. 5-Emirati balloon-tipped Causey-Toshia catheter and a V-18 wire, I was [...] 162/21 w ith an EDP of 25. 5-Emirati balloon-tipped Causey-Toshia catheter and a V-18 wire, I was [...] had test negative w as exposed to anthropology department chair Naif Becerra MD Cardiology follow up : [...] Cardiology:EKG paced rhythm at 70 BPM. AT/AF [place]: 100% noted on pacer check. On Eliquis. [...] CPAP since she had valve surgery done. Naif Becerra MD Cardiology:Had cath done 05/24/18 . [...] TOPICAL LIDOCAINE SPRAY WAS A DMINISTERED BY [place]. Naif Becerra MD Cardiology: H er updated [...] TOPICAL LIDOCAINE SPRAY WAS A DMINISTERED BY [place]. Naif Becerra MD Cardiology:Neck pain . Will [...] ..... One tab. daily Orders: E KG (CPT-25761) Naif Becerra MD Cardiology Naif Becerra MD [...] ..... One tab. daily Orders: Sheree KG (CPT-38859) Bartolo Hagan MD EP-Faxed 04/28/15 11:17am Bartolo [...] twice daily Orders: C arotid Duplex Bilateral (CPT-83939) Naif Becerra MD echo & FU: O rders: C arotid Duplex Bilateral (CPT-61191) C BC (H/H, RBC, INDICES, WBC, PLT) (1759) Naif Becerar MD echo & FU: H er updated medication list for this problem includes: Enalapril Maleate 5 Mg Oral Tabs (Enalapril maleate) ..... Bid Metoprolol Tartrate 25 Mg Tabs (Metoprolol tartrate) ..... One tab. twice daily Orders: C arotid Duplex Bilateral (CPT-24723) C BC (H/H, RBC, INDICES, WBC, PLT) (1759) Naif Becerra MD echo & FU: H er updated medication list for this problem includes: Enalapril Maleate 5 Mg Oral Tabs (Enalapril maleate) ..... Bid Metoprolol Tartrate 25 Mg Tabs (Metoprolol tartrate) ..... One tab. twice daily Orders: C arotid Duplex Bilateral (CPT-97801) C BC (H/H, RBC, INDICES, WBC, PLT) (1759) Naif Becerra MD echo & FU: O rders: C arotid Duplex Bilateral (CPT-60922) C BC (H/H, RBC, INDICES, WBC, PLT) (1759) Naif Becerra MD echo & FU:HOLDING EL IQUIS WITH DARK STOOLS H/H STABLE AWAIT STOOL TEST RESULT C URRENTLY IN NSR H er updated medication list for this problem includes: Metoprolol Tartrate 25 Mg Tabs (Metoprolol tartrate) ..... One tab. twice daily Orders: C arotid Duplex Bilateral (CPT-55409) C BC (H/H, RBC, INDICES, WBC, PLT) [...] [facility] Complete Echo Sleep Study DLCO - 53435 FRC - 04983 FVC - 12682 THYROID PANEL WITH T SH, 3RD GENERATION PROBNP, N TERMINAL Complete Echo LIPID PANEL X-Ray, Chest - Routi ne Holter Monitor 24 Hr Carotid Duplex Bilat eral DLCO - 45764 FRC - 64496 FVC - 44281 CACHORRO/CV - GC THYROID PANEL WITH T [...] - Standing Complete Echo Mobile [facility]iac Tele 04299 HIGH Complex HISTORY OF PROCEDURES Procedure Date [...] Naif Becerra MD INTERROGATION REMOTE </90 D AUTOMOBILE SALES CONSULTANT REVIEW completed Pacemaker Interrogation, Remote (Prof) Naif Becerra MD INTERROGATION EVAL REMOTE </90 D 1/2/BODY AND FENDER WORKER LEAD P completed ICM Interrogation, Remote (Prof) [...] Naif Becerra MD INTERROGATION REMOTE </90 D AUTOMOBILE SALES CONSULTANT REVIEW completed Pacemaker Interrogation, Remote (Prof) Naif Becerra MD INTERROGATION EVAL REMOTE </90 D 1/2/BODY AND FENDER WORKER LEAD P completed ICM Interrogation, Remote (Prof) [...] Naif Becerra MD INTERROGATION REMOTE </90 D AUTOMOBILE SALES CONSULTANT REVIEW completed Pacemaker Interrogation, Remote (Prof) Naif Becerra MD INTERROGATION EVAL REMOTE </90 D 1/2/BODY AND FENDER WORKER LEAD P completed EKG Naif Becerra MD completed FVC / MVV with bronchodilator - 41379 Naif Becerra MD completed BLOOD COUNT HEMOGLOBIN Naif Becerra MD completed FRC - 92476 Naif Becerra MD completed SpO2 w/o 6min walk/titration Naif Becerra MD completed DLCO - 06057 Naif Becerra MD completed ICM Interrogation, Remote [...] Naif Becerra MD INTERROGATION REMOTE </90 D AUTOMOBILE SALES CONSULTANT REVIEW completed Pacemaker Interrogation, Remote (Prof) Naif Becerra MD INTERROGATION EVAL REMOTE </90 D 1/2/BODY AND FENDER WORKER LEAD P completed EKG Naif Becerra MD [...] Naif Becerra MD INTERROGATION REMOTE </90 D AUTOMOBILE SALES CONSULTANT REVIEW completed Pacemaker Interrogation, Remote (Prof) Naif Becerra MD INTERROGATION EVAL REMOTE </90 D 1/2/BODY AND FENDER WORKER LEAD P completed ICM Interrogation, Remote (Prof) [...] MNTR SYS completed ICM Interrogation, Remote (Tech) dEuardo Barillas MD INTERROGATION EVAL REMOTE </30 D TECH REVIEW completed ICM Interrogation, Remote (Prof) Naif Becerra MD INTERROGATION EVAL REMOTE </30 D CV MNTR SYS completed ICM Interrogation, Remote (Tech) Naif Becerra MD INTERROGATION EVAL REMOTE </30 D TECH REVIEW completed EKG Naif Becerra MD completed SNOMED-CT: 059261775243545 Current Medications Documented Naif Becerra MD completed FVC / MVV with bronchodilator - 58408 Bartolo Hagan MD completed BLOOD COUNT HEMOGLOBIN Bartolo bahena MD completed FRC - 07401 Bartolo vargas MD completed SpO2 - 76583 Bartolo vargas MD completed DLCO - 51410 Bartolo vargas MD completed EKG Bartolo vargas MD completed SNOMED-CT: 850545110715654 Current Medications Documented Bartolo Hagan MD completed EKG Bartolo vargas MD completed SNOMED-CT: 844373410722400 Current Medications Documented Bartolo Hagan MD completed EKG Naif Becerra MD completed SNOMED-CT: 078413462380120 Current Medications Documented Naif Becerra MD completed EKG Naif Becerra MD completed SNOMED-CT: 024035197047345 Current Medications Documented Naif Becerra MD completed EKG Naif Becerra MD completed SNOMED-CT: 413598896982438 Current Medications Documented Naif Becerra MD completed EKG Bartolo vargas MD completed SNOMED-CT: 451615243212801 Current Medications Documented Bartolo Hagan MD completed EKG Naif Becerra MD completed SNOMED-CT: 059585613780592 Current Medications Documented Naif Becerra MD completed [...] completed EKG Naif Becerra MD completed SNOMED-CT: 762251629779595 Current Medications Documented Naif Becerra MD completed [...] REMOTE </30 D TECH REVIEW completed SNOMED-CT: 17094865 Physical Exam, Performed: Pulse Exam of Foot Naif Becerra MD completed EKG Naif Becerra MD completed SNOMED-CT: 651129161704589 Current Medications Documented Naif Becerra MD completed [...] REMOTE </30 D TECH REVIEW completed SNOMED-CT: 27786304 Physical Exam, Performed: Pulse Exam of Foot Naif Becerra MD completed EKG Naif Becerra MD completed SNOMED-CT: 722396626195948 Current Medications Documented Naif Becerra MD completed [...] REMOTE </30 D TECH REVIEW completed SNOMED-CT: 335704549 Smoking Cessation Counseling Bartolo Hagan MD completed SNOMED-CT: 44202355 Physical Exam, Performed: Pulse Exam of Foot Bartolo Hagan MD completed EKG Barotlo vargas MD completed SNOMED-CT: [id number] Current Medications Documented Naif Becerra MD completed EKG Bartolo vargas MD completed EKG Naif Becerra MD completed EKG Naif Becerra MD completed EKG Naif Becerra MD completed EKG Yasmany Chen MD completed EKG Yasmany Chen MD completed EKG Yasmany Chen MD completed
[2024-09-19 21:56] VITALS: RESP 19
[2024-09-20] VITALS (20 sets, daily range): BP systolic 98–138; BP diastolic 48–70; PULSE 69–89; RESP 15–31; TEMP 36.5–37; O2SAT 91–100; BMI 27.4
[2024-09-20] MEDS: IPRATROPIUM 0.5 MG/ALBUTEROL SULFATE 2.5 MG AMPUL.NEB 3 ML INHALATION ×3 (00:05→00:32)
[2024-09-20 00:25] LABS: Lactic Acid Reflex 1.2 mmol/L (0.7-2.0); Magnesium 1.7 mg/dL (1.6-2.3)
[2024-09-20] MEDS: SODIUM CHLORIDE 0.9% IV 1,000 ML 500 ML IV CONT (00:27)
[2024-09-20 00:34] LABS: INR 1.2; Prothrombin Time 15.9 Seconds (11.1-14.7)
[2024-09-20 00:35] LABS: NT Pro B Type Natriuretic Pept 6640 pg/mL (19.9-100); Partial Thromboplastin Time 30.1 Seconds (22.3-36.8)
--- NOTE | 2024-09-20 00:39 | PC.NURSE ---
Patient's son would like to be notified [phone] with updates.
--- NOTE | 2024-09-20 00:42 | ED.GENADULT ---
HPI - General Adult General Chief complaint: Unspecified <Blossom Elena APRN - Last Filed: 09/20/24 04:20> Stated complaint: cough, sob <Blossom Elena APRN - Last Filed: 09/20/24 04:20> Time Seen by Provider: 09/19/24 21:35 <Blossom Elena APRN - Last Filed: 09/20/24 04:20> History of Present Illness HPI narrative: Patient is an 84-year-old female presents to the ER with a 1 month history of progressively worsening cough. Her family reports she has had decreased energy, fever, and productive cough with thick, yellow sputum. Patient's family reports she has a history of a pacemaker, CHF, and obstructive sleep apnea. They reports she generally does not require oxygen but she is wearing 3 L nasal cannula at time of examination. Patient denies back pain, abdominal pain, headache, or neck stiffness. <Blossom Elena APRN - Last Filed: 09/20/24 04:20> Related Data Home medications: Home Medications ?Medication ?Instructions ?Recorded ?Confirmed ?Last Taken ?Type albuterol sulfate 90 mcg/actuation 1 inh inhalation Q4H PRN Shortness 04/12/20 02/16/21 04/15/20 History breath activated powder inhaler Of Breath Or Wheezing (ProAir RespiClick) apixaban 5 mg tablet (Eliquis) 5 mg PO BID 04/12/20 02/16/21 02/16/21 History aspirin 81 mg tablet,delayed 81 mg PO DAILY 04/12/20 02/16/21 02/16/21 History release (Adult Low Dose Aspirin) atorvastatin 10 mg tablet 10 mg PO DAILY 04/12/20 02/16/21 02/16/21 History ezetimibe 10 mg tablet 10 mg PO DAILY 04/12/20 02/16/21 02/16/21 History furosemide 20 mg tablet 20 mg PO DAILY PRN Edema 04/12/20 02/16/21 02/15/21 History metoprolol tartrate 25 mg tablet 25 mg PO BID 04/12/20 02/16/21 02/16/21 History gabapentin 300 mg capsule 300 mg PO BID 12/11/23 Unknown History <Blossom Elena APRN - Last Filed: 09/20/24 04:20> Allergies/adverse reactions: Allergies Allergy/AdvReac Type Severity Reaction Status Date / Time No Known Allergies Allergy Unverified 09/19/24 19:26 <Blossom Elena APRN - Last Filed: 09/20/24 04:20> Review of Systems Review of Systems: All systems reviewed & are unremarkable except as noted in HPI and below <Blossom Elena APRN - Last Filed: 09/20/24 04:20> PMFSH Past Medical History Medical History: Medical History BANDAR (obstructive sleep apnea) Hypertension Hyperlipidemia Pacemaker Congestive heart failure (CHF) no echo for review Atrial fibrillation <Blossom Elena APRN - Last Filed: 09/20/24 04:20> Family History Family History: Family History Other Diabetes mellitus Family history of cardiovascular disease Family history of malignant neoplasm <Blossom Elena APRN - Last Filed: 09/20/24 04:20> Social History Social History: Social History Smoking status: Never smoker Alcohol intake: current Alcohol use details: WINE Substance use: never Substance use type: does not use Do You Feel Safe in your Home?: Yes Lack of Transportation: No Lack of Food: Never True Current Housing: I Have Housing Concerned About Future Housing: No Difficulty Paying Gas/Electric Bills: No Difficulty Paying for Meds: No Currently Unemployed: No Education: High School Diploma/GED Difficulty w/ Childcare or Family Care: No Living arrangements: alone Spiritual care concerns: No <Blossom Elena APRN - Last Filed: 09/20/24 04:20> Exam Narrative: GENERAL: Ill-appearing, poorly-nourished, non-toxic, in no acute distress. HEAD: Normocephalic, atraumatic. NECK: Supple. No adenopathy, no masses. RESPIRATORY: Airway patent, respirations labored. Coarse to auscultation bilaterally, + rales, + rhonchi, + wheezing. CARDIOVASCULAR: Regular rate, intermittently paced rhythm, Peripheral pulses 2+ and equal bilaterally. ABDOMINAL: Soft, nontender with palpation, nondistended, no hepatosplenomegaly. Normoactive BS. MUSCULOSKELETAL: Moves all extremities. Strength/ROM intact without gross deformities. SKIN: Warm, dry, normal color. No rashes. NEURO: A&O X3. Speech clear. Cranial nerves intact. No ataxic movements. PSYCHIATRIC: Appropriate mood and affect. Normal interaction. <Blossom Elena APRN - Last Filed: 09/20/24 04:20> Course AGRONOMY TEACHER/PA Physician Supervision Patient's HPI, Exam, and MDM were reviewed and I agreed with the workup and disposition done in the emergency department by the MLP. I was available for consultation, but was not directly involved with patient's care nor did I evaluate the patient. <Jose F eWir MD - Last Filed: 09/20/24 06:31> Vital Signs Vital signs: Vital Signs Temperature 36.5 C 09/19/24 19:32 Pulse Rate 87 09/19/24 19:32 Respiratory Rate 20 09/19/24 19:32 Blood Pressure 153/110 H 09/19/24 19:32 Pulse Oximetry 84 L 09/19/24 19:32 Oxygen Delivery Room Air 09/19/24 19:32 Temperature 36.5 C 09/19/24 19:32 Pulse Rate 69 09/20/24 05:10 Respiratory Rate 17 09/20/24 05:10 Blood Pressure 98/54 L 09/20/24 05:10 Pulse Oximetry 95 09/20/24 05:10 Oxygen Delivery Room Air 09/19/24 19:32 <Blossom Elena APRN - Last Filed: 09/20/24 04:20> Vital Signs Temperature 36.5 C 09/19/24 19:32 Pulse Rate 87 09/19/24 19:32 Respiratory Rate 20 09/19/24 19:32 Blood Pressure 153/110 H 09/19/24 19:32 Pulse Oximetry 84 L 09/19/24 19:32 Oxygen Delivery Room Air 09/19/24 19:32 Temperature 36.5 C 09/19/24 19:32 Pulse Rate 69 09/20/24 05:10 Respiratory Rate 17 09/20/24 05:10 Blood Pressure 98/54 L 09/20/24 05:10 Pulse Oximetry 95 09/20/24 05:10 Oxygen Delivery Room Air 09/19/24 19:32 <Jose F Weir MD - Last Filed: 09/20/24 06:31> Medical Decision Making MDM Narrative Medical decision making narrative: Patient is an 84-year-old female presents to the ER with a 1 month history of progressively worsening cough. Her family reports she has had decreased energy, fever, and productive cough with thick, yellow sputum. Patient's family reports she has a history of a pacemaker, CHF, and obstructive sleep apnea. They reports she generally does not require oxygen but she is wearing 3 L nasal cannula at time of examination. Patient denies back pain, abdominal pain, headache, or neck stiffness. Labs Ordered: CBC, CMP, lactic acid, troponin, D-dimer INR, APTT, magnesium, COVID/flu/RSV, BNP Imaging Ordered: Chest x-ray, CTA PE scan Medications Ordered: 1 L normal saline IV bolus, DuoNeb, azithromycin IV, ceftriaxone IV, Lasix IV (pt takes PO at home) Results: Pt's chest x-ray indicates Highly suggestive of pneumonitis more prominent in the right lower lobe. Diagnosis: Upper respiratory infection, pneumonia, influenza a, congestive heart failure, UTI Patient Education/Shared MDM: Results of lab work and chest x-ray shared with patient and her family. She endorses improvement after medication administration and duo neb, but continues to have coarse breath sounds. Pt continues to have an oxygen requirement of 3L NC to maintain oxygen saturation of 93%. 0410- Spoke with hospitalist who was in agreement with plan for admission. Pt will be admitted to the IMU d/t elevated troponin. <Blossom Elena APRN - Last Filed: 09/20/24 04:20> Differential Diagnosis Differential Diagnosis: Pneumonia, CHF exacerbation, influenza, COVID, PE <Blossom Elena APRN - Last Filed: 09/20/24 04:20> Vital Signs Vital Signs: Vital Signs Temperature 36.5 C 09/19/24 19:32 Pulse Rate 87 09/19/24 19:32 Respiratory Rate 20 09/19/24 19:32 Blood Pressure 153/110 H 09/19/24 19:32 Pulse Oximetry 84 L 09/19/24 19:32 Oxygen Delivery Room Air 09/19/24 19:32 Temperature 36.5 C 09/19/24 19:32 Pulse Rate 69 09/20/24 05:10 Respiratory Rate 17 09/20/24 05:10 Blood Pressure 98/54 L 09/20/24 05:10 Pulse Oximetry 95 09/20/24 05:10 Oxygen Delivery Room Air 09/19/24 19:32 <Blossom Elena APRN - Last Filed: 09/20/24 04:20> Vital Signs Temperature 36.5 C 09/19/24 19:32 Pulse Rate 87 09/19/24 19:32 Respiratory Rate 20 09/19/24 19:32 Blood Pressure 153/110 H 09/19/24 19:32 Pulse Oximetry 84 L 09/19/24 19:32 Oxygen Delivery Room Air 09/19/24 19:32 Temperature 36.5 C 09/19/24 19:32 Pulse Rate 69 09/20/24 05:10 Respiratory Rate 17 09/20/24 05:10 Blood Pressure 98/54 L 09/20/24 05:10 Pulse Oximetry 95 09/20/24 05:10 Oxygen Delivery Room Air 09/19/24 19:32 <Jose F Weir MD - Last Filed: 09/20/24 06:31> Lab Data Lab results reviewed: Yes I reviewed the patient's lab results. <Blossom Elena APRN - Last Filed: 09/20/24 04:20> Result diagrams: 09/19/24 19:47 09/19/24 19:47 <Blossom Elena APRN - Last Filed: 09/20/24 04:20> Labs: Lab Results 09/19/24 09/20/24 09/20/24 Range/Units 19:47 00:06 02:55 WBC 13.6 H (4.5-10.0) K/mm3 RBC 4.22 (4.2-5.4) M/mm3 Hgb 11.7 L (12.0-15.0) g/dL Hct 37.9 (37.0-47.0) % MCV 89.8 (80-100) fl MCH 27.7 (26-34) pg MCHC 30.9 L (32-36) g/dl RDW 13.6 (11.5-14.5) % Plt Count 227 D (150-375) k/mm3 MPV 9.8 (7.4-10.4) fl Immature Gran % (Auto) 1.2 H (0-0.5) % Neut % (Auto) 86.8 H (45.5-73.1) % Lymph % (Auto) 5.4 L (18.3-44.2) % Bonner % (Auto) 6.2 (2.6-8.5) % Eos % (Auto) 0.0 (0-4.4) % Baso % (Auto) 0.4 (0.2-1.2) % Lymph # (Auto) 0.73 L (0.9-3.2) K/mm3 Bonner # (Auto) 0.9 H (0.1-0.6) K/mm3 Eos # (Auto) 0.0 (0-0.3) K/mm3 Baso # (Auto) 0.1 (0.0-0.1) K/mm3 Abs Immat Gran (auto) 0.16 H (0.00-0.031) K/mm3 Absolute Neuts (auto) 11.8 H (1.3-6.7) K/mm3 Absolute Nucleated RBC 0.000 (0.0-0.012) K/mm3 Nucleated RBC % 0.0 (0.0-0.2) % PT 15.9 H (11.1-14.7) Seconds INR 1.2 APTT 30.1 (22.3-36.8) Seconds D-Dimer 10.85 H (<0.48) ug/mL Sodium 139 (137-145) mmol/L Potassium 3.4 (3.4-5.0) mmol/L Chloride 96 L (98-107) mmol/L Carbon Dioxide 32 H (22-30) mmol/L Anion Gap 11 (4-12) mmol/L BUN 23 H (7-17) mg/dL Creatinine 0.70 (0.7-1.0) mg/dL Estim Creat Clear Calc 51 ml/min Estimated GFR > 60 (59 - ) Glucose 201 H (65-110) mg/dL Lactic Acid 1.2 (0.7-2.0) mmol/L Calcium 9.3 (8.4-10.2) mg/dL Magnesium 1.7 (1.6-2.3) mg/dL Total Bilirubin 1.6 H (0.2-1.3) mg/dL AST 30 (14-36) U/L ALT 20 (6-35) U/L Alkaline Phosphatase 89 (38-126) U/L Troponin I 0.066 H* 0.063 H* (0.000-0.034) ng/mL NT-Pro-B Natriuret Pep 6640 H (19.9-100) pg/mL Total Protein 7.0 (6.3-8.2) g/dL Albumin 3.5 (3.5-5.1) g/dL Urine Color (Yellow) Urine Appearance (Clear) Urine pH (5.0-9.0) Ur Specific [place] (1.001-1.035) Urine Protein (Negative) mg/dL Urine Glucose (UA) (Negative) mg/dL Urine Ketones (Negative) mg/dL Ur Blood (Man) (Negative) Urine Nitrate (Negative) Urine Bilirubin (Negative) Urine Urobilinogen (<2.0) mg/dL Add Ur Microanalysis Leukocyte Esterase Rfl (Negative) BROOKE/UL Urine RBC (0-2) /hpf Urine WBC (0-3) /hpf Ur Squamous Epith Cells (Few) /hpf Urine Bacteria /hpf Urine Casts Influenza A (RT-PCR) Positive A (Negative) Influenza B (RT-PCR) Negative (Negative) RSV (RT-PCR) Negative (Negative) SARS-CoV-2 RNA (RT-PCR) Negative (Negative) 09/20/24 Range/Units 03:11 WBC (4.5-10.0) K/mm3 RBC (4.2-5.4) M/mm3 Hgb (12.0-15.0) g/dL Hct (37.0-47.0) % MCV (80-100) fl MCH (26-34) pg MCHC (32-36) g/dl RDW (11.5-14.5) % Plt Count (150-375) k/mm3 MPV (7.4-10.4) fl Immature Gran % (Auto) (0-0.5) % Neut % (Auto) (45.5-73.1) % Lymph % (Auto) (18.3-44.2) % Bonner % (Auto) (2.6-8.5) % Eos % (Auto) (0-4.4) % Baso % (Auto) (0.2-1.2) % Lymph # (Auto) (0.9-3.2) K/mm3 [place] # (Auto) (0.1-0.6) K/mm3 Eos # (Auto) (0-0.3) K/mm3 Baso # (Auto) (0.0-0.1) K/mm3 Abs Immat Gran (auto) (0.00-0.031) K/mm3 Absolute Neuts (auto) (1.3-6.7) K/mm3 Absolute Nucleated RBC (0.0-0.012) K/mm3 Nucleated RBC % (0.0-0.2) % PT (11.1-14.7) Seconds INR APTT (22.3-36.8) Seconds D-Dimer (<0.48) ug/mL Sodium (137-145) mmol/L Potassium (3.4-5.0) mmol/L Chloride (98-107) mmol/L Carbon Dioxide (22-30) mmol/L Anion Gap (4-12) mmol/L BUN (7-17) mg/dL Creatinine (0.7-1.0) mg/dL Estim Creat Clear Calc ml/min Estimated GFR (59 - ) Glucose (65-110) mg/dL Lactic Acid (0.7-2.0) mmol/L Calcium (8.4-10.2) mg/dL Magnesium (1.6-2.3) mg/dL Total Bilirubin (0.2-1.3) mg/dL AST (14-36) U/L ALT (6-35) U/L Alkaline Phosphatase (38-126) U/L Troponin I (0.000-0.034) ng/mL NT-Pro-B Natriuret Pep (19.9-100) pg/mL Total Protein (6.3-8.2) g/dL Albumin (3.5-5.1) g/dL Urine Color Yellow (Yellow) Urine Appearance Clear (Clear) Urine pH 7.0 (5.0-9.0) Ur Specific [place] 1.025 (1.001-1.035) Urine Protein 1+ H (Negative) mg/dL Urine Glucose (UA) Negative (Negative) mg/dL Urine Ketones Negative (Negative) mg/dL Ur Blood (Man) Negative (Negative) Urine Nitrate Positive H (Negative) Urine Bilirubin Negative (Negative) Urine Urobilinogen 1.0 (<2.0) mg/dL Add Ur Microanalysis Reviewed Leukocyte Esterase Rfl 1+ H (Negative) BROOKE/UL Urine RBC 3-5 H (0-2) /hpf Urine WBC 0-5 (0-3) /hpf Ur Squamous Epith Cells None seen (Few) /hpf Urine Bacteria Rare /hpf Urine Casts 0-2 Influenza A (RT-PCR) (Negative) Influenza B (RT-PCR) (Negative) RSV (RT-PCR) (Negative) SARS-CoV-2 RNA (RT-PCR) (Negative) <Blossom Elena, CATERING CONVENTION SERVICES MANAGER - Last Filed: 09/20/24 04:20> Lab Results 09/19/24 09/20/24 09/20/24 Range/Units 19:47 00:06 02:55 WBC 13.6 H (4.5-10.0) K/mm3 RBC 4.22 (4.2-5.4) M/mm3 Hgb 11.7 L (12.0-15.0) g/dL Hct 37.9 (37.0-47.0) % MCV 89.8 (80-100) fl MCH 27.7 (26-34) pg MCHC 30.9 L (32-36) g/dl RDW 13.6 (11.5-14.5) % Plt Count 227 D (150-375) k/mm3 MPV 9.8 (7.4-10.4) fl Immature Gran % (Auto) 1.2 H (0-0.5) % Neut % (Auto) 86.8 H (45.5-73.1) % Lymph % (Auto) 5.4 L (18.3-44.2) % [place] % (Auto) 6.2 (2.6-8.5) % Eos % (Auto) 0.0 (0-4.4) % Baso % (Auto) 0.4 (0.2-1.2) % Lymph # (Auto) 0.73 L (0.9-3.2) K/mm3 [place] # (Auto) 0.9 H (0.1-0.6) K/mm3 Eos # (Auto) 0.0 (0-0.3) K/mm3 Baso # (Auto) 0.1 (0.0-0.1) K/mm3 Abs Immat Gran (auto) 0.16 H (0.00-0.031) K/mm3 Absolute Neuts (auto) 11.8 H (1.3-6.7) K/mm3 Absolute Nucleated RBC 0.000 (0.0-0.012) K/mm3 Nucleated RBC % 0.0 (0.0-0.2) % PT 15.9 H (11.1-14.7) Seconds INR 1.2 APTT 30.1 (22.3-36.8) Seconds D-Dimer 10.85 H (<0.48) ug/mL Sodium 139 (137-145) mmol/L Potassium 3.4 (3.4-5.0) mmol/L Chloride 96 L (98-107) mmol/L Carbon Dioxide 32 H (22-30) mmol/L Anion Gap 11 (4-12) mmol/L BUN 23 H (7-17) mg/dL Creatinine 0.70 (0.7-1.0) mg/dL Estim Creat Clear Calc 51 ml/min Estimated GFR > 60 (59 - ) Glucose 201 H (65-110) mg/dL Lactic Acid 1.2 (0.7-2.0) mmol/L Calcium 9.3 (8.4-10.2) mg/dL Magnesium 1.7 (1.6-2.3) mg/dL Total Bilirubin 1.6 H (0.2-1.3) mg/dL AST 30 (14-36) U/L ALT 20 (6-35) U/L Alkaline Phosphatase 89 (38-126) U/L Troponin I 0.066 H* 0.063 H* (0.000-0.034) ng/mL NT-Pro-B Natriuret Pep 6640 H (19.9-100) pg/mL Total Protein 7.0 (6.3-8.2) g/dL Albumin 3.5 (3.5-5.1) g/dL Urine Color (Yellow) Urine Appearance (Clear) Urine pH (5.0-9.0) Ur Specific [place] (1.001-1.035) Urine Protein (Negative) mg/dL Urine Glucose (UA) (Negative) mg/dL Urine Ketones (Negative) mg/dL Ur Blood (Man) (Negative) Urine Nitrate (Negative) Urine Bilirubin (Negative) Urine Urobilinogen (<2.0) mg/dL Add Ur Microanalysis Leukocyte Esterase Rfl (Negative) BROOKE/UL Urine RBC (0-2) /hpf Urine WBC (0-3) /hpf Ur Squamous Epith Cells (Few) /hpf Urine Bacteria /hpf Urine Casts Influenza A (RT-PCR) Positive A (Negative) Influenza B (RT-PCR) Negative (Negative) RSV (RT-PCR) Negative (Negative) SARS-CoV-2 RNA (RT-PCR) Negative (Negative) 09/20/24 Range/Units 03:11 WBC (4.5-10.0) K/mm3 RBC (4.2-5.4) M/mm3 Hgb (12.0-15.0) g/dL Hct (37.0-47.0) % MCV (80-100) fl MCH (26-34) pg MCHC (32-36) g/dl RDW (11.5-14.5) % Plt Count (150-375) k/mm3 MPV (7.4-10.4) fl Immature Gran % (Auto) (0-0.5) % Neut % (Auto) (45.5-73.1) % Lymph % (Auto) (18.3-44.2) % [place] % (Auto) (2.6-8.5) % Eos % (Auto) (0-4.4) % Baso % (Auto) (0.2-1.2) % Lymph # (Auto) (0.9-3.2) K/mm3 [place] # (Auto) (0.1-0.6) K/mm3 Eos # (Auto) (0-0.3) K/mm3 Baso # (Auto) (0.0-0.1) K/mm3 Abs Immat Gran (auto) (0.00-0.031) K/mm3 Absolute Neuts (auto) (1.3-6.7) K/mm3 Absolute Nucleated RBC (0.0-0.012) K/mm3 Nucleated RBC % (0.0-0.2) % PT (11.1-14.7) Seconds INR APTT (22.3-36.8) Seconds D-Dimer (<0.48) ug/mL Sodium (137-145) mmol/L Potassium (3.4-5.0) mmol/L Chloride (98-107) mmol/L Carbon Dioxide (22-30) mmol/L Anion Gap (4-12) mmol/L BUN (7-17) mg/dL Creatinine (0.7-1.0) mg/dL Estim Creat Clear Calc ml/min Estimated GFR (59 - ) Glucose (65-110) mg/dL Lactic Acid (0.7-2.0) mmol/L Calcium (8.4-10.2) mg/dL Magnesium (1.6-2.3) mg/dL Total Bilirubin (0.2-1.3) mg/dL AST (14-36) U/L ALT (6-35) U/L Alkaline Phosphatase (38-126) U/L Troponin I (0.000-0.034) ng/mL NT-Pro-B Natriuret Pep (19.9-100) pg/mL Total Protein (6.3-8.2) g/dL Albumin (3.5-5.1) g/dL Urine Color Yellow (Yellow) Urine Appearance Clear (Clear) Urine pH 7.0 (5.0-9.0) Ur Specific [place] 1.025 (1.001-1.035) Urine Protein 1+ H (Negative) mg/dL Urine Glucose (UA) Negative (Negative) mg/dL Urine Ketones Negative (Negative) mg/dL Ur Blood (Man) Negative (Negative) Urine Nitrate Positive H (Negative) Urine Bilirubin Negative (Negative) Urine Urobilinogen 1.0 (<2.0) mg/dL Add Ur Microanalysis Reviewed Leukocyte Esterase Rfl 1+ H (Negative) BROOKE/UL Urine RBC 3-5 H (0-2) /hpf Urine WBC 0-5 (0-3) /hpf Ur Squamous Epith Cells None seen (Few) /hpf Urine Bacteria Rare /hpf Urine Casts 0-2 Influenza A (RT-PCR) (Negative) Influenza B (RT-PCR) (Negative) RSV (RT-PCR) (Negative) SARS-CoV-2 RNA (RT-PCR) (Negative) <Jose F Weir MD - Last Filed: 09/20/24 06:31> Imaging Data Attestation: I personally reviewed and interpreted this imaging study as follows: <Blossom Elena APRN - Last Filed: 09/20/24 04:20> Radiologist's impression: Impressions Chest X-Ray 09/19/24 20:17 IMPRESSION: Highly suggestive of pneumonitis more prominent in the right lower lobe. <Blossom Elena APRN - Last Filed: 09/20/24 04:20> Discharge Plan Discharge Clinical Impression: Pneumonia, Influenza A, Urinary tract infection <Blossom Elena APRN - Last Filed: 09/20/24 04:20> Patient Disposition: Still a Patient <Blossom Elena APRN - Last Filed: 09/20/24 04:20> Condition: Stable <Blossom Elena APRN - Last Filed: 09/20/24 04:20>
[2024-09-20 00:43] LABS: Troponin I 0.066 ng/mL (0.000-0.034)
[2024-09-20 00:47] LABS: D Dimer 10.85 ug/mL (<0.48)
[2024-09-20 00:50] LABS: Influenza A QL RT-PCR Positive (Negative); Influenza B QL RT-PCR Negative (Negative); RSV RNA, RT-PCR Negative (Negative); SARS-CoV-2 RNA PCR Negative (Negative)
[2024-09-20] MEDS: FUROSEMIDE INJ 40 MG/4 ML VIAL IV PUSH ×3 (00:53→22:45)
[2024-09-20] MEDS: AZITHROMYCIN 500 MG/NS 250 ML 500 MG/250 ML BAG 250 MG IVPB (01:04)
--- NOTE | 2024-09-20 02:47 | ECG_ITS ---
Test Date: 2024-09-20 02:55:33 Measurements Intervals [place] Rate: 87 P: 0 IN: 0 QRS: 2 QRSD: 101 T: 194 QT: 390 QTc: 471 Interpretive Statements ATRIAL FIBRILLATION WITH VENTRICULAR PREMATURE COMPLEX ST-T WAVE ABNORMALITY IN ANTEROLATERAL LEADS- CONSIDER ISCHEMIA BASELINE ARTIFACT- I, III, AVR, AVL, AVF, V2-V3 ABNORMAL ECG Compared to ECG 09/19/2024 19:55:57 NO SIGNIFICANT CHANGE Electronically Signed On 09-20-2024 06:45:32 INTERIOR SURFACE INSULATION WORKER by Napoleon Coyne D.O.
[2024-09-20 03:30] LABS: Add Urine Microscopic? YES; Appearance Urine Clear (Clear); Bacteria Urine Rare /hpf; Bilirubin Urine Negative (Negative); Blood Urine Negative (Negative); Color Urine Yellow (Yellow); Glucose Urine UA Negative (Negative); Ketones Urine Negative (Negative); Leukocyte Esterase Ur 1+ LEU/UL (Negative); Need Manual Microscopic Reviewed; Nitrate Urine Positive (Negative); Non Pathogenic Casts 0-2; Protein Urine 1+ mg/dL (Negative); Specific Grav Ur 1.025 (1.001-1.035); Squamous Epithelial Cell Urine None Seen /hpf (Few); WBC Urine 0-5 /hpf (0-3)
[2024-09-20 03:36] LABS: Troponin I 0.063 ng/mL (0.000-0.034)
--- NOTE | 2024-09-20 05:58 | PM.IMHP ---
H&P: HPI History of Present Illness Date/Time: 09/20/24 05:58 Chief Complaint: Shortness of breath Cough Narrative: Liliya Salinas is an 84 yo F with a mHx significant for peripheral neuropathy, dyslipidemia, A-fib s/p PPM She resides with her son who was concerned about her worsening cough; it is productive of yellowish sputum but void of blood. With no known modifying factors, her symptoms came to be associated with increased somnolence, fatigue, poor execution of her ADL, dyspnea on minimal exertion. She denies chest pain, nausea, vomiting, cough, PND, orthopnea, chest pain, dizziness or LOC. They reports she generally does not require oxygen but she is wearing 3 L nasal cannula at time of examination. Patient denies back pain, abdominal pain, headache, or neck stiffness. A retired [employer], she does not smoke/chew tobacco, drink alcohol or consume recreational drugs; Work-up findings: Influenza A+ CXR: Highly suggestive of pneumonitis more prominent in the right lower lobe. Abdominal US: Cholecystectomy Troponin: 0.066 >> 0.063 BNP 6640 D-dimer 10 UA: 1+LE; 0-5 WBC; +Nitrite; CTA chest: Pending Liliya Salinas will be admitted, evaluated and managed for influenza A infection, Pneumonia and physical deconditioning Review of Systems Review of Systems: All systems reviewed & are unremarkable except as noted in HPI and below PMFSH Past Medical History Medical History BANDAR (obstructive sleep apnea) Hypertension Hyperlipidemia Pacemaker Congestive heart failure (CHF) no echo for review Atrial fibrillation Family History Family History Other Diabetes mellitus Family history of cardiovascular disease Family history of malignant neoplasm Social History Social History Smoking status: Never smoker Alcohol intake: current Alcohol use details: WINE Substance use: never Substance use type: does not use Do You Feel Safe in your Home?: Yes Lack of Transportation: No Lack of Food: Never True Current Housing: I Have Housing Concerned About Future Housing: No Difficulty Paying Gas/Electric Bills: No Difficulty Paying for Meds: No Currently Unemployed: No Education: High School Diploma/GED Difficulty w/ Childcare or Family Care: No Living arrangements: alone Spiritual care concerns: No Meds Home Medications and Allergies Home Medications ?Medication ?Instructions ?Recorded ?Confirmed ?Type albuterol sulfate 90 mcg/actuation 1 inh inhalation Q4H PRN Shortness 04/12/20 02/16/21 History breath activated powder inhaler Of Breath Or Wheezing (ProAir RespiClick) apixaban 5 mg tablet (Eliquis) 5 mg PO BID 04/12/20 02/16/21 History aspirin 81 mg tablet,delayed 81 mg PO DAILY 04/12/20 02/16/21 History release (Adult Low Dose Aspirin) atorvastatin 10 mg tablet 10 mg PO DAILY 04/12/20 02/16/21 History ezetimibe 10 mg tablet 10 mg PO DAILY 04/12/20 02/16/21 History furosemide 20 mg tablet 20 mg PO DAILY PRN Edema 04/12/20 02/16/21 History metoprolol tartrate 25 mg tablet 25 mg PO BID 04/12/20 02/16/21 History gabapentin 300 mg capsule 300 mg PO BID 12/11/23 History Allergies Allergy/AdvReac Type Severity Reaction Status Date / Time No Known Allergies Allergy Unverified 09/19/24 19:26 Vital Signs Vital Signs - 24 hr 09/19/24 19:32 09/19/24 21:45 09/19/24 21:56 Temperature 97.7 F Pulse Rate 87 71 Respiratory Rate 20 19 19 Blood Pressure 153/110 H 161/69 H Pulse Oximetry 84 L 92 Oxygen Delivery Room Air 09/20/24 00:05 09/20/24 00:16 09/20/24 00:32 Temperature Pulse Rate 71 74 89 Respiratory Rate 22 H 15 20 Blood Pressure Pulse Oximetry 100 Oxygen Delivery 09/20/24 00:37 09/20/24 03:07 09/20/24 05:10 Temperature Pulse Rate 82 82 69 Respiratory Rate 16 21 H 17 Blood Pressure 138/56 L 100/50 L 98/54 L Pulse Oximetry 97 91 95 Oxygen Delivery Exam Const: General: comfortable and no acute distress HENMT: Ears: TM's normal bilaterally Mouth: Yes moist mucous membranes Eyes: General: appearance normal, both eyes and all related structures Pupils: Equal, round and reactive pupils present Neck: Neck: supple Resp: Auscultation: rhonchi lower bilaterally Cardio: Rate: regular rate Rhythm: regular rhythm Skin: General skin exam: normal color Neuro: Motor exam (neuro): 5/5 motor strength present throughout Psych: Mental Status: mental status grossly normal H&P: Results Labs Labs: Short CBC 09/19/24 Range/Units 19:47 WBC 13.6 H (4.5-10.0) K/mm3 Hgb 11.7 L (12.0-15.0) g/dL Hct 37.9 (37.0-47.0) % Plt Count 227 D (150-375) k/mm3 BMP 09/19/24 19:47 Sodium 139 Potassium 3.4 Chloride 96 L Carbon Dioxide 32 H BUN 23 H Creatinine 0.70 Glucose 201 H Calcium 9.3 Cardiac Enzymes 09/20/24 09/20/24 Range/Units 00:06 02:55 Troponin I 0.066 H* 0.063 H* (0.000-0.034) ng/mL Liver Function 09/19/24 Range/Units 19:47 Total Bilirubin 1.6 H (0.2-1.3) mg/dL AST 30 (14-36) U/L ALT 20 (6-35) U/L Alkaline Phosphatase 89 (38-126) U/L Albumin 3.5 (3.5-5.1) g/dL Urine 09/20/24 Range/Units 03:11 Urine Color Yellow (Yellow) Urine Appearance Clear (Clear) Urine pH 7.0 (5.0-9.0) Ur Specific [place] 1.025 (1.001-1.035) Urine Protein 1+ H (Negative) mg/dL Urine Glucose (UA) Negative (Negative) mg/dL Assessment and Plan Assessment and plan (1) Influenza A: Code(s): J10.1 - Influenza due to other identified influenza virus with other respiratory manifestations Status: Acute (2) Pneumonia: Code(s): J18.9 - Pneumonia, unspecified organism Status: Acute Plan Acute and principal conditions 1. Influenza A 2. Community acquired pneumonia C. Elevated D-dimer D. NSTEMi E. Elevated BNP; Fluid F. UTI Rx: A. IV Lasix, ECHO, B. Ceftriaxone, Doxycycline, Anti-tussives C. Supplemental oxygen D. Urine culture E. CTA chest pending F. Trend troponin, ECG; Cardiac monitoring G.. supportive management of influenza A Chronic and stable conditions 1. A-fib, chronic. 2. Peripheral neuropathy 3. Dyslipidemia. Miscellaneous care 1. Code status. Full 2. Nutrition. Regular 3. VTE prophylaxis. Hospitalist MIPS Advance Care Plan I have confirmed that the patient's Advanced Care Plan is present, code status is documented, or surrogate decision maker is listed in patient medical record.: Yes Medication Reconciliation I have utilized all available resources to obtain, update and review the patients current medications (includes all prescriptions, OTC, herbals, cannabis, and nutritional supplements).: Yes The patient is not eligible for med reconciliation; the patient is in a emergent medical situation where delaying treatment would jeopardize the patients health.: Yes
--- NOTE | 2024-09-20 07:51 | PC.NURSE ---
Meal tray ordered for pt
[2024-09-20] MEDS: HEPARIN SODIUM 5,000 UNITS/ML VIAL 5000 UNITS SUB-Q (09:53)
[2024-09-20] MEDS: OSELTAMIVIR PHOSPHATE 75 MG CAPSULE PO (09:57)
[2024-09-20] MEDS: guaiFENesin/DEXTROMETHORPHAN 10 ML UDC PO ×2 (10:00→13:44)
--- NOTE | 2024-09-20 10:13 | PC.NURSE ---
This RN attempted to draw 5am labs that have not been draw yet. Unsuccessful x2. Phlebotomy called by EUNICE Cruz. Phlebotomy to bedside.
--- NOTE | 2024-09-20 12:54 | PC.NURSE ---
Lunch tray ordered for pt.
--- NOTE | 2024-09-20 13:31 | PC.NURSE ---
Pharmacy called to tube ordered doxy to ED.
[2024-09-20] MEDS: DOXYCYCLINE 100 MG/NS 100 ML 100 MG/100 ML BAG IVPB (13:45)
--- NOTE | 2024-09-20 15:21 | PC.NURSE ---
Dinner tray ordered for pt.
--- NOTE | 2024-09-20 16:01 | P.CONCA_ITS ---
Assessment and Plan Assessment and plan (1) Persistent atrial fibrillation: Code(s): I48.19 - Other persistent atrial fibrillation Status: Acute (2) Status post placement of cardiac pacemaker: Code(s): Z95.0 - Presence of cardiac pacemaker Status: Acute (3) Acute on chronic diastolic heart failure: Code(s): I50.33 - Acute on chronic diastolic (congestive) heart failure Status: Acute (4) Elevated troponin: Code(s): R79.89 - Other specified abnormal findings of blood chemistry Status: Acute (5) CAD (coronary artery disease): Code(s): I25.10 - Atherosclerotic heart disease of [place] coronary artery without angina pectoris Status: Acute (6) Status post aortic valve replacement with bioprosthetic valve: Code(s): Z95.3 - Presence of xenogenic heart valve Status: Acute (7) Status post tricuspid valve repair: Code(s): Z98.890 - Other specified postprocedural states Status: Acute (8) Status post mitral valve repair: Code(s): Z98.890 - Other specified postprocedural states Status: Acute Plan Assessment: 1. Elevated troponin-without chest pain, most likely secondary to influenza a and acute on chronic heart failure 2. Acute on chronic diastolic heart failure secondary to severe TR, moderate MR, and possible stress of influenza A pneumonia-LVEF noted to be 55%, NT pro BNP 6640 3. Valvular heart disease-status post bioprosthetic aortic valve replacement for severe aortic stenosis, mitral valve repair for MR and tricuspid valve ring repair for TR; most recent echo with normal LVEF of 55%, moderate MR, severe TR, normal functioning bioprosthetic aortic valve with normal velocities 4. Persistent atrial fibrillation on apixaban for chronic anticoagulation 5. Status post Biotronik permanent pacemaker. She has been reporting dizziness and lightheadedness which could be secondary to her acute illness 6. CAD 7. Hypertension-controlled 8. Hyperlipidemia 9. History of PE 10. Obesity 11. Obstructive sleep apnea 12. Influenza a pneumonia 13. UTI 14. COPD Plan: Trend troponin to peak EKG p.r.n. for chest pain IV Lasix 40 mg now and 20 mg b.i.d. starting tomorrow Check weights, ins and outs, renal function daily and modify dose of diuretic Check and replace electrolytes as needed keeping potassium greater than 4 and magnesium greater than 2 Obtain TTE to evaluate valvular function and LV ejection fraction Recommend pacemaker interrogation given dizziness Continue aspirin 81 mg daily, ezetimibe, and atorvastatin Continue metoprolol at home dose Continue apixaban for anticoagulation for AFib Management of influenza a pneumonia, UTI other medical problems per primary team History of Present Illness History of Present Illness Consult date/time: 09/20/24 16:01 Reason For Visit: elevated troponin, bilateral pneumonia, UTI, influ Narrative: 84-year-old female with history of hypertension, hyperlipidemia, persistent atrial fibrillation on anticoagulation with apixaban, obstructive sleep apnea, diastolic heart failure, status post pacemaker, aortic stenosis status post bioprosthetic valve, tricuspid regurgitation status post repair with a ring, mitral valve repair, CAD, history of PE, COPD, obesity presents with chief complaints of cough with yellow sputum, and worsening shortness of breath. Patient is accompanied by her son who is at the bedside. Patient lives by herself at home. She has been experiencing cough with initially clear sputum than yellow sputum for the past 1 month. She has become more tired and fatigued over this time. She has chronic shortness of breath from her valve disease but which has been worsening over the past month. She has chronic lower extremity swelling which is also worse over the past few weeks. She has some lightheadedness and dizziness for the past few days. Patient has been taking all her medications regularly. When her son came to check on her yesterday she was somnolent and given aforementioned symptoms he brought her for further evaluation to the ER. Patient denies any chest pain, dizziness, lightheadedness, presyncope, syncope, nausea, emesis, abdominal pain, headache, focal weakness. Workup: Troponin: 0.066, 0.063 NT proBNP: 6640 Influenza A positive EKG: AFib, ventricular rate 87, PVCs, ST depression and T-wave inversions in anterolateral leads. No old EKG to compare TTE (per consult note dated 01/2024 at outside hospital): LVEF 55%, status post mitral valve repair with moderate MR, status post tricuspid valve ring repair with severe TR, bioprosthetic aortic valve is functioning normally Review of Systems 2 Review of Systems: A complete review of systems was performed and negative other than those mentioned HPI [facility] Past Medical History Medical History BANDAR (obstructive sleep apnea) Hypertension Hyperlipidemia Pacemaker Congestive heart failure (CHF) no echo for review Atrial fibrillation Family History Family History Other Diabetes mellitus Family history of cardiovascular disease Family history of malignant neoplasm Social History Social History Smoking status: Never smoker Alcohol intake: current Alcohol use details: WINE Substance use: never Substance use type: does not use Do You Feel Safe in your Home?: Yes Lack of Transportation: No Lack of Food: Never True Current Housing: I Have Housing Concerned About Future Housing: No Difficulty Paying Gas/Electric Bills: No Difficulty Paying for Meds: No Currently Unemployed: No Education: High School Diploma/GED Difficulty w/ Childcare or Family Care: No Living arrangements: alone Spiritual care concerns: No Meds Home Medications and Allergies Home Medications ?Medication ?Instructions ?Recorded ?Confirmed ?Type albuterol sulfate 90 mcg/actuation 1 inh inhalation Q4H PRN Shortness 04/12/20 02/16/21 History breath activated powder inhaler Of Breath Or Wheezing (ProAir RespiClick) apixaban 5 mg tablet (Eliquis) 5 mg PO BID 04/12/20 02/16/21 History aspirin 81 mg tablet,delayed 81 mg PO DAILY 04/12/20 02/16/21 History release (Adult Low Dose Aspirin) atorvastatin 10 mg tablet 10 mg PO DAILY 04/12/20 02/16/21 History ezetimibe 10 mg tablet 10 mg PO DAILY 04/12/20 02/16/21 History furosemide 20 mg tablet 20 mg PO DAILY PRN Edema 04/12/20 02/16/21 History metoprolol tartrate 25 mg tablet 25 mg PO BID 04/12/20 02/16/21 History gabapentin 300 mg capsule 300 mg PO BID 12/11/23 History Allergies Allergy/AdvReac Type Severity Reaction Status Date / Time No Known Allergies Allergy Unverified 09/19/24 19:26 Vital Signs Vital Signs - 24 hr 09/19/24 19:32 09/19/24 21:45 09/19/24 21:56 Temperature 36.5 C Pulse Rate 87 71 Respiratory Rate 20 19 19 Blood Pressure 153/110 H 161/69 H Pulse Oximetry 84 L 92 Oxygen Delivery Room Air 09/20/24 00:05 09/20/24 00:16 09/20/24 00:32 Temperature Pulse Rate 71 74 89 Respiratory Rate 22 H 15 20 Blood Pressure Pulse Oximetry 100 Oxygen Delivery 09/20/24 00:37 09/20/24 03:07 09/20/24 05:10 Temperature Pulse Rate 82 82 69 Respiratory Rate 16 21 H 17 Blood Pressure 138/56 L 100/50 L 98/54 L Pulse Oximetry 97 91 95 Oxygen Delivery 09/20/24 06:33 09/20/24 08:36 09/20/24 09:51 Temperature 36.5 C Pulse Rate 69 80 69 Respiratory Rate 15 16 16 Blood Pressure 104/70 114/62 122/48 L Pulse Oximetry 96 95 95 Oxygen Delivery 09/20/24 13:34 09/20/24 14:41 Temperature Pulse Rate 74 69 Respiratory Rate 16 16 Blood Pressure 106/49 L 121/55 L Pulse Oximetry 99 99 Oxygen Delivery Exam 2 Narrative: General: Alert oriented x3, no acute distress Neck: Supple, JVD + Chest: Bibasilar rales present, no rhonchi Cardiac: S1, S2 +, regular rate, regular rhythm, no murmurs or rubs Extremities: Bilateral lower extremity edema 3+, no skin rash Neurologic: Alert and oriented x3, no focal neurological deficits Results Labs and Meds 09/19/24 19:47 09/19/24 19:47 Lab results: Cardiac Enzymes 09/19/24 09/20/24 09/20/24 Range/Units 19:47 00:06 02:55 AST 30 (14-36) U/L Troponin I 0.066 H* 0.063 H* (0.000-0.034) ng/mL Coagulation 09/20/24 Range/Units 00:06 PT 15.9 H (11.1-14.7) Seconds APTT 30.1 (22.3-36.8) Seconds CBC 09/19/24 Range/Units 19:47 WBC 13.6 H (4.5-10.0) K/mm3 RBC 4.22 (4.2-5.4) M/mm3 Hgb 11.7 L (12.0-15.0) g/dL Hct 37.9 (37.0-47.0) % Plt Count 227 D (150-375) k/mm3 Lymph # (Auto) 0.73 L (0.9-3.2) K/mm3 Rains # (Auto) 0.9 H (0.1-0.6) K/mm3 Eos # (Auto) 0.0 (0-0.3) K/mm3 Baso # (Auto) 0.1 (0.0-0.1) K/mm3 Comprehensive Metabolic Panel 09/19/24 Range/Units 19:47 Sodium 139 (137-145) mmol/L Potassium 3.4 (3.4-5.0) mmol/L Chloride 96 L (98-107) mmol/L Carbon Dioxide 32 H (22-30) mmol/L BUN 23 H (7-17) mg/dL Creatinine 0.70 (0.7-1.0) mg/dL Glucose 201 H (65-110) mg/dL Calcium 9.3 (8.4-10.2) mg/dL AST 30 (14-36) U/L ALT 20 (6-35) U/L Alkaline Phosphatase 89 (38-126) U/L Total Protein 7.0 (6.3-8.2) g/dL Albumin 3.5 (3.5-5.1) g/dL Intake and Output 09/20/24 09/20/24 09/20/24 07:59 15:59 23:59 Intake Total 1300 100 Balance 1300 100 Intake: IV 1300 100 Sodium Chloride 0.9% IV 1,000 1000 ml @ 500 mls/hr IV CONT .Q2H STA Rx#:[id number] Azithromycin 500 mg/Ns 250 ml 250 500 mg In 250 ml @ 250 mls/hr IVPB ONCE STA Rx#:[id number] Doxycycline 100 mg/Ns 100 ml 100 100 mg In 100 ml @ 100 mls/hr IVPB Q12H MICHAEL Rx#:[id number] cefTRIAXone 1 GM/NS 50 ML 1 gm 50 In 50 ml @ 100 mls/hr IVPB ONCE STA Rx#:[id number] EKG Interpretation EKG shows: atrial fibrillation (Ventricular rate 87, PVCs, ST depressions and T- wave inversions in anterolateral leads )
--- NOTE | 2024-09-20 17:45 | ADMGEN ---
This patient, Liliya Salinas, was admitted to IMU Room 212-01 @ 1715 Patient/family oriented to hospital policies and general routines including ID bracelet, bed and alarms, visiting hours, pain management, procedures, bathroom and other care routines, personal items, smoking policy, room service/diet, and visiting hours. Information on how to activate the Rapid Response Team has been discussed. Patient/Family are encouraged to report perceived risks to care and to ask questions if they do not understand what they are told or what they should do.
--- NOTE | 2024-09-20 17:59 | PM.IMPN ---
Progress Note: A&P Assessment and Plan (1) Influenza A: Code(s): J10.1 - Influenza due to other identified influenza virus with other respiratory manifestations Status: Acute (2) Pneumonia: Code(s): J18.9 - Pneumonia, unspecified organism Status: Acute Plan Acute and principal conditions 1. Influenza A 2. Community acquired pneumonia C. Elevated D-dimer D. NSTEMi E. Elevated BNP; Fluid F. UTI Rx: A. IV Lasix, ECHO, B. Ceftriaxone, Doxycycline, Anti-tussives C. Supplemental oxygen D. Urine culture E. CTA chest pending F. Trend troponin, ECG; Cardiac monitoring G.. supportive management of influenza A Chronic and stable conditions 1. A-fib, chronic. 2. Peripheral neuropathy 3. Dyslipidemia. Miscellaneous care 1. Code status. Full 2. Nutrition. Regular 3. VTE prophylaxis. Patient presented with worsening cough and is found to have Influenza A and being treated with Tamiflu, upon arrival patient tropes were elevated seen by cardiology suspect demand ischemia due to Infuenza A and and acute on chronic congestive heart failure. currently patient remains clinically stable, will continue to monitor, patient son is present in the room and answer all his questions. Subjective Date/time seen: 09/20/24 17:59 Interval history: Shortness of breath Cough H&P-Narrative: Liliya Sailnas is an 84 yo F with a mHx significant for peripheral neuropathy, dyslipidemia, A-fib s/p PPM She resides with her son who was concerned about her worsening cough; it is productive of yellowish sputum but void of blood. With no known modifying factors, her symptoms came to be associated with increased somnolence, fatigue, poor execution of her ADL, dyspnea on minimal exertion. She denies chest pain, nausea, vomiting, cough, PND, orthopnea, chest pain, dizziness or LOC. They reports she generally does not require oxygen but she is wearing 3 L nasal cannula at time of examination. Patient denies back pain, abdominal pain, headache, or neck stiffness. 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 currently patient remains clinically stable, will continue to monitor, patient son is present in the room and answer all his questions. Review of Systems Review of Systems: All systems reviewed & are unremarkable except as noted in HPI and below Exam Narrative: Elderly frail Patient is comfortable, NAD HEENT: eyes are clear and none icteric LUNGS: bilateral fair entry with rhonchi and rales HEART: RR S1S2 ABD: BS+, Soft and nontender Lower extremities: no edema SKIN: nonjaundiced Neuro: grossly intact. Objective Data Vital Signs Vital Signs: Vital Signs - 24 hr 09/19/24 19:32 09/19/24 21:45 09/19/24 21:56 Temperature 36.5 C Pulse Rate 87 71 Respiratory Rate 20 19 19 Blood Pressure 153/110 H 161/69 H Pulse Oximetry 84 L 92 Oxygen Delivery Room Air 09/20/24 00:05 09/20/24 00:16 09/20/24 00:32 Temperature Pulse Rate 71 74 89 Respiratory Rate 22 H 15 20 Blood Pressure Pulse Oximetry 100 Oxygen Delivery 09/20/24 00:37 09/20/24 03:07 09/20/24 05:10 Temperature Pulse Rate 82 82 69 Respiratory Rate 16 21 H 17 Blood Pressure 138/56 L 100/50 L 98/54 L Pulse Oximetry 97 91 95 Oxygen Delivery 09/20/24 06:33 09/20/24 08:36 09/20/24 09:51 Temperature 36.5 C Pulse Rate 69 80 69 Respiratory Rate 15 16 16 Blood Pressure 104/70 114/62 122/48 L Pulse Oximetry 96 95 95 Oxygen Delivery 09/20/24 13:34 09/20/24 14:41 09/20/24 16:59 Temperature Pulse Rate 74 69 69 Respiratory Rate 16 16 16 Blood Pressure 106/49 L 121/55 L 106/52 L Pulse Oximetry 99 99 99 Oxygen Delivery Intake/Output Intake/Output: Intake & Output 09/17/24 09/18/24 09/19/24 09/20/24 23:59 23:59 23:59 23:59 Intake Total 1400 Balance 1400 Meds/Results Medications: Active Medications Generic Name Dose Route Start Last Admin Trade Name Freq PRN Reason Stop Dose Admin Acetaminophen 650 mg 09/20/24 06:15 Acetaminophen 325 Mg Tablet PO Q4H PRN Mild Pain (1-3) or Fever Albuterol/Ipratropium 3 ml 03/01/25 05:57 Ipratropium 0.5 Mg/Albuterol Sulfate 2.5 Mg Ampul.Neb 3 Ml INHALATION Q4HRT PRN shortness of breath/Wheezing Furosemide 40 mg 09/20/24 06:15 09/20/24 06:32 Furosemide Inj 40 Mg/4 Ml Vial IV PUSH 40 mg BID MICHAEL Administration Guaifenesin/Dextromethorphan 10 ml 09/20/24 05:57 09/20/24 13:44 Guaifenesin/Dextromethorphan 10 Ml Udc PO 10 ml Q4H PRN Administration Cough Heparin Sodium (Porcine) 5,000 units 09/20/24 09:00 09/20/24 09:53 Heparin Sodium 5,000 Units/Ml Vial SUB-Q 5,000 units Q12HR MICHAEL Administration Ceftriaxone Sodium 1 gm in 50 mls @ 100 mls/hr 09/21/24 01:00 Rocephin 1 Gm/Ns 50 Ml IVPB 09/26/24 00:59 Q24H MICHAEL Doxycycline Hyclate 100 mg in 100 mls @ 100 mls/hr 09/20/24 13:00 09/20/24 14:43 Vibramycin 100 Mg/Ns 100 Ml IVPB Infused Q12H MICHAEL Infusion Melatonin 5 mg 09/20/24 05:57 Melatonin 5 Mg Tablet PO HS PRN Insomnia Oseltamivir Phosphate 30 mg 09/20/24 21:00 Oseltamivir Phosphate 30 Mg Capsule PO 09/24/24 21:01 Q12HR MICHAEL Perflutren Lipid Microsphere 0 ml 09/20/24 06:13 Perflutren Lipid Microspheres 1.5 Ml Vial Diluted To 10 Ml Total Volume IV PUSH 09/23/24 06:13 ONCE PRN adequate visualization Protocol Polyethylene Glycol 17 gm 09/20/24 05:57 Polyethylene Glycol 3350 17 Gm Powd.Pack PO QAM PRN Constipation Prochlorperazine Edisylate 10 mg 09/20/24 05:57 Prochlorperazine Edisylate 10 Mg/2 Ml Vial IV PUSH Q6H PRN Nausea And Vomiting Radiology Results: ITS Impressions Chest X-Ray 09/19/24 20:17 IMPRESSION: Highly suggestive of pneumonitis more prominent in the right lower lobe. Chest CTA 09/20/24 08:54 IMPRESSION: 1. No pulmonary embolism. Sensitivity decreased in the smaller subsegmental pulmonary arteries due to primarily to respiratory motion and streak artifact. 2. Multifocal pneumonia throughout both lungs 3. Cardiomegaly with left atrial enlargement and change of prior coronary artery bypass grafting and aortic, mitral and tricuspid valve repairs. 4. Enlargement of the central pulmonary arteries consistent with pulmonary arterial hypertension. 5. Multinodular goiter. 6. 3.6 cm right adrenal myelolipoma. Labs Labs: Laboratory Results - last 24 hr 09/19/24 09/20/24 09/20/24 19:47 00:06 02:55 WBC 13.6 H RBC 4.22 Hgb 11.7 L Hct 37.9 MCV 89.8 MCH 27.7 MCHC 30.9 L RDW 13.6 Plt Count 227 D MPV 9.8 Immature Gran % (Auto) 1.2 H Neut % (Auto) 86.8 H Lymph % (Auto) 5.4 L [place] % (Auto) 6.2 Eos % (Auto) 0.0 Baso % (Auto) 0.4 Lymph # (Auto) 0.73 L [place] # (Auto) 0.9 H Eos # (Auto) 0.0 Baso # (Auto) 0.1 Abs Immat Gran (auto) 0.16 H Absolute Neuts (auto) 11.8 H Absolute Nucleated RBC 0.000 Nucleated RBC % 0.0 PT 15.9 H INR 1.2 APTT 30.1 D-Dimer 10.85 H Sodium 139 Potassium 3.4 Chloride 96 L Carbon Dioxide 32 H Anion Gap 11 BUN 23 H Creatinine 0.70 Estim Creat Clear Calc 51 Estimated GFR > 60 Glucose 201 H Lactic Acid 1.2 Calcium 9.3 Magnesium 1.7 Total Bilirubin 1.6 H AST 30 ALT 20 Alkaline Phosphatase 89 Troponin I 0.066 H* 0.063 H* NT-Pro-B Natriuret Pep 6640 H Total Protein 7.0 Albumin 3.5 Urine Color Urine Appearance Urine pH Ur Specific [place] Urine Protein Urine Glucose (UA) Urine Ketones Ur Blood (Man) Urine Nitrate Urine Bilirubin Urine Urobilinogen Add Ur Microanalysis Leukocyte Esterase Rfl Urine RBC Urine WBC Ur Squamous Epith Cells Urine Bacteria Urine Casts Influenza A (RT-PCR) Positive A Influenza B (RT-PCR) Negative RSV (RT-PCR) Negative SARS-CoV-2 RNA (RT-PCR) Negative 03/01/25 03:11 WBC RBC Hgb Hct MCV MCH MCHC RDW Plt Count MPV Immature Gran % (Auto) Neut % (Auto) Lymph % (Auto) [place] % (Auto) Eos % (Auto) Baso % (Auto) Lymph # (Auto) [place] # (Auto) Eos # (Auto) Baso # (Auto) Abs Immat Gran (auto) Absolute Neuts (auto) Absolute Nucleated RBC Nucleated RBC % PT INR APTT D-Dimer Sodium Potassium Chloride Carbon Dioxide Anion Gap BUN Creatinine Estim Creat Clear Calc Estimated GFR Glucose Lactic Acid Calcium Magnesium Total Bilirubin AST ALT Alkaline Phosphatase Troponin I NT-Pro-B Natriuret Pep Total Protein Albumin Urine Color Yellow Urine Appearance Clear Urine pH 7.0 Ur Specific [place] 1.025 Urine Protein 1+ H Urine Glucose (UA) Negative Urine Ketones Negative Ur Blood (Man) Negative Urine Nitrate Positive H Urine Bilirubin Negative Urine Urobilinogen 1.0 Add Ur Microanalysis Reviewed Leukocyte Esterase Rfl 1+ H Urine RBC 3-5 H Urine WBC 0-5 Ur Squamous Epith Cells None seen Urine Bacteria Rare Urine Casts 0-2 Influenza A (RT-PCR) Influenza B (RT-PCR) RSV (RT-PCR) SARS-CoV-2 RNA (RT-PCR)
[2024-09-20] MEDS: APIXABAN 5 MG TABLET PO (22:46)
[2024-09-20] MEDS: lisinopriL 10 MG TABLET PO (22:46)
[2024-09-20] MEDS: METOPROLOL TARTRATE 25 MG TABLET PO (22:46)
[2024-09-20] MEDS: GABAPENTIN 300 MG CAPSULE PO (22:46)
[2024-09-20] MEDS: OSELTAMIVIR PHOSPHATE 30 MG CAPSULE PO (22:47)
[2024-09-20] MEDS: MELATONIN 5 MG TABLET PO (22:48)
[2024-09-21] VITALS (21 sets, daily range): BP systolic 109–120; BP diastolic 45–60; PULSE 69–81; RESP 18–22; TEMP 36.4–36.9; O2SAT 91–98
[2024-09-21] MEDS: DOXYCYCLINE 100 MG/NS 100 ML 100 MG/100 ML BAG IVPB ×2 (01:03→14:21)
[2024-09-21 04:53] LABS: Basophils Percent Auto 0.2 % (0.2-1.2); Eosinophils Percent Auto 0.1 % (0-4.4); Hematocrit 34.4 % (37.0-47.0); Hemoglobin 10.7 g/dL (12.0-15.0); Immature Granulocyte Absolute 0.14 K/mm3 (0.00-0.031); Immature Granulocyte Percent A 1.1 % (0-0.5); Lymphocytes Absolute Auto 0.93 K/mm3 (0.9-3.2); Lymphocytes Percent Auto 7.1 % (18.3-44.2); Mean Corpuscular HGB Conc 31.1 g/dl (32-36); Mean Corpuscular Hemoglobin 28.3 pg (26-34); Mean Platelet Volume 9.9 fl (7.4-10.4); Monocytes Absolute Auto 0.6 K/mm3 (0.1-0.6); Monocytes Percent Auto 4.8 % (2.6-8.5); Neutrophils Absolute Auto 11.4 K/mm3 (1.3-6.7); Neutrophils Percent Auto 86.7 % (45.5-73.1); Platelet Count Result 161 k/mm3 (150-375); Red Blood Count 3.78 M/mm3 (4.2-5.4); Red Cell Distribution Width 13.6 % (11.5-14.5); White Blood Count 13.2 K/mm3 (4.5-10.0)
[2024-09-21 05:15] LABS: Alanine Aminotransferase 14 U/L (6-35); Albumin Level 2.6 g/dL (3.5-5.1); Alkaline Phosphatase 71 U/L (38-126); Anion Gap 7 mmol/L (4-12); Aspartate Amino Transferase 21 U/L (14-36); Bilirubin,Total 0.9 mg/dL (0.2-1.3); Blood Urea Nitrogen 22 mg/dL (7-17); Calcium 8.2 mg/dL (8.4-10.2); Carbon Dioxide 34 mmol/L (22-30); Chloride 97 mmol/L (98-107); Estimated CRCL calculation 51 ml/min; Estimated Glomerular Filt Rate > 60; Glucose 107 mg/dL (65-110); Potassium 2.9 mmol/L (3.4-5.0); Sodium 138 mmol/L (137-145)
[2024-09-21 08:53] LABS: Magnesium 1.3 mg/dL (1.6-2.3)
[2024-09-21] MEDS: POTASSIUM CHLORIDE 20 MEQ PACKET (FOR LIQUID) 40 MEQ PO (09:41)
[2024-09-21] MEDS: EZETIMIBE 10 MG TABLET PO (09:41)
[2024-09-21] MEDS: FUROSEMIDE INJ 40 MG/4 ML VIAL IV PUSH ×2 (09:41→17:26)
[2024-09-21] MEDS: GABAPENTIN 300 MG CAPSULE PO ×3 (09:42→17:26)
[2024-09-21] MEDS: CHOLECALCIFEROL 1,000 UNITS TABLET 2000 UNITS PO (09:42)
[2024-09-21] MEDS: ASPIRIN 81 MG ENTERIC TABLET PO (09:42)
[2024-09-21] MEDS: APIXABAN 5 MG TABLET PO ×2 (09:42→21:09)
[2024-09-21] MEDS: METOPROLOL TARTRATE 25 MG TABLET PO ×2 (09:42→21:08)
[2024-09-21] MEDS: ATORVASTATIN 10 MG TABLET PO (09:43)
[2024-09-21] MEDS: OSELTAMIVIR PHOSPHATE 30 MG CAPSULE PO ×2 (09:43→21:09)
[2024-09-21] MEDS: lisinopriL 10 MG TABLET PO ×2 (09:43→21:08)
[2024-09-21 12:20] LABS: Anion Gap 6 mmol/L (4-12); Blood Urea Nitrogen 25 mg/dL (7-17); Calcium 8.6 mg/dL (8.4-10.2); Carbon Dioxide 36 mmol/L (22-30); Chloride 96 mmol/L (98-107); Estimated CRCL calculation 49 ml/min; Estimated Glomerular Filt Rate > 60; Glucose 144 mg/dL (65-110); Potassium 3.8 mmol/L (3.4-5.0); Sodium 138 mmol/L (137-145)
--- NOTE | 2024-09-21 14:14 | P.PNIM_ITS ---
Progress Note: A&P Assessment and Plan (1) Influenza A: Code(s): J10.1 - Influenza due to other identified influenza virus with other respiratory manifestations Status: Acute (2) Pneumonia: Code(s): J18.9 - Pneumonia, unspecified organism Status: Acute Plan Acute and principal conditions 1. Influenza A 2. Community acquired pneumonia C. Elevated D-dimer D. NSTEMi E. Elevated BNP; Fluid F. UTI Rx: A. IV Lasix, ECHO, B. Ceftriaxone, Doxycycline, Anti-tussives C. Supplemental oxygen D. Urine culture E. CTA chest pending F. Trend troponin, ECG; Cardiac monitoring G.. supportive management of influenza A Chronic and stable conditions 1. A-fib, chronic. 2. Peripheral neuropathy 3. Dyslipidemia. Miscellaneous care 1. Code status. Full 2. Nutrition. Regular 3. VTE prophylaxis. Patient presented with worsening cough and is found to have Influenza A and being treated with Tamiflu, upon arrival patient tropes were elevated seen by cardiology suspect demand ischemia due to Infuenza A and and acute on chronic congestive heart failure. currently patient remains clinically stable, patient states feeling little better compared to when she arrived, will continue to monitor, Subjective Date/time seen: 09/21/24 14:14 Interval history: Shortness of breath Cough H&P-Narrative: Liliya Salinas is an 84 yo F with a mHx significant for peripheral neuropathy, dyslipidemia, A-fib s/p PPM She resides with her son who was concerned about her worsening cough; it is productive of yellowish sputum but void of blood. With no known modifying factors, her symptoms came to be associated with increased somnolence, fatigue, poor execution of her ADL, dyspnea on minimal exertion. She denies chest pain, nausea, vomiting, cough, PND, orthopnea, chest pain, dizziness or LOC. They reports she generally does not require oxygen but she is wearing 3 L nasal cannula at time of examination. Patient denies back pain, abdominal pain, headache, or neck stiffness. 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 currently patient remains clinically stable, patient states feeling little better compared to when she arrived, will continue to monitor, Review of Systems Review of Systems: All systems reviewed & are unremarkable except as noted in HPI and below Exam Narrative: Elderly frail Patient is comfortable, NAD HEENT: eyes are clear and none icteric LUNGS: bilateral fair entry with rhonchi and rales HEART: RR S1S2 ABD: BS+, Soft and nontender Lower extremities: no edema SKIN: nonjaundiced Neuro: grossly intact. Objective Data Vital Signs Vital Signs: Vital Signs - 24 hr 09/20/24 14:41 09/20/24 16:59 09/20/24 18:00 Temperature Pulse Rate 69 69 74 Respiratory Rate 16 16 Blood Pressure 121/55 L 106/52 L Pulse Oximetry 99 99 Oxygen Delivery Oxygen Flow Rate 09/20/24 18:00 09/20/24 18:06 09/20/24 20:00 Temperature 36.8 C 36.8 C Pulse Rate 72 70 88 Respiratory Rate 20 18 20 Blood Pressure 132/70 116/51 L Pulse Oximetry 100 100 99 Oxygen Delivery Nasal Cannula Oxygen Flow Rate 4 09/20/24 20:00 09/20/24 22:00 09/20/24 22:00 Temperature Pulse Rate 73 88 73 Respiratory Rate 20 Blood Pressure Pulse Oximetry 99 Oxygen Delivery Nasal Cannula Oxygen Flow Rate 2 09/20/24 22:33 09/20/24 22:46 09/20/24 23:15 Temperature Pulse Rate 77 76 70 Respiratory Rate 31 H 20 Blood Pressure Pulse Oximetry 91 99 Oxygen Delivery CPAP CPAP Oxygen Flow Rate 2 09/20/24 23:38 09/21/24 00:00 09/21/24 02:00 Temperature 37.0 C Pulse Rate 70 69 71 Respiratory Rate 20 Blood Pressure 126/62 Pulse Oximetry 99 Oxygen Delivery Oxygen Flow Rate 09/21/24 04:00 09/21/24 04:08 09/21/24 05:30 Temperature 36.9 C Pulse Rate 69 69 69 Respiratory Rate 22 H 22 H Blood Pressure 120/58 L Pulse Oximetry 98 98 Oxygen Delivery CPAP Oxygen Flow Rate 2 09/21/24 06:00 09/21/24 08:00 09/21/24 08:52 Temperature 36.7 C Pulse Rate 69 69 Respiratory Rate 18 Blood Pressure 118/45 L Pulse Oximetry 96 95 Oxygen Delivery Nasal Cannula Oxygen Flow Rate 3 09/21/24 09:42 09/21/24 11:56 09/21/24 13:30 Temperature 36.7 C Pulse Rate 69 69 Respiratory Rate 18 Blood Pressure 119/46 L Pulse Oximetry 97 Oxygen Delivery High Flow Therapy with Na Oxygen Flow Rate 2 09/21/24 13:31 Temperature Pulse Rate Respiratory Rate Blood Pressure Pulse Oximetry Oxygen Delivery High Flow Therapy with Na Oxygen Flow Rate 2 Intake/Output Intake/Output: Intake & Output 09/18/24 09/19/24 09/20/24 09/21/24 23:59 23:59 23:59 23:59 Intake Total 1640 810 Output Total 700 Balance 1640 110 Meds/Results Medications: Active Medications Generic Name Dose Route Start Last Admin Trade Name Freq PRN Reason Stop Dose Admin Acetaminophen 650 mg 09/20/24 06:15 Acetaminophen 325 Mg Tablet PO Q4H PRN Mild Pain (1-3) or Fever Albuterol 1 puff 09/20/24 19:01 Albuterol Sulfate (*Sp) Aerosol 1 Puff INHALATION Q4H PRN Shortness Of Breath Or Wheezing Albuterol/Ipratropium 3 ml 09/20/24 05:57 Ipratropium 0.5 Mg/Albuterol Sulfate 2.5 Mg Ampul.Neb 3 Ml INHALATION Q4HRT PRN shortness of breath/Wheezing Apixaban 5 mg 09/20/24 21:00 09/21/24 09:42 Apixaban 5 Mg Tablet PO 5 mg Q12HR MICHAEL Administration Aspirin 81 mg 09/21/24 09:00 09/21/24 09:42 Aspirin 81 Mg Enteric Tablet PO 81 mg DAILY MICHAEL Administration Atorvastatin Calcium 10 mg 09/21/24 09:00 09/21/24 09:43 Atorvastatin 10 Mg Tablet PO 10 mg DAILY MICHAEL Administration Ezetimibe 10 mg 09/21/24 09:00 09/21/24 09:41 Ezetimibe 10 Mg Tablet PO 10 mg DAILY MICHAEL Administration Furosemide 40 mg 09/20/24 06:15 09/21/24 09:41 Furosemide Inj 40 Mg/4 Ml Vial IV PUSH 40 mg BID MICHAEL Administration Furosemide 20 mg 09/21/24 09:00 Furosemide 20 Mg Tablet PO BID MICHAEL Gabapentin 300 mg 09/20/24 19:50 09/21/24 09:42 Gabapentin 300 Mg Capsule PO 300 mg TID MICHAEL Administration Guaifenesin/Dextromethorphan 10 ml 09/20/24 05:57 09/20/24 13:44 Guaifenesin/Dextromethorphan 10 Ml Udc PO 10 ml Q4H PRN Administration Cough Ceftriaxone Sodium 1 gm in 50 mls @ 100 mls/hr 09/21/24 01:00 09/21/24 01:34 Rocephin 1 Gm/Ns 50 Ml IVPB 09/26/24 00:59 Infused Q24H MICHAEL Infusion Doxycycline Hyclate 100 mg in 100 mls @ 100 mls/hr 09/20/24 13:00 09/21/24 02:03 Vibramycin 100 Mg/Ns 100 Ml IVPB Infused Q12H MICHAEL Infusion Lisinopril 10 mg 09/20/24 21:00 09/21/24 09:43 Lisinopril 10 Mg Tablet PO 10 mg Q12HR MICHAEL Administration Melatonin 5 mg 09/20/24 05:57 09/20/24 22:48 Melatonin 5 Mg Tablet PO 5 mg HS PRN Administration Insomnia Metoprolol Tartrate 25 mg 09/20/24 21:00 09/21/24 09:42 Metoprolol Tartrate 25 Mg Tablet PO 25 mg Q12HR MICHAEL Administration Oseltamivir Phosphate 30 mg 09/20/24 21:00 09/21/24 09:43 Oseltamivir Phosphate 30 Mg Capsule PO 09/24/24 21:01 30 mg Q12HR MICHAEL Administration Perflutren Lipid Microsphere 0 ml 09/20/24 06:13 Perflutren Lipid Microspheres 1.5 Ml Vial Diluted To 10 Ml Total Volume IV PUSH 09/23/24 06:13 ONCE PRN adequate visualization Protocol Polyethylene Glycol 17 gm 09/20/24 05:57 Polyethylene Glycol 3350 17 Gm Powd.Pack PO QAM PRN Constipation Prochlorperazine Edisylate 10 mg 09/20/24 05:57 Prochlorperazine Edisylate 10 Mg/2 Ml Vial IV PUSH Q6H PRN Nausea And Vomiting Vitamin D 2,000 units 09/21/24 09:00 09/21/24 09:42 Cholecalciferol 1,000 Units Tablet PO 2,000 units DAILY MICHAEL Administration Radiology Results: ITS Impressions Chest X-Ray 09/19/24 20:17 IMPRESSION: Highly suggestive of pneumonitis more prominent in the right lower lobe. Chest CTA 09/20/24 08:54 IMPRESSION: 1. No pulmonary embolism. Sensitivity decreased in the smaller subsegmental pulmonary arteries due to primarily to respiratory motion and streak artifact. 2. Multifocal pneumonia throughout both lungs 3. Cardiomegaly with left atrial enlargement and change of prior coronary artery bypass grafting and aortic, mitral and tricuspid valve repairs. 4. Enlargement of the central pulmonary arteries consistent with pulmonary arterial hypertension. 5. Multinodular goiter. 6. 3.6 cm right adrenal myelolipoma. Labs Labs: Laboratory Results - last 24 hr 09/21/24 09/21/24 09/21/24 04:15 04:20 12:05 WBC 13.2 H RBC 3.78 L Hgb 10.7 L Hct 34.4 L MCV 91.0 MCH 28.3 MCHC 31.1 L RDW 13.6 Plt Count 161 MPV 9.9 Immature Gran % (Auto) 1.1 H Neut % (Auto) 86.7 H Lymph % (Auto) 7.1 L [place] % (Auto) 4.8 Eos % (Auto) 0.1 Baso % (Auto) 0.2 Lymph # (Auto) 0.93 [place] # (Auto) 0.6 Eos # (Auto) 0.0 Baso # (Auto) 0.0 Abs Immat Gran (auto) 0.14 H Absolute Neuts (auto) 11.4 H Absolute Nucleated RBC 0.000 Nucleated RBC % 0.0 Sodium 138 138 Potassium 2.9 L 3.8 Chloride 97 L 96 L Carbon Dioxide 34 H 36 H Anion Gap 7 6 BUN 22 H 25 H Creatinine 0.68 L 0.71 Estim Creat Clear Calc 51 49 Estimated GFR > 60 > 60 Glucose 107 144 H Calcium 8.2 L 8.6 Magnesium 1.3 L Total Bilirubin 0.9 AST 21 ALT 14 Alkaline Phosphatase 71 Total Protein 6.0 L Albumin 2.6 L
[2024-09-21] MEDS: POTASSIUM CHLORIDE 20 MEQ ER TABLET 40 MEQ PO (17:26)
[2024-09-21] MEDS: MAGNESIUM SULF 2 GM/WATER 50ML 2 GM/50 ML BAG IVPB (17:26)
[2024-09-22] VITALS (20 sets, daily range): BP systolic 104–139; BP diastolic 40–73; PULSE 56–77; RESP 16–22; TEMP 36.4–37.3; O2SAT 93–99
--- NOTE | 2024-09-22 | ECHO_ITS ---
Patient Info Name: Liliya Salinas Age: 84 years : 1940 Gender: Female Ht: 64 in Wt: 164 lbs BSA: 1.85 m2 HR: 69 bpm BP: 139 / 48 mmHg Heart Rhythm: Sinus Rhythm Technical Quality: Fair Exam Date: 09/22/2024 1:45 PM Exam Location: Echo Lab Patient Status: Inpatient Admit Date: 09/20/2024 Staff Ordering Physician: Immanuel Redmond MD Top Hat Body Maker: Matilde Hernández RDCS Attending Provider: Immanuel Redmond MD Referring Physician: Nyla SAHU; Exam Type: CA echo doppler color flow Study Info Indications R06.02 - Shortness of breath Complete two-dimensional, color flow and Doppler transthoracic echocardiogram is performed. Summary 1. Left ventricular chamber dimension is normal. 2. Left ventricular systolic function is normal, estimated at 50-55%. 3. There is mildly increased left ventricular wall thickness. 4. Right ventricular systolic function is normal. 5. Left atrial chamber dimension is severely enlarged. 6. Right atrial chamber dimension is moderately enlarged. 7. S/p bioprosthetic aortic valve. Peak velocity of 3.26m/s, mean gradient of 23mmHg. 8. There is no aortic valve regurgitation. 9. S/p mitral valve repair. 10. There is mild mitral valve regurgitation. 11. S/p tricuspid valve repair. 12. There is mild tricuspid valve regurgitation. 13. There is trivial pericardial effusion. 14. Left pleural effusion present. Left Ventricle Left ventricular chamber dimension is normal. Left ventricular systolic function is normal, estimated at 50-55%. There is mildly increased left ventricular wall thickness. Left ventricular septal wall motion is abnormal with septal motion related to a post-operative state. The left ventricular diastolic function is indeterminate. Right Ventricle Linear artifact in right ventricle suggestive of catheter(s), pacemaker lead(s), or ICD lead(s). Right ventricular chamber dimension is normal. Right ventricular systolic function is normal. Left Atria Left atrial chamber dimension is severely enlarged. Right Atria Linear artifact in the right atrium suggestive of catheter(s), pacemaker lead(s), or ICD lead(s). Right atrial chamber dimension is moderately enlarged. Atrial Septum Intact interatrial septum visualized by color flow imaging. Aortic Valve S/p bioprosthetic aortic valve. Peak velocity of 3.26m/s, mean gradient of 23mmHg. There is no aortic valve regurgitation. Pulmonic Valve The pulmonic valve is not well visualized. There is trace pulmonic regurgitation. Mitral Valve S/p mitral valve repair. There is mild mitral valve regurgitation. Tricuspid Valve S/p tricuspid valve repair. There is mild tricuspid valve regurgitation. Pericardium/Pleural Left pleural effusion present. There is trivial pericardial effusion. Inferior Vena Cava Dilated inferior vena cava with >50% collapse upon inspiration consistent with elevated right atrial pressure, 8 mmHg. Aorta The aortic root size at the sinus of Valsalva is normal. Left Ventricular Outflow Tract Name Value Normal LVOT 2D LVOT Diameter 2.0 cm LVOT Doppler LVOT Peak Gradient 7 mmHg LVOT Mean Gradient 4 mmHg LVOT VTI 25 cm LVOT VTI/AV VTI Ratio 0.4 LVOT Stroke Volume 77 ml LVOT CO 5.4 l/min LVOT CI 2.9 l/min/m2 Pulmonic Valve Name Value Normal RVOT Doppler RVOT Peak Gradient 2 mmHg PV Doppler PV Peak Gradient 5 mmHg Mitral Valve Name Value Normal MV Doppler MV Peak Gradient 12 mmHg MV Mean Gradient 4 mmHg MV Decel [place] 308 cm/s2 MV PHT 140 ms MV Area (PHT) 1.6 cm2 4.0-5.0 MV Area (Cont Eq VTI) 1.8 cm2 MV Diastolic Function MV E Peak Velocity 149 cm/s MV A Peak Velocity 1 cm/s MV E/A 110.3 MV Decel Time 484 ms MV Annular TDI MV E/e' (Septal) 23.9 <=8.0 MV E/e' (Lateral) 19.5 <=8.0 MV E/e' (Average) 21.7 Tricuspid Valve Name Value Normal TV Regurgitation Doppler TR Peak Velocity 274 cm/s TR Peak Gradient 30 mmHg Estimated PAP/RSVP RA Pressure 8 mmHg <=5 PA Systolic Pressure 38 mmHg <36 RV Systolic Pressure 38 mmHg <36 Aorta Name Value Normal Ascending Aorta Ao Root Diameter (MM) 3.1 cm Ao Root Diam Index (MM) 1.7 cm/m2 Aortic Valve Name Value Normal AV Doppler AV Peak Velocity 326 cm/s AV Peak Gradient 43 mmHg AV Mean Gradient 23 mmHg AV VTI 66 cm AV Area (Cont Eq VTI) 1.2 cm2 >=3.0 AV Area (Cont Eq Avinash) 1.2 cm2 AV Regurgitation 2D LVOT Area 3.1 cm2 Ventricles Name Value Normal LV Dimensions 2D/MM IVS Diastolic Thickness (2D) 0.7 cm 0.6-1.0 LVID Diastole (2D) 4.4 cm 3.8-5.2 LVIW Diastolic Thickness (2D) 0.7 cm 0.6-0.9 LVID Systole (2D) 2.6 cm 2.2-3.5 LVOT Diameter 2.0 cm LV Mass (2D Cubed) 99.83 g 67.00-162.00 LV Mass Index (2D Cubed) 54 g/m2 43-95 Relative Wall Thickness (2D) 0.33 LV Fractional Shortening/Ejection Fraction 2D/MM LV Fractional Shortening (2D) 42 % 27-45 LV EF (2D Teicholz) 73 % 54-74 LV Diastolic Volume (4C MOD) 57 ml LV EF (4C MOD) 52 % LV Diastolic Volume (2C MOD) 57 ml LV EF (2C MOD) 33 % LV Diastolic Volume (BP MOD) 57 ml 46-106 LV Diastolic Volume Index (BP MOD) 31 ml/m2 29-61 LV Systolic Volume (BP MOD) 33 ml 14-42 LV Systolic Volume Index (BP MOD) 18 ml/m2 8-24 LV EF (BP MOD) 41 % 54-74 LV Diastolic Length (4C) 6.8 cm LV Systolic Length (4C) 6.2 cm LV Stroke Volume (4C MOD) 30 ml Atria Name Value Normal LA Dimensions LA Dimension (MM) 5.2 cm 2.7-3.8 LA Volume (4C A-L) 97 ml RA Dimensions RA Area (4C) 22.1 cm2 <=18.0 Report Signatures
[2024-09-22] MEDS: DOXYCYCLINE 100 MG/NS 100 ML 100 MG/100 ML BAG IVPB ×2 (00:57→12:39)
[2024-09-22 04:46] LABS: Basophils Percent Auto 0.2 % (0.2-1.2); Eosinophils Absolute Auto 0.1 K/mm3 (0-0.3); Eosinophils Percent Auto 0.4 % (0-4.4); Hematocrit 32.6 % (37.0-47.0); Hemoglobin 9.9 g/dL (12.0-15.0); Immature Granulocyte Absolute 0.13 K/mm3 (0.00-0.031); Immature Granulocyte Percent A 1.1 % (0-0.5); Lymphocytes Absolute Auto 1.37 K/mm3 (0.9-3.2); Lymphocytes Percent Auto 11.5 % (18.3-44.2); Mean Corpuscular HGB Conc 30.4 g/dl (32-36); Mean Corpuscular Hemoglobin 27.9 pg (26-34); Mean Corpuscular Volume 91.8 fl (80-100); Monocytes Absolute Auto 0.6 K/mm3 (0.1-0.6); Monocytes Percent Auto 4.9 % (2.6-8.5); Neutrophils Absolute Auto 9.8 K/mm3 (1.3-6.7); Neutrophils Percent Auto 81.9 % (45.5-73.1); Platelet Count Result 152 k/mm3 (150-375); Red Blood Count 3.55 M/mm3 (4.2-5.4); Red Cell Distribution Width 13.7 % (11.5-14.5); White Blood Count 11.9 K/mm3 (4.5-10.0)
[2024-09-22 07:07] LABS: Alanine Aminotransferase 13 U/L (6-35); Albumin Level 2.4 g/dL (3.5-5.1); Alkaline Phosphatase 64 U/L (38-126); Anion Gap 6 mmol/L (4-12); Aspartate Amino Transferase 26 U/L (14-36); Bilirubin,Total 0.6 mg/dL (0.2-1.3); Blood Urea Nitrogen 32 mg/dL (7-17); Calcium 8.2 mg/dL (8.4-10.2); Carbon Dioxide 31 mmol/L (22-30); Chloride 97 mmol/L (98-107); Estimated CRCL calculation 33 ml/min; Estimated Glomerular Filt Rate 48; Glucose 127 mg/dL (65-110); Magnesium 1.8 mg/dL (1.6-2.3); Potassium 3.9 mmol/L (3.4-5.0); Sodium 134 mmol/L (137-145)
[2024-09-22] MEDS: ATORVASTATIN 10 MG TABLET PO (09:56)
[2024-09-22] MEDS: METOPROLOL TARTRATE 25 MG TABLET PO ×2 (09:56→20:28)
[2024-09-22] MEDS: lisinopriL 10 MG TABLET PO ×2 (09:56→20:28)
[2024-09-22] MEDS: APIXABAN 5 MG TABLET PO ×2 (09:56→20:28)
[2024-09-22] MEDS: GABAPENTIN 300 MG CAPSULE PO ×3 (09:56→18:13)
[2024-09-22] MEDS: CHOLECALCIFEROL 1,000 UNITS TABLET 2000 UNITS PO (09:56)
[2024-09-22] MEDS: EZETIMIBE 10 MG TABLET PO (09:56)
[2024-09-22] MEDS: ASPIRIN 81 MG ENTERIC TABLET PO (09:56)
[2024-09-22] MEDS: OSELTAMIVIR PHOSPHATE 30 MG CAPSULE PO ×2 (09:56→20:28)
[2024-09-22] MEDS: guaiFENesin/DEXTROMETHORPHAN 10 ML UDC PO (09:57)
[2024-09-22] MEDS: FUROSEMIDE INJ 40 MG/4 ML VIAL IV PUSH ×2 (09:57→18:14)
--- NOTE | 2024-09-22 16:29 | P.PNIM_ITS ---
Progress Note: A&P Assessment and Plan (1) Influenza A: Code(s): J10.1 - Influenza due to other identified influenza virus with other respiratory manifestations Status: Acute (2) Pneumonia: Code(s): J18.9 - Pneumonia, unspecified organism Status: Acute Plan Acute and principal conditions 1. Influenza A 2. Community acquired pneumonia C. Elevated D-dimer D. NSTEMi E. Elevated BNP; Fluid F. UTI Rx: A. IV Lasix, ECHO, B. Ceftriaxone, Doxycycline, Anti-tussives C. Supplemental oxygen D. Urine culture E. CTA chest pending F. Trend troponin, ECG; Cardiac monitoring G.. supportive management of influenza A Chronic and stable conditions 1. A-fib, chronic. 2. Peripheral neuropathy 3. Dyslipidemia. Miscellaneous care 1. Code status. Full 2. Nutrition. Regular 3. VTE prophylaxis. Patient presented with worsening cough and is found to have Influenza A and being treated with Tamiflu, upon arrival patient tropes were elevated seen by cardiology suspect demand ischemia due to Infuenza A and and acute on chronic congestive heart failure. to further evaluate patient had cardiac echo results are pending, currently patient remains clinically stable, patient states feeling little better compared to when she arrived, will continue to monitor, Subjective Date/time seen: 09/22/24 16:29 Interval history: Shortness of breath Cough H&P-Narrative: Liliya Salinas is an 84 yo F with a mHx significant for peripheral neuropathy, dyslipidemia, A-fib s/p PPM She resides with her son who was concerned about her worsening cough; it is productive of yellowish sputum but void of blood. With no known modifying factors, her symptoms came to be associated with increased somnolence, fatigue, poor execution of her ADL, dyspnea on minimal exertion. She denies chest pain, nausea, vomiting, cough, PND, orthopnea, chest pain, dizziness or LOC. They reports she generally does not require oxygen but she is wearing 3 L nasal cannula at time of examination. Patient denies back pain, abdominal pain, headache, or neck stiffness. 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 to further evaluate patient had cardiac echo results are pending, currently patient remains clinically stable, patient states feeling little better compared to when she arrived, will continue to monitor, Review of Systems Review of Systems: All systems reviewed & are unremarkable except as noted in HPI and below Exam Narrative: Elderly frail Patient is comfortable, NAD HEENT: eyes are clear and none icteric LUNGS: bilateral fair entry with rhonchi and rales HEART: RR S1S2 ABD: BS+, Soft and nontender Lower extremities: no edema SKIN: nonjaundiced Neuro: grossly intact. Objective Data Vital Signs Vital Signs: Vital Signs - 24 hr 09/21/24 18:00 09/21/24 20:00 09/21/24 20:00 Temperature Pulse Rate 69 69 Respiratory Rate Blood Pressure Pulse Oximetry 95 Oxygen Delivery Nasal Cannula Oxygen Flow Rate 2 09/21/24 20:16 09/21/24 21:08 09/21/24 22:00 Temperature 36.4 C Pulse Rate 69 70 69 Respiratory Rate 18 Blood Pressure 110/52 L Pulse Oximetry 98 Oxygen Delivery Oxygen Flow Rate 09/21/24 23:10 09/21/24 23:12 09/22/24 00:00 Temperature 36.6 C Pulse Rate 69 69 Respiratory Rate 22 H 20 Blood Pressure 109/46 L Pulse Oximetry 91 98 95 Oxygen Delivery CPAP CPAP Oxygen Flow Rate 2 09/22/24 00:00 09/22/24 02:00 09/22/24 02:32 Temperature Pulse Rate 69 69 Respiratory Rate 18 Blood Pressure Pulse Oximetry Oxygen Delivery CPAP Oxygen Flow Rate 09/22/24 04:00 09/22/24 04:00 09/22/24 04:48 Temperature 36.4 C Pulse Rate 69 69 Respiratory Rate 20 Blood Pressure 139/48 L Pulse Oximetry 95 99 Oxygen Delivery CPAP Oxygen Flow Rate 2 09/22/24 05:57 09/22/24 08:00 09/22/24 08:00 Temperature 36.6 C Pulse Rate 69 69 Respiratory Rate 22 H Blood Pressure 116/42 L Pulse Oximetry 94 94 Oxygen Delivery Nasal Cannula Oxygen Flow Rate 2 09/22/24 08:00 09/22/24 09:56 09/22/24 10:00 Temperature Pulse Rate 70 69 77 Respiratory Rate Blood Pressure Pulse Oximetry Oxygen Delivery Oxygen Flow Rate 09/22/24 12:00 09/22/24 12:00 09/22/24 12:00 Temperature 37.3 C Pulse Rate 56 L 69 Respiratory Rate 22 H Blood Pressure 107/65 Pulse Oximetry 99 99 Oxygen Delivery Nasal Cannula Oxygen Flow Rate 2 09/22/24 14:00 Temperature Pulse Rate 69 Respiratory Rate Blood Pressure Pulse Oximetry Oxygen Delivery Oxygen Flow Rate Intake/Output Intake/Output: Intake & Output 09/19/24 09/20/24 09/21/24 09/22/24 23:59 23:59 23:59 23:59 Intake Total 1640 1350 730 Output Total 1100 Balance 1640 250 730 Meds/Results Medications: Active Medications Generic Name Dose Route Start Last Admin Trade Name Freq PRN Reason Stop Dose Admin Acetaminophen 650 mg 09/20/24 06:15 Acetaminophen 325 Mg Tablet PO Q4H PRN Mild Pain (1-3) or Fever Albuterol 1 puff 09/20/24 19:01 Albuterol Sulfate (*Sp) Aerosol 1 Puff INHALATION Q4H PRN Shortness Of Breath Or Wheezing Albuterol/Ipratropium 3 ml 09/20/24 05:57 Ipratropium 0.5 Mg/Albuterol Sulfate 2.5 Mg Ampul.Neb 3 Ml INHALATION Q4HRT PRN shortness of breath/Wheezing Apixaban 5 mg 09/20/24 21:00 09/22/24 09:56 Apixaban 5 Mg Tablet PO 5 mg Q12HR MICHAEL Administration Aspirin 81 mg 09/21/24 09:00 09/22/24 09:56 Aspirin 81 Mg Enteric Tablet PO 81 mg DAILY MICHAEL Administration Atorvastatin Calcium 10 mg 09/21/24 09:00 09/22/24 09:56 Atorvastatin 10 Mg Tablet PO 10 mg DAILY MICHAEL Administration Ezetimibe 10 mg 09/21/24 09:00 09/22/24 09:56 Ezetimibe 10 Mg Tablet PO 10 mg DAILY MICHAEL Administration Furosemide 40 mg 09/20/24 06:15 09/22/24 09:57 Furosemide Inj 40 Mg/4 Ml Vial IV PUSH 40 mg BID MICHAEL Administration Furosemide 20 mg 09/21/24 09:00 Furosemide 20 Mg Tablet PO BID MICHAEL Gabapentin 300 mg 09/20/24 19:50 09/22/24 12:39 Gabapentin 300 Mg Capsule PO 300 mg TID MICHAEL Administration Guaifenesin/Dextromethorphan 10 ml 09/20/24 05:57 09/22/24 09:57 Guaifenesin/Dextromethorphan 10 Ml Udc PO 10 ml Q4H PRN Administration Cough Ceftriaxone Sodium 1 gm in 50 mls @ 100 mls/hr 09/21/24 01:00 09/22/24 00:59 Rocephin 1 Gm/Ns 50 Ml IVPB 09/26/24 00:59 Infused Q24H MICHAEL Infusion Doxycycline Hyclate 100 mg in 100 mls @ 100 mls/hr 09/20/24 13:00 09/22/24 12:39 Vibramycin 100 Mg/Ns 100 Ml IVPB 100 mls/hr Q12H MICHAEL Administration Lisinopril 10 mg 09/20/24 21:00 09/22/24 09:56 Lisinopril 10 Mg Tablet PO 10 mg Q12HR MICHAEL Administration Melatonin 5 mg 09/20/24 05:57 09/20/24 22:48 Melatonin 5 Mg Tablet PO 5 mg HS PRN Administration Insomnia Metoprolol Tartrate 25 mg 09/20/24 21:00 09/22/24 09:56 Metoprolol Tartrate 25 Mg Tablet PO 25 mg Q12HR MICHAEL Administration Oseltamivir Phosphate 30 mg 09/20/24 21:00 09/22/24 09:56 Oseltamivir Phosphate 30 Mg Capsule PO 09/24/24 21:01 30 mg Q12HR MICHAEL Administration Perflutren Lipid Microsphere 0 ml 09/20/24 06:13 Perflutren Lipid Microspheres 1.5 Ml Vial Diluted To 10 Ml Total Volume IV PUSH 09/23/24 06:13 ONCE PRN adequate visualization Protocol Polyethylene Glycol 17 gm 09/20/24 05:57 Polyethylene Glycol 3350 17 Gm Powd.Pack PO QAM PRN Constipation Prochlorperazine Edisylate 10 mg 09/20/24 05:57 Prochlorperazine Edisylate 10 Mg/2 Ml Vial IV PUSH Q6H PRN Nausea And Vomiting Vitamin D 2,000 units 09/21/24 09:00 09/22/24 09:56 Cholecalciferol 1,000 Units Tablet PO 2,000 units DAILY MICHAEL Administration Radiology Results: ITS Impressions Chest X-Ray 09/19/24 20:17 IMPRESSION: Highly suggestive of pneumonitis more prominent in the right lower lobe. Chest CTA 09/20/24 08:54 IMPRESSION: 1. No pulmonary embolism. Sensitivity decreased in the smaller subsegmental pulmonary arteries due to primarily to respiratory motion and streak artifact. 2. Multifocal pneumonia throughout both lungs 3. Cardiomegaly with left atrial enlargement and change of prior coronary artery bypass grafting and aortic, mitral and tricuspid valve repairs. 4. Enlargement of the central pulmonary arteries consistent with pulmonary ar terial hypertension. 5. Multinodular goiter. 6. 3.6 cm right adrenal myelolipoma. Labs Labs: Laboratory Results - last 24 hr 09/22/24 04:15 WBC 11.9 H RBC 3.55 L Hgb 9.9 L Hct 32.6 L MCV 91.8 MCH 27.9 MCHC 30.4 L RDW 13.7 Plt Count 152 MPV 10.0 Immature Gran % (Auto) 1.1 H Neut % (Auto) 81.9 H Lymph % (Auto) 11.5 L [place] % (Auto) 4.9 Eos % (Auto) 0.4 Baso % (Auto) 0.2 Lymph # (Auto) 1.37 [place] # (Auto) 0.6 Eos # (Auto) 0.1 Baso # (Auto) 0.0 Abs Immat Gran (auto) 0.13 H Absolute Neuts (auto) 9.8 H Absolute Nucleated RBC 0.000 Nucleated RBC % 0.0 Sodium 134 L Potassium 3.9 Chloride 97 L Carbon Dioxide 31 H Anion Gap 6 BUN 32 H Creatinine 1.08 H Estim Creat Clear Calc 33 Estimated GFR 48 L Glucose 127 H Calcium 8.2 L Magnesium 1.8 Total Bilirubin 0.6 AST 26 ALT 13 Alkaline Phosphatase 64 Total Protein 6.0 L Albumin 2.4 L
[2024-09-22] MEDS: MELATONIN 5 MG TABLET PO (20:28)
[2024-09-22] MEDS: ACETAMINOPHEN 325 MG TABLET 650 MG PO (20:28)
[2024-09-23] VITALS (20 sets, daily range): BP systolic 99–120; BP diastolic 44–48; PULSE 69–99; RESP 18–20; TEMP 36.6–36.7; O2SAT 87–100
[2024-09-23] MEDS: DOXYCYCLINE 100 MG/NS 100 ML 100 MG/100 ML BAG IVPB ×2 (00:32→13:34)
[2024-09-23 05:02] LABS: Basophils Percent Auto 0.2 % (0.2-1.2); Eosinophils Absolute Auto 0.1 K/mm3 (0-0.3); Hematocrit 35.1 % (37.0-47.0); Hemoglobin 10.8 g/dL (12.0-15.0); Immature Granulocyte Absolute 0.16 K/mm3 (0.00-0.031); Immature Granulocyte Percent A 1.6 % (0-0.5); Lymphocytes Absolute Auto 1.31 K/mm3 (0.9-3.2); Lymphocytes Percent Auto 13.2 % (18.3-44.2); Mean Corpuscular HGB Conc 30.8 g/dl (32-36); Mean Corpuscular Hemoglobin 27.8 pg (26-34); Mean Corpuscular Volume 90.5 fl (80-100); Mean Platelet Volume 9.7 fl (7.4-10.4); Monocytes Absolute Auto 0.6 K/mm3 (0.1-0.6); Neutrophils Absolute Auto 7.7 K/mm3 (1.3-6.7); Platelet Count Result 155 k/mm3 (150-375); Red Blood Count 3.88 M/mm3 (4.2-5.4); Red Cell Distribution Width 13.7 % (11.5-14.5); White Blood Count 9.9 K/mm3 (4.5-10.0)
[2024-09-23 05:14] LABS: Alanine Aminotransferase 14 U/L (6-35); Albumin Level 2.5 g/dL (3.5-5.1); Alkaline Phosphatase 64 U/L (38-126); Anion Gap 6 mmol/L (4-12); Aspartate Amino Transferase 21 U/L (14-36); Bilirubin,Total 0.6 mg/dL (0.2-1.3); Blood Urea Nitrogen 37 mg/dL (7-17); Calcium 8.5 mg/dL (8.4-10.2); Carbon Dioxide 33 mmol/L (22-30); Chloride 96 mmol/L (98-107); Estimated CRCL calculation 37 ml/min; Estimated Glomerular Filt Rate 53; Glucose 99 mg/dL (65-110); Magnesium 1.6 mg/dL (1.6-2.3); Potassium 3.8 mmol/L (3.4-5.0); Sodium 135 mmol/L (137-145)
[2024-09-23] MEDS: ASPIRIN 81 MG ENTERIC TABLET PO (09:39)
[2024-09-23] MEDS: EZETIMIBE 10 MG TABLET PO (09:39)
[2024-09-23] MEDS: CHOLECALCIFEROL 1,000 UNITS TABLET 2000 UNITS PO (09:40)
[2024-09-23] MEDS: GABAPENTIN 300 MG CAPSULE PO ×2 (09:40→13:34)
[2024-09-23] MEDS: APIXABAN 5 MG TABLET PO (09:40)
[2024-09-23] MEDS: ATORVASTATIN 10 MG TABLET PO (09:40)
[2024-09-23] MEDS: OSELTAMIVIR PHOSPHATE 30 MG CAPSULE PO (09:40)
[2024-09-23] MEDS: METOPROLOL TARTRATE 25 MG TABLET PO (09:40)
[2024-09-23] MEDS: lisinopriL 10 MG TABLET PO (09:40)
--- NOTE | 2024-09-23 12:18 | P.PNCA_ITS ---
Progress Note: A&P Assessment and Plan (1) Persistent atrial fibrillation: Code(s): I48.19 - Other persistent atrial fibrillation Status: Acute (2) Status post placement of cardiac pacemaker: Code(s): Z95.0 - Presence of cardiac pacemaker Status: Acute (3) Acute on chronic diastolic heart failure: Code(s): I50.33 - Acute on chronic diastolic (congestive) heart failure Status: Acute (4) Elevated troponin: Code(s): R79.89 - Other specified abnormal findings of blood chemistry Status: Acute (5) CAD (coronary artery disease): Code(s): I25.10 - Atherosclerotic heart disease of [place] coronary artery without angina pectoris Status: Acute (6) Status post aortic valve replacement with bioprosthetic valve: Code(s): Z95.3 - Presence of xenogenic heart valve Status: Acute (7) Status post tricuspid valve repair: Code(s): Z98.890 - Other specified postprocedural states Status: Acute (8) Status post mitral valve repair: Code(s): Z98.890 - Other specified postprocedural states Status: Acute Plan Assessment: 1. Elevated troponin-without chest pain, most likely secondary to influenza a and acute on chronic heart failure 2. Acute on chronic diastolic heart failure secondary to severe TR, moderate MR, and possible stress of influenza A pneumonia-LVEF noted to be 55%, NT pro BNP 6640 3. Valvular heart disease-status post bioprosthetic aortic valve replacement for severe aortic stenosis, mitral valve repair for MR and tricuspid valve ring repair for TR; most recent echo with normal LVEF of 55%, moderate MR, severe TR, normal functioning bioprosthetic aortic valve with normal velocities 4. Persistent atrial fibrillation on apixaban for chronic anticoagulation 5. Status post Biotronik permanent pacemaker. She has been reporting dizziness and lightheadedness which could be secondary to her acute illness 6. CAD 7. Hypertension-controlled 8. Hyperlipidemia 9. History of PE 10. Obesity 11. Obstructive sleep apnea 12. Influenza a pneumonia 13. UTI 14. COPD Plan: Trend troponin to peak EKG p.r.n. for chest pain Lasix is currently on hold for unclear reasons (perhaps for increasing BUN?) , will resume home dose. Check weights, ins and outs, renal function daily and modify dose of diuretic Check and replace electrolytes as needed keeping potassium greater than 4 and magnesium greater than 2 TTE showed normal LV function Continue aspirin 81 mg daily, ezetimibe, and atorvastatin Continue metoprolol at home dose Continue apixaban for anticoagulation for AFib Management of influenza a pneumonia, UTI other medical problems per primary team Follow up with her established public speaking coach, Dr. Becerra within a couple of weeks of discharge Cardiology will sign off please call with questions Subjective Date/time seen: 09/23/24 12:18 Interval history: Cardiology follow up visit Feeling better today just wore out. No shortness of breath or chest pain. Review of Systems Review of Systems: A complete review of systems was performed and negative other than those mentioned HPI Exam Narrative: General: Alert oriented x3, no acute distress Neck: Supple, JVD + Chest: Bibasilar rales present, no rhonchi Cardiac: S1, S2 +, regular rate, regular rhythm, no murmurs or rubs Extremities: Bilateral lower extremity edema 3+, no skin rash Neurologic: Alert and oriented x3, no focal neurological deficits Objective Data Vital Signs Vital Signs: Vital Signs - 24 hr 09/22/24 14:00 09/22/24 16:00 09/22/24 16:00 Temperature 36.9 C Pulse Rate 69 69 Respiratory Rate 22 H Blood Pressure 104/73 Pulse Oximetry 95 95 Oxygen Delivery Nasal Cannula Oxygen Flow Rate 2 09/22/24 16:00 09/22/24 18:00 09/22/24 19:38 Temperature Pulse Rate 69 69 Respiratory Rate Blood Pressure Pulse Oximetry 95 Oxygen Delivery Nasal Cannula Oxygen Flow Rate 2 09/22/24 19:43 09/22/24 20:00 09/22/24 20:28 Temperature 36.6 C Pulse Rate 69 69 69 Respiratory Rate 16 Blood Pressure 111/40 L Pulse Oximetry 99 Oxygen Delivery Oxygen Flow Rate 09/22/24 22:00 09/22/24 22:10 09/22/24 23:14 Temperature 36.4 C Pulse Rate 69 74 69 Respiratory Rate 18 Blood Pressure 104/46 L Pulse Oximetry 93 97 Oxygen Delivery CPAP Oxygen Flow Rate 09/23/24 00:00 09/23/24 00:00 09/23/24 02:09 Temperature Pulse Rate 71 69 Respiratory Rate Blood Pressure Pulse Oximetry 95 Oxygen Delivery CPAP Oxygen Flow Rate 1 09/23/24 02:30 09/23/24 03:50 09/23/24 03:59 Temperature 36.6 C Pulse Rate 69 69 Respiratory Rate 18 Blood Pressure 120/44 L Pulse Oximetry 92 95 100 Oxygen Delivery CPAP Nasal Cannula Oxygen Flow Rate 2 09/23/24 04:00 09/23/24 06:00 09/23/24 08:00 Temperature Pulse Rate 69 69 Respiratory Rate Blood Pressure Pulse Oximetry 95 Oxygen Delivery Nasal Cannula Oxygen Flow Rate 2 09/23/24 08:00 09/23/24 08:09 09/23/24 09:40 Temperature 36.6 C Pulse Rate 69 69 70 Respiratory Rate 18 Blood Pressure 117/45 L Pulse Oximetry 94 Oxygen Delivery Oxygen Flow Rate 09/23/24 10:00 09/23/24 12:02 Temperature 36.6 C Pulse Rate 71 71 Respiratory Rate 18 Blood Pressure 111/48 L Pulse Oximetry 92 Oxygen Delivery Oxygen Flow Rate Intake/Output Intake/Output: Intake & Output 09/20/24 09/21/24 09/22/24 09/23/24 23:59 23:59 23:59 23:59 Intake Total 1640 1350 1650 670 Output Total 1100 100 700 Balance 1872 354 8883 -30 Meds/Results Medications: Active Medications Generic Name Dose Route Start Last Admin Trade Name Freq PRN Reason Stop Dose Admin Acetaminophen 650 mg 09/20/24 06:15 09/22/24 20:28 Acetaminophen 325 Mg Tablet PO 650 mg Q4H PRN Administration Mild Pain (1-3) or Fever Albuterol 1 puff 09/20/24 19:01 Albuterol Sulfate (*Sp) Aerosol 1 Puff INHALATION Q4H PRN Shortness Of Breath Or Wheezing Albuterol/Ipratropium 3 ml 09/20/24 05:57 Ipratropium 0.5 Mg/Albuterol Sulfate 2.5 Mg Ampul.Neb 3 Ml INHALATION Q4HRT PRN shortness of breath/Wheezing Apixaban 5 mg 09/20/24 21:00 09/23/24 09:40 Apixaban 5 Mg Tablet PO 5 mg Q12HR MICHAEL Administration Aspirin 81 mg 09/21/24 09:00 09/23/24 09:39 Aspirin 81 Mg Enteric Tablet PO 81 mg DAILY MICHAEL Administration Atorvastatin Calcium 10 mg 09/21/24 09:00 09/23/24 09:40 Atorvastatin 10 Mg Tablet PO 10 mg DAILY MICHAEL Administration Ezetimibe 10 mg 09/21/24 09:00 09/23/24 09:39 Ezetimibe 10 Mg Tablet PO 10 mg DAILY MICHAEL Administration Furosemide 40 mg 09/20/24 06:15 09/22/24 18:14 Furosemide Inj 40 Mg/4 Ml Vial IV PUSH 40 mg BID MICHAEL Administration Furosemide 20 mg 09/21/24 09:00 Furosemide 20 Mg Tablet PO BID MICHAEL Gabapentin 300 mg 09/20/24 19:50 09/23/24 09:40 Gabapentin 300 Mg Capsule PO 300 mg TID MICHAEL Administration Guaifenesin/Dextromethorphan 10 ml 09/20/24 05:57 09/22/24 09:57 Guaifenesin/Dextromethorphan 10 Ml Udc PO 10 ml Q4H PRN Administration Cough Ceftriaxone Sodium 1 gm in 50 mls @ 100 mls/hr 09/21/24 01:00 09/23/24 00:29 Rocephin 1 Gm/Ns 50 Ml IVPB 09/26/24 00:59 100 mls/hr Q24H MICHAEL Administration Doxycycline Hyclate 100 mg in 100 mls @ 100 mls/hr 09/20/24 13:00 09/23/24 00:32 Vibramycin 100 Mg/Ns 100 Ml IVPB 100 mls/hr Q12H MICHAEL Administration Lisinopril 10 mg 09/20/24 21:00 09/23/24 09:40 Lisinopril 10 Mg Tablet PO 10 mg Q12HR MICHAEL Administration Melatonin 5 mg 09/20/24 05:57 09/22/24 20:28 Melatonin 5 Mg Tablet PO 5 mg HS PRN Administration Insomnia Metoprolol Tartrate 25 mg 09/20/24 21:00 09/23/24 09:40 Metoprolol Tartrate 25 Mg Tablet PO 25 mg Q12HR MICHAEL Administration Oseltamivir Phosphate 30 mg 09/20/24 21:00 09/23/24 09:40 Oseltamivir Phosphate 30 Mg Capsule PO 09/24/24 21:01 30 mg Q12HR MICHAEL Administration Polyethylene Glycol 17 gm 09/20/24 05:57 Polyethylene Glycol 3350 17 Gm Powd.Pack PO QAM PRN Constipation Prochlorperazine Edisylate 10 mg 09/20/24 05:57 Prochlorperazine Edisylate 10 Mg/2 Ml Vial IV PUSH Q6H PRN Nausea And Vomiting Vitamin D 2,000 units 09/21/24 09:00 09/23/24 09:40 Cholecalciferol 1,000 Units Tablet PO 2,000 units DAILY MICHAEL Administration Radiology Results: ITS Impressions Chest X-Ray 09/19/24 20:17 IMPRESSION: Highly suggestive of pneumonitis more prominent in the right lower lobe. Chest CTA 09/20/24 08:54 IMPRESSION: 1. No pulmonary embolism. Sensitivity decreased in the smaller subsegmental pulmonary arteries due to primarily to respiratory motion and streak artifact. 2. Multifocal pneumonia throughout both lungs 3. Cardiomegaly with left atrial enlargement and change of prior coronary artery bypass grafting and aortic, mitral and tricuspid valve repairs. 4. Enlargement of the central pulmonary arteries consistent with pulmonary arterial hypertension. 5. Multinodular goiter. 6. 3.6 cm right adrenal myelolipoma. Labs Labs: Laboratory Results - last 24 hr 09/23/24 04:31 WBC 9.9 RBC 3.88 L Hgb 10.8 L Hct 35.1 L MCV 90.5 MCH 27.8 MCHC 30.8 L RDW 13.7 Plt Count 155 MPV 9.7 Immature Gran % (Auto) 1.6 H Neut % (Auto) 78.0 H Lymph % (Auto) 13.2 L [place] % (Auto) 6.0 Eos % (Auto) 1.0 Baso % (Auto) 0.2 Lymph # (Auto) 1.31 [place] # (Auto) 0.6 Eos # (Auto) 0.1 Baso # (Auto) 0.0 Abs Immat Gran (auto) 0.16 H Absolute Neuts (auto) 7.7 H Absolute Nucleated RBC 0.000 Nucleated RBC % 0.0 Sodium 135 L Potassium 3.8 Chloride 96 L Carbon Dioxide 33 H Anion Gap 6 BUN 37 H Creatinine 1.00 Estim Creat Clear Calc 37 Estimated GFR 53 L Glucose 99 Calcium 8.5 Magnesium 1.6 Total Bilirubin 0.6 AST 21 ALT 14 Alkaline Phosphatase 64 Total Protein 6.0 L Albumin 2.5 L
--- NOTE | 2024-09-23 14:27 | HOMEO2EVAL ---
Evaluation was performed at [facility] Home Oxygen Evaluation RC: Home Oxygen (O2) Evaluation Start: 09/23/24 12:10 Freq: ONCE Status: Active Protocol: RPE Activity Type Activity Date Activity User E-sign Co-sign Detail Recorded Client Recorded Date Recorded By Document 09/23/24 13:30 CIRILO [email or web address] 09/23/24 14:27 CIRILO Document 09/23/24 13:31 [email or web address] [email or web address] 09/23/24 14:27 CIRILO Document 09/23/24 13:32 [email or web address] [email or web address] 09/23/24 14:27 CIRILO Document 09/23/24 13:35 CIRILO [email or web address] 09/23/24 14:27 CIRILO Document 09/23/24 13:40 [email or web address] [email or web address] 09/23/24 14:27 CIRILO 09/23/24 09/23/24 09/23/24 13:30 13:31 13:32 Home O2 Evaluation [Oxygen] -Test Phase Resting Resting Resting -Oxygen Delivery Room Air Nasal Cannula Nasal Cannula -Oxygen Flow Rate (L/min) 1 2 [Pulse Oximetry] -Pulse Oximetry (90-100 %) 87 L 87 L 94 [Pulse Rate] -Pulse Rate (60-100 beats/min) 73 [Evaluation] -Activity Tolerance [Exercise] -Ambulation Distance (feet) -Ambulation Distance (meters) [Comments] -Home Oxygen Evaluation Comments [Charges] -Evaluation Charges O2 Evaluation by Pulmonary 09/23/24 09/23/24 13:35 13:40 Home O2 Evaluation [Oxygen] -Test Phase Exercise Resting -Oxygen Delivery Nasal Cannula Nasal Cannula -Oxygen Flow Rate (L/min) 2 [Pulse Oximetry] -Pulse Oximetry (90-100 %) 91 94 [Pulse Rate] -Pulse Rate (60-100 beats/min) 99 70 [Evaluation] -Activity Tolerance Fair [Exercise] -Ambulation Distance (feet) 50 -Ambulation Distance (meters) 15.23 [Comments] -Home Oxygen Evaluation Comments Pt requires 2 Liters home O2 at rest and with activity [Charges] -Evaluation Charges
--- NOTE | 2024-09-23 14:28 | PCRCNOTE ---
Home O2 eval done, requiring 2 l home O2 at rest and with activity. Eval was completed with OT. Pt having some difficulty ambulating with walker while managing O2 tubing. Her feet were getting tangled in tubing. As pt is new to using walker and home O2, this may put her at risk for falls once independent in home. RN notified, will hold on O2 set up until D/C destination is finalized
--- NOTE | 2024-09-23 15:55 | PM.DS ---
DS: Admitting Diagnosis Discharge Date 09/23/24 Admitting Diagnosis Shortness of breath DS: Discharge Diagnosis Discharge Diagnosis (1) Influenza A: Code(s): J10.1 - Influenza due to other identified influenza virus with other respiratory manifestations Status: Acute (2) Pneumonia: Code(s): J18.9 - Pneumonia, unspecified organism Status: Acute DS: Summary Hospital Course Hospital Course: Patient presented with worsening cough and is found to have Influenza A and being treated with Tamiflu, upon arrival patient tropes were elevated seen by cardiology suspect demand ischemia due to Infuenza A and and acute on chronic congestive heart failure. 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 Time Spent with Patient Time attestation: Total time spent providing and/or coordinating discharge services: DS: Data Data Completed and Pending Labs on day of discharge: Labs from last 24 hours 09/23/24 04:31 WBC 9.9 RBC 3.88 L Hgb 10.8 L Hct 35.1 L MCV 90.5 MCH 27.8 MCHC 30.8 L RDW 13.7 Plt Count 155 MPV 9.7 Immature Gran % (Auto) 1.6 H Neut % (Auto) 78.0 H Lymph % (Auto) 13.2 L [place] % (Auto) 6.0 Eos % (Auto) 1.0 Baso % (Auto) 0.2 Lymph # (Auto) 1.31 [place] # (Auto) 0.6 Eos # (Auto) 0.1 Baso # (Auto) 0.0 Abs Immat Gran (auto) 0.16 H Absolute Neuts (auto) 7.7 H Absolute Nucleated RBC 0.000 Nucleated RBC % 0.0 Sodium 135 L Potassium 3.8 Chloride 96 L Carbon Dioxide 33 H Anion Gap 6 BUN 37 H Creatinine 1.00 Estim Creat Clear Calc 37 Estimated GFR 53 L Glucose 99 Calcium 8.5 Magnesium 1.6 Total Bilirubin 0.6 AST 21 ALT 14 Alkaline Phosphatase 64 Total Protein 6.0 L Albumin 2.5 L Preliminary micro results at discharge 09/20/24 00:06 Blood Culture - Preliminary Blood 09/20/24 00:19 Blood Culture - Preliminary Blood Discharge Plan Discharge Attending physician on discharge: Immanuel Redmond Consulting providers: Concetta Chilel; Napoleon Coyne; Jose F Weir; Precious Douglas; Sol Joseph; Israel Del Angel; Brad Lucero Discharging Clinician: Bonnie Corbett Patient Disposition: Home Health Service Activity: as tolerated Diet: heart healthy Discharge Instructions: Per Care Coordination. Patient to have [facility] for RN/PT/OT eval and treat [phone]. They will contact patient to schedule first visit. 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 Patient Instructions: Antibiotic Form, Heart Failure (GEN), Using Oxygen at Home (DC) Patient Language: [place] Island[place] Stand Alone Forms: General Discharge Information Follow-up/Referrals: Jose Alberto,Michael Ware MD [Primary Care Provider] - Precious Douglas MD [Physician] - Discharge Medications: New dextromethorphan-guaifenesin 10-100 mg/5 mL Syrup 10 ml PO Q4H PRN (Reason: Cough) Qty: 237 0RF furosemide 20 mg Tablet 20 mg PO BID Qty: 60 0RF melatonin 5 mg Tablet 5 mg PO HS PRN (Reason: Insomnia) Qty: 30 0RF polyethylene glycol 3350 [Miralax] 17 gram Powder In Packet 17 g PO QAM PRN (Reason: Constipation) Qty: 14 0RF oseltamivir [Tamiflu] 30 mg capsule 30 mg PO Q12H 2 Days Qty: 3 0RF Continued gabapentin 300 mg capsule 300 mg PO Q12H atorvastatin 10 mg tablet 10 mg PO DAILY aspirin [Adult Low Dose Aspirin] 81 mg Tablet,Delayed Release (Dr/Ec) 81 mg PO DAILY ezetimibe 10 mg tablet 10 mg PO DAILY metoprolol tartrate 25 mg tablet 25 mg PO DAILY Eliquis 5 mg tablet 5 mg PO DAILY ProAir RespiClick 90 mcg/actuation aerosol powdr breath activated 1 inh INHALATION Q4H PRN (Reason: Shortness Of Breath Or Wheezing) cholecalciferol (vitamin D3) 50 mcg (2,000 unit) capsule 50 mcg PO DAILY lisinopril 10 mg tablet 10 mg PO DAILY Discontinued furosemide 20 mg tablet 20 mg PO DAILY Date of admission: 09/20/24 12:43 Primary Care Provider: Jose Alberto,Michael Ware Admitting Provider: Immanuel Redmond Attending physician on admission: Bonnie Corbett Condition: Stable
--- NOTE | 2024-09-23 16:03 | PCRCNOTE ---
Will arrange home O2 set up with [facility]. Tank in room for transport home.
== END 2024-09-23 16:55 | disposition home health service (06) | DRG 193 ==
LOC: ANHED 09-20 03:03 → ANHIMU 09-20 04:32
PROVIDERS: Emergency Medicine; Admitting Provider Internal Medicine; Emergency Provider Registered Nurse; PCP Internal Medicine; Visit Provider Family Medicine
DX: J10.1 Influenza due to other identified influenza virus with other respiratory manifestations (principal); I50.33 Acute on chronic diastolic (congestive) heart failure; I48.19 Other persistent atrial fibrillation; N39.0 Urinary tract infection, site not specified; J44.0 Chronic obstructive pulmonary disease with (acute) lower respiratory infection; I24.89 Other forms of acute ischemic heart disease; J18.9 Pneumonia, unspecified organism; E78.5 Hyperlipidemia, unspecified; E66.9 Obesity, unspecified; G47.33 Obstructive sleep apnea (adult) (pediatric); G62.9 Polyneuropathy, unspecified; I25.10 Atherosclerotic heart disease of native coronary artery without angina pectoris; I11.0 Hypertensive heart disease with heart failure; Z95.0 Presence of cardiac pacemaker; Z79.01 Long term (current) use of anticoagulants; Z79.82 Long term (current) use of aspirin; Z20.822 Contact with and (suspected) exposure to COVID-19; Z90.49 Acquired absence of other specified parts of digestive tract; Z95.3 Presence of xenogenic heart valve; Z86.711 Personal history of pulmonary embolism
CPT/HCPCS: 36415; 71045; 71275; 80048; 80053; 81001; 83605; 83735; 83880; 84484; 85025; 85380; 85610; 85730; 87040; 87086; 87637; 93005; 93306; 94618; 94640; 96361; 96365; 96368; 96375; 97110; 97162; 97165; 97530; 97535; 99285; A9270; G0378; J0456; J0696; J1644; J1940; J3475; J7030; Q9967